=== PATIENT | female | born 1970 | race African-American/Black ===

== ENCOUNTER → 2017-01-22 | Outpatient (CLI) | payer BC ==
[~2017-01-22] MED LIST: ALPR0.5T PO; BIOT10004 PO; CLON0.1T PO; DILT240C59 PO; NEPVITT PO; OMEP20CA5 PO; [UNRECOGNIZED DRUG - CODE] IV; [UNRECOGNIZED DRUG - CODE] PO
[2017-01-22 17:22] LABS: Urine Bilirubin Negative (Negative); Urine Blood Negative /uL (Negative); Urine Color Yellow (Yellow); Urine Glucose Normal (Normal); Urine Ketone Negative (Negative); Urine Nitrite Negative (Negative); Urine RBC 5 /hpf (0 - 4); Urine Squamous Epithelial Cell FEW /hpf (<5); Urine Urobilinogen Normal (Negative); Urine pH 5.5 (5.0-8.0)
[2017-01-22 17:23] LABS: Albumin 3.5 g/dL (3.4-5.0); BUN/Creatinine Ratio 12.7; Bilirubin, Total 0.4 mg/dL (0.2-1.0); Calcium 9.1 mg/dL (8.5-10.1); Potassium 3.6 mmol/L (3.5-5.1); Total Protein 7.8 g/dL (6.4-8.2)
[2017-01-22 17:26] LABS: Basophils # (auto) 0.1 uL; Basophils % (auto) 0.9 % (0.0-2.0); DEFINITIVE VIEW TRANSMISSION; Eosinophils # (auto) 0.3 uL; Eosinophils % (auto) 4.3 % (0.0-7.0); Hematocrit 43.5 % (36.0-46.0); Hemoglobin 14.3 g/dL (12.2-16.2); Lymphocytes # (auto) 1.2 uL; Lymphocytes % (auto) 18.3 % (10.0-50.0); Mean Corpuscular Hemoglobin 25.6 pg (28.0-32.0); Mean Corpuscular Hgb Conc. 32.8 g/dL (32.0-36.0); Mean Corpuscular Volume 78.1 fL (80.0-100.0); Mean Platelet Volume 10.1 fL (7.4-10.4); Monocytes # (auto) 0.9 uL; Neutrophils % (auto) 62.5 % (37.0-80.0); Platelet Count (auto) 315 10^3/uL (140-450); Red Cell Distribution Width 14.8 % (11.6-16.0); SUSPECT VIEW TRANSMISSION; White Blood Cell 6.4 10^3/uL (4.4-10.8)
== END | disposition home or self-care (01) ==
LOC: LAB 16:48
PROVIDERS: ATTEND Internal Medicine
DX: N28.9 Disorder of kidney and ureter, unspecified (principal); D69.6 Thrombocytopenia, unspecified
CPT/HCPCS: 36415; 80053; 81001; 83615; 85025

== ENCOUNTER → 2017-03-06 | Outpatient (CLI) | payer BC ==
[2017-03-06 12:33] LABS: Basophils # (auto) 0 uL; Basophils % (auto) 0.5 % (0.0-2.0); DEFINITIVE VIEW TRANSMISSION; Eosinophils # (auto) 0.2 uL; Eosinophils % (auto) 4.7 % (0.0-7.0); Hematocrit 41.5 % (36.0-46.0); Hemoglobin 13.3 g/dL (12.2-16.2); Lymphocytes # (auto) 0.9 uL; Mean Corpuscular Hgb Conc. 32.1 g/dL (32.0-36.0); Mean Corpuscular Volume 74.9 fL (80.0-100.0); Mean Platelet Volume 9.6 fL (7.4-10.4); Monocytes # (auto) 0.8 uL; Monocytes % (auto) 14.8 % (0.0-12.0); Neutrophils # (auto) 3.3 uL; Platelet Count (auto) 326 10^3/uL (140-450); Red Cell Distribution Width 15.1 % (11.6-16.0); White Blood Cell 5.2 10^3/uL (4.4-10.8)
[2017-03-06 12:51] LABS: Cholesterol 162 mg/dL (< 200); HDL Cholesterol 28 mg/dL (40-59); LDL Cholesterol 113 mg/dL (< 100); Triglycerides 162 mg/dL (< 150)
== END | disposition home or self-care (01) ==
LOC: LAB 11:36
DX: E09.2 Drug or chemical induced diabetes mellitus with kidney complications (principal); D72.822 Plasmacytosis
CPT/HCPCS: 36415; 80061; 83036; 84443; 85025

== ENCOUNTER → 2017-04-02 | Outpatient (CLI) | payer BC ==
[2017-04-02 13:52] LABS: Basophils # (auto) 0 uL; Basophils % (auto) 0.2 % (0.0-2.0); DEFINITIVE VIEW TRANSMISSION; Eosinophils # (auto) 0.3 uL; Eosinophils % (auto) 5.6 % (0.0-7.0); Hematocrit 43.9 % (36.0-46.0); Hemoglobin 13.9 g/dL (12.2-16.2); Lymphocytes # (auto) 0.9 uL; Lymphocytes % (auto) 16.9 % (10.0-50.0); Mean Corpuscular Hemoglobin 23.5 pg (28.0-32.0); Mean Corpuscular Hgb Conc. 31.6 g/dL (32.0-36.0); Mean Corpuscular Volume 74.3 fL (80.0-100.0); Mean Platelet Volume 10.2 fL (7.4-10.4); Monocytes # (auto) 0.6 uL; Monocytes % (auto) 10.5 % (0.0-12.0); Neutrophils # (auto) 3.7 uL; Neutrophils % (auto) 66.8 % (37.0-80.0); Platelet Count (auto) 368 10^3/uL (140-450); Red Cell Distribution Width 16.1 % (11.6-16.0); SUSPECT VIEW TRANSMISSION; White Blood Cell 5.5 10^3/uL (4.4-10.8)
[2017-04-02 14:05] LABS: Albumin 3.5 g/dL (3.4-5.0); BUN/Creatinine Ratio 16.5; Bilirubin, Total 0.4 mg/dL (0.2-1.0); Calcium 8.8 mg/dL (8.5-10.1); Potassium 3.9 mmol/L (3.5-5.1); Total Protein 8.3 g/dL (6.4-8.2)
== END | disposition home or self-care (01) ==
LOC: LAB 12:22
PROVIDERS: ATTEND Internal Medicine
DX: D69.6 Thrombocytopenia, unspecified (principal); N28.9 Disorder of kidney and ureter, unspecified
CPT/HCPCS: 36415; 80053; 83615; 85025

== ENCOUNTER → 2017-07-01 | Outpatient (CLI) | payer BC ==
[~2017-07-01] MED LIST changes: -OMEP20CA5 PO; +OMEP20CA74 PO
[2017-07-01 12:45] LABS: CONDITION Y; DEFINITIVE SEE PRINTOUT; Hematocrit 46.2 % (36.0-46.0); Hemoglobin 14.9 g/dL (12.2-16.2); Mean Corpuscular Hemoglobin 24.2 pg (28.0-32.0); Mean Corpuscular Hgb Conc. 32.2 g/dL (32.0-36.0); Mean Corpuscular Volume 75.2 fL (80.0-100.0); Platelet Count (auto) 340 10^3/uL (140-450); Red Cell Distribution Width 18.7 % (11.6-16.0); White Blood Cell 3.6 10^3/uL (4.4-10.8)
[2017-07-01 13:05] LABS: Urine Bilirubin Negative (Negative); Urine Blood Negative /uL (Negative); Urine Color Yellow (Yellow); Urine Glucose Normal (Normal); Urine Ketone Negative (Negative); Urine Mucus FEW (None Seen); Urine Nitrite Negative (Negative); Urine RBC 1 /hpf (0 - 4); Urine Squamous Epithelial Cell FEW /hpf (<5); Urine Urobilinogen Normal (Negative); Urine pH 5.5 (5.0-8.0)
[2017-07-01 13:10] LABS: Metamyelocytes % 0; Myelocytes % 0; Promyelocytes % 0; Reactive Lymphocytes 0
[2017-07-01 13:13] LABS: Albumin 3.6 g/dL (3.4-5.0); BUN/Creatinine Ratio 10.5; Bilirubin, Total 0.5 mg/dL (0.2-1.0); Potassium 3.6 mmol/L (3.5-5.1); Total Protein 8.2 g/dL (6.4-8.2)
[2017-07-01 14:47] LABS: Platelet Estimate Adequate
[2017-07-01 14:48] LABS: Hypochromia Moderate; Microcytosis Moderate
== END | disposition home or self-care (01) ==
LOC: LAB 11:54
PROVIDERS: ATTEND Internal Medicine
DX: D69.6 Thrombocytopenia, unspecified (principal); N28.9 Disorder of kidney and ureter, unspecified
CPT/HCPCS: 36415; 80053; 81001; 83615; 85007; 85027

== ENCOUNTER 2017-07-16 23:19 | Inpatient (IN) | payer BC ==
[~2017-07-16] VITALS: Ht 175.3 cm; Wt 117.7 kg
[2017-07-16 23:44] LABS: Basophils # (auto) 0 uL; Basophils % (auto) 0.3 % (0.0-2.0); CONDITION Y; DEFINITIVE SEE PRINTOUT; Eosinophils # (auto) 0.1 uL; Hematocrit 44.1 % (36.0-46.0); Hemoglobin 14.3 g/dL (12.2-16.2); Lymphocytes # (auto) 1.2 uL; Lymphocytes % (auto) 15.7 % (10.0-50.0); Mean Corpuscular Hemoglobin 23.9 pg (28.0-32.0); Mean Corpuscular Hgb Conc. 32.4 g/dL (32.0-36.0); Mean Corpuscular Volume 73.7 fL (80.0-100.0); Monocytes # (auto) 0.9 uL; Monocytes % (auto) 12.6 % (0.0-12.0); Neutrophils # (auto) 5.2 uL; Neutrophils % (auto) 70.4 % (37.0-80.0); Platelet Count (auto) 240 10^3/uL (140-450); Red Cell Distribution Width 17.3 % (11.6-16.0); White Blood Cell 7.4 10^3/uL (4.4-10.8)
[2017-07-16] MEDS ORDERED: ONDANSETRON HCL 4 MG/2 ML VIAL IV ONE (23:45)
[2017-07-16] MEDS ORDERED: HYDROmorphone HCL 2 MG/ML VL IV ONE (23:45)
[2017-07-17 00:01] LABS: Albumin 3.5 g/dL (3.4-5.0); Amylase 24 U/L (25-115); Anion Gap 10 (5-15); BUN/Creatinine Ratio 16.2; Blood Urea Nitrogen 12 mg/dL (7-18); Calcium 8.6 mg/dL (8.5-10.1); Carbon Dioxide 24 mmol/L (21-32); Chloride 107 mmol/L (98-107); GFR African American 108 mL/min; GFR Non-African American 89 mL/min; Glucose 128 mg/dL (74-106); Magnesium 2.2 mg/dL (1.6-2.6); Potassium 3.1 mmol/L (3.5-5.1); Sodium 141 mmol/L (136-145)
[2017-07-17 00:30] LABS: INR 0.97 (0.9-1.15); Partial Thromboplastin Time 23.8 sec (22.64-33.71); Prothrombin Time 10.6 sec (9.37-12.3)
[2017-07-17 00:40] LABS: Alkaline Phosphatase 89 U/L (45-117); Aspartate Aminotransferase 16 U/L (15-37); Bilirubin, Total 0.4 mg/dL (0.2-1.0); Total Protein 7.5 g/dL (6.4-8.2)
[2017-07-17] MEDS ORDERED: HYDROmorphone HCL 2 MG/ML VL IV ONE ×2 (01:45→04:15)
[2017-07-17] MEDS ORDERED: SODIUM CHLORIDE 0.9% 1,000 ML IV SCH (05:41)
[2017-07-17] MEDS ORDERED: ALPRAZolam 0.5 MG TAB PO PRN (05:45)
[2017-07-17] MEDS ORDERED: cloNIDine HCL 0.1 MG TAB PO PRN (05:45)
[2017-07-17] MEDS ORDERED: ONDANSETRON HCL 4 MG/2 ML VIAL IV PRN (05:45)
[2017-07-17] MEDS ORDERED: SODIUM CHLORIDE 0.9% 1,000 ML IV ONE (05:45)
[2017-07-17] MEDS ORDERED: POTASSIUM CHL 10% (20 MEQ/15ML) ORAL SOLN PO ONE (05:45)
[2017-07-17 08:00] VITALS: BP 108/66
[2017-07-17] MEDS ORDERED: BIOTIN 1000 MCG PO SCH (10:00)
[2017-07-17] MEDS: DILTIAZEM HCL 180MG ER CAP PO SCH (10:00)
[2017-07-17] MEDS: BIOTIN 1000 MCG PO SCH (10:00)
[2017-07-17] MEDS ORDERED: PRE1T PO (12:21)
[2017-07-17] MEDS ORDERED: MULTTAB99 PO (12:21)
[2017-07-17] MEDS ORDERED: ASPI81TA27 PO (12:21)
[2017-07-17] MEDS ORDERED: DILT180C68 PO (12:21)
[2017-07-17] MEDS ORDERED: HYDR-2651 PO (12:21)
[2017-07-17] MEDS ORDERED: IOHEXOL 300 MG/ML 100ML BOTTLE IJ ONE (15:10)
[2017-07-17] MEDS: methylPREDNISolone SOD SUCC 40 MG/ML VL IV SCH ×2 (15:20→21:52)
[2017-07-17] MEDS: HYDROmorphone HCL 2 MG/ML VL IV PRN ×2 (15:24→22:10)
[2017-07-17 17:20] VITALS: BP 110/71
[2017-07-17 21:20] VITALS: BP 127/81
[2017-07-18 03:36] LABS: Urine Bilirubin Negative (Negative); Urine Blood TRACE /uL (Negative); Urine Color Yellow (Yellow); Urine Glucose Normal (Normal); Urine Ketone Negative (Negative); Urine Nitrite Negative (Negative); Urine RBC <1 /hpf (0 - 4); Urine Squamous Epithelial Cell FEW /hpf (<5); Urine Urobilinogen Normal (Negative); Urine pH 5.5 (5.0-8.0)
[2017-07-18 05:09] VITALS: BP 155/96
[2017-07-18] MEDS: methylPREDNISolone SOD SUCC 40 MG/ML VL IV SCH ×3 (05:31→22:13)
[2017-07-18] MEDS: HYDROmorphone HCL 2 MG/ML VL IV PRN ×4 (05:32→22:13)
[2017-07-18] MEDS ORDERED: HYDR25TA4 PO (06:10)
[2017-07-18] MEDS ORDERED: CLON0.1T PO (06:10)
[2017-07-18 06:18] LABS: Basophils # (auto) 0 uL; Basophils % (auto) 0.1 % (0.0-2.0); CONDITION Y; DEFINITIVE SEE PRINTOUT; Eosinophils # (auto) 0 uL; Hematocrit 44.1 % (36.0-46.0); Hemoglobin 14.1 g/dL (12.2-16.2); Lymphocytes # (auto) 0.6 uL; Lymphocytes % (auto) 11.7 % (10.0-50.0); Mean Corpuscular Volume 74.7 fL (80.0-100.0); Mean Platelet Volume 10.5 fL (7.4-10.4); Monocytes # (auto) 0.2 uL; Monocytes % (auto) 3.9 % (0.0-12.0); Neutrophils # (auto) 4.3 uL; Neutrophils % (auto) 84.3 % (37.0-80.0); Platelet Count (auto) 255 10^3/uL (140-450); Red Cell Distribution Width 17.7 % (11.6-16.0); SUSPECT SEE PRINTOUT; White Blood Cell 5.1 10^3/uL (4.4-10.8)
[2017-07-18 06:44] LABS: Albumin 3.3 g/dL (3.4-5.0); BUN/Creatinine Ratio 14.1; Bilirubin, Total 0.4 mg/dL (0.2-1.0); Potassium 4.2 mmol/L (3.5-5.1); Total Protein 7.7 g/dL (6.4-8.2)
[2017-07-18 07:24] LABS: Large Platelets FEW; Platelet Estimate Adequate
[2017-07-18 07:25] LABS: Hypochromia Slight
[2017-07-18 08:00] VITALS: BP 159/86
[2017-07-18] MEDS ORDERED: LORazepam 2MG/ML-1ML VIAL IV ONE (08:15)
[2017-07-18 09:00] VITALS: BP 159/86
[2017-07-18] MEDS: BIOTIN 1000 MCG PO SCH (10:00)
[2017-07-18] MEDS: DILTIAZEM HCL 180MG ER CAP PO SCH (11:13)
[2017-07-18] MEDS: PANTOPRAZOLE 40 MG TAB PO SCH (11:14)
[2017-07-18] MEDS ORDERED: cloNIDine HCL 0.1 MG TAB PO PRN (11:45)
[2017-07-18] MEDS ORDERED: HCTZ 25 MG TAB PO ONE (11:45)
[2017-07-18 12:00] VITALS: BP 157/78
[2017-07-18 16:43] VITALS: BP 139/66
[2017-07-18 22:00] VITALS: BP 136/72
[2017-07-19] MEDS: HYDROmorphone HCL 2 MG/ML VL IV PRN ×2 (04:52→13:34)
[2017-07-19 05:00] VITALS: BP 167/83
[2017-07-19 06:02] LABS: Basophils # (auto) 0 uL; CONDITION Y; DEFINITIVE SEE PRINTOUT; Eosinophils # (auto) 0 uL; Hematocrit 42.7 % (36.0-46.0); Hemoglobin 13.8 g/dL (12.2-16.2); Mean Corpuscular Hemoglobin 23.9 pg (28.0-32.0); Mean Corpuscular Hgb Conc. 32.2 g/dL (32.0-36.0); Mean Corpuscular Volume 74.2 fL (80.0-100.0); Mean Platelet Volume 10.2 fL (7.4-10.4); Monocytes # (auto) 0.6 uL; Monocytes % (auto) 8.6 % (0.0-12.0); Neutrophils # (auto) 5.2 uL; Neutrophils % (auto) 76.4 % (37.0-80.0); Platelet Count (auto) 256 10^3/uL (140-450); Red Cell Distribution Width 17.4 % (11.6-16.0); SUSPECT SEE PRINTOUT; White Blood Cell 6.8 10^3/uL (4.4-10.8)
[2017-07-19] MEDS: methylPREDNISolone SOD SUCC 40 MG/ML VL IV SCH ×3 (06:14→22:00)
[2017-07-19 06:15] LABS: BUN/Creatinine Ratio 14.8; Calcium 8.6 mg/dL (8.5-10.1); Potassium 3.9 mmol/L (3.5-5.1)
[2017-07-19] MEDS: DILTIAZEM HCL 180MG ER CAP PO SCH (07:25)
[2017-07-19 07:43] VITALS: BP 140/71
[2017-07-19] MEDS: BIOTIN 1000 MCG PO SCH (09:58)
[2017-07-19] MEDS: PANTOPRAZOLE 40 MG TAB PO SCH (09:58)
[2017-07-19] MEDS: HCTZ 25 MG TAB PO SCH (09:58)
[2017-07-19] MEDS ORDERED: ATROPINE SULF 0.5 MG/5ML SYR IV ONE (11:30)
[2017-07-19 12:00] VITALS: BP 178/96
[2017-07-19] MEDS: LORazepam 2MG/ML-1ML VIAL IV PRN ×2 (12:12→22:08)
[2017-07-19] MEDS ORDERED: amLODIPine BESYLATE 5 MG TAB PO ONE (15:45)
[2017-07-19 16:03] VITALS: BP 151/87
[2017-07-19 19:53] VITALS: BP 135/82
[2017-07-19 20:00] VITALS: BP 135/82
[2017-07-19] MEDS: HYDROcodone-ACET 5/325MG TAB PO PRN (22:08)
[2017-07-20 00:09] VITALS: BP 152/81
[2017-07-20 04:09] VITALS: BP 135/73
[2017-07-20] MEDS: methylPREDNISolone SOD SUCC 40 MG/ML VL IV SCH (06:00)
[2017-07-20 08:00] VITALS: BP 165/108
[2017-07-20] MEDS: BIOTIN 1000 MCG PO SCH (10:00)
[2017-07-20] MEDS ORDERED: amLODIPine BESYLATE 5 MG TAB PO SCH (10:00)
[2017-07-20] MEDS: HCTZ 25 MG TAB PO SCH (10:17)
[2017-07-20] MEDS: PANTOPRAZOLE 40 MG TAB PO SCH (10:18)
[2017-07-20] MEDS: HYDROcodone-ACET 5/325MG TAB PO PRN (11:05)
[2017-07-20 11:18] VITALS: BP 149/101
[2017-07-20 12:00] VITALS: BP 140/88
== END 2017-07-20 13:38 | disposition home or self-care (01) | DRG 841 ==
LOC: ER 23:19 → OVERFLOW 23:20 → WEST WING 07-17 08:41 → DOU IN ICU 07-19 12:30
PROVIDERS: ADMIT Family Medicine; ATTEND Family Medicine
DX: D47.Z2 Castleman disease (principal); I44.2 Atrioventricular block, complete; M35.00 Sjogren syndrome, unspecified; I10 Essential (primary) hypertension; K29.70 Gastritis, unspecified, without bleeding; N83.209 Unspecified ovarian cyst, unspecified side; R74.8 Abnormal levels of other serum enzymes; F41.9 Anxiety disorder, unspecified; R00.1 Bradycardia, unspecified; E66.9 Obesity, unspecified; Z80.8 Family history of malignant neoplasm of other organs or systems; Z82.49 Family history of ischemic heart disease and other diseases of the circulatory system; Z92.21 Personal history of antineoplastic chemotherapy; Z88.6 Allergy status to analgesic agent; Z88.0 Allergy status to penicillin; Z79.899 Other long term (current) drug therapy; Z98.51 Tubal ligation status; Z68.38 Body mass index [BMI] 38.0-38.9, adult
CPT/HCPCS: 36415; 71250; 71260; 74176; 74177; 76856; 78226; 80048; 80053; 81001; 82150; 82670; 83001; 83002; 83690; 83735; 84484; 84702; 85025; 85610; 85652; 85730; 86141; 86304; 87081; 93005; 96374; 96375; 96376; J0461; J2405

== ENCOUNTER → 2017-10-02 | Outpatient (CLI) | payer BC ==
[~2017-10-02] MED LIST changes: -ALPR0.5T PO; +ASPI81TA27 PO; +DILT180C68 PO; -DILT240C59 PO; +HYDR25TA4 PO; +MULTTAB99 PO; -NEPVITT PO; -OMEP20CA74 PO; +PRE1T PO; -[UNRECOGNIZED DRUG - CODE] IV
[2017-10-02 15:06] LABS: Basophils # (auto) 0 uL; Basophils % (auto) 0.6 % (0.0-2.0); Eosinophils # (auto) 0.2 uL; Nucleated Red Blood Cells % 0.1 %
[2017-10-02 15:09] LABS: Eosinophils % (auto) 2.6 % (0.0-7.0); Hematocrit 44.5 % (36.0-46.0); Hemoglobin 14.6 g/dL (12.2-16.2); Lymphocytes # (auto) 1.2 uL; Lymphocytes % (auto) 18.1 % (10.0-50.0); Mean Corpuscular Hemoglobin 24.3 pg (28.0-32.0); Mean Corpuscular Hgb Conc. 32.9 g/dL (32.0-36.0); Mean Corpuscular Volume 73.7 fL (80.0-100.0); Monocytes % (auto) 14.7 % (0.0-12.0); Neutrophils # (auto) 4.3 uL; Platelet Count (auto) 138 10^3/uL (140-450); Red Blood Cells 6.03 10^6/uL (4.0-5.20); Red Cell Distribution Width 17.4 % (11.8-14.3); White Blood Cell 6.6 10^3/uL (4.4-10.8)
[2017-10-02 16:11] LABS: Leuteinizing Hormone 12.1 IU/L; Protein, Urine 20.9 mg/dL (0.0-11.9)
[2017-10-02 16:12] LABS: Follicle Stimulating Hormone 4.8 IU/L (SEE BELOW)
== END | disposition home or self-care (01) ==
LOC: LAB 14:16
PROVIDERS: ATTEND Obstetrics & Gynecology
DX: N28.9 Disorder of kidney and ureter, unspecified (principal); E09.2 Drug or chemical induced diabetes mellitus with kidney complications; N95.1 Menopausal and female climacteric states; D69.6 Thrombocytopenia, unspecified
CPT/HCPCS: 36415; 82570; 82670; 83001; 83002; 83615; 84156; 84403; 84443; 85025

== ENCOUNTER 2017-12-06 15:51 | Inpatient (IN) | payer BC ==
[~2017-12-06] VITALS: Ht 175.3 cm; Wt 113.4 kg
[2017-12-06 16:24] LABS: Eosinophils # (auto) 0.3 uL; Hemoglobin 12.3 g/dL (12.2-16.2); Neutrophils # (auto) 6.8 uL; Nucleated Red Blood Cells % 0.1 %; White Blood Cell 9.7 10^3/uL (4.4-10.8)
[2017-12-06 16:26] LABS: Basophils # (auto) 0.1 uL; Basophils % (auto) 0.6 % (0.0-2.0); Eosinophils % (auto) 2.7 % (0.0-7.0); Hematocrit 38.4 % (36.0-46.0); Lymphocytes # (auto) 1.7 uL; Mean Corpuscular Hemoglobin 23.6 pg (28.0-32.0); Mean Corpuscular Volume 73.8 fL (80.0-100.0); Monocytes % (auto) 10.1 % (0.0-12.0); Neutrophils % (auto) 69.6 % (37.0-80.0); Platelet Count (auto) 199 10^3/uL (140-450); Red Cell Distribution Width 18.7 % (11.8-14.3)
[2017-12-06 16:36] LABS: Albumin 3.7 g/dL (3.4-5.0); Bilirubin, Total 0.5 mg/dL (0.2-1.0); Calcium 8.9 mg/dL (8.5-10.1); Potassium 3.7 mmol/L (3.5-5.1); Total Protein 8.3 g/dL (6.4-8.2)
[2017-12-06] MEDS ORDERED: DEXAMETHASONE SOD PHOS 4 MG/1ML SDV INJ IV ONE (16:45)
[2017-12-06] MEDS ORDERED: PROMETHAZINE HCL 25 MG/ML 1ML IV PRN (16:45)
[2017-12-06] MEDS ORDERED: MEPERIDINE HCL (50 MG/ML) 1 ML VIAL IV ONE (16:45)
[2017-12-06 16:53] LABS: Magnesium 2.3 mg/dL (1.6-2.6)
[2017-12-06 18:08] LABS: Beta HCG, Quantitative < 1 mlU/mL (1-3); Thyroid Stimulating Hormone 2.08 uIU/mL (0.358-3.74)
[2017-12-06] MEDS ORDERED: MEPERIDINE HCL (50 MG/ML) 1 ML VIAL IM ONE (19:00)
[2017-12-06 19:40] VITALS: BP 121/72
== END 2017-12-06 20:27 | disposition home or self-care (01) | DRG 841 ==
LOC: ER 16:08 → TELE 16:09
PROVIDERS: ADMIT Nurse Practitioner; ATTEND Nurse Practitioner
DX: D47.Z2 Castleman disease (principal); J98.11 Atelectasis; I10 Essential (primary) hypertension; K40.90 Unilateral inguinal hernia, without obstruction or gangrene, not specified as recurrent; K42.9 Umbilical hernia without obstruction or gangrene; Z82.49 Family history of ischemic heart disease and other diseases of the circulatory system
CPT/HCPCS: 36415; 71046; 74176; 80053; 83690; 83735; 84443; 84702; 85025; 96374; 96375; J1100

== ENCOUNTER → 2017-12-10 | Outpatient (CLI) | payer BC ==
[~2017-12-10] MED LIST changes: +AMLO10TA2 PO; +OMEP20CA74 PO; +PRE5T PO; +SPECTAB57 PO
[2017-12-10 17:15] LABS: Albumin 3.7 g/dL (3.4-5.0); BUN/Creatinine Ratio 15.6; Calcium 8.9 mg/dL (8.5-10.1); Potassium 3.6 mmol/L (3.5-5.1)
[2017-12-10 17:18] LABS: Bilirubin, Total 0.4 mg/dL (0.2-1.0); Eosinophils # (auto) 0.1 uL; Monocytes # (auto) 1.1 uL; Neutrophils # (auto) 14.1 uL; Red Cell Distribution Width 18.7 % (11.8-14.3); Total Protein 8.6 g/dL (6.4-8.2)
[2017-12-10 17:20] LABS: Basophils # (auto) 0 uL; Basophils % (auto) 0.3 % (0.0-2.0); Eosinophils % (auto) 0.6 % (0.0-7.0); Hematocrit 41.3 % (36.0-46.0); Hemoglobin 13.1 g/dL (12.2-16.2); Lymphocytes # (auto) 1.5 uL; Lymphocytes % (auto) 8.9 % (10.0-50.0); Mean Corpuscular Hemoglobin 23.5 pg (28.0-32.0); Mean Corpuscular Hgb Conc. 31.8 g/dL (32.0-36.0); Mean Corpuscular Volume 73.9 fL (80.0-100.0); Monocytes % (auto) 6.5 % (0.0-12.0); Neutrophils % (auto) 83.7 % (37.0-80.0); Nucleated Red Blood Cells % 0.2 %; Platelet Count (auto) 257 10^3/uL (140-450); Red Blood Cells 5.59 10^6/uL (4.0-5.20); White Blood Cell 16.8 10^3/uL (4.4-10.8)
== END | disposition home or self-care (01) ==
LOC: LAB 16:36
PROVIDERS: ATTEND Internal Medicine
DX: D72.822 Plasmacytosis (principal)
CPT/HCPCS: 36415; 80053; 85025

== ENCOUNTER 2018-01-20 09:13 | Inpatient (IN) | payer BC ==
[~2018-01-20] VITALS: Ht 175.3 cm; Wt 101.2 kg
[~2018-01-20 09:13] MED LIST changes: -AMLO10TA2 PO; -OMEP20CA74 PO; -PRE5T PO; -SPECTAB57 PO
[2018-01-20] MEDS ORDERED: SODIUM CHLORIDE 0.9% 1,000 ML IV SCH (11:00)
[2018-01-20] MEDS ORDERED: OSELTAMIVIR 75 MG CAP PO ONE (11:00)
[2018-01-20] MEDS ORDERED: methylPREDNISolone SOD SUCC 40 MG/ML VL IV ONE (11:00)
[2018-01-20] MEDS ORDERED: PANTOPRAZOLE 40 MG/10 ML VIAL IV ONE (11:00)
[2018-01-20] MEDS ORDERED: ACETAMINOPHEN 500 MG TAB PO PRN (11:00)
[2018-01-20] MEDS ORDERED: cefTRIAXone 1GM/10ml IVPUSH 10 ML IV ONE (11:00)
[2018-01-20] MEDS ORDERED: AZITHROMYCIN 500MG/ 250ML 250 ML IV ONE (11:00)
[2018-01-20] MEDS ORDERED: AMLO10TA2 PO (11:30)
[2018-01-20] MEDS ORDERED: OMEP20CA74 PO (11:30)
[2018-01-20] MEDS ORDERED: PRE5T PO (11:30)
[2018-01-20] MEDS ORDERED: SPECTAB57 PO (11:31)
[2018-01-20] MEDS: KETOROLAC TROMETH 30 MG/ML 1ML VIAL IV PRN ×2 (11:32→18:27)
[2018-01-20] MEDS: ONDANSETRON HCL 4 MG/2 ML VIAL IV PRN ×2 (11:34→18:27)
[2018-01-20 12:00] LABS: Basophils # (auto) 0.1 uL; Basophils % (auto) 0.5 % (0.0-2.0); Eosinophils # (auto) 0.1 uL; Eosinophils % (auto) 0.4 % (0.0-7.0); Hematocrit 37.9 % (36.0-46.0); Hemoglobin 11.9 g/dL (12.2-16.2); Lymphocytes # (auto) 1.4 uL; Lymphocytes % (auto) 8.9 % (10.0-50.0); Mean Corpuscular Hemoglobin 21.8 pg (28.0-32.0); Mean Corpuscular Hgb Conc. 31.4 g/dL (32.0-36.0); Mean Corpuscular Volume 69.6 fL (80.0-100.0); Monocytes # (auto) 1.6 uL; Monocytes % (auto) 10.1 % (0.0-12.0); Neutrophils # (auto) 12.9 uL; Neutrophils % (auto) 80.1 % (37.0-80.0); Nucleated Red Blood Cells % 0.1 %; Platelet Count (auto) 266 10^3/uL (140-450); Red Blood Cells 5.45 10^6/uL (4.0-5.20); Red Cell Distribution Width 18.4 % (11.8-14.3); White Blood Cell 16.1 10^3/uL (4.4-10.8)
[2018-01-20 12:14] LABS: INR 1.02 (0.9-1.15); Partial Thromboplastin Time 23.7 sec (22.64-33.71); Prothrombin Time 11.1 sec (9.37-12.3)
[2018-01-20 12:39] LABS: Albumin 2.4 g/dL (3.4-5.0); BUN/Creatinine Ratio 11.4; Bilirubin, Total 0.5 mg/dL (0.2-1.0); Calcium 8.3 mg/dL (8.5-10.1); Potassium 3.2 mmol/L (3.5-5.1); Total Protein 7.6 g/dL (6.4-8.2)
[2018-01-20 13:00] VITALS: BP 105/58
[2018-01-20 16:30] VITALS: BP 101/56
[2018-01-20] MEDS ORDERED: POTASSIUM CHL 20 Meq TABLET PO ONE (16:30)
[2018-01-20] MEDS: OSELTAMIVIR 75 MG CAP PO SCH (21:25)
[2018-01-20 21:48] VITALS: BP 118/80
[2018-01-20 23:11] LABS: Urine Amorphous Crystal FEW /hpf (None Seen); Urine Bacteria FEW /hpf (None Seen); Urine Blood Negative /uL (Negative); Urine Hyaline Cast MOD /lpf (0 - 2); Urine Mucus FEW (None Seen); Urine Specific Gravity 1.021 (1.001-1.035); Urine WBC 1 /hpf (0 - 5)
[2018-01-21] VITALS (7 sets, daily range): BP systolic 112–122; BP diastolic 68–81
[2018-01-21] MEDS: KETOROLAC TROMETH 30 MG/ML 1ML VIAL IV PRN ×3 (01:31→17:23)
[2018-01-21] MEDS: predniSONE 5 MG TAB PO SCH (10:00)
[2018-01-21] MEDS ORDERED: methylPREDNISolone SOD SUCC 40 MG/ML VL IV ONE (10:00)
[2018-01-21] MEDS ORDERED: PANTOPRAZOLE 40 MG TAB PO SCH (10:00)
[2018-01-21] MEDS ORDERED: PANTOPRAZOLE 40 MG/10 ML VIAL IV SCH (10:00)
[2018-01-21] MEDS: OSELTAMIVIR 75 MG CAP PO SCH ×2 (10:00→20:59)
[2018-01-21] MEDS: cefTRIAXone 1GM/10ml IVPUSH 10 ML IV SCH (10:03)
[2018-01-21] MEDS: AZITHROMYCIN 500MG/ 250ML 250 ML IV SCH (10:05)
[2018-01-21] MEDS: ONDANSETRON HCL 4 MG/2 ML VIAL IV PRN (10:25)
[2018-01-21] MEDS ORDERED: PANTOPRAZOLE 40 MG TAB PO ONE (10:30)
[2018-01-22 04:33] VITALS: BP 130/88
[2018-01-22 07:05] LABS: Basophils # (auto) 0 uL; Basophils % (auto) 0.2 % (0.0-2.0); Eosinophils # (auto) 0 uL; Hemoglobin 11.2 g/dL (12.2-16.2); Red Blood Cells 5.09 10^6/uL (4.0-5.20)
[2018-01-22 07:10] LABS: Eosinophils % (auto) 0.1 % (0.0-7.0); Hematocrit 35.6 % (36.0-46.0); Lymphocytes # (auto) 1.4 uL; Lymphocytes % (auto) 5.9 % (10.0-50.0); Mean Corpuscular Hemoglobin 22.1 pg (28.0-32.0); Mean Corpuscular Hgb Conc. 31.5 g/dL (32.0-36.0); Mean Corpuscular Volume 70.1 fL (80.0-100.0); Monocytes # (auto) 1.6 uL; Monocytes % (auto) 6.6 % (0.0-12.0); Neutrophils # (auto) 21.3 uL; Neutrophils % (auto) 87.2 % (37.0-80.0); Nucleated Red Blood Cells % 0.1 %; Platelet Count (auto) 205 10^3/uL (140-450); Red Cell Distribution Width 18.6 % (11.8-14.3); White Blood Cell 24.4 10^3/uL (4.4-10.8)
[2018-01-22 07:11] LABS: BUN/Creatinine Ratio 13.8; Calcium 8.3 mg/dL (8.5-10.1); Magnesium 2.8 mg/dL (1.6-2.6); Potassium 4.1 mmol/L (3.5-5.1)
[2018-01-22 08:00] VITALS: BP 125/71
[2018-01-22] MEDS: ONDANSETRON HCL 4 MG/2 ML VIAL IV PRN (09:12)
[2018-01-22] MEDS: cefTRIAXone 1GM/10ml IVPUSH 10 ML IV SCH (09:42)
[2018-01-22] MEDS: PANTOPRAZOLE 40 MG TAB PO SCH (10:01)
[2018-01-22] MEDS: AZITHROMYCIN 500MG/ 250ML 250 ML IV SCH (10:01)
[2018-01-22] MEDS: predniSONE 5 MG TAB PO SCH (10:01)
[2018-01-22] MEDS: SODIUM CHLORIDE 0.9% 1,000 ML IV SCH ×2 (10:02→23:05)
[2018-01-22 12:08] VITALS: BP 104/64
[2018-01-22] MEDS: HYDROcodone-ACET 5/325MG TAB PO PRN (12:47)
[2018-01-22 18:00] VITALS: BP 121/78
[2018-01-22 21:30] VITALS: BP 126/77
[2018-01-23 05:00] VITALS: BP 120/76
[2018-01-23 07:26] LABS: Hematocrit 34.9 % (36.0-46.0); Hemoglobin 10.9 g/dL (12.2-16.2); Mean Corpuscular Hgb Conc. 31.3 g/dL (32.0-36.0); Mean Corpuscular Volume 70.1 fL (80.0-100.0); Platelet Count (auto) 222 10^3/uL (140-450); Red Blood Cells 4.98 10^6/uL (4.0-5.20); Red Cell Distribution Width 18.9 % (11.8-14.3); White Blood Cell 20.9 10^3/uL (4.4-10.8)
[2018-01-23 07:39] LABS: BUN/Creatinine Ratio 17.6; Potassium 3.7 mmol/L (3.5-5.1)
[2018-01-23 07:44] LABS: Basophils % (manual) 0 (0.0-2.0); Blast Cells 0; Eosinophils % (manual) 0 (0-7); Metamyelocytes % 0; Myelocytes % 0; Promyelocytes % 0; Reactive Lymphocytes 0
[2018-01-23 08:00] VITALS: BP 98/57
[2018-01-23 08:12] LABS: Band Neutrophils % (manual) 2; Lymphocytes % (manual) 2 (10.0-50.0); Monocytes % (manual) 12 (0-12)
[2018-01-23 09:00] VITALS: BP 98/57
[2018-01-23] MEDS: cefTRIAXone 1GM/10ml IVPUSH 10 ML IV SCH (09:00)
[2018-01-23] MEDS: AZITHROMYCIN 500MG/ 250ML 250 ML IV SCH (10:00)
[2018-01-23] MEDS: HYDROcodone-ACET 5/325MG TAB PO PRN (10:35)
[2018-01-23] MEDS: predniSONE 5 MG TAB PO SCH (10:36)
[2018-01-23] MEDS: PANTOPRAZOLE 40 MG TAB PO SCH (10:36)
[2018-01-23] MEDS ORDERED: DOXYCYCLINE 100 MG TAB/CAP PO ONE (10:45)
[2018-01-23] MEDS: SODIUM CHLORIDE 0.9% 1,000 ML IV SCH (12:25)
[2018-01-23 13:00] VITALS: BP 103/62
[2018-01-23 13:40] VITALS: BP 98/57
== END 2018-01-23 14:34 | disposition home or self-care (01) | DRG 871 ==
LOC: TELE-CENTR 09:13 → CENTRAL 01-23
PROVIDERS: ADMIT Internal Medicine; ATTEND Internal Medicine
DX: A41.2 Sepsis due to unspecified staphylococcus (principal); J15.211 Pneumonia due to Methicillin susceptible Staphylococcus aureus; N17.0 Acute kidney failure with tubular necrosis; D47.Z2 Castleman disease; E86.0 Dehydration; E66.9 Obesity, unspecified; I10 Essential (primary) hypertension; Z88.0 Allergy status to penicillin; Z88.5 Allergy status to narcotic agent
CPT/HCPCS: 36415; 71046; 80048; 80053; 81001; 83735; 85007; 85025; 85027; 85610; 85730; 87040; 87070; 87077; 87186; 87205; 87804; C9113; J1885; J2405

== ENCOUNTER 2018-01-25 06:09 | Inpatient (IN) | payer BC ==
[~2018-01-25] VITALS: Ht 175.3 cm; Wt 114.7 kg
[~2018-01-25 06:09] MED LIST changes: +AMLO10TA2 PO; -ASPI81TA27 PO; -BIOT10004 PO; -CLON0.1T PO; -DILT180C68 PO; -MULTTAB99 PO; +OMEP20CA74 PO; -PRE1T PO; +PRE5T PO; +SPECTAB57 PO
[2018-01-25 07:04] LABS: Hemoglobin 12.1 g/dL (12.2-16.2); Mean Corpuscular Hemoglobin 21.9 pg (28.0-32.0); Mean Corpuscular Volume 70.4 fL (80.0-100.0); Platelet Count (auto) 260 10^3/uL (140-450); Red Blood Cells 5.53 10^6/uL (4.0-5.20); Red Cell Distribution Width 18.9 % (11.8-14.3)
[2018-01-25 07:08] LABS: Basophils % (manual) 0 (0.0-2.0); Blast Cells 0; Eosinophils % (manual) 0 (0-7); Metamyelocytes % 0; Myelocytes % 0; Promyelocytes % 0; Reactive Lymphocytes 0
[2018-01-25] MEDS ORDERED: SODIUM CHLORIDE 0.9% 1,000 ML IVB ONE (07:32)
[2018-01-25 07:37] LABS: Albumin 2.2 g/dL (3.4-5.0); Anion Gap 8 (5-15); Blood Urea Nitrogen 13 mg/dL (7-18); Calcium 8.2 mg/dL (8.5-10.1); Carbon Dioxide 26 mmol/L (21-32); Chloride 106 mmol/L (98-107); Glucose 84 mg/dL (74-106); Lipase 82 U/L (73-393); Magnesium 1.7 mg/dL (1.6-2.6); Potassium 3.9 mmol/L (3.5-5.1); Sodium 140 mmol/L (136-145)
[2018-01-25 07:39] LABS: Alanine Aminotransferase 13 U/L (13-56); Amylase 31 U/L (25-115); Aspartate Aminotransferase 22 U/L (15-37); GFR African American 70 mL/min; GFR Non-African American 58 mL/min
[2018-01-25 07:45] LABS: Alkaline Phosphatase 206 U/L (45-117); Bilirubin, Total 0.4 mg/dL (0.2-1.0)
[2018-01-25] MEDS ORDERED: MEPERIDINE HCL (50 MG/ML) 1 ML VIAL IV ONE (07:45)
[2018-01-25 07:54] LABS: Band Neutrophils % (manual) 3; Lymphocytes % (manual) 12 (10.0-50.0); Monocytes % (manual) 8 (0-12)
[2018-01-25] MEDS: PROMETHAZINE HCL 25 MG/ML 1ML IV PRN ×4 (08:10→21:47)
[2018-01-25] MEDS ORDERED: ceFAZolin 1GM 2 GM in D5W 5% 100 ML IV ONE (09:15)
[2018-01-25] MEDS ORDERED: methylPREDNISolone SOD SUCC 40 MG/ML VL IV SCH (10:00)
[2018-01-25] MEDS ORDERED: metroNIDAZOLE 500 MG TAB PO ONE (10:00)
[2018-01-25] MEDS ORDERED: MORPHINE SULFATE 4 MG/ML SYR/VIAL IV PRN (11:00)
[2018-01-25] MEDS ORDERED: ALBUTEROL SULF 2.5 MG/0.5ML(0.5%) NEB SOLN NEB PRN (11:00)
[2018-01-25] MEDS ORDERED: LEVOFLOXACIN 500MG 100 ML IV ONE (11:00)
[2018-01-25] MEDS ORDERED: TEMAZEPAM 15 MG CAP PO PRN (11:00)
[2018-01-25] MEDS ORDERED: LORazepam 0.5 MG TAB PO PRN (11:00)
[2018-01-25] MEDS ORDERED: LACTULOSE 20Gm/30ML SOLN PO PRN (11:00)
[2018-01-25] MEDS ORDERED: NITROGLYCERIN 0.4 MG SL TAB SL PRN (11:00)
[2018-01-25] MEDS: SODIUM CHLORIDE 0.9% 1,000 ML IV SCH ×2 (11:06→16:00)
[2018-01-25] MEDS ORDERED: PANTOPRAZOLE 40 MG TAB PO ONE (11:15)
[2018-01-25] MEDS: ALBUTEROL SULF 2.5 MG/0.5ML(0.5%) NEB SOLN NEB SCH ×2 (11:15→18:55)
[2018-01-25] MEDS ORDERED: ENOXAPARIN SOD 40 MG/0.4 ML SYRINGE SC ONE (11:15)
[2018-01-25] MEDS: ceFAZolin 1GM/50ML 50 ML IV SCH ×2 (13:19→21:19)
[2018-01-25] MEDS: HYDROcodone-ACET 5/325MG TAB PO PRN (13:39)
[2018-01-25 13:57] VITALS: BP 142/92
[2018-01-25 16:00] VITALS: BP 153/90
[2018-01-25] MEDS: MORPHINE SULFATE 4 MG/ML SYR/VIAL IV PRN (17:48)
[2018-01-25] MEDS: ACETAMINOPHEN 500 MG TAB PO PRN (21:18)
[2018-01-25] MEDS: metroNIDAZOLE 500 MG TAB PO SCH (21:45)
[2018-01-25 22:02] VITALS: BP 148/86
[2018-01-26] VITALS (7 sets, daily range): BP systolic 137–147; BP diastolic 81–89
[2018-01-26] MEDS: MORPHINE SULFATE 4 MG/ML SYR/VIAL IV PRN ×4 (02:04→23:26)
[2018-01-26] MEDS: PROMETHAZINE HCL 25 MG/ML 1ML IV PRN ×4 (02:04→23:27)
[2018-01-26] MEDS: metroNIDAZOLE 500 MG TAB PO SCH (05:24)
[2018-01-26] MEDS: ceFAZolin 1GM/50ML 50 ML IV SCH ×3 (05:25→21:38)
[2018-01-26] MEDS: SODIUM CHLORIDE 0.9% 1,000 ML IV SCH (05:31)
[2018-01-26 07:06] LABS: Basophils # (auto) 0.1 uL; Basophils % (auto) 0.3 % (0.0-2.0); Eosinophils # (auto) 0 uL
[2018-01-26 07:09] LABS: Hematocrit 32.3 % (36.0-46.0); Hemoglobin 10.1 g/dL (12.2-16.2); Lymphocytes # (auto) 1.5 uL; Mean Corpuscular Hemoglobin 21.6 pg (28.0-32.0); Mean Corpuscular Hgb Conc. 31.4 g/dL (32.0-36.0); Mean Corpuscular Volume 68.8 fL (80.0-100.0); Monocytes # (auto) 1.6 uL; Monocytes % (auto) 6.3 % (0.0-12.0); Neutrophils # (auto) 22.6 uL; Neutrophils % (auto) 87.4 % (37.0-80.0); Nucleated Red Blood Cells % 0.1 %; Platelet Count (auto) 218 10^3/uL (140-450); Red Blood Cells 4.69 10^6/uL (4.0-5.20); Red Cell Distribution Width 18.9 % (11.8-14.3); White Blood Cell 25.9 10^3/uL (4.4-10.8)
[2018-01-26 07:28] LABS: Calcium 7.9 mg/dL (8.5-10.1); Potassium 4.1 mmol/L (3.5-5.1)
[2018-01-26 07:31] LABS: Albumin 1.9 g/dL (3.4-5.0); BUN/Creatinine Ratio 14.1
[2018-01-26 07:34] LABS: Bilirubin, Total 0.3 mg/dL (0.2-1.0); Total Protein 6.4 g/dL (6.4-8.2)
[2018-01-26] MEDS ORDERED: FUROSEMIDE 20 MG/2 ML VIAL IV ONE (10:00)
[2018-01-26] MEDS ORDERED: ENOXAPARIN SOD 40 MG/0.4 ML SYRINGE SC SCH (10:00)
[2018-01-26] MEDS ORDERED: methylPREDNISolone SOD SUCC 40 MG/ML VL IV ONE (11:00)
[2018-01-26] MEDS: LEVOFLOXACIN 500MG 100 ML IV SCH (11:26)
[2018-01-26] MEDS: PANTOPRAZOLE 40 MG TAB PO SCH (11:26)
[2018-01-26 11:32] LABS: Urine Bacteria NONE SEEN /hpf (None Seen); Urine Blood Negative /uL (Negative); Urine Mucus FEW (None Seen); Urine Specific Gravity 1.016 (1.001-1.035); Urine WBC 2 /hpf (0 - 5)
[2018-01-26] MEDS ORDERED: BUMETANIDE (0.25MG/ML) 4 ML VIAL IV ONE (12:00)
[2018-01-26] MEDS ORDERED: BUMETANIDE (0.25 MG/ML) INJ 10ML IV ONE (13:00)
[2018-01-26] MEDS: methylPREDNISolone SOD SUCC 40 MG/ML VL IV SCH (21:39)
[2018-01-27] VITALS (8 sets, daily range): BP systolic 138–156; BP diastolic 83–93
[2018-01-27] MEDS: ceFAZolin 1GM/50ML 50 ML IV SCH ×3 (05:43→21:50)
[2018-01-27 05:57] LABS: Hematocrit 35.1 % (36.0-46.0); Hemoglobin 11.1 g/dL (12.2-16.2); Mean Corpuscular Hemoglobin 21.9 pg (28.0-32.0); Mean Corpuscular Hgb Conc. 31.6 g/dL (32.0-36.0); Mean Corpuscular Volume 69.3 fL (80.0-100.0); Platelet Count (auto) 183 10^3/uL (140-450); Red Blood Cells 5.07 10^6/uL (4.0-5.20); Red Cell Distribution Width 18.9 % (11.8-14.3)
[2018-01-27 06:07] LABS: BUN/Creatinine Ratio 14.4; Potassium 4.4 mmol/L (3.5-5.1)
[2018-01-27 06:10] LABS: White Blood Cell 31.4 10^3/uL (4.4-10.8)
[2018-01-27 06:12] LABS: Basophils % (manual) 0 (0.0-2.0); Blast Cells 0; Eosinophils % (manual) 0 (0-7); Metamyelocytes % 0; Myelocytes % 0; Promyelocytes % 0
[2018-01-27 06:34] LABS: Band Neutrophils % (manual) 4; Lymphocytes % (manual) 7 (10.0-50.0); Monocytes % (manual) 7 (0-12); Reactive Lymphocytes 1
[2018-01-27] MEDS ORDERED: POTASSIUM CHL 20 Meq TABLET PO ONE (09:45)
[2018-01-27] MEDS ORDERED: BUMETANIDE (0.25 MG/ML) INJ 10ML IV ONE (10:15)
[2018-01-27] MEDS: PANTOPRAZOLE 40 MG TAB PO SCH (11:46)
[2018-01-27] MEDS: methylPREDNISolone SOD SUCC 40 MG/ML VL IV SCH ×2 (11:46→21:50)
[2018-01-27] MEDS: LEVOFLOXACIN 500MG 100 ML IV SCH (11:46)
[2018-01-27] MEDS: PROMETHAZINE HCL 25 MG/ML 1ML IV PRN (12:15)
[2018-01-27] MEDS: HYDROcodone-ACET 5/325MG TAB PO PRN (13:46)
[2018-01-28] VITALS (7 sets, daily range): BP systolic 127–147; BP diastolic 76–91
[2018-01-28] MEDS: MORPHINE SULFATE 4 MG/ML SYR/VIAL IV PRN ×2 (00:26→22:01)
[2018-01-28] MEDS: ceFAZolin 1GM/50ML 50 ML IV SCH ×3 (05:51→22:01)
[2018-01-28 05:58] LABS: Eosinophils # (auto) 0 uL; Hemoglobin 10.9 g/dL (12.2-16.2); Lymphocytes # (auto) 1.5 uL; Lymphocytes % (auto) 5.2 % (10.0-50.0); Nucleated Red Blood Cells % 0.1 %
[2018-01-28 06:00] LABS: Basophils # (auto) 0.2 uL; Basophils % (auto) 0.5 % (0.0-2.0); Hematocrit 34.8 % (36.0-46.0); Mean Corpuscular Hemoglobin 21.7 pg (28.0-32.0); Mean Corpuscular Hgb Conc. 31.4 g/dL (32.0-36.0); Mean Corpuscular Volume 68.9 fL (80.0-100.0); Monocytes # (auto) 1.2 uL; Neutrophils # (auto) 26.5 uL; Neutrophils % (auto) 90.3 % (37.0-80.0); Platelet Count (auto) 209 10^3/uL (140-450); Red Blood Cells 5.05 10^6/uL (4.0-5.20); White Blood Cell 29.4 10^3/uL (4.4-10.8)
[2018-01-28 06:08] LABS: BUN/Creatinine Ratio 17.2; Calcium 8.4 mg/dL (8.5-10.1); Potassium 4.2 mmol/L (3.5-5.1)
[2018-01-28] MEDS ORDERED: POTASSIUM CHL 20 Meq TABLET PO ONE (10:15)
[2018-01-28] MEDS ORDERED: FLUCONAZOLE 100 MG TAB PO ONE (10:15)
[2018-01-28] MEDS ORDERED: BUMETANIDE (0.25MG/ML) 4 ML VIAL IV ONE (10:15)
[2018-01-28] MEDS: LEVOFLOXACIN 500MG 100 ML IV SCH (10:17)
[2018-01-28] MEDS: PANTOPRAZOLE 40 MG TAB PO SCH (10:18)
[2018-01-28] MEDS ORDERED: BUMETANIDE INJECTION 10 ML ONE (12:33)
[2018-01-29 05:00] VITALS: BP 124/86
[2018-01-29 05:38] LABS: Hemoglobin 10.7 g/dL (12.2-16.2)
[2018-01-29 05:40] LABS: Hematocrit 34.7 % (36.0-46.0); Mean Corpuscular Hemoglobin 21.6 pg (28.0-32.0); Mean Corpuscular Hgb Conc. 30.9 g/dL (32.0-36.0); Mean Corpuscular Volume 69.9 fL (80.0-100.0); Platelet Count (auto) 191 10^3/uL (140-450); Red Blood Cells 4.96 10^6/uL (4.0-5.20); Red Cell Distribution Width 19.5 % (11.8-14.3); White Blood Cell 21.5 10^3/uL (4.4-10.8)
[2018-01-29 05:59] LABS: Basophils % (manual) 0 (0.0-2.0); Eosinophils % (manual) 0 (0-7)
[2018-01-29] MEDS: ceFAZolin 1GM/50ML 50 ML IV SCH ×3 (05:59→21:37)
[2018-01-29 06:00] LABS: Blast Cells 0; Metamyelocytes % 0; Myelocytes % 0; Promyelocytes % 0; Reactive Lymphocytes 0
[2018-01-29 06:05] LABS: Calcium 8.1 mg/dL (8.5-10.1); Potassium 3.8 mmol/L (3.5-5.1)
[2018-01-29 06:44] LABS: Band Neutrophils % (manual) 4; Lymphocytes % (manual) 15 (10.0-50.0); Monocytes % (manual) 5 (0-12)
[2018-01-29 09:00] VITALS: BP_SYST 102; BP_SYST 125; BP_DIAS 77; BP_DIAS 94
[2018-01-29] MEDS: LEVOFLOXACIN 500MG 100 ML IV SCH (09:33)
[2018-01-29] MEDS: PANTOPRAZOLE 40 MG TAB PO SCH (09:33)
[2018-01-29] MEDS: FLUCONAZOLE 100 MG TAB PO SCH (09:34)
[2018-01-29] MEDS: predniSONE 20 MG TAB PO SCH (09:34)
[2018-01-29] MEDS ORDERED: BUMETANIDE (0.25MG/ML) 4 ML VIAL IV ONE (10:00)
[2018-01-29] MEDS ORDERED: POTASSIUM CHL 20 Meq TABLET PO ONE (10:00)
[2018-01-29] MEDS: MORPHINE SULFATE 4 MG/ML SYR/VIAL IV PRN ×2 (11:38→17:46)
[2018-01-29 12:07] VITALS: BP 129/74
[2018-01-29 17:00] VITALS: BP 129/88
[2018-01-29] MEDS: PROMETHAZINE HCL 25 MG/ML 1ML IV PRN (17:46)
[2018-01-29] MEDS: ACETAMINOPHEN 500 MG TAB PO PRN (21:24)
[2018-01-29 22:00] VITALS: BP 142/87
[2018-01-30 05:00] VITALS: BP 136/87
[2018-01-30] MEDS: ceFAZolin 1GM/50ML 50 ML IV SCH ×3 (05:50→22:30)
[2018-01-30 08:00] LABS: Hematocrit 33.6 % (36.0-46.0); Hemoglobin 10.4 g/dL (12.2-16.2); Mean Corpuscular Hemoglobin 21.2 pg (28.0-32.0); Mean Corpuscular Volume 68.5 fL (80.0-100.0); Platelet Count (auto) 218 10^3/uL (140-450); Red Blood Cells 4.91 10^6/uL (4.0-5.20); Red Cell Distribution Width 19.4 % (11.8-14.3); White Blood Cell 20.2 10^3/uL (4.4-10.8)
[2018-01-30] MEDS: PRO-STAT 64 30ML PO SCH ×3 (08:00→18:00)
[2018-01-30 08:05] LABS: Basophils % (manual) 0 (0.0-2.0); Blast Cells 0; Metamyelocytes % 0; Myelocytes % 0; Promyelocytes % 0; Reactive Lymphocytes 0
[2018-01-30 08:11] LABS: BUN/Creatinine Ratio 18.4; Bilirubin, Total 0.3 mg/dL (0.2-1.0); Calcium 8.4 mg/dL (8.5-10.1); Potassium 3.8 mmol/L (3.5-5.1); Total Protein 6.4 g/dL (6.4-8.2)
[2018-01-30 09:00] VITALS: BP 133/90
[2018-01-30 09:09] LABS: Band Neutrophils % (manual) 6; Eosinophils % (manual) 1 (0-7); Lymphocytes % (manual) 8 (10.0-50.0); Monocytes % (manual) 3 (0-12)
[2018-01-30] MEDS: predniSONE 20 MG TAB PO SCH (09:48)
[2018-01-30] MEDS: FLUCONAZOLE 100 MG TAB PO SCH (09:48)
[2018-01-30] MEDS: PANTOPRAZOLE 40 MG TAB PO SCH (09:48)
[2018-01-30 12:27] VITALS: BP 129/74
[2018-01-30 13:00] VITALS: BP 130/77
[2018-01-30] MEDS: PROMETHAZINE HCL 25 MG/ML 1ML IV PRN (15:37)
[2018-01-30] MEDS: MORPHINE SULFATE 4 MG/ML SYR/VIAL IV PRN (15:37)
[2018-01-30 17:00] VITALS: BP 151/85
[2018-01-30 21:43] VITALS: BP 142/88
[2018-01-31] MEDS: ACETAMINOPHEN 500 MG TAB PO PRN (00:43)
[2018-01-31 04:36] VITALS: BP 120/74
[2018-01-31 05:46] LABS: Red Cell Distribution Width 19.4 % (11.8-14.3)
[2018-01-31 05:48] LABS: Hematocrit 32.7 % (36.0-46.0); Hemoglobin 10.4 g/dL (12.2-16.2); Mean Corpuscular Hemoglobin 21.7 pg (28.0-32.0); Mean Corpuscular Hgb Conc. 31.7 g/dL (32.0-36.0); Mean Corpuscular Volume 68.6 fL (80.0-100.0); Platelet Count (auto) 221 10^3/uL (140-450); Red Blood Cells 4.77 10^6/uL (4.0-5.20); White Blood Cell 20.8 10^3/uL (4.4-10.8)
[2018-01-31] MEDS: ceFAZolin 1GM/50ML 50 ML IV SCH (05:55)
[2018-01-31 05:56] LABS: Basophils % (manual) 0 (0.0-2.0); Blast Cells 0; Eosinophils % (manual) 0 (0-7); Metamyelocytes % 0; Myelocytes % 0; Promyelocytes % 0; Reactive Lymphocytes 0
[2018-01-31 06:09] LABS: Albumin 1.9 g/dL (3.4-5.0); BUN/Creatinine Ratio 18.8; Bilirubin, Total 0.5 mg/dL (0.2-1.0); Calcium 8.3 mg/dL (8.5-10.1); Potassium 3.7 mmol/L (3.5-5.1); Total Protein 6.1 g/dL (6.4-8.2)
[2018-01-31 06:48] LABS: Band Neutrophils % (manual) 2; Lymphocytes % (manual) 10 (10.0-50.0); Monocytes % (manual) 6 (0-12)
[2018-01-31] MEDS: PANTOPRAZOLE 40 MG TAB PO SCH (09:08)
[2018-01-31] MEDS: PRO-STAT 64 30ML PO SCH (09:09)
[2018-01-31] MEDS: predniSONE 20 MG TAB PO SCH (09:09)
[2018-01-31] MEDS: FLUCONAZOLE 100 MG TAB PO SCH (09:09)
== END 2018-01-31 09:30 | disposition home or self-care (01) | DRG 871 ==
LOC: ER 06:12 → TELE 06:13 → TELE-CENTR 15:19 → CENTRAL 01-28 11:56
PROVIDERS: ADMIT Internal Medicine; ATTEND Internal Medicine
DX: A41.9 Sepsis, unspecified organism (principal); E43 Unspecified severe protein-calorie malnutrition; J15.212 Pneumonia due to Methicillin resistant Staphylococcus aureus; J90 Pleural effusion, not elsewhere classified; I31.3 Pericardial effusion (noninflammatory); D47.Z2 Castleman disease; R18.8 Other ascites; E87.70 Fluid overload, unspecified; Z68.37 Body mass index [BMI] 37.0-37.9, adult; E66.9 Obesity, unspecified; I08.0 Rheumatic disorders of both mitral and aortic valves; I10 Essential (primary) hypertension; K21.9 Gastro-esophageal reflux disease without esophagitis; Z80.8 Family history of malignant neoplasm of other organs or systems; Z82.49 Family history of ischemic heart disease and other diseases of the circulatory system; Z87.01 Personal history of pneumonia (recurrent); Z98.51 Tubal ligation status
CPT/HCPCS: 36415; 71046; 74176; 80048; 80053; 81001; 81025; 82150; 82962; 83615; 83690; 83735; 83880; 84484; 85007; 85025; 85027; 85048; 85652; 87040; 87045; 87070; 87081; 87177; 87205; 87493; 87804; 87899; 93005; 93306; 94761; 96361; 96365; 96375; J0690; J1956; J7060

== ENCOUNTER → 2018-02-05 | Outpatient (CLI) | payer BC ==
[2018-02-05 09:59] LABS: Red Cell Distribution Width 19.9 % (11.8-14.3)
[2018-02-05 10:02] LABS: Hematocrit 35.4 % (36.0-46.0); Hemoglobin 10.9 g/dL (12.2-16.2); Mean Corpuscular Hemoglobin 21.2 pg (28.0-32.0); Mean Corpuscular Hgb Conc. 30.9 g/dL (32.0-36.0); Mean Corpuscular Volume 68.4 fL (80.0-100.0); Platelet Count (auto) 231 10^3/uL (140-450); Red Blood Cells 5.17 10^6/uL (4.0-5.20); White Blood Cell 11.4 10^3/uL (4.4-10.8)
[2018-02-05 10:15] LABS: Basophils % (manual) 0 (0.0-2.0); Blast Cells 0; Eosinophils % (manual) 0 (0-7); Metamyelocytes % 0; Myelocytes % 0; Promyelocytes % 0; Reactive Lymphocytes 0
[2018-02-05 10:44] LABS: Albumin 2.4 g/dL (3.4-5.0); BUN/Creatinine Ratio 10.2; Bilirubin, Total 0.5 mg/dL (0.2-1.0); Calcium 8.5 mg/dL (8.5-10.1); Potassium 3.2 mmol/L (3.5-5.1)
[2018-02-05 15:02] LABS: Band Neutrophils % (manual) 4; Lymphocytes % (manual) 24 (10.0-50.0); Monocytes % (manual) 9 (0-12)
== END | disposition home or self-care (01) ==
LOC: LAB 09:21
PROVIDERS: ATTEND Internal Medicine
DX: I10 Essential (primary) hypertension (principal)
CPT/HCPCS: 36415; 80053; 83615; 85007; 85027

== ENCOUNTER → 2018-07-24 | Outpatient (CLI) | payer BC ==
[2018-07-24 16:05] LABS: Eosinophils # (auto) 0.1 uL; Monocytes # (auto) 0.7 uL
[2018-07-24 16:07] LABS: Basophils # (auto) 0.1 uL; Basophils % (auto) 1.2 % (0.0-2.0); Eosinophils % (auto) 1.8 % (0.0-7.0); Hematocrit 37.8 % (36.0-46.0); Hemoglobin 12.4 g/dL (12.2-16.2); Lymphocytes # (auto) 1.3 uL; Lymphocytes % (auto) 19.2 % (10.0-50.0); Mean Corpuscular Hemoglobin 24.3 pg (28.0-32.0); Mean Corpuscular Hgb Conc. 32.8 g/dL (32.0-36.0); Monocytes % (auto) 10.2 % (0.0-12.0); Neutrophils # (auto) 4.7 uL; Neutrophils % (auto) 67.6 % (37.0-80.0); Nucleated Red Blood Cells % 0.1 %; Platelet Count (auto) 170 10^3/uL (140-450); Red Cell Distribution Width 18.6 % (11.8-14.3)
[2018-07-24 16:25] LABS: Albumin 3.5 g/dL (3.4-5.0); BUN/Creatinine Ratio 15.6; Bilirubin, Total 0.4 mg/dL (0.2-1.0); Calcium 8.4 mg/dL (8.5-10.1); Potassium 3.5 mmol/L (3.5-5.1); Protein, Urine 30.1 mg/dL (0.0-11.9); Total Protein 8.8 g/dL (6.4-8.2)
== END | disposition home or self-care (01) ==
LOC: LAB 15:24
PROVIDERS: ATTEND Internal Medicine
DX: D47.Z2 Castleman disease (principal); I10 Essential (primary) hypertension; N17.8 Other acute kidney failure; Z87.891 Personal history of nicotine dependence; Z79.899 Other long term (current) drug therapy
CPT/HCPCS: 36415; 80053; 82306; 82570; 83615; 84156; 85025

== ENCOUNTER 2018-09-06 00:48 | Emergency (ER) | payer BC ==
[~2018-09-06] VITALS: Ht 175.3 cm; Wt 105.2 kg
[~2018-09-06 00:48] MED LIST changes: +AMLO10TA12 PO; -AMLO10TA2 PO
[2018-09-06 01:11] VITALS: BP 107/66
[2018-09-06 01:30] LABS: Hematocrit 34.1 % (36.0-46.0); Hemoglobin 10.8 g/dL (12.2-16.2); Mean Corpuscular Hemoglobin 21.6 pg (28.0-32.0); Mean Corpuscular Hgb Conc. 31.6 g/dL (32.0-36.0); Mean Corpuscular Volume 68.4 fL (80.0-100.0); Platelet Count (auto) 81 10^3/uL (140-450); Red Blood Cells 4.98 10^6/uL (4.0-5.20); Red Cell Distribution Width 19.5 % (11.8-14.3); White Blood Cell 8.5 10^3/uL (4.4-10.8)
[2018-09-06] MEDS ORDERED: SODIUM CHLORIDE 0.9% 1,000 ML IV ONE (01:30)
[2018-09-06 01:32] LABS: Basophils % (manual) 0 (0.0-2.0); Blast Cells 0; Metamyelocytes % 0; Myelocytes % 0; Promyelocytes % 0; Reactive Lymphocytes 0
[2018-09-06 01:43] LABS: Urine Bacteria MANY /hpf (None Seen); Urine Blood Negative /uL (Negative); Urine Hyaline Cast FEW /lpf (0 - 2); Urine Mucus FEW (None Seen); Urine Specific Gravity 1.007 (1.001-1.035); Urine WBC 7 /hpf (0 - 5)
[2018-09-06 01:47] LABS: Albumin 2.8 g/dL (3.4-5.0); BUN/Creatinine Ratio 9.1; Calcium 7.9 mg/dL (8.5-10.1); Potassium 4.3 mmol/L (3.5-5.1)
[2018-09-06 01:50] LABS: Bilirubin, Total 0.5 mg/dL (0.2-1.0); Total Protein 8.3 g/dL (6.4-8.2)
[2018-09-06] MEDS ORDERED: CIPROFLOXACIN 400MG/200ML 200 ML IV ONE (02:45)
[2018-09-06] MEDS ORDERED: KETOROLAC TROMETH 30 MG/ML 1ML VIAL IV ONE (02:45)
[2018-09-06] MEDS ORDERED: metroNIDAZOLE 500MG/100ML 100 ML IV ONE (02:45)
[2018-09-06 03:47] LABS: Band Neutrophils % (manual) 6; Eosinophils % (manual) 1 (0-7); Lymphocytes % (manual) 11 (10.0-50.0); Monocytes % (manual) 3 (0-12)
[2018-09-06] MEDS ORDERED: ONDANSETRON HCL 4 MG/2 ML VIAL ONE (04:27)
[2018-09-06] MEDS ORDERED: ONDANSETRON HCL 4 MG/2 ML VIAL IV ONE (04:30)
== END 2018-09-06 04:38 | disposition home or self-care (01) ==
LOC: ER 00:50
DX: N39.0 Urinary tract infection, site not specified (principal); R19.7 Diarrhea, unspecified; I10 Essential (primary) hypertension; Z98.51 Tubal ligation status; Z79.899 Other long term (current) drug therapy; Z88.0 Allergy status to penicillin; Z88.6 Allergy status to analgesic agent
CPT/HCPCS: 36415; 80053; 81001; 85007; 85027; 96361; 96365; 96368; 96375; 99284; J0744; J1885; J2405; J3490

== ENCOUNTER 2018-09-10 14:45 | Inpatient (IN) | payer BC ==
[~2018-09-10] VITALS: Ht 175.3 cm; Wt 109.2 kg
[2018-09-10] MEDS ORDERED: PROMETHAZINE HCL 25 MG/ML 1ML IV PRN (15:15)
[2018-09-10] MEDS ORDERED: MORPHINE SULFATE 4 MG/ML SYR/VIAL IV PRN (15:15)
[2018-09-10] MEDS ORDERED: traMADol HCL 50 MG TAB PO PRN (15:15)
[2018-09-10] MEDS ORDERED: cefTRIAXone 1GM/10ml IVPUSH 10 ML IV ONE (15:15)
[2018-09-10] MEDS ORDERED: PANTOPRAZOLE 40 MG/10 ML VIAL IV ONE (15:15)
[2018-09-10] MEDS ORDERED: methylPREDNISolone SOD SUCC 40 MG/ML VL IV ONE (15:15)
[2018-09-10] MEDS ORDERED: ACETAMINOPHEN 500 MG TAB PO PRN (15:30)
[2018-09-10 15:47] VITALS: BP 114/69
[2018-09-10 17:00] VITALS: BP 114/69
[2018-09-10 17:40] LABS: Albumin 2.3 g/dL (3.4-5.0); BUN/Creatinine Ratio 14.1; Calcium 7.3 mg/dL (8.5-10.1); Potassium 4.3 mmol/L (3.5-5.1)
[2018-09-10 17:43] LABS: Bilirubin, Total 0.3 mg/dL (0.2-1.0); Hemoglobin 9.5 g/dL (12.2-16.2); Total Protein 7.1 g/dL (6.4-8.2)
[2018-09-10 17:45] LABS: Hematocrit 29.9 % (36.0-46.0); Mean Corpuscular Hemoglobin 21.6 pg (28.0-32.0); Mean Corpuscular Hgb Conc. 31.7 g/dL (32.0-36.0); Platelet Count (auto) 81 10^3/uL (140-450); Red Cell Distribution Width 19.1 % (11.8-14.3); White Blood Cell 7.3 10^3/uL (4.4-10.8)
[2018-09-10 17:48] LABS: INR 1.05 (0.9-1.15); Prothrombin Time 11.2 sec (9.27-12.13)
[2018-09-10 17:52] LABS: Basophils % (manual) 0 (0.0-2.0); Blast Cells 0; Metamyelocytes % 0; Myelocytes % 0; Promyelocytes % 0; Reactive Lymphocytes 0
[2018-09-10 18:49] LABS: Band Neutrophils % (manual) 2; Eosinophils % (manual) 1 (0-7); Lymphocytes % (manual) 23 (10.0-50.0); Monocytes % (manual) 11 (0-12)
[2018-09-10] MEDS: ONDANSETRON HCL 4 MG/2 ML VIAL IV PRN (18:57)
[2018-09-10] MEDS: HYDROmorphone HCL 2 MG/ML VL IV PRN (18:57)
[2018-09-10] MEDS: SODIUM CHLORIDE 0.9% 1,000 ML IV SCH (21:30)
[2018-09-10] MEDS: methylPREDNISolone SOD SUCC 40 MG/ML VL IV SCH (21:30)
[2018-09-10] MEDS: cefTRIAXone 1GM/10ml IVPUSH 10 ML IV SCH (21:31)
[2018-09-10] MEDS: metroNIDAZOLE 500MG/100ML 100 ML IV SCH (21:31)
[2018-09-10 22:00] VITALS: BP 118/41
[2018-09-11] MEDS: SODIUM CHLORIDE 0.9% 1,000 ML IV SCH ×2 (00:11→15:36)
[2018-09-11] MEDS: HYDROmorphone HCL 2 MG/ML VL IV PRN ×5 (00:12→20:06)
[2018-09-11] MEDS: ONDANSETRON HCL 4 MG/2 ML VIAL IV PRN ×5 (00:12→20:06)
[2018-09-11 00:42] LABS: Urine Bacteria FEW /hpf (None Seen); Urine Blood Negative /uL (Negative); Urine Hyaline Cast FEW /lpf (0 - 2); Urine Specific Gravity 1.011 (1.001-1.035); Urine WBC 1 /hpf (0 - 5)
[2018-09-11 04:55] VITALS: BP 138/70
[2018-09-11] MEDS: metroNIDAZOLE 500MG/100ML 100 ML IV SCH ×3 (05:27→21:30)
[2018-09-11 08:00] VITALS: BP 120/61
[2018-09-11 09:04] VITALS: BP 120/61
[2018-09-11] MEDS ORDERED: PANTOPRAZOLE 40 MG/10 ML VIAL IV SCH (10:00)
[2018-09-11] MEDS ORDERED: ACETAMINOPHEN 500 MG TAB PO PRN (11:00)
[2018-09-11 13:13] VITALS: BP 104/65
[2018-09-11] MEDS: methylPREDNISolone SOD SUCC 40 MG/ML VL IV SCH ×2 (15:35→21:30)
[2018-09-11 17:12] VITALS: BP 106/68
[2018-09-11 20:28] LABS: % Iron Saturation 10.2 % (15-50)
[2018-09-11 22:00] VITALS: BP 124/72
[2018-09-12] MEDS: HYDROmorphone HCL 2 MG/ML VL IV PRN ×3 (01:30→18:41)
[2018-09-12] MEDS: ONDANSETRON HCL 4 MG/2 ML VIAL IV PRN (01:30)
[2018-09-12 05:00] VITALS: BP 95/53
[2018-09-12] MEDS: SODIUM CHLORIDE 0.9% 1,000 ML IV SCH ×2 (05:09→23:30)
[2018-09-12] MEDS: metroNIDAZOLE 500MG/100ML 100 ML IV SCH ×3 (05:36→21:44)
[2018-09-12 05:52] LABS: Hematocrit 30.5 % (36.0-46.0); Hemoglobin 9.6 g/dL (12.2-16.2); Mean Corpuscular Hemoglobin 21.4 pg (28.0-32.0); Mean Corpuscular Hgb Conc. 31.4 g/dL (32.0-36.0); Mean Corpuscular Volume 68.2 fL (80.0-100.0); Platelet Count (auto) 85 10^3/uL (140-450); Red Blood Cells 4.47 10^6/uL (4.0-5.20); White Blood Cell 10.7 10^3/uL (4.4-10.8)
[2018-09-12 06:00] LABS: BUN/Creatinine Ratio 17.3; Calcium 7.7 mg/dL (8.5-10.1); Potassium 4.9 mmol/L (3.5-5.1)
[2018-09-12 06:03] LABS: Basophils % (manual) 0 (0.0-2.0); Blast Cells 0; Eosinophils % (manual) 0 (0-7); Metamyelocytes % 0; Myelocytes % 0; Promyelocytes % 0; Reactive Lymphocytes 0
[2018-09-12 08:11] VITALS: BP 131/78
[2018-09-12 08:13] LABS: Band Neutrophils % (manual) 3; Lymphocytes % (manual) 19 (10.0-50.0); Monocytes % (manual) 6 (0-12)
[2018-09-12] MEDS: PANTOPRAZOLE 40 MG TAB PO SCH (09:32)
[2018-09-12] MEDS: methylPREDNISolone SOD SUCC 40 MG/ML VL IV SCH (09:32)
[2018-09-12] MEDS ORDERED: predniSONE 20 MG TAB PO SCH (10:00)
[2018-09-12] MEDS: cefTRIAXone 1GM/10ml IVPUSH 10 ML IV SCH (11:00)
[2018-09-12] MEDS ORDERED: SODIUM FERR GLUC 62.5MG/5ML 125 MG in SODIUM CHL 0.9% 100 ML IV SCH (12:00)
[2018-09-12 12:04] VITALS: BP 102/52
[2018-09-12 16:36] VITALS: BP 124/76
[2018-09-12] MEDS: predniSONE 20 MG TAB PO SCH (18:41)
[2018-09-12 21:41] VITALS: BP 122/71
[2018-09-13] MEDS: ONDANSETRON HCL 4 MG/2 ML VIAL IV PRN ×3 (00:32→16:03)
[2018-09-13] MEDS: HYDROmorphone HCL 2 MG/ML VL IV PRN ×4 (00:32→22:32)
[2018-09-13 04:32] VITALS: BP 115/64
[2018-09-13 05:11] LABS: Hematocrit 30.5 % (36.0-46.0); Mean Corpuscular Hemoglobin 21.6 pg (28.0-32.0); Red Blood Cells 4.41 10^6/uL (4.0-5.20); White Blood Cell 15.3 10^3/uL (4.4-10.8)
[2018-09-13 05:18] LABS: Hemoglobin 9.5 g/dL (12.2-16.2); Mean Corpuscular Hgb Conc. 31.2 g/dL (32.0-36.0); Mean Corpuscular Volume 69.1 fL (80.0-100.0); Platelet Count (auto) 94 10^3/uL (140-450); Red Cell Distribution Width 19.1 % (11.8-14.3)
[2018-09-13 05:23] LABS: Basophils % (manual) 0 (0.0-2.0); Blast Cells 0; Eosinophils % (manual) 0 (0-7); Myelocytes % 0; Promyelocytes % 0; Reactive Lymphocytes 0
[2018-09-13] MEDS: metroNIDAZOLE 500MG/100ML 100 ML IV SCH ×3 (05:25→22:31)
[2018-09-13 05:32] LABS: Calcium 7.6 mg/dL (8.5-10.1)
[2018-09-13 05:34] LABS: BUN/Creatinine Ratio 24.3
[2018-09-13 06:28] LABS: Band Neutrophils % (manual) 8; Lymphocytes % (manual) 7 (10.0-50.0); Metamyelocytes % 2; Monocytes % (manual) 6 (0-12)
[2018-09-13 08:50] VITALS: BP 125/72
[2018-09-13] MEDS: cefTRIAXone 1GM/10ml IVPUSH 10 ML IV SCH (09:34)
[2018-09-13] MEDS: predniSONE 20 MG TAB PO SCH (09:34)
[2018-09-13] MEDS: PANTOPRAZOLE 40 MG TAB PO SCH (09:34)
[2018-09-13] MEDS: SODIUM FERR GLUC 62.5MG/5ML 125 MG in SODIUM CHL 0.9% 100 ML IV SCH (09:34)
[2018-09-13 13:00] VITALS: BP 107/66
[2018-09-13 17:00] VITALS: BP 118/83
[2018-09-13] MEDS: SODIUM CHLORIDE 0.9% 1,000 ML IV SCH (17:15)
[2018-09-13 21:40] VITALS: BP 107/56
[2018-09-14 05:00] VITALS: BP 102/51
[2018-09-14 05:14] LABS: Hematocrit 32.3 % (36.0-46.0); Hemoglobin 10.3 g/dL (12.2-16.2); Mean Corpuscular Hemoglobin 21.7 pg (28.0-32.0); Mean Corpuscular Hgb Conc. 31.9 g/dL (32.0-36.0); Mean Corpuscular Volume 67.9 fL (80.0-100.0); Platelet Count (auto) 121 10^3/uL (140-450); Red Blood Cells 4.76 10^6/uL (4.0-5.20); Red Cell Distribution Width 19.5 % (11.8-14.3); White Blood Cell 14.1 10^3/uL (4.4-10.8)
[2018-09-14 05:16] LABS: Basophils % (manual) 0 (0.0-2.0); Blast Cells 0; Myelocytes % 0; Promyelocytes % 0; Reactive Lymphocytes 0
[2018-09-14 05:52] LABS: BUN/Creatinine Ratio 27.2; Calcium 7.6 mg/dL (8.5-10.1); Potassium 4.6 mmol/L (3.5-5.1)
[2018-09-14] MEDS: metroNIDAZOLE 500MG/100ML 100 ML IV SCH (06:19)
[2018-09-14] MEDS: HYDROmorphone HCL 2 MG/ML VL IV PRN ×4 (06:19→23:56)
[2018-09-14] MEDS: ONDANSETRON HCL 4 MG/2 ML VIAL IV PRN ×2 (06:20→12:58)
[2018-09-14 06:31] LABS: Band Neutrophils % (manual) 4; Eosinophils % (manual) 1 (0-7); Lymphocytes % (manual) 15 (10.0-50.0); Metamyelocytes % 2; Monocytes % (manual) 7 (0-12)
[2018-09-14 08:35] VITALS: BP 104/43
[2018-09-14] MEDS: SODIUM CHLORIDE 0.9% 1,000 ML IV SCH (09:42)
[2018-09-14] MEDS: predniSONE 20 MG TAB PO SCH (09:42)
[2018-09-14] MEDS: PANTOPRAZOLE 40 MG TAB PO SCH (09:42)
[2018-09-14] MEDS: cefTRIAXone 1GM/10ml IVPUSH 10 ML IV SCH (09:42)
[2018-09-14] MEDS ORDERED: traMADol HCL 50 MG TAB PO PRN (10:30)
[2018-09-14 11:29] VITALS: BP 100/61
[2018-09-14] MEDS: SODIUM FERR GLUC 62.5MG/5ML 125 MG in SODIUM CHL 0.9% 100 ML IV SCH (12:00)
[2018-09-14] MEDS: metroNIDAZOLE 500 MG TAB PO SCH ×2 (14:15→22:11)
[2018-09-14 15:52] LABS: Folate (Folic Acid) 18.21 ng/mL (5.38-24)
[2018-09-14 16:27] VITALS: BP 106/66
[2018-09-14 22:00] VITALS: BP 119/72
[2018-09-15 05:31] VITALS: BP 134/88
[2018-09-15 05:38] LABS: Hematocrit 33.7 % (36.0-46.0); Hemoglobin 10.5 g/dL (12.2-16.2); Mean Corpuscular Hemoglobin 21.4 pg (28.0-32.0); Mean Corpuscular Hgb Conc. 31.2 g/dL (32.0-36.0); Mean Corpuscular Volume 68.6 fL (80.0-100.0); Platelet Count (auto) 115 10^3/uL (140-450); Red Blood Cells 4.91 10^6/uL (4.0-5.20); Red Cell Distribution Width 19.8 % (11.8-14.3); White Blood Cell 17.8 10^3/uL (4.4-10.8)
[2018-09-15 05:47] LABS: BUN/Creatinine Ratio 24.2; Basophils % (manual) 0 (0.0-2.0); Blast Cells 0; Calcium 7.7 mg/dL (8.5-10.1); Eosinophils % (manual) 0 (0-7); Potassium 4.8 mmol/L (3.5-5.1); Promyelocytes % 0
[2018-09-15] MEDS: metroNIDAZOLE 500 MG TAB PO SCH (06:00)
[2018-09-15 06:07] LABS: Band Neutrophils % (manual) 5; Lymphocytes % (manual) 21 (10.0-50.0); Metamyelocytes % 4; Monocytes % (manual) 8 (0-12); Myelocytes % 2; Reactive Lymphocytes 4
[2018-09-15 08:27] VITALS: BP 120/60
[2018-09-15] MEDS: predniSONE 20 MG TAB PO SCH (10:03)
[2018-09-15] MEDS: PANTOPRAZOLE 40 MG TAB PO SCH (10:03)
[2018-09-15 10:55] LABS: Immunoglobulin G, Serum 1825 mg/dL (700-1600)
[2018-09-15 11:17] VITALS: BP 120/60
[2018-09-15 12:47] VITALS: BP 119/69
== END 2018-09-15 13:26 | disposition home or self-care (01) | DRG 840 ==
LOC: CENTRAL 14:45
PROVIDERS: ADMIT Internal Medicine; ATTEND Internal Medicine
PROC: 0W9G3ZZ Drainage of Peritoneal Cavity, Percutaneous Approach (ICD-10-PCS; principal; 2018-09-14)
DX: D47.Z2 Castleman disease (principal); N17.0 Acute kidney failure with tubular necrosis; R18.8 Other ascites; E87.1 Hypo-osmolality and hyponatremia; I10 Essential (primary) hypertension; E66.9 Obesity, unspecified; Z68.35 Body mass index [BMI] 35.0-35.9, adult; D50.9 Iron deficiency anemia, unspecified; D69.6 Thrombocytopenia, unspecified; R16.1 Splenomegaly, not elsewhere classified; Z88.6 Allergy status to analgesic agent; Z88.0 Allergy status to penicillin
CPT/HCPCS: 10022; 36415; 71045; 74176; 76700; 76942; 80048; 80053; 81001; 82607; 82746; 82784; 83540; 83550; 83605; 85007; 85027; 85610; 85652; 85730; 86141; 87040; 87045; 87899; C9113; J0696; J2405; J3490

== ENCOUNTER → 2018-09-30 | Outpatient (CLI) | payer BC ==
[2018-10-01 09:43] LABS: Basophils # (auto) 0.1 uL; Mean Corpuscular Hemoglobin 22.9 pg (28.0-32.0)
[2018-10-01 09:45] LABS: Basophils % (auto) 1.4 % (0.0-2.0); Eosinophils # (auto) 0.1 uL; Eosinophils % (auto) 0.6 % (0.0-7.0); Hematocrit 36.7 % (36.0-46.0); Hemoglobin 11.6 g/dL (12.2-16.2); Lymphocytes # (auto) 2.7 uL; Mean Corpuscular Hgb Conc. 31.6 g/dL (32.0-36.0); Mean Corpuscular Volume 72.6 fL (80.0-100.0); Monocytes % (auto) 11.7 % (0.0-12.0); Neutrophils # (auto) 4.7 uL; Neutrophils % (auto) 54.3 % (37.0-80.0); Nucleated Red Blood Cells % 1.5 %; Platelet Count (auto) 79 10^3/uL (140-450); Red Blood Cells 5.05 10^6/uL (4.0-5.20); White Blood Cell 8.6 10^3/uL (4.4-10.8)
[2018-10-01 10:16] LABS: Red Cell Distribution Width 25.3 % (11.8-14.3)
[2018-10-01 10:34] LABS: Potassium 3.6 mmol/L (3.5-5.1)
[2018-10-01 10:41] LABS: BUN/Creatinine Ratio 15.4; Bilirubin, Total 0.8 mg/dL (0.2-1.0); Calcium 9.1 mg/dL (8.5-10.1); Total Protein 9.7 g/dL (6.4-8.2)
== END | disposition home or self-care (01) ==
LOC: LAB 16:08
PROVIDERS: ATTEND Internal Medicine
DX: D47.Z9 Other specified neoplasms of uncertain behavior of lymphoid, hematopoietic and related tissue (principal); I10 Essential (primary) hypertension; J18.0 Bronchopneumonia, unspecified organism; R59.1 Generalized enlarged lymph nodes; Z68.31 Body mass index [BMI] 31.0-31.9, adult
CPT/HCPCS: 36415; 80053; 80061; 83615; 85025

== ENCOUNTER → 2018-10-20 | Outpatient (CLI) | payer BC ==
[2018-10-20 16:35] LABS: Eosinophils # (auto) 0.1 uL; Hematocrit 38.7 % (36.0-46.0); Hemoglobin 12.4 g/dL (12.2-16.2); Monocytes # (auto) 0.8 uL
[2018-10-20 16:37] LABS: Basophils # (auto) 0.2 uL; Basophils % (auto) 1.8 % (0.0-2.0); Eosinophils % (auto) 0.9 % (0.0-7.0); Lymphocytes # (auto) 2.1 uL; Lymphocytes % (auto) 22.5 % (10.0-50.0); Mean Corpuscular Hemoglobin 23.8 pg (28.0-32.0); Mean Corpuscular Volume 74.6 fL (80.0-100.0); Monocytes % (auto) 8.7 % (0.0-12.0); Neutrophils % (auto) 66.1 % (37.0-80.0); Nucleated Red Blood Cells % 0.2 %; Platelet Count (auto) 237 10^3/uL (140-450); Red Blood Cells 5.19 10^6/uL (4.0-5.20); White Blood Cell 9.1 10^3/uL (4.4-10.8)
[2018-10-20 16:38] LABS: Red Cell Distribution Width 26.2 % (11.8-14.3)
[2018-10-20 17:13] LABS: Potassium 3.5 mmol/L (3.5-5.1)
[2018-10-20 17:16] LABS: Bilirubin, Total 0.5 mg/dL (0.2-1.0); Total Protein 8.5 g/dL (6.4-8.2)
== END | disposition home or self-care (01) ==
LOC: LAB 16:08
PROVIDERS: ATTEND Internal Medicine
DX: D47.2 Monoclonal gammopathy (principal)
CPT/HCPCS: 36415; 80053; 83615; 85025

== ENCOUNTER 2018-12-19 09:31 | Inpatient (IN) | payer BC ==
[~2018-12-19] VITALS: Ht 175.3 cm; Wt 115.0 kg
[2018-12-19 10:43] LABS: Basophils # (auto) 0.1 uL; Eosinophils # (auto) 0.1 uL; Monocytes # (auto) 1.3 uL; Nucleated Red Blood Cells % 0.3 %
[2018-12-19 10:45] LABS: Basophils % (auto) 0.5 % (0.0-2.0); Eosinophils % (auto) 0.8 % (0.0-7.0); Hematocrit 35.4 % (36.0-46.0); Hemoglobin 11.5 g/dL (12.2-16.2); Lymphocytes # (auto) 1.6 uL; Mean Corpuscular Hemoglobin 24.1 pg (28.0-32.0); Mean Corpuscular Hgb Conc. 32.4 g/dL (32.0-36.0); Mean Corpuscular Volume 74.4 fL (80.0-100.0); Monocytes % (auto) 11.3 % (0.0-12.0); Neutrophils # (auto) 8.2 uL; Neutrophils % (auto) 73.4 % (37.0-80.0); Platelet Count (auto) 161 10^3/uL (140-450); Red Blood Cells 4.76 10^6/uL (4.0-5.20); Red Cell Distribution Width 17.8 % (11.8-14.3); White Blood Cell 11.1 10^3/uL (4.4-10.8)
[2018-12-19 10:49] LABS: Albumin 2.5 g/dL (3.4-5.0); Anion Gap 6 (5-15); Blood Urea Nitrogen 16 mg/dL (7-18); Calcium 8.2 mg/dL (8.5-10.1); Carbon Dioxide 27 mmol/L (21-32); Chloride 104 mmol/L (98-107); Glucose 92 mg/dL (74-106); Magnesium 2.3 mg/dL (1.6-2.6); Potassium 4.1 mmol/L (3.5-5.1); Sodium 137 mmol/L (136-145)
[2018-12-19 10:55] LABS: Alanine Aminotransferase 17 U/L (13-56); Alkaline Phosphatase 215 U/L (45-117); Aspartate Aminotransferase 18 U/L (15-37); BUN/Creatinine Ratio 13.7; Bilirubin, Total 0.9 mg/dL (0.2-1.0); GFR Non-African American 52 mL/min; Total Protein 7.9 g/dL (6.4-8.2)
[2018-12-19 10:57] LABS: GFR African American > 60 mL/min
[2018-12-19] MEDS ORDERED: MORPHINE SULFATE 10 MG/ML INJ 1ML SDV IV ONE (11:15)
[2018-12-19] MEDS ORDERED: FUROSEMIDE 40 MG/4 ML VIAL IV ONE (11:15)
[2018-12-19] MEDS ORDERED: ONDANSETRON HCL 4 MG/2 ML VIAL IV ONE (11:15)
[2018-12-19] MEDS ORDERED: NITROGLYCERIN 0.4 MG SL TAB SL PRN (11:45)
[2018-12-19] MEDS ORDERED: methylPREDNISolone SOD SUCC 125 MG/2 ML VL IV ONE (11:45)
[2018-12-19] MEDS ORDERED: MORPHINE SULFATE 10 MG/ML INJ 1ML SDV IV PRN (11:45)
[2018-12-19] MEDS ORDERED: ACETAMINOPHEN 500 MG TAB PO PRN (11:45)
[2018-12-19] MEDS: LEVOFLOXACIN 750MG 150 ML IV SCH (12:32)
[2018-12-19] MEDS: SODIUM CHLORIDE 0.9% 1,000 ML IV SCH ×2 (12:41→21:45)
--- NOTE | 2018-12-19 13:20 | NUR ---
Med Surg admit from [facility] admitted to Med Surg unit after SBAR received. Patient oriented to SALVADOR DOLAN, primary RN, unit, room, bed, and unit policies regarding patient care and visiting hours. Patient placed on bedside oxygen, weighed by bedscale and encouraged to call if they need something. All questions and concerns addressed, patient verbalized understanding. Note: []
[2018-12-19 14:07] VITALS: BP 94/60
[2018-12-19] MEDS: HYDROcodone-ACET 5/325MG TAB PO PRN (16:30)
[2018-12-19 17:00] VITALS: BP 102/65
[2018-12-19 20:00] VITALS: BP 109/63
[2018-12-19] MEDS: methylPREDNISolone SOD SUCC 125 MG/2 ML VL IV SCH (21:23)
[2018-12-19 21:44] VITALS: BP 112/78
[2018-12-20] VITALS (7 sets, daily range): BP systolic 109–122; BP diastolic 70–82
[2018-12-20] MEDS: methylPREDNISolone SOD SUCC 125 MG/2 ML VL IV SCH ×3 (06:24→22:11)
--- NOTE | 2018-12-20 07:20 | NUR ---
Opening Shift Note Assumed care of patient, awake and alert. No S/S of distress/SOB or pain. Insructed on POC and to callfor assist PRN, will continue to monitor for changes Q1hr and PRN.
[2018-12-20] MEDS: SODIUM CHLORIDE 0.9% 1,000 ML IV SCH ×2 (07:45→17:00)
[2018-12-20 09:13] LABS: Eosinophils # (auto) 0 uL; Monocytes # (auto) 0.5 uL; Nucleated Red Blood Cells % 0.1 %; Red Cell Distribution Width 17.8 % (11.8-14.3)
[2018-12-20 09:15] LABS: Basophils # (auto) 0.1 uL; Basophils % (auto) 0.5 % (0.0-2.0); Hematocrit 36.7 % (36.0-46.0); Hemoglobin 11.9 g/dL (12.2-16.2); Lymphocytes # (auto) 1.2 uL; Lymphocytes % (auto) 8.8 % (10.0-50.0); Mean Corpuscular Hemoglobin 24.4 pg (28.0-32.0); Mean Corpuscular Hgb Conc. 32.4 g/dL (32.0-36.0); Mean Corpuscular Volume 75.1 fL (80.0-100.0); Monocytes % (auto) 3.4 % (0.0-12.0); Neutrophils # (auto) 11.8 uL; Neutrophils % (auto) 87.3 % (37.0-80.0); Platelet Count (auto) 150 10^3/uL (140-450); Red Blood Cells 4.89 10^6/uL (4.0-5.20); White Blood Cell 13.5 10^3/uL (4.4-10.8)
[2018-12-20 09:33] LABS: Anion Gap 7 (5-15); BUN/Creatinine Ratio 20.9; Blood Urea Nitrogen 24 mg/dL (7-18); Calcium 8.4 mg/dL (8.5-10.1); Carbon Dioxide 23 mmol/L (21-32); Chloride 103 mmol/L (98-107); GFR African American > 60 mL/min; GFR Non-African American 54 mL/min; Glucose 209 mg/dL (74-106); Potassium 4.2 mmol/L (3.5-5.1); Sodium 133 mmol/L (136-145)
[2018-12-20] MEDS: LEVOFLOXACIN 750MG 150 ML IV SCH (12:52)
[2018-12-20] MEDS: ONDANSETRON HCL 4 MG/2 ML VIAL IV PRN ×2 (12:52→22:14)
[2018-12-20] MEDS: HYDROcodone-ACET 5/325MG TAB PO PRN (13:13)
[2018-12-20 14:01] LABS: Urine Bacteria FEW /hpf (None Seen); Urine Blood Negative /uL (Negative); Urine Hyaline Cast FEW /lpf (0 - 2); Urine Specific Gravity 1.014 (1.001-1.035); Urine WBC 1 /hpf (0 - 5)
--- NOTE | 2018-12-20 19:20 | NUR ---
Opening Shift Note Received report from liset Mcallister RN. Assumed care of patient, awake and alert. No S/S of distress/SOB or pain. Instructed on POC and to call for assist PRN, will continue to monitor for changes Q1hr and PRN.
[2018-12-20] MEDS: MORPHINE SULFATE 10 MG/ML INJ 1ML SDV IV PRN (22:15)
[2018-12-21] VITALS (7 sets, daily range): BP systolic 115–126; BP diastolic 63–79
[2018-12-21] MEDS: SODIUM CHLORIDE 0.9% 1,000 ML IV SCH (03:45)
[2018-12-21] MEDS: methylPREDNISolone SOD SUCC 125 MG/2 ML VL IV SCH (06:20)
--- NOTE | 2018-12-21 07:12 | NUR ---
PATIENT IS ALERT AND AWAKE, NO DISTRESS NOTED AND PATIENT DENIES PAIN.
[2018-12-21] MEDS: HYDROcodone-ACET 5/325MG TAB PO PRN (11:38)
[2018-12-21] MEDS: ONDANSETRON HCL 4 MG/2 ML VIAL IV PRN (11:38)
[2018-12-21] MEDS: LEVOFLOXACIN 750MG 150 ML IV SCH (11:39)
[2018-12-21] MEDS ORDERED: POTASSIUM CHL 20 Meq TABLET PO ONE (12:15)
[2018-12-21] MEDS ORDERED: FUROSEMIDE 20 MG/2 ML VIAL IV ONE (12:15)
[2018-12-21] MEDS ORDERED: cefTRIAXone 1GM/50ML D5W 50 ML IV ONE (12:30)
[2018-12-22] MEDS: MORPHINE SULFATE 10 MG/ML INJ 1ML SDV IV PRN ×2 (00:01→17:14)
[2018-12-22 05:45] VITALS: BP 133/73
[2018-12-22 06:41] LABS: Anion Gap 6 (5-15); BUN/Creatinine Ratio 26.7; Blood Urea Nitrogen 24 mg/dL (7-18); Calcium 8.3 mg/dL (8.5-10.1); Carbon Dioxide 26 mmol/L (21-32); Chloride 105 mmol/L (98-107); GFR African American > 60 mL/min; GFR Non-African American > 60 mL/min; Glucose 109 mg/dL (74-106); Potassium 4.6 mmol/L (3.5-5.1); Sodium 137 mmol/L (136-145)
--- NOTE | 2018-12-22 07:18 | NUR ---
Opening Shift Note Assumed care of patient, awake and alert. No S/S of distress/SOB or pain. Instructed on POC and to call for assist PRN, will continue to monitor for changes Q1hr and PRN.
[2018-12-22 08:00] VITALS: BP 96/57
[2018-12-22] MEDS: cefTRIAXone 1GM/50ML D5W 50 ML IV SCH (09:42)
[2018-12-22] MEDS ORDERED: predniSONE 20 MG TAB PO SCH (10:00)
[2018-12-22] MEDS ORDERED: POTASSIUM CHL 20 Meq TABLET PO ONE (11:45)
[2018-12-22] MEDS ORDERED: FUROSEMIDE 20 MG/2 ML VIAL IV ONE (11:45)
--- NOTE | 2018-12-22 11:46 | NUR ---
Nutrition Assessment Notes please see attached link for complete assessment Est. Needs ABW [id number] kcal (20-23 kcal/kgBW), 90-99 gms pro (1.0-1.1 gms/kgBW). Will continue to monitor pertinent labs and reassess nutrient need prn Addendum: 12/22/18 at [address] Amended: Links added.
[2018-12-22 12:15] VITALS: BP 126/81
[2018-12-22 16:09] VITALS: BP 107/62
[2018-12-22] MEDS: ONDANSETRON HCL 4 MG/2 ML VIAL IV PRN ×2 (17:14)
--- NOTE | 2018-12-22 17:15 | NUR ---
PAIN PATIENT COMPLAINED OF PAIN 06/09 TO HIPS,LOWER BACK,KNEES AND SHINS STATES THIS PAIN SHE HAS HAD IN THE PAST WHILE TAKING PREDNISONE; PAIN MEDICATION GIVEN ORDERED. PATIENT STATED " I DONT THINK I WILL BE READY TO GO HOME TOMORROW MAYBE ONE MORE DAY OF ANTIBIOTICS". WILL CONTINUE TO MONITOR.
--- NOTE | 2018-12-22 19:20 | NUR ---
ENDORSED CARE TO NIGHT NICK BLAIR.
--- NOTE | 2018-12-22 19:40 | NUR ---
Opening Shift Note Assumed care of patient, awake and alert, oriented x 4. On room air with even and unlabored respirations. No S/S of distress/SOB or pain. Patient ambulating independently with steady gait. Instructed on POC and to call for assist PRN, will continue to monitor for changes Q1hr and PRN.
[2018-12-22 20:00] VITALS: BP 97/64
[2018-12-22 22:39] VITALS: BP 97/64
[2018-12-23 05:56] VITALS: BP 95/62
--- NOTE | 2018-12-23 07:10 | NUR ---
Closing Note patient sleeping in bed with even and unlabored respirations, noted chest rise and fall with oxygen on at 2L via NC. No s/s of distress. Endorsed care to day shift RN Forrest.
[2018-12-23 08:33] VITALS: BP 109/57
[2018-12-23] MEDS: predniSONE 20 MG TAB PO SCH (09:32)
[2018-12-23] MEDS: cefTRIAXone 1GM/50ML D5W 50 ML IV SCH (09:40)
[2018-12-23] MEDS ORDERED: MORPHINE SULFATE 10 MG/ML INJ 1ML SDV IV PRN ×2 (11:00)
[2018-12-23] MEDS ORDERED: FUROSEMIDE 40 MG TAB PO ONE (11:00)
[2018-12-23] MEDS ORDERED: POTASSIUM CHL 20 Meq TABLET PO ONE (11:00)
[2018-12-23] MEDS ORDERED: HYDROcodone-ACET 5/325MG TAB PO PRN (11:00)
[2018-12-23 12:10] VITALS: BP 102/60
[2018-12-23 17:09] VITALS: BP 107/61
--- NOTE | 2018-12-23 19:05 | NUR ---
ASSUMED PATIENT CARE- NOC SHIFT PATIENT IS ALERT AND ORIENTED X4, ANSWERS IN COMPLETE SENTENCES AND MAKES APPROPRIATE EYE CONTACT. PATIENT DENIES PAIN AT THIS TIME. PATIENT IS IN BED, BED IS LOCKED IN LOWEST POSITION. BED RAILS UP X2 AND HEAD OF BED IS UP <30 DEGREES FOR SAFETY PRECAUTIONS. BEDSIDE TABLE WITHIN REACH, CALL LIGHT WITHIN REACH. INSTRUCTED PATIENT TO CALL PRN. WILL CONTINUE TO MONITOR Q1H AND PRN. LUNG SOUNDS ARE CLEAR AT THIS TIME.
[2018-12-23 20:05] VITALS: BP 132/92
[2018-12-23 21:30] VITALS: BP 132/92
[2018-12-24 05:00] VITALS: BP 105/66
[2018-12-24 05:51] LABS: Anion Gap 4 (5-15); BUN/Creatinine Ratio 20.7; Blood Urea Nitrogen 17 mg/dL (7-18); Calcium 8.4 mg/dL (8.5-10.1); Carbon Dioxide 29 mmol/L (21-32); Chloride 105 mmol/L (98-107); GFR African American > 60 mL/min; GFR Non-African American > 60 mL/min; Glucose 88 mg/dL (74-106); Potassium 4.3 mmol/L (3.5-5.1); Sodium 138 mmol/L (136-145)
--- NOTE | 2018-12-24 08:00 | NUR ---
Opening Shift Note Assumed care of patient, awake, alert and oriented X4. No S/S of distress/SOB or pain. IV to right forearm, 22 gauge, patent and saline locked. Instructed on POC and to call for assist PRN, verbalized understanding. Bed locked, in lowest position, call light within reach, will continue to monitor for changes Q1hr and PRN.
[2018-12-24] MEDS: ONDANSETRON HCL 4 MG/2 ML VIAL IV PRN (08:33)
[2018-12-24 08:38] VITALS: BP 103/62
[2018-12-24] MEDS ORDERED: FUROSEMIDE 40 MG TAB PO SCH (10:00)
[2018-12-24] MEDS ORDERED: POTASSIUM CHL 20 Meq TABLET PO SCH (10:00)
[2018-12-24] MEDS: predniSONE 20 MG TAB PO SCH (10:14)
--- NOTE | 2018-12-24 11:45 | NUR ---
ROUNDS Dr Sharma at bedside for rounds, new orders received and followed through. Patient updated on plan of care, verbalized understanding.
[2018-12-24 12:05] VITALS: BP 110/66
[2018-12-24 13:29] VITALS: BP 110/66
--- NOTE | 2018-12-24 14:29 | NUR ---
Discharge instructions given as ordered. Encourage to follow up with PMD as instructed. All questions and concerns addressed. Patient verbalized understanding. Medication reconciliation form completed and copy given to patient. Home medications held in Pharmacy returned to patient, and needed vaccines given. IV removed with catheter intact, pressure dressing applied. Patient ambulated to vehicle with all personal belongings, accompanied by family member. No distress noted at time of departure.
== END 2018-12-24 14:45 | disposition home or self-care (01) | DRG 291 ==
LOC: ER 09:31 → EDUNIT# 11:53 → OVERFLOW 11:53 → EEVIPCON 11:53 → EAST 13:08
PROVIDERS: ADMIT Nurse Practitioner Acute Care; ATTEND Internal Medicine
DX: I13.0 Hypertensive heart and chronic kidney disease with heart failure and stage 1 through stage 4 chronic kidney disease, or unspecified chronic kidney disease (principal); E43 Unspecified severe protein-calorie malnutrition; I50.31 Acute diastolic (congestive) heart failure; D47.Z2 Castleman disease; J98.11 Atelectasis; N39.0 Urinary tract infection, site not specified; R18.8 Other ascites; R16.2 Hepatomegaly with splenomegaly, not elsewhere classified; D63.8 Anemia in other chronic diseases classified elsewhere; E66.9 Obesity, unspecified; N18.3 Chronic kidney disease, stage 3 (moderate); Z82.49 Family history of ischemic heart disease and other diseases of the circulatory system; Z68.37 Body mass index [BMI] 37.0-37.9, adult; Z88.5 Allergy status to narcotic agent; Z88.0 Allergy status to penicillin; Z98.51 Tubal ligation status
CPT/HCPCS: 36415; 71045; 71046; 74176; 80048; 80053; 81001; 83735; 84484; 85025; 85379; 85652; 87086; 87804; 93005; 93306; 96374; 96375; G0378; J0696; J1956; J2405

== ENCOUNTER 2018-12-24 22:35 | Inpatient (IN) | payer BC ==
[~2018-12-24] VITALS: Ht 175.3 cm; Wt 123.3 kg
[2018-12-24] MEDS ORDERED: MORPHINE SULFATE 4 MG/ML SYR/VIAL IV ONE (23:45)
[2018-12-24] MEDS ORDERED: SODIUM CHLORIDE 0.9% 250 ML IV ONE (23:45)
[2018-12-24] MEDS ORDERED: ONDANSETRON HCL 4 MG/2 ML VIAL IV ONE (23:45)
[2018-12-24 23:48] LABS: Hematocrit 36.9 % (36.0-46.0); Mean Corpuscular Hemoglobin 23.6 pg (28.0-32.0); Mean Corpuscular Hgb Conc. 32.4 g/dL (32.0-36.0); Mean Corpuscular Volume 72.9 fL (80.0-100.0); Platelet Count (auto) 218 10^3/uL (140-450); Red Blood Cells 5.07 10^6/uL (4.0-5.20); Red Cell Distribution Width 18.3 % (11.8-14.3); White Blood Cell 23.7 10^3/uL (4.4-10.8)
[2018-12-24 23:53] LABS: Basophils % (manual) 0 (0.0-2.0); Blast Cells 0; Eosinophils % (manual) 0 (0-7); Metamyelocytes % 0; Myelocytes % 0; Promyelocytes % 0; Reactive Lymphocytes 0
[2018-12-24 23:57] LABS: Alanine Aminotransferase 29 U/L (13-56); Amylase 22 U/L (25-115); Anion Gap 9 (5-15); Aspartate Aminotransferase 23 U/L (15-37); BUN/Creatinine Ratio 18.3; Blood Urea Nitrogen 19 mg/dL (7-18); Calcium 8.5 mg/dL (8.5-10.1); Carbon Dioxide 26 mmol/L (21-32); Chloride 101 mmol/L (98-107); GFR Non-African American 60 mL/min; Glucose 100 mg/dL (74-106); Lipase 60 U/L (73-393); Potassium 4.3 mmol/L (3.5-5.1); Sodium 136 mmol/L (136-145)
[2018-12-24 23:59] LABS: Alkaline Phosphatase 349 U/L (45-117); Bilirubin, Total 0.5 mg/dL (0.2-1.0); Total Protein 7.9 g/dL (6.4-8.2)
[2018-12-25 00:01] LABS: GFR African American > 60 mL/min
[2018-12-25] MEDS ORDERED: SODIUM CHLORIDE 0.9% 1,000 ML IV ONE (00:45)
[2018-12-25 01:15] LABS: Band Neutrophils % (manual) 2; Lymphocytes % (manual) 16 (10.0-50.0); Monocytes % (manual) 9 (0-12)
[2018-12-25] MEDS ORDERED: MORPHINE SULFATE 10 MG/ML INJ 1ML SDV IM ONE (02:15)
[2018-12-25] MEDS ORDERED: metroNIDAZOLE 500MG/100ML 100 ML IV ONE (03:00)
[2018-12-25] MEDS ORDERED: ONDANSETRON ODT 4 MG TAB PO ONE (04:45)
[2018-12-25] MEDS ORDERED: metroNIDAZOLE 500 MG TAB PO ONE (04:45)
[2018-12-25] MEDS ORDERED: HYDROmorphone HCL 2 MG/ML VL IM ONE (05:00)
[2018-12-25] MEDS ORDERED: TEMAZEPAM 15 MG CAP PO PRN (06:00)
[2018-12-25] MEDS ORDERED: ACETAMINOPHEN 325 MG TAB PO PRN (06:00)
[2018-12-25] MEDS ORDERED: MORPHINE SULFATE 4 MG/ML SYR/VIAL IV PRN (06:00)
[2018-12-25] MEDS: metroNIDAZOLE 500MG/100ML 100 ML IV SCH ×2 (08:13→14:12)
[2018-12-25] MEDS: SODIUM CHLORIDE 0.9% 1,000 ML IV SCH ×2 (08:14→15:42)
--- NOTE | 2018-12-25 08:25 | NUR ---
PICC Line Consult for bar. Pt has a 22g IV to the left upper arm. Per primary RN, no need for further access at this time.
[2018-12-25] MEDS ORDERED: HYDROmorphone HCL 2 MG/ML VL IV ONE (09:00)
[2018-12-25] MEDS ORDERED: HCTZ 25 MG TAB PO SCH (10:00)
[2018-12-25] MEDS ORDERED: amLODIPine BESYLATE 5 MG TAB PO SCH (10:00)
[2018-12-25] MEDS: PANTOPRAZOLE 40 MG/10 ML VIAL IV SCH (10:12)
[2018-12-25] MEDS ORDERED: methylPREDNISolone SOD SUCC 125 MG/2 ML VL IV ONE (14:15)
[2018-12-25] MEDS ORDERED: LEVOFLOXACIN 500MG 100 ML IV ONE (14:15)
[2018-12-25] MEDS: HYDROmorphone HCL 2 MG/ML VL IV PRN ×3 (14:33→22:32)
--- NOTE | 2018-12-25 15:05 | NUR ---
Received report from REAL ESTATE MANAGER Kalpesh that Levaquin IV not administered yet. Waiting for patient to be transferred from ER to Room 234.
--- NOTE | 2018-12-25 15:20 | NUR ---
Med Surg admit from [facility] admitted to Med Surg unit after SBAR received. Patient oriented to Candie Daniel RN, unit, room, bed, and unit policies regarding patient care and visiting hours. Patient placed on bedside oxygen at 2 LPM, weighed by bed scale and encouraged to call if she needs something. All questions and concerns addressed, patient verbalized understanding. Note: Patient is awake, oriented x4 but has generalized weakness noted. Patient stated she had bowel movement yesterday.
--- NOTE | 2018-12-25 15:40 | NUR ---
MRSA Swab (both nares) done. Specimen sent to the Laboratory.
[2018-12-25 16:00] VITALS: BP 96/59
--- NOTE | 2018-12-25 17:30 | NUR ---
Patient stated she has abdominal pain. Dilaudid IVP not due at this time. Patient refused Ultram PO. Patient to wait for Dilaudid IVP as ordered for pain.
--- NOTE | 2018-12-25 18:22 | NUR ---
Patient stated she's in severe abdominal pain, facial grimacing noted. Dilaudid IVP given as ordered. Family member at bedside.
--- NOTE | 2018-12-25 19:35 | NUR ---
Opening Shift Note Assumed care of patient, awake and alert. No S/S of distress/SOB. Patient reporting 10/10 abdominal pain at this time, refusing pain medication as she just received Dilaudid as ordered and hot packs had been provided from dayshift RN. Patient informed of other pain medications if pain persisted, patient verbalized understanding. Bed in lowest locked position, side rails up x2, call light within reach. Instructed on POC and to call for assist PRN, will continue to monitor for changes Q1hr and PRN.
[2018-12-25] MEDS: traMADol HCL 50 MG TAB PO PRN (21:42)
[2018-12-25] MEDS: methylPREDNISolone SOD SUCC 125 MG/2 ML VL IV SCH (21:42)
[2018-12-25 22:00] VITALS: BP 136/79
[2018-12-25] MEDS: ONDANSETRON HCL 4 MG/2 ML VIAL IV PRN (22:32)
[2018-12-26] MEDS: HYDROmorphone HCL 2 MG/ML VL IV PRN ×4 (03:51→21:46)
[2018-12-26 05:00] VITALS: BP 105/57
[2018-12-26 05:14] LABS: Hemoglobin 10.8 g/dL (12.2-16.2)
[2018-12-26 05:16] LABS: Mean Corpuscular Hemoglobin 23.4 pg (28.0-32.0); Mean Corpuscular Hgb Conc. 31.6 g/dL (32.0-36.0); Mean Corpuscular Volume 74.1 fL (80.0-100.0); Platelet Count (auto) 201 10^3/uL (140-450); Red Cell Distribution Width 18.1 % (11.8-14.3); White Blood Cell 26.3 10^3/uL (4.4-10.8)
[2018-12-26 05:25] LABS: Basophils % (manual) 0 (0.0-2.0); Blast Cells 0; Eosinophils % (manual) 0 (0-7); Promyelocytes % 0; Reactive Lymphocytes 0
[2018-12-26 05:29] LABS: Albumin 1.9 g/dL (3.4-5.0); Potassium 4.7 mmol/L (3.5-5.1)
[2018-12-26] MEDS: SODIUM CHLORIDE 0.9% 1,000 ML IV SCH ×2 (05:30→17:43)
[2018-12-26 05:32] LABS: BUN/Creatinine Ratio 24.5
[2018-12-26 05:34] LABS: Bilirubin, Total 0.4 mg/dL (0.2-1.0); Total Protein 7.1 g/dL (6.4-8.2)
[2018-12-26 07:16] LABS: Band Neutrophils % (manual) 9; Lymphocytes % (manual) 2 (10.0-50.0); Metamyelocytes % 1; Monocytes % (manual) 1 (0-12); Myelocytes % 1
--- NOTE | 2018-12-26 07:20 | NUR ---
Closing Note Patient lying in bed, awake and alert. No s/s of distress. Bed in lowest locked position, side rails up x2, call light within reach. Care endorsed to dayshift RN.
--- NOTE | 2018-12-26 08:00 | NUR ---
RECEIVED PT RESTING IN BED, CALL LIGHT WITHIN REACH, PT DENIES ANY PAIN AT THIS TIME, WILL CONTINUE TO MONITOR PT.
[2018-12-26 09:26] VITALS: BP 110/68
[2018-12-26 09:26] LABS: Urine Amorphous Crystal FEW /hpf (None Seen); Urine Bacteria FEW /hpf (None Seen); Urine Blood Negative /uL (Negative); Urine Hyaline Cast FEW /lpf (0 - 2); Urine WBC 5 /hpf (0 - 5)
[2018-12-26] MEDS: PANTOPRAZOLE 40 MG/10 ML VIAL IV SCH (09:58)
[2018-12-26] MEDS: LEVOFLOXACIN 500MG 100 ML IV SCH (09:58)
[2018-12-26] MEDS: methylPREDNISolone SOD SUCC 125 MG/2 ML VL IV SCH ×2 (09:59→21:40)
[2018-12-26 12:54] VITALS: BP_SYST 104
[2018-12-26 16:41] VITALS: BP 122/78
--- NOTE | 2018-12-26 19:30 | NUR ---
Opening shift note Patient in bed alert and oriented x 4, verbally coherent, able to make needs known. Patient's respiration even and unlabored, denies pain and discomfort at this time. Patient's fluid order NS 0.9% at 85cc/hr, however, patient requested to have it at 50cc/hr instead. Plan of care discussed, patient verbalized understanding. All needs attended, will continue to monitor.
[2018-12-26] MEDS: ONDANSETRON HCL 4 MG/2 ML VIAL IV PRN (21:45)
[2018-12-26 22:00] VITALS: BP 122/75
[2018-12-27] MEDS: HYDROmorphone HCL 2 MG/ML VL IV PRN ×5 (01:23→23:52)
[2018-12-27 05:00] VITALS: BP 127/81
[2018-12-27] MEDS: SODIUM CHLORIDE 0.9% 1,000 ML IV SCH (05:22)
[2018-12-27 06:08] LABS: Hematocrit 33.9 % (36.0-46.0); Hemoglobin 10.6 g/dL (12.2-16.2); Mean Corpuscular Hemoglobin 23.7 pg (28.0-32.0); Mean Corpuscular Hgb Conc. 31.4 g/dL (32.0-36.0); Mean Corpuscular Volume 75.6 fL (80.0-100.0); Platelet Count (auto) 165 10^3/uL (140-450); Red Blood Cells 4.48 10^6/uL (4.0-5.20); Red Cell Distribution Width 18.1 % (11.8-14.3); White Blood Cell 26.9 10^3/uL (4.4-10.8)
[2018-12-27 06:11] LABS: Basophils % (manual) 0 (0.0-2.0); Blast Cells 0; Eosinophils % (manual) 0 (0-7); Metamyelocytes % 0; Promyelocytes % 0; Reactive Lymphocytes 0
[2018-12-27 06:25] LABS: BUN/Creatinine Ratio 24.5; Potassium 4.7 mmol/L (3.5-5.1)
[2018-12-27 06:39] LABS: Calcium 8.3 mg/dL (8.5-10.1)
[2018-12-27] MEDS: traMADol HCL 50 MG TAB PO PRN ×2 (06:48→13:57)
[2018-12-27 06:56] LABS: Band Neutrophils % (manual) 3; Lymphocytes % (manual) 5 (10.0-50.0); Monocytes % (manual) 1 (0-12); Myelocytes % 1
[2018-12-27 07:29] VITALS: BP 81/48
[2018-12-27 08:00] VITALS: BP 81/48
[2018-12-27] MEDS: LEVOFLOXACIN 500MG 100 ML IV SCH (10:35)
[2018-12-27] MEDS: methylPREDNISolone SOD SUCC 125 MG/2 ML VL IV SCH (10:35)
[2018-12-27] MEDS: PANTOPRAZOLE 40 MG/10 ML VIAL IV SCH (10:36)
[2018-12-27] MEDS ORDERED: FUROSEMIDE 20 MG/2 ML VIAL IV ONE (11:45)
[2018-12-27] MEDS ORDERED: POTASSIUM CHL 20 Meq TABLET PO ONE (11:45)
--- NOTE | 2018-12-27 12:08 | NUR ---
Nutrition Follow-up Notes Wt.: 114.3 kg Pt was awake but with MD at bedside when rounded this am. 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 pt with no distress noted per nursing. pt is currently on regular diet with adequate PO of 75% x 6 per RN doc Est. Needs ABW [id number] kcal (20-23 kcal/kgBW), 90-99 gms pro (1.0-1.1 gms/kgBW). Will continue to monitor pertinent labs and reassess nutrient need prn Labs: BUN 23 H, ALB 1.9 L, GLU 155 H, CA 8.3 L. Skin: Tima scale 23, low risk, skin intact per program management intern. GI: Pt has no BM reported per program management intern. PES: Decreased nutrient needs r/t adiposity aeb pt`s high BMI of 37.6 kgm2 Altered nutrition related lab values r/t current/chronic medical condition aeb hyperglycemia, mod hypoalb, elev BUN hypocalcemia Will continue to monitor PO intake, skin status, pertinent labs and weight trend. F/u in 3-5 days. Rec.: 1.) Consider prostat 1 packet bid. 2) refer to OPD dietitian on DC. 3) continue current plan of care
--- NOTE | 2018-12-27 19:30 | NUR ---
Opening Shift Note Assumed care of patient, awake and alert. No S/S of distress/SOB or pain. Instructed on POC and to call for assist PRN, will continue to monitor for significant change in condition.
[2018-12-27 22:00] VITALS: BP 124/68
[2018-12-27] MEDS: methylPREDNISolone SOD SUCC 40 MG/ML VL IV SCH (22:06)
[2018-12-28] MEDS: HYDROmorphone HCL 2 MG/ML VL IV PRN (03:57)
[2018-12-28] MEDS: traMADol HCL 50 MG TAB PO PRN (04:50)
[2018-12-28 05:00] VITALS: BP 125/70
[2018-12-28 06:50] LABS: Basophils # (auto) 0 uL; Basophils % (auto) 0.1 % (0.0-2.0); Eosinophils # (auto) 0 uL; Lymphocytes # (auto) 1.6 uL
[2018-12-28 06:54] LABS: Hematocrit 33.5 % (36.0-46.0); Hemoglobin 10.6 g/dL (12.2-16.2); Mean Corpuscular Hemoglobin 23.7 pg (28.0-32.0); Mean Corpuscular Hgb Conc. 31.6 g/dL (32.0-36.0); Mean Corpuscular Volume 75.1 fL (80.0-100.0); Monocytes # (auto) 1.1 uL; Monocytes % (auto) 4.2 % (0.0-12.0); Neutrophils # (auto) 23.7 uL; Neutrophils % (auto) 89.7 % (37.0-80.0); Platelet Count (auto) 145 10^3/uL (140-450); Red Blood Cells 4.45 10^6/uL (4.0-5.20); Red Cell Distribution Width 18.1 % (11.8-14.3); White Blood Cell 26.5 10^3/uL (4.4-10.8)
[2018-12-28 07:11] LABS: Albumin 1.7 g/dL (3.4-5.0); BUN/Creatinine Ratio 24.8; Calcium 8.5 mg/dL (8.5-10.1); Potassium 4.9 mmol/L (3.5-5.1)
[2018-12-28 07:14] LABS: Bilirubin, Total 0.2 mg/dL (0.2-1.0); Total Protein 6.8 g/dL (6.4-8.2)
[2018-12-28 09:00] VITALS: BP 125/77
[2018-12-28] MEDS: PANTOPRAZOLE 40 MG/10 ML VIAL IV SCH (09:17)
[2018-12-28] MEDS: methylPREDNISolone SOD SUCC 40 MG/ML VL IV SCH ×2 (09:18→21:30)
[2018-12-28] MEDS: LEVOFLOXACIN 500MG 100 ML IV SCH (09:18)
[2018-12-28] MEDS ORDERED: cefTRIAXone 1GM/50ML D5W 50 ML IV ONE (11:00)
[2018-12-28] MEDS: SODIUM CHLORIDE 0.9% 1,000 ML IV SCH (11:39)
[2018-12-28] MEDS: KETOROLAC TROMETH 30 MG/ML 1ML VIAL IV PRN (11:43)
[2018-12-28] MEDS ORDERED: NYSTATIN (MOUTH-THROAT) 500,000 UNITS/5 ML SUSP MT ONE (12:15)
[2018-12-28 12:30] VITALS: BP 111/76
[2018-12-28] MEDS: metroNIDAZOLE 500MG/100ML 100 ML IV SCH ×2 (14:26→21:31)
[2018-12-28 17:00] VITALS: BP 128/75
[2018-12-28] MEDS: NYSTATIN (MOUTH-THROAT) 500,000 UNITS/5 ML SUSP MT SCH ×2 (18:00→21:30)
--- NOTE | 2018-12-28 19:30 | NUR ---
Opening shift note Patient in bed alert and oriented x 4, verbally coherent, able to make needs known. Patient's respiration even and unlabored, denies pain and discomfort at this time. Plan of care discussed, patient verbalized understanding. All needs attended, will continue to monitor.
[2018-12-28 22:00] VITALS: BP 115/73
[2018-12-29] MEDS: SODIUM CHLORIDE 0.9% 1,000 ML IV SCH ×2 (03:45→20:20)
[2018-12-29 05:55] VITALS: BP 142/72
[2018-12-29] MEDS: KETOROLAC TROMETH 30 MG/ML 1ML VIAL IV PRN (05:55)
[2018-12-29] MEDS: metroNIDAZOLE 500MG/100ML 100 ML IV SCH ×3 (05:59→21:57)
[2018-12-29] MEDS: NYSTATIN (MOUTH-THROAT) 500,000 UNITS/5 ML SUSP MT SCH ×4 (05:59→21:58)
--- NOTE | 2018-12-29 07:05 | NUR ---
Opening Shift Note Assumed care of patient, awake and alert. No S/S of distress/SOB or pain. Instructed on POC and to call for assist PRN, will continue to monitor for changes Q1hr and PRN.
[2018-12-29] MEDS: methylPREDNISolone SOD SUCC 40 MG/ML VL IV SCH (08:57)
[2018-12-29] MEDS: cefTRIAXone 1GM/50ML D5W 50 ML IV SCH (08:57)
[2018-12-29] MEDS: PANTOPRAZOLE 40 MG/10 ML VIAL IV SCH (08:58)
[2018-12-29 09:00] VITALS: BP 124/61
[2018-12-29 11:05] LABS: BUN/Creatinine Ratio 30.9; Calcium 8.6 mg/dL (8.5-10.1); Potassium 5.5 mmol/L (3.5-5.1)
[2018-12-29 12:08] LABS: Red Blood Cells 5.81 10^6/uL (4.0-5.20)
[2018-12-29 12:11] LABS: Hemoglobin 13.8 g/dL (12.2-16.2); Mean Corpuscular Hemoglobin 23.8 pg (28.0-32.0); Mean Corpuscular Hgb Conc. 31.4 g/dL (32.0-36.0); Mean Corpuscular Volume 75.8 fL (80.0-100.0); Platelet Count (auto) 186 10^3/uL (140-450); Red Cell Distribution Width 18.5 % (11.8-14.3)
[2018-12-29 12:19] LABS: White Blood Cell 30.9 10^3/uL (4.4-10.8)
[2018-12-29 12:20] LABS: Basophils % (manual) 0 (0.0-2.0); Blast Cells 0; Eosinophils % (manual) 0 (0-7); Promyelocytes % 0; Reactive Lymphocytes 0
[2018-12-29 13:00] VITALS: BP 115/69
[2018-12-29 13:08] LABS: Band Neutrophils % (manual) 7; Lymphocytes % (manual) 7 (10.0-50.0); Metamyelocytes % 1; Monocytes % (manual) 4 (0-12); Myelocytes % 1
--- NOTE | 2018-12-29 13:21 | NUR ---
PAGED DR. ACEVEDO REGARDING CRITICAL WBC OF 30.9, K OF 5.5, AND NA OF 136. PATIENT IS ASYMPTOMATIC, VITALS STABLE. WAITING FOR A CALL BACK
--- NOTE | 2018-12-29 14:20 | NUR ---
MIDLINE PLACEMENT TO LEFT BRACHIAL. 18G/10CM, LOT#[id number]. BLOOD RETURN OBTAINED FROM SINGLE PORT, FLUSHES EASILY. TOLERATED WELL. PRIMARY RN NOTIFIED.
--- NOTE | 2018-12-29 14:46 | NUR ---
NOTIFIED DR. ACEVEDO REGARDING THE WBC OF 30.9, NA OF 132 AND K-LEVEL OF 5.5. PT IS AFEBRILE, CHANGED SOLO-MEDROL TO PREDNISONE. WILL CONTINUE TO MONITOR THE PATIENT.
[2018-12-29 16:44] VITALS: BP 127/77
[2018-12-29 20:00] VITALS: BP 127/77
--- NOTE | 2018-12-29 20:00 | NUR ---
Opening Shift Note Assumed care of patient, awake and alert x4. No S/S of distress/SOB or pain. Instructed on POC and to call for assistance PRN, will continue to monitor for changes Q1hr and PRN.
[2018-12-29 22:00] VITALS: BP 126/65
[2018-12-30] VITALS (7 sets, daily range): BP systolic 99–131; BP diastolic 63–83
[2018-12-30] MEDS: metroNIDAZOLE 500MG/100ML 100 ML IV SCH ×3 (06:09→22:30)
[2018-12-30] MEDS: NYSTATIN (MOUTH-THROAT) 500,000 UNITS/5 ML SUSP MT SCH ×4 (06:09→22:30)
[2018-12-30 06:58] LABS: Hematocrit 34.3 % (36.0-46.0); Mean Corpuscular Hemoglobin 23.8 pg (28.0-32.0); Mean Corpuscular Hgb Conc. 31.9 g/dL (32.0-36.0); Mean Corpuscular Volume 74.5 fL (80.0-100.0); Platelet Count (auto) 280 10^3/uL (140-450); Red Cell Distribution Width 18.5 % (11.8-14.3); White Blood Cell 26.6 10^3/uL (4.4-10.8)
[2018-12-30 07:09] LABS: Basophils % (manual) 0 (0.0-2.0); Blast Cells 0; Eosinophils % (manual) 0 (0-7); Myelocytes % 0; Promyelocytes % 0; Reactive Lymphocytes 0
--- NOTE | 2018-12-30 08:00 | NUR ---
ASSESSMENT NOTE PT IS ALERT ORIENTED X4, RESTING IN BED COMFORTABLY, NO DISTRESS NOTED, ABLE TO VERBALIS HER NEEDS, SELF REPOSITION, PT ABDOMEN, SOFT, LARGE AND DISTENDED, NO EDEMA NOTED ON BOTH LOWER EXTREMITIES, LUNGS ARE CLEAR, DENIES PAIN AT THIS TIME 010, CALL LIGHT WITHIN REACH.
[2018-12-30 08:25] LABS: Band Neutrophils % (manual) 3; Lymphocytes % (manual) 14 (10.0-50.0); Metamyelocytes % 2; Monocytes % (manual) 5 (0-12)
[2018-12-30] MEDS: cefTRIAXone 1GM/50ML D5W 50 ML IV SCH (09:38)
[2018-12-30] MEDS: PANTOPRAZOLE 40 MG TAB PO SCH (09:39)
[2018-12-30] MEDS: ONDANSETRON HCL 4 MG/2 ML VIAL IV PRN ×3 (09:52→14:11)
[2018-12-30] MEDS: HYDROmorphone HCL 2 MG/ML VL IV PRN ×3 (09:53→20:34)
[2018-12-30] MEDS ORDERED: predniSONE 20 MG TAB PO SCH (10:00)
--- NOTE | 2018-12-30 11:20 | NUR ---
DR GUILLERMO AT BED SIDE FOLLOWING UP ON PT WITH A LONG VISIT, REVIEWING LAB WITH PT, WITH NEW ORDERS.
[2018-12-30 11:34] LABS: Anion Gap 8 (5-15); BUN/Creatinine Ratio 25.8; Blood Urea Nitrogen 24 mg/dL (7-18); Calcium 8.4 mg/dL (8.5-10.1); Carbon Dioxide 25 mmol/L (21-32); Chloride 105 mmol/L (98-107); GFR African American 83 mL/min; GFR Non-African American 68 mL/min; Glucose 278 mg/dL (74-106); Sodium 138 mmol/L (136-145)
[2018-12-30 11:35] LABS: Potassium 4.7 mmol/L (3.5-5.1)
--- NOTE | 2018-12-30 11:35 | NUR ---
OUT TO RADIOLOGY BY WHEELCHAIR, NO DISTRESS NOTED.
[2018-12-30] MEDS ORDERED: IOHEXOL 300 MG/ML 100ML BOTTLE IJ ONE (11:43)
--- NOTE | 2018-12-30 12:00 | NUR ---
PT IS BACK TO HER ROOM, NO DISTRESS NOTED, CONTINUE MONITORING.
--- NOTE | 2018-12-30 13:45 | NUR ---
RATTLING MACHINE TENDER AT BED SIDE, PT IS HAVING SOME ACHING PAIN.
[2018-12-30] MEDS: SODIUM CHLORIDE 0.9% 1,000 ML IV SCH (14:10)
--- NOTE | 2018-12-30 14:53 | NUR ---
Nutrition Follow-up Notes Wt.: 120.0 kg as of yesterday. Noted 5.7 kg weight gain in last 3 days likely d/t ? fluid retention aeb positive I & Os for past few days. Pt's off the floor for a procedure during rounds this morning. Pt's no signs of distress noted by RN earlier, currently on Regular diet with adequate PO intake aeb 90% ave. consumed meals (x7) in last 2.5 days. Noted pt's for active Christopher/Oncology consult. Est. Needs ABW [id number] kcal (20-23 kcal/kgBW), 90-99 gms pro (1.0-1.1 gms/kgBW). Will continue to monitor pertinent labs and reassess nutrient need prn Labs: Gluc 278 H, BUN 24 H, Ca 8.4 L, Alb 1.7 L. Skin : Tima score 23, low risk, skin intact per electron gun inspector. GI: Pt had 3x BM yesterday per electron gun inspector. PES: Decreased nutrient needs r/t adiposity aeb pt`s high BMI of 37.6 kgm2 Altered nutrition related lab values r/t current/chronic medical condition aeb hyperglycemia, mod hypoalb, elev BUN hypocalcemia Will continue to monitor PO intake, skin status, pertinent labs and weight trend. F/u in 3 to 5 days. Rec.: 1.) If Albumin level continues trending down, consider Prostat 1 pkt BID. 2.) Continue close supervision with meals. 3.) If f gluc levele remains consistently elev.. consider Consistent Std. Carb: 60 gms/meal diet 4.) Refer to RD for further nutrition educ. and weight monitoring upon discharge. 5.) Continue current plan of care.
--- NOTE | 2018-12-30 18:00 | NUR ---
PT AMBULATING IN THE HALLWAYS, NO DISTRESS NOTED, CONTINUE MONITORING.
--- NOTE | 2018-12-30 20:25 | NUR ---
Opening Shift Note Assumed care of patient, awake and alert. No S/S of distress/SOB, c/o abdominal pain will medicate as ordered. Instructed on POC and to call for assistance PRN, will continue to monitor for changes Q1hr and PRN.
[2018-12-31] MEDS: HYDROmorphone HCL 2 MG/ML VL IV PRN ×3 (03:49→20:41)
--- NOTE | 2018-12-31 03:49 | NUR ---
Pain Management Pt c/o of severe abdominal mercedes, medicated as ordered. Pt states she wants to alternate between Dilaudid and tramadol to keep pain manageable.
[2018-12-31] MEDS: SODIUM CHLORIDE 0.9% 1,000 ML IV SCH ×2 (04:45→20:42)
[2018-12-31 05:00] VITALS: BP 105/57
[2018-12-31] MEDS: metroNIDAZOLE 500MG/100ML 100 ML IV SCH ×3 (06:13→20:42)
[2018-12-31] MEDS: NYSTATIN (MOUTH-THROAT) 500,000 UNITS/5 ML SUSP MT SCH ×4 (06:13→20:42)
[2018-12-31] MEDS: traMADol HCL 50 MG TAB PO PRN (06:20)
--- NOTE | 2018-12-31 06:20 | NUR ---
Pain Management Pt c/o of abdominal pain 02/07, requests tramadol for breakthrough pain, medicated as ordered.
[2018-12-31 06:47] LABS: Hemoglobin 10.4 g/dL (12.2-16.2)
[2018-12-31 06:50] LABS: Hematocrit 31.7 % (36.0-46.0); Mean Corpuscular Hgb Conc. 32.7 g/dL (32.0-36.0); Mean Corpuscular Volume 73.2 fL (80.0-100.0); Platelet Count (auto) 224 10^3/uL (140-450); Red Blood Cells 4.33 10^6/uL (4.0-5.20); Red Cell Distribution Width 18.5 % (11.8-14.3); White Blood Cell 23.1 10^3/uL (4.4-10.8)
[2018-12-31 07:06] LABS: Basophils % (manual) 0 (0.0-2.0); Blast Cells 0; Myelocytes % 0; Promyelocytes % 0; Reactive Lymphocytes 0
--- NOTE | 2018-12-31 07:15 | NUR ---
Report received. Patient lying in bed. Patient is alert and oriented. States some pain to LLQ. Call light in reach. Will continue to monitor.
[2018-12-31 07:22] LABS: Calcium 8.2 mg/dL (8.5-10.1); Potassium 5.5 mmol/L (3.5-5.1)
[2018-12-31 07:24] LABS: BUN/Creatinine Ratio 30.8
[2018-12-31 07:46] LABS: Band Neutrophils % (manual) 8; Eosinophils % (manual) 2 (0-7); Lymphocytes % (manual) 11 (10.0-50.0); Metamyelocytes % 1; Monocytes % (manual) 9 (0-12)
[2018-12-31] MEDS: Pro-Stat SF 30ml Vanilla PO SCH ×2 (08:00→18:00)
[2018-12-31 09:00] VITALS: BP 103/61
[2018-12-31] MEDS: PANTOPRAZOLE 40 MG TAB PO SCH (09:46)
[2018-12-31] MEDS: cefTRIAXone 1GM/50ML D5W 50 ML IV SCH (09:47)
[2018-12-31] MEDS ORDERED: predniSONE 20 MG TAB PO ONE (11:00)
[2018-12-31 17:00] VITALS: BP 110/61
--- NOTE | 2018-12-31 19:30 | NUR ---
RECEIVED PT FROM DAY RN POC REVIEWED
[2018-12-31] MEDS: ONDANSETRON HCL 4 MG/2 ML VIAL IV PRN (20:41)
[2018-12-31 21:00] VITALS: BP 124/76
--- NOTE | 2019-01-01 04:20 | NUR ---
resting comfortable with eyes closed call light within reach
[2019-01-01 04:53] VITALS: BP 103/62
[2019-01-01] MEDS: metroNIDAZOLE 500MG/100ML 100 ML IV SCH ×3 (05:25→21:30)
[2019-01-01] MEDS: HYDROmorphone HCL 2 MG/ML VL IV PRN ×3 (05:25→20:36)
[2019-01-01] MEDS: NYSTATIN (MOUTH-THROAT) 500,000 UNITS/5 ML SUSP MT SCH ×4 (05:25→21:31)
--- NOTE | 2019-01-01 07:05 | NUR ---
report given to am nurse poc reviewed
[2019-01-01 08:20] LABS: Red Cell Distribution Width 18.5 % (11.8-14.3)
[2019-01-01 08:21] LABS: Hematocrit 32.7 % (36.0-46.0); Hemoglobin 10.6 g/dL (12.2-16.2); Mean Corpuscular Hemoglobin 23.6 pg (28.0-32.0); Mean Corpuscular Hgb Conc. 32.3 g/dL (32.0-36.0); Mean Corpuscular Volume 73.3 fL (80.0-100.0); Platelet Count (auto) 206 10^3/uL (140-450); Red Blood Cells 4.47 10^6/uL (4.0-5.20); White Blood Cell 20.3 10^3/uL (4.4-10.8)
[2019-01-01 08:35] LABS: BUN/Creatinine Ratio 30.1; Calcium 8.2 mg/dL (8.5-10.1); Potassium 4.8 mmol/L (3.5-5.1)
[2019-01-01 08:42] LABS: Band Neutrophils % (manual) 0; Basophils % (manual) 0 (0.0-2.0); Blast Cells 0; Promyelocytes % 0; Reactive Lymphocytes 0
[2019-01-01 09:00] VITALS: BP 107/57
[2019-01-01 09:23] LABS: Eosinophils % (manual) 1 (0-7); Lymphocytes % (manual) 12 (10.0-50.0); Metamyelocytes % 2; Monocytes % (manual) 3 (0-12); Myelocytes % 2
[2019-01-01] MEDS: cefTRIAXone 1GM/50ML D5W 50 ML IV SCH (10:26)
[2019-01-01] MEDS: PANTOPRAZOLE 40 MG TAB PO SCH (10:26)
[2019-01-01] MEDS: predniSONE 20 MG TAB PO SCH (10:26)
[2019-01-01] MEDS: Pro-Stat SF 30ml Vanilla PO SCH ×2 (10:27→17:42)
[2019-01-01] MEDS: traMADol HCL 50 MG TAB PO PRN ×2 (12:18→17:42)
[2019-01-01 13:00] VITALS: BP 98/55
[2019-01-01] MEDS: SODIUM CHLORIDE 0.9% 1,000 ML IV SCH (14:27)
[2019-01-01] MEDS: ONDANSETRON HCL 4 MG/2 ML VIAL IV PRN (14:31)
[2019-01-01 17:00] VITALS: BP 99/56
--- NOTE | 2019-01-01 19:30 | NUR ---
Opening Shift Note Assumed care of patient, awake and alert. No S/S of distress/SOB but c/o LUQ pain. Bed locked in lowest position, side rails upx2, call light within reach. Instructed on POC and to call for assist PRN, will continue to monitor for changes Q1hr and PRN.
[2019-01-01 22:00] VITALS: BP 109/52
[2019-01-02] MEDS: HYDROmorphone HCL 2 MG/ML VL IV PRN ×4 (04:25→23:53)
[2019-01-02 05:34] VITALS: BP 125/57
[2019-01-02 05:47] LABS: Basophils # (auto) 0.1 uL; Basophils % (auto) 0.7 % (0.0-2.0); Eosinophils % (auto) 0.3 % (0.0-7.0); Lymphocytes # (auto) 1.6 uL
[2019-01-02 05:50] LABS: Eosinophils # (auto) 0.1 uL; Hematocrit 30.5 % (36.0-46.0); Hemoglobin 9.7 g/dL (12.2-16.2); Lymphocytes % (auto) 10.8 % (10.0-50.0); Mean Corpuscular Hemoglobin 23.2 pg (28.0-32.0); Mean Corpuscular Hgb Conc. 31.9 g/dL (32.0-36.0); Mean Corpuscular Volume 72.7 fL (80.0-100.0); Monocytes # (auto) 0.9 uL; Neutrophils # (auto) 12.3 uL; Neutrophils % (auto) 82.2 % (37.0-80.0); Platelet Count (auto) 195 10^3/uL (140-450); Red Cell Distribution Width 18.4 % (11.8-14.3)
[2019-01-02] MEDS: metroNIDAZOLE 500MG/100ML 100 ML IV SCH ×3 (06:08→21:21)
[2019-01-02] MEDS: NYSTATIN (MOUTH-THROAT) 500,000 UNITS/5 ML SUSP MT SCH ×4 (06:09→21:21)
[2019-01-02] MEDS: SODIUM CHLORIDE 0.9% 1,000 ML IV SCH (07:40)
[2019-01-02 08:00] VITALS: BP 104/66
[2019-01-02] MEDS: predniSONE 20 MG TAB PO SCH (09:49)
[2019-01-02] MEDS: PANTOPRAZOLE 40 MG TAB PO SCH (09:49)
[2019-01-02] MEDS: cefTRIAXone 1GM/50ML D5W 50 ML IV SCH (09:50)
--- NOTE | 2019-01-02 09:58 | NUR ---
patient declines iv fluids. oral intake is very good
[2019-01-02] MEDS: Pro-Stat SF 30ml Vanilla PO SCH ×2 (09:59→18:05)
[2019-01-02] MEDS: ONDANSETRON HCL 4 MG/2 ML VIAL IV PRN ×2 (12:16→18:05)
[2019-01-02 12:30] VITALS: BP 110/64
[2019-01-02 17:00] VITALS: BP 112/59
[2019-01-02] MEDS: ACCU-CHEK COMFORT CURVE STRIP VI SCH ×2 (18:06→23:53)
--- NOTE | 2019-01-02 19:30 | NUR ---
Opening Shift Note Assumed care of patient, awake and alert. No S/S of distress/SOB or pain. Bed locked in lowest position, side rails upx2, call light within reach. Instructed on POC and to call for assist PRN, will continue to monitor for changes Q1hr and PRN.
[2019-01-02 22:00] VITALS: BP 125/81
[2019-01-03 04:50] VITALS: BP 116/71
[2019-01-03] MEDS: HYDROmorphone HCL 2 MG/ML VL IV PRN ×4 (05:06→20:51)
--- NOTE | 2019-01-03 05:07 | NUR ---
Patient c/o of sharp LUQ pain 10/10 after standing up from bowel movement. Given dilaudid 1mg PRN per md order. Will continue to monitor.
[2019-01-03] MEDS: NYSTATIN (MOUTH-THROAT) 500,000 UNITS/5 ML SUSP MT SCH ×4 (05:31→22:00)
[2019-01-03] MEDS: metroNIDAZOLE 500MG/100ML 100 ML IV SCH ×3 (05:31→22:12)
[2019-01-03] MEDS: ACCU-CHEK COMFORT CURVE STRIP VI SCH ×3 (05:31→18:07)
[2019-01-03] MEDS ORDERED: HYDROmorphone HCL 2 MG/ML VL IV ONE (06:15)
--- NOTE | 2019-01-03 06:30 | NUR ---
Spoke to Dr. Lopes regarding patient's pain. Given order for Dilaudid 1mg ONCE. Will carry out order.
[2019-01-03 08:04] LABS: Hemoglobin 9.4 g/dL (12.2-16.2); White Blood Cell 11.2 10^3/uL (4.4-10.8)
[2019-01-03 08:06] LABS: Hematocrit 29.4 % (36.0-46.0); Mean Corpuscular Hemoglobin 23.1 pg (28.0-32.0); Mean Corpuscular Volume 72.3 fL (80.0-100.0); Platelet Count (auto) 191 10^3/uL (140-450); Red Blood Cells 4.06 10^6/uL (4.0-5.20); Red Cell Distribution Width 18.6 % (11.8-14.3)
[2019-01-03 08:08] LABS: Band Neutrophils % (manual) 0; Basophils % (manual) 0 (0.0-2.0); Blast Cells 0; Eosinophils % (manual) 0 (0-7); Promyelocytes % 0; Reactive Lymphocytes 0
[2019-01-03 08:22] LABS: Albumin 1.7 g/dL (3.4-5.0); BUN/Creatinine Ratio 24.7; Calcium 7.8 mg/dL (8.5-10.1); Potassium 4.5 mmol/L (3.5-5.1)
[2019-01-03 08:24] LABS: Bilirubin, Total 0.4 mg/dL (0.2-1.0); Total Protein 5.7 g/dL (6.4-8.2)
[2019-01-03 09:04] VITALS: BP 101/61
[2019-01-03] MEDS: predniSONE 20 MG TAB PO SCH (09:33)
[2019-01-03] MEDS: PANTOPRAZOLE 40 MG TAB PO SCH (09:34)
[2019-01-03] MEDS: cefTRIAXone 1GM/50ML D5W 50 ML IV SCH (09:34)
[2019-01-03] MEDS: traMADol HCL 50 MG TAB PO PRN ×2 (09:35→18:06)
[2019-01-03] MEDS: Pro-Stat SF 30ml Vanilla PO SCH ×2 (09:41→18:07)
[2019-01-03 10:42] LABS: Lymphocytes % (manual) 18 (10.0-50.0)
[2019-01-03 10:43] LABS: Metamyelocytes % 2; Monocytes % (manual) 9 (0-12); Myelocytes % 2
[2019-01-03] MEDS: ONDANSETRON HCL 4 MG/2 ML VIAL IV PRN ×2 (12:08→16:38)
[2019-01-03 12:55] VITALS: BP 104/66
--- NOTE | 2019-01-03 15:33 | NUR ---
Nutrition Follow-up Notes Wt.: 121.3 kg as of yesterday. Pt's asleep, no immediate family member at bedside during rounds this morning. Noted pt c/o pain earlier, per nursing notes, currently on Regular diet with Prostat 1 pkt BID, has adequate PO intake aeb 85% ave. consumed meals (x7) in last 2.5 days. Est. Needs ABW [id number] kcal (20-23 kcal/kgBW), 90-99 gms pro (1.0-1.1 gms/kgBW). Will continue to monitor pertinent labs and reassess nutrient need prn Labs: BUN 21 H, Ca 7.8 L, AST 8 L, ALT 6 L, ALP 129 L, Tpro 5.7 L, Alb 1.7 L. Skin : Tima score 21, low risk, skin intact per paper reclaiming machine operator. GI: Pt had 1x BM this morning per paper reclaiming machine operator. PES: Decreased nutrient needs r/t adiposity aeb pt`s high BMI of 37.6 kgm2 and increased body adiposity. Altered nutrition related lab values r/t current/chronic medical condition aeb hyperglycemia, mod hypoalb, elev BUN hypocalcemia Will continue to monitor PO intake, skin status, pertinent labs and weight trend. F/u in 3 to 5 days. Rec.: 1.) Continue close supervision with meals. 2.) Refer to RD for further nutrition educ. and weight monitoring upon discharge. 3.) Continue current plan of care.
[2019-01-03 17:24] VITALS: BP 126/80
[2019-01-03 22:00] VITALS: BP 112/59
[2019-01-04] MEDS: traMADol HCL 50 MG TAB PO PRN ×2 (00:14→12:22)
[2019-01-04] MEDS: ACCU-CHEK COMFORT CURVE STRIP VI SCH ×4 (00:15→18:28)
[2019-01-04] MEDS: HYDROmorphone HCL 2 MG/ML VL IV PRN ×5 (01:28→22:31)
[2019-01-04 04:18] VITALS: BP 135/77
[2019-01-04] MEDS: NYSTATIN (MOUTH-THROAT) 500,000 UNITS/5 ML SUSP MT SCH ×4 (05:25→22:15)
[2019-01-04] MEDS: metroNIDAZOLE 500MG/100ML 100 ML IV SCH (05:26)
--- NOTE | 2019-01-04 07:00 | NUR ---
Received pain meds q 4 hours upon request. Blood sugar 78 this am but ate 2 cups of jello. Bilateral lower extremity edema noted. Afebrile. Report given to NICK Luu
--- NOTE | 2019-01-04 08:00 | NUR ---
Opening Shift Note Assumed care of patient, awake and alert. No S/S of distress/SOB or pain. Patient verbalized feeling much better and wanting to be discharged today. Instructed on POC and to call for assist PRN, will continue to monitor for changes Q1hr and PRN.
[2019-01-04 08:35] VITALS: BP 115/69
[2019-01-04] MEDS: cefTRIAXone 1GM/50ML D5W 50 ML IV SCH (09:02)
[2019-01-04] MEDS: Pro-Stat SF 30ml Vanilla PO SCH ×2 (09:03→18:28)
[2019-01-04] MEDS: predniSONE 20 MG TAB PO SCH (09:51)
[2019-01-04] MEDS: PANTOPRAZOLE 40 MG TAB PO SCH (09:51)
[2019-01-04 11:28] LABS: Red Blood Cells 4.23 10^6/uL (4.0-5.20)
[2019-01-04 11:29] LABS: Hematocrit 30.7 % (36.0-46.0); Hemoglobin 9.7 g/dL (12.2-16.2); Mean Corpuscular Hgb Conc. 31.7 g/dL (32.0-36.0); Mean Corpuscular Volume 72.7 fL (80.0-100.0); Platelet Count (auto) 195 10^3/uL (140-450); Red Cell Distribution Width 18.5 % (11.8-14.3); White Blood Cell 10.5 10^3/uL (4.4-10.8)
--- NOTE | 2019-01-04 11:30 | NUR ---
Waiting for lab results.
[2019-01-04 11:36] LABS: Basophils % (manual) 0 (0.0-2.0); Blast Cells 0; Eosinophils % (manual) 0 (0-7); Myelocytes % 0; Promyelocytes % 0; Reactive Lymphocytes 0
[2019-01-04 11:46] LABS: Albumin 1.9 g/dL (3.4-5.0); Potassium 4.2 mmol/L (3.5-5.1)
[2019-01-04 11:50] LABS: BUN/Creatinine Ratio 18.9; Bilirubin, Total 0.3 mg/dL (0.2-1.0); Total Protein 6.1 g/dL (6.4-8.2)
[2019-01-04] MEDS ORDERED: TEMAZEPAM 15 MG CAP PO PRN (12:15)
[2019-01-04 12:48] VITALS: BP 111/65
[2019-01-04 12:51] LABS: Band Neutrophils % (manual) 3; Lymphocytes % (manual) 14 (10.0-50.0); Metamyelocytes % 1; Monocytes % (manual) 11 (0-12)
[2019-01-04 17:47] VITALS: BP 132/71
[2019-01-04] MEDS: ONDANSETRON HCL 4 MG/2 ML VIAL IV PRN (18:21)
[2019-01-04 21:47] VITALS: BP 128/65
[2019-01-05] MEDS: ACCU-CHEK COMFORT CURVE STRIP VI SCH ×5 (01:01→23:43)
[2019-01-05] MEDS ORDERED: HYDROmorphone HCL 2 MG/ML VL IV SCH (01:30)
[2019-01-05] MEDS: HYDROmorphone HCL 2 MG/ML VL IV PRN ×7 (03:40→23:13)
--- NOTE | 2019-01-05 04:33 | NUR ---
Spoke with PAT Cárdenas 2 X tonight per pt request. Pt states her chest/abdominal pain is atypical, shooting-type across her lower chest and abdomen. Pt received a breakthrough dose of Dilaudid 1 mg. at 0130 per Ary Urena and a chest x-ray is ordered this am. Alert and oriented, oxygen saturation is 95%, on 2 liters of oxygen nasal cannula. Pt states she sometimes feels short of breath and that it hurts to take a deep breath.
--- NOTE | 2019-01-05 04:50 | NUR ---
Recheck of pt's blood pressure is 91/54 , pulse is 90 and temperature is 99.3. Fluids encouraged and pt is drinking juice and H20 Addendum: 01/05/19 at 0508 by ALICE COWAN RN Above not is not for valentine Cruz pt.
[2019-01-05 05:00] VITALS: BP 111/47
[2019-01-05 05:47] LABS: Hematocrit 30.8 % (36.0-46.0); Hemoglobin 9.7 g/dL (12.2-16.2)
[2019-01-05 05:51] LABS: Mean Corpuscular Hemoglobin 23.1 pg (28.0-32.0); Mean Corpuscular Hgb Conc. 31.5 g/dL (32.0-36.0); Mean Corpuscular Volume 73.3 fL (80.0-100.0); Platelet Count (auto) 194 10^3/uL (140-450); Red Cell Distribution Width 18.6 % (11.8-14.3); White Blood Cell 8.8 10^3/uL (4.4-10.8)
[2019-01-05 05:54] LABS: Basophils % (manual) 0 (0.0-2.0); Blast Cells 0; Eosinophils % (manual) 0 (0-7); Myelocytes % 0; Promyelocytes % 0; Reactive Lymphocytes 0
[2019-01-05 06:08] LABS: BUN/Creatinine Ratio 16.9; Calcium 7.9 mg/dL (8.5-10.1); Potassium 4.1 mmol/L (3.5-5.1)
[2019-01-05 06:10] LABS: Bilirubin, Total 0.4 mg/dL (0.2-1.0)
[2019-01-05] MEDS: NYSTATIN (MOUTH-THROAT) 500,000 UNITS/5 ML SUSP MT SCH ×4 (06:21→22:25)
[2019-01-05 06:30] LABS: Band Neutrophils % (manual) 6; Lymphocytes % (manual) 18 (10.0-50.0); Metamyelocytes % 1; Monocytes % (manual) 11 (0-12)
[2019-01-05] MEDS: Pro-Stat SF 30ml Vanilla PO SCH ×2 (08:00→18:48)
--- NOTE | 2019-01-05 08:00 | NUR ---
Opening Shift Note Assumed care of patient, asleep at this time. No S/S of distress/SOB. Per report from table games shift manager RN, patient is in severe abdominal pain all night and was medicated with Dilaudid IV as ordered at 0718 today. Will continue to monitor for changes Q1hr and PRN.
[2019-01-05 08:30] VITALS: BP 120/68
[2019-01-05] MEDS: traMADol HCL 50 MG TAB PO PRN ×3 (10:16→22:25)
[2019-01-05] MEDS: PANTOPRAZOLE 40 MG TAB PO SCH (10:23)
[2019-01-05] MEDS: cefTRIAXone 1GM/50ML D5W 50 ML IV SCH (10:23)
[2019-01-05] MEDS: predniSONE 20 MG TAB PO SCH (10:23)
--- NOTE | 2019-01-05 11:30 | NUR ---
Patient requested Accucheck monitoring to be held. Will continue care.
[2019-01-05] MEDS ORDERED: methylPREDNISolone SOD SUCC 125 MG/2 ML VL IV ONE (11:45)
[2019-01-05 12:30] VITALS: BP 119/77
[2019-01-05 16:49] VITALS: BP 168/102
[2019-01-05 22:00] VITALS: BP 168/93
--- NOTE | 2019-01-05 23:11 | NUR ---
Paged Hospitalist to notify patient requesting solumedrol and having a lot of abdomen pain. awaiting call back.
[2019-01-05] MEDS: ONDANSETRON HCL 4 MG/2 ML VIAL IV PRN (23:20)
--- NOTE | 2019-01-05 23:29 | NUR ---
spoke to marito Salas and notified her of patient requesting 1x dose of Solumedrol IV for pain in the stomach and thinks the pain is caused by inflammation of the spleen. Marito Salas provided 1x dose of Solumedrol IV and she will put the order in. read back and confirmed order with marito Salas.
[2019-01-05] MEDS ORDERED: methylPREDNISolone SOD SUCC 40 MG/ML VL IV ONE (23:30)
[2019-01-06] MEDS: HYDROmorphone HCL 2 MG/ML VL IV PRN ×4 (03:55→18:28)
[2019-01-06 05:00] VITALS: BP 144/75
[2019-01-06] MEDS: NYSTATIN (MOUTH-THROAT) 500,000 UNITS/5 ML SUSP MT SCH ×3 (05:19→17:16)
[2019-01-06] MEDS: ACCU-CHEK COMFORT CURVE STRIP VI SCH ×3 (05:20→17:16)
--- NOTE | 2019-01-06 07:17 | NUR ---
Open Shift Note Received report on patient , awake and sitting up in bed. Patient states pain 8/10. Discussed POC with patient. Bed in lowest locked position, side rails x2 and call light within reach. Will continue to monitor.
[2019-01-06] MEDS: Pro-Stat SF 30ml Vanilla PO SCH ×2 (08:16→17:16)
[2019-01-06 09:00] VITALS: BP 153/92
[2019-01-06] MEDS: PANTOPRAZOLE 40 MG TAB PO SCH (09:20)
[2019-01-06] MEDS: predniSONE 20 MG TAB PO SCH (09:20)
[2019-01-06] MEDS: cefTRIAXone 1GM/50ML D5W 50 ML IV SCH (09:21)
--- NOTE | 2019-01-06 11:15 | NUR ---
Dr Sharma at Bedside Dr Sharma at patient bedside.
[2019-01-06] MEDS ORDERED: methylPREDNISolone SOD SUCC 125 MG/2 ML VL IV ONE (11:30)
[2019-01-06 13:00] VITALS: BP 142/82
[2019-01-06] MEDS ORDERED: methylPREDNISolone SOD SUCC 40 MG/ML VL IV SCH (14:00)
[2019-01-06 17:00] VITALS: BP 137/79
[2019-01-06 17:05] VITALS: BP 150/92
[2019-01-06] MEDS: traMADol HCL 50 MG TAB PO PRN (17:16)
--- NOTE | 2019-01-06 19:08 | NUR ---
Discharged Discharge instructions given as ordered. Encourage to follow up with PMD as instructed. All questions and concerns addressed. Patient verbalized understanding. Med Rec signed, patient given medications from [facility]. Mid line remained in place per Dr's orders. Patient taken to vehicle via wheelchair with all personal belongings, accompanied by staff and family member. No distress noted at time of departure.
== END 2019-01-06 19:05 | disposition home or self-care (01) | DRG 841 ==
LOC: ER 22:40 → EEVIPCON 12-25 05:58 → OVERFLOW 12-25 05:58 → EAST 12-25 15:27
PROVIDERS: ADMIT Nurse Practitioner; ATTEND Internal Medicine
DX: D47.Z2 Castleman disease (principal); E44.0 Moderate protein-calorie malnutrition; E87.1 Hypo-osmolality and hyponatremia; J90 Pleural effusion, not elsewhere classified; R65.10 Systemic inflammatory response syndrome (SIRS) of non-infectious origin without acute organ dysfunction; R18.8 Other ascites; Z68.41 Body mass index [BMI] 40.0-44.9, adult; R16.1 Splenomegaly, not elsewhere classified; R59.9 Enlarged lymph nodes, unspecified; E66.9 Obesity, unspecified; I10 Essential (primary) hypertension; K40.90 Unilateral inguinal hernia, without obstruction or gangrene, not specified as recurrent; K42.9 Umbilical hernia without obstruction or gangrene; Z80.8 Family history of malignant neoplasm of other organs or systems; Z82.49 Family history of ischemic heart disease and other diseases of the circulatory system; Z88.8 Allergy status to other drugs, medicaments and biological substances; Z88.0 Allergy status to penicillin; Z98.51 Tubal ligation status
CPT/HCPCS: 36415; 71045; 71260; 74176; 74177; 76705; 80048; 80053; 81001; 82150; 82962; 83690; 84484; 85007; 85025; 85027; 87040; 87081; 87086; 93005; 96372; 96374; 96375; 96376; C9113; G0378; J0696; J1885; J1956; J2405; J3490; Q0162

== ENCOUNTER → 2019-01-18 | Outpatient (CLI) | payer BC ==
[2019-01-18 14:24] LABS: Basophils # (auto) 0.1 uL; Eosinophils # (auto) 0.1 uL; White Blood Cell 6.6 10^3/uL (4.4-10.8)
[2019-01-18 14:26] LABS: Basophils % (auto) 2.1 % (0.0-2.0); Eosinophils % (auto) 0.9 % (0.0-7.0); Hematocrit 37.9 % (36.0-46.0); Hemoglobin 12.1 g/dL (12.2-16.2); Lymphocytes # (auto) 2.2 uL; Lymphocytes % (auto) 34.3 % (10.0-50.0); Mean Corpuscular Hemoglobin 23.6 pg (28.0-32.0); Mean Corpuscular Hgb Conc. 31.9 g/dL (32.0-36.0); Mean Corpuscular Volume 74.1 fL (80.0-100.0); Monocytes # (auto) 0.8 uL; Monocytes % (auto) 11.6 % (0.0-12.0); Neutrophils # (auto) 3.4 uL; Neutrophils % (auto) 51.1 % (37.0-80.0); Nucleated Red Blood Cells % 0.1 %; Platelet Count (auto) 244 10^3/uL (140-450); Red Blood Cells 5.11 10^6/uL (4.0-5.20)
[2019-01-18 15:03] LABS: Albumin 3.5 g/dL (3.4-5.0); Calcium 8.5 mg/dL (8.5-10.1); Potassium 3.8 mmol/L (3.5-5.1)
[2019-01-18 15:06] LABS: BUN/Creatinine Ratio 20.4; Bilirubin, Total 0.5 mg/dL (0.2-1.0); Total Protein 7.8 g/dL (6.4-8.2)
== END | disposition home or self-care (01) ==
LOC: LAB 13:59
PROVIDERS: ATTEND Internal Medicine
DX: D47.Z2 Castleman disease (principal)
CPT/HCPCS: 36415; 80053; 83615; 85025

== ENCOUNTER → 2019-01-22 | Outpatient (CLI) | payer BC | END | disposition home or self-care (01) | LOC: LAB 16:01 | PROVIDERS: ATTEND Internal Medicine | DX: D47.Z2 Castleman disease (principal) | CPT/HCPCS: 36415; 82565; 84520 ==

== ENCOUNTER 2019-03-04 15:34 | Inpatient (IN) | payer BC, MEDICAID ==
[~2019-03-04] VITALS: Ht 175.3 cm; Wt 117.9 kg
[2019-03-04] MEDS ORDERED: SODIUM CHLORIDE 0.9% 500 ML IVB ONE (15:42)
[2019-03-04] MEDS ORDERED: HYDROmorphone HCL 2 MG/ML VL IV ONE (15:45)
[2019-03-04] MEDS ORDERED: ONDANSETRON HCL 4 MG/2 ML VIAL IV ONE (15:45)
[2019-03-04 16:39] LABS: Albumin 2.7 g/dL (3.4-5.0); Calcium 8.5 mg/dL (8.5-10.1)
[2019-03-04 16:43] LABS: BUN/Creatinine Ratio 15.4; Basophils # (auto) 0.1 uL; Bilirubin, Total 0.4 mg/dL (0.2-1.0); Eosinophils # (auto) 0.1 uL; Hemoglobin 11.7 g/dL (12.2-16.2); Lymphocytes # (auto) 1.5 uL; Mean Corpuscular Hgb Conc. 31.6 g/dL (32.0-36.0); Mean Corpuscular Volume 71.7 fL (80.0-100.0); Total Protein 7.9 g/dL (6.4-8.2)
[2019-03-04 16:45] LABS: Basophils % (auto) 0.6 % (0.0-2.0); Eosinophils % (auto) 0.9 % (0.0-7.0); Hematocrit 37.1 % (36.0-46.0); Lymphocytes % (auto) 16.2 % (10.0-50.0); Mean Corpuscular Hemoglobin 22.7 pg (28.0-32.0); Monocytes % (auto) 10.7 % (0.0-12.0); Neutrophils # (auto) 6.5 uL; Neutrophils % (auto) 71.6 % (37.0-80.0); Platelet Count (auto) 199 10^3/uL (140-450); Red Blood Cells 5.17 10^6/uL (4.0-5.20); Red Cell Distribution Width 19.1 % (11.8-14.3); White Blood Cell 9.1 10^3/uL (4.4-10.8)
[2019-03-04] MEDS ORDERED: IOHEXOL 300 MG/ML 100ML BOTTLE IJ ONE (17:08)
[2019-03-04] MEDS ORDERED: SODIUM CHLORIDE 0.9% 1,000 ML IV SCH (17:59)
[2019-03-04] MEDS ORDERED: TEMAZEPAM 15 MG CAP PO PRN (18:00)
[2019-03-04] MEDS ORDERED: LORazepam 0.5 MG TAB PO PRN (18:00)
[2019-03-04] MEDS ORDERED: MORPHINE SULF INJ 2 MG/ML SYRINGE 1ML IV PRN ×2 (18:00)
[2019-03-04] MEDS ORDERED: NITROGLYCERIN 0.4 MG SL TAB SL PRN (18:00)
[2019-03-04] MEDS ORDERED: traMADol HCL 50 MG TAB PO PRN (18:00)
[2019-03-04 18:48] LABS: CRP High Sensitivity 15.2 mg/dL (< 0.3)
--- NOTE | 2019-03-04 19:55 | NUR ---
Telemetry admit from [facility] admitted to Telemetry unit after hand off tool received. Patient oriented to primary RN, unit, room, bed, and unit policies regarding patient care and visiting hours. Patient now on continuous telemetry monitoring, tele box #12 and telemetry reading on arrival to unit is Normal Sinus Rhythm at 77. Patient placed on bedside oxygen, weighed by bedscale and encouraged to call if they need something. All questions and concerns addressed, patient verbalized understanding.
[2019-03-04] MEDS: PROMETHAZINE HCL 25 MG/ML 1ML IV PRN (20:57)
--- NOTE | 2019-03-04 21:00 | NUR ---
Dr. Blanchard at bedside. Discussed plan of care with patient. Patient verbalized understanding.
[2019-03-04] MEDS: HYDROmorphone HCL 2 MG/ML VL IV PRN (21:03)
[2019-03-04 21:57] VITALS: BP 117/70
--- NOTE | 2019-03-04 22:01 | NUR ---
UA Pt provided with specimen cup. Instruction given to call nurse when sample available. Patient verbalized understanding.
[2019-03-05] MEDS: HYDROmorphone HCL 2 MG/ML VL IV PRN ×7 (02:02→23:41)
[2019-03-05] MEDS: PROMETHAZINE HCL 25 MG/ML 1ML IV PRN ×5 (02:02→23:43)
[2019-03-05 05:00] VITALS: BP 108/64
[2019-03-05] MEDS: LEVOFLOXACIN 500MG 100 ML IV SCH (08:44)
[2019-03-05] MEDS: ACETAMINOPHEN 500 MG TAB PO PRN ×2 (08:45→17:12)
[2019-03-05] MEDS: PANTOPRAZOLE 40 MG TAB PO SCH (08:46)
[2019-03-05 09:00] VITALS: BP 116/75
[2019-03-05] MEDS ORDERED: ENOXAPARIN SOD 40 MG/0.4 ML SYRINGE SC SCH (10:00)
[2019-03-05 10:18] LABS: INR 0.97 (0.9-1.15); Partial Thromboplastin Time 33.8 sec (23.78-33.04); Prothrombin Time 10.4 sec (9.27-12.13)
[2019-03-05 10:33] LABS: Albumin 2.2 g/dL (3.4-5.0); BUN/Creatinine Ratio 12.5; Calcium 7.7 mg/dL (8.5-10.1); Potassium 4.1 mmol/L (3.5-5.1)
[2019-03-05 10:36] LABS: Bilirubin, Total 0.3 mg/dL (0.2-1.0); Total Protein 6.9 g/dL (6.4-8.2)
[2019-03-05] MEDS ORDERED: LIDOCAINE 2%HCL (LOCAL ANESTH.) INJ 20ML MDV ONE (11:15)
--- NOTE | 2019-03-05 11:30 | NUR ---
PT IN ULTRASOUND FOR AN AXILLARY LYMPH NODE BIOPSY. DR RODRÍGUEZ HERE TO TALK TO PATIENT. PT VSS. 106/64-88-18-92% ON 4L/NC. SPECIMEN COLLECTED BY DR GUIDRY AND THEN GIVEN TO SAUL THE PATHOLOGY ASST. MINIMAL BLEEDING. BANDAID PLACED OVER SITE. PT TOLERATED PROCEDURE WELL.
--- NOTE | 2019-03-05 13:09 | NUR ---
Admitting admitting at bedside to change name band, per admitting, new medical record number. Name, confirmed and placed new arm band on patient. Will cont care
[2019-03-05] MEDS: KETOROLAC TROMETH 30 MG/ML 1ML VIAL IV PRN (16:58)
[2019-03-05 21:30] VITALS: BP 94/51
[2019-03-06 00:38] LABS: Urine Bacteria FEW /hpf (None Seen); Urine Blood Negative /uL (Negative); Urine Hyaline Cast MOD /lpf (0 - 2); Urine Mucus FEW (None Seen); Urine Specific Gravity 1.032 (1.001-1.035); Urine WBC 15 /hpf (0 - 5)
[2019-03-06] MEDS: KETOROLAC TROMETH 30 MG/ML 1ML VIAL IV PRN (02:08)
[2019-03-06] MEDS: HYDROmorphone HCL 2 MG/ML VL IV PRN ×6 (02:40→21:59)
--- NOTE | 2019-03-06 02:49 | NUR ---
Blanche Cheema for additional pain medication, patient in severe pain Dilaudid did not take pain away. Requesting additional dose.
--- NOTE | 2019-03-06 03:12 | NUR ---
Re-paged Deni awaiting call back
[2019-03-06] MEDS ORDERED: HYDROmorphone HCL 2 MG/ML VL IV ONE (04:00)
[2019-03-06] MEDS: PROMETHAZINE HCL 25 MG/ML 1ML IV PRN ×4 (04:13→18:44)
[2019-03-06 04:30] VITALS: BP 124/61
[2019-03-06 05:55] LABS: Basophils # (auto) 0 uL; Eosinophils # (auto) 0 uL; Lymphocytes # (auto) 1.2 uL; White Blood Cell 7.1 10^3/uL (4.4-10.8)
[2019-03-06 05:58] LABS: Basophils % (auto) 0.4 % (0.0-2.0); Eosinophils % (auto) 0.4 % (0.0-7.0); Hematocrit 31.9 % (36.0-46.0); Hemoglobin 10.1 g/dL (12.2-16.2); Lymphocytes % (auto) 16.3 % (10.0-50.0); Mean Corpuscular Hemoglobin 22.7 pg (28.0-32.0); Mean Corpuscular Hgb Conc. 31.6 g/dL (32.0-36.0); Mean Corpuscular Volume 71.8 fL (80.0-100.0); Monocytes # (auto) 0.8 uL; Monocytes % (auto) 11.2 % (0.0-12.0); Neutrophils # (auto) 5.1 uL; Neutrophils % (auto) 71.7 % (37.0-80.0); Nucleated Red Blood Cells % 0.1 %; Platelet Count (auto) 146 10^3/uL (140-450); Red Blood Cells 4.44 10^6/uL (4.0-5.20); Red Cell Distribution Width 19.2 % (11.8-14.3)
[2019-03-06 06:20] LABS: Calcium 7.9 mg/dL (8.5-10.1)
[2019-03-06 09:00] VITALS: BP 140/77
--- NOTE | 2019-03-06 09:17 | NUR ---
Spoke to Oncologist New orders received from Dr Blanchard. Will carry out and cont care
[2019-03-06] MEDS: LEVOFLOXACIN 500MG 100 ML IV SCH (10:53)
[2019-03-06] MEDS: PANTOPRAZOLE 40 MG TAB PO SCH (10:54)
--- NOTE | 2019-03-06 11:05 | NUR ---
Hospitalist at bedside MD Tabares at bedside, aware of patient's status including abnormal labs, VS, pt c/o pain. No new orders received at this time. Will cont care
[2019-03-06] MEDS: ACETAMINOPHEN 500 MG TAB PO PRN ×2 (11:58→20:39)
[2019-03-06 13:00] VITALS: BP 108/60
[2019-03-06] MEDS ORDERED: SODIUM CHLORIDE 0.9% 1,000 ML IV SCH (13:15)
[2019-03-06] MEDS: HEPARIN SODIUM (PORCINE) 5000 UNITS/ML 1ML VIAL SC SCH ×2 (14:00→21:49)
--- NOTE | 2019-03-06 14:30 | NUR ---
Paged MD MD Tabares paged for midline order. Unable to obtain peripheral IV access at this time, supervisor in charge aware, house sup aware.
--- NOTE | 2019-03-06 15:23 | NUR ---
MIDLINE placement: Patient/Patient significant other educated on need for MIDLINE placement. All risks and benefits explained and all questions and concerns addressed prior to procedure. Noted past medical history and allergies with no contraindications. INR and Plt counts within acceptable range. 4 fr MIDLINE inserted via right basilic vein using [employer] US and Tip Location System. Sterile technique with maximum barrier precautions utilized. Blood return obtained from the single lumen and it flushed easily with NS using proper technique. MIDLINE secured with Stat-lock; biodisc and occlusive dressing applied. Less than 5ml EBL noted during procedure. MIDLINE 20cm internally w/ 0cm externally. *Baseline Arm Circumference 36cm at 1cm above insertion site. MIDLINE lot # [id number]. Note:
--- NOTE | 2019-03-06 15:24 | NUR ---
OK to use MIDLINE Keagan Hollins notified now OK to use MIDLINE.
[2019-03-06 17:00] VITALS: BP 95/52
--- NOTE | 2019-03-06 19:05 | NUR ---
Patient care endorsed endorsed care to Deidra stein, pt laying comfortably in bed in no acute distress or sob. Call light within reach.
--- NOTE | 2019-03-06 20:00 | NUR ---
Opening Shift Note Assumed care of patient, patient sleeping, respirations even and unlabored. No S/S of distress/SOB or pain. Will continue to monitor for changes Q1hr and PRN.
--- NOTE | 2019-03-06 20:39 | NUR ---
Rounds Patient awake and alert x4. No S/S of distress/SOB on 2L NC, c/o abdominal pain 5/10, heat packs given and medicated for pain. Will continue to monitor changes q1hr and PRN. Call light within reach
[2019-03-06 21:55] VITALS: BP 110/51
[2019-03-07] VITALS (7 sets, daily range): BP systolic 88–102; BP diastolic 47–81
[2019-03-07] MEDS: HYDROmorphone HCL 2 MG/ML VL IV PRN ×6 (01:42→21:41)
[2019-03-07] MEDS: PROMETHAZINE HCL 25 MG/ML 1ML IV PRN ×4 (01:42→21:41)
--- NOTE | 2019-03-07 04:44 | NUR ---
Pain Management Pt medicated for 06/09 abdominal pain, will continue to monitor
[2019-03-07 06:00] LABS: Basophils # (auto) 0.1 uL; Eosinophils % (auto) 0.7 % (0.0-7.0); Red Cell Distribution Width 19.3 % (11.8-14.3); White Blood Cell 7.1 10^3/uL (4.4-10.8)
[2019-03-07] MEDS: HEPARIN SODIUM (PORCINE) 5000 UNITS/ML 1ML VIAL SC SCH ×3 (06:00→21:26)
--- NOTE | 2019-03-07 06:00 | NUR ---
Heparin Pt refused heparin at this time, would like to ask MD due to hx thrombocytopenia.
[2019-03-07 06:05] LABS: Basophils % (auto) 1.6 % (0.0-2.0); Eosinophils # (auto) 0.1 uL; Hematocrit 32.7 % (36.0-46.0); Hemoglobin 10.3 g/dL (12.2-16.2); Lymphocytes # (auto) 0.8 uL; Lymphocytes % (auto) 11.8 % (10.0-50.0); Mean Corpuscular Hemoglobin 22.6 pg (28.0-32.0); Mean Corpuscular Hgb Conc. 31.4 g/dL (32.0-36.0); Mean Corpuscular Volume 71.8 fL (80.0-100.0); Monocytes # (auto) 0.7 uL; Monocytes % (auto) 9.8 % (0.0-12.0); Neutrophils # (auto) 5.4 uL; Neutrophils % (auto) 76.1 % (37.0-80.0); Nucleated Red Blood Cells % 0.2 %; Platelet Count (auto) 140 10^3/uL (140-450); Red Blood Cells 4.55 10^6/uL (4.0-5.20)
[2019-03-07 06:35] LABS: Albumin 2.1 g/dL (3.4-5.0); BUN/Creatinine Ratio 17.3; Bilirubin, Total 0.2 mg/dL (0.2-1.0); CRP High Sensitivity 11.7 mg/dL (< 0.3); Total Protein 6.7 g/dL (6.4-8.2)
--- NOTE | 2019-03-07 09:50 | NUR ---
Hospitalist at bedside MD Tabares at bedside. No new orders received. Will cont care
[2019-03-07] MEDS: PANTOPRAZOLE 40 MG TAB PO SCH (10:09)
[2019-03-07] MEDS: LEVOFLOXACIN 500MG 100 ML IV SCH (10:09)
[2019-03-07] MEDS: KETOROLAC TROMETH 30 MG/ML 1ML VIAL IV PRN (16:21)
--- NOTE | 2019-03-07 19:00 | NUR ---
Patient care endorsed endorsed care to Deidra stein. Patient laying in bed in no acute distress or sob. Reports tolerable pain at this time. Call light within reach.
--- NOTE | 2019-03-07 19:43 | NUR ---
Opening Shift Note Assumed care of patient, awake and alert x4. No S/S of distress/SOB on 2L NC, c/o tolerable abdominal pain. Instructed on POC and to call for assistance PRN, will continue to monitor for changes Q1hr and PRN.
[2019-03-08] MEDS: HYDROmorphone HCL 2 MG/ML VL IV PRN ×6 (03:35→23:43)
[2019-03-08] MEDS: PROMETHAZINE HCL 25 MG/ML 1ML IV PRN ×5 (03:35→23:43)
[2019-03-08 03:44] VITALS: BP 116/70
[2019-03-08] MEDS: HEPARIN SODIUM (PORCINE) 5000 UNITS/ML 1ML VIAL SC SCH (03:45)
[2019-03-08 05:00] VITALS: BP 99/59
--- NOTE | 2019-03-08 08:00 | NUR ---
Morning note patient resting in bed with even and unlabored respirations, no distress noted. Instructed patient on POC, fall precautions and to call for assistance as needed. Patient verbalized understanding. Fall precautions in place with bed in low, locked position, call light within reach. Will continue to monitor q1hr & PRN.
[2019-03-08 08:30] VITALS: BP 106/61
[2019-03-08] MEDS: LEVOFLOXACIN 500MG 100 ML IV SCH (09:04)
[2019-03-08] MEDS: PANTOPRAZOLE 40 MG TAB PO SCH (09:04)
[2019-03-08 10:48] LABS: Albumin 2.2 g/dL (3.4-5.0); Calcium 8.1 mg/dL (8.5-10.1); Magnesium 2.3 mg/dL (1.6-2.6); Potassium 4.1 mmol/L (3.5-5.1)
[2019-03-08 11:00] LABS: BUN/Creatinine Ratio 12.5; Bilirubin, Total 0.3 mg/dL (0.2-1.0); CRP High Sensitivity 14.1 mg/dL (< 0.3); Total Protein 6.9 g/dL (6.4-8.2)
[2019-03-08] MEDS ORDERED: methylPREDNISolone SOD SUCC 125 MG/2 ML VL IV ONE (11:30)
[2019-03-08 11:43] VITALS: BP 97/55
--- NOTE | 2019-03-08 12:36 | NUR ---
Nutrition Assessment Notes please see attached link for complete assessment Est. Needs based on ABW (93 kg): 1001-4519 kcal (20-23 kcal/kgBW), 93-102 gms pro (1.0-1.1 gms/kgBW r/t elev RFT severe hypoalb). Will continue to monitor pertinent labs and reassess nutrient need prn Addendum: 03/08/19 at [address] Amended: Links added.
[2019-03-08 14:32] LABS: Hematocrit 32.9 % (36.0-46.0); Hemoglobin 10.1 g/dL (12.2-16.2); Mean Corpuscular Hemoglobin 22.1 pg (28.0-32.0); Mean Corpuscular Hgb Conc. 30.7 g/dL (32.0-36.0); Platelet Count (auto) 149 10^3/uL (140-450); Red Blood Cells 4.57 10^6/uL (4.0-5.20); Red Cell Distribution Width 19.6 % (11.8-14.3); White Blood Cell 7.6 10^3/uL (4.4-10.8)
[2019-03-08 14:33] LABS: Basophils % (manual) 0 (0.0-2.0); Blast Cells 0; Eosinophils % (manual) 0 (0-7); Metamyelocytes % 0; Myelocytes % 0; Promyelocytes % 0; Reactive Lymphocytes 0
[2019-03-08 16:47] VITALS: BP 124/69
--- NOTE | 2019-03-08 18:18 | NUR ---
Patient resting in bed respirations even and unlabored, no distress noted. Patient denies nausea and abdominal pain at this time. Instructed patient to notify staff if assistance is needed by using the call light. Patient verbalized understanding. Fall precautions in place, bed in low locked position with x2 side rails up. Call light within reach. Visitor at bedside at this time. Will continue to monitor q1hr & PRN.
[2019-03-08 18:19] LABS: Band Neutrophils % (manual) 3; Lymphocytes % (manual) 10 (10.0-50.0); Monocytes % (manual) 16 (0-12)
--- NOTE | 2019-03-08 18:38 | NUR ---
End of shift patient resting in bed with even and unlabored respirations, no distress noted. Fall precautions in place with bed in low locked position, call light within reach.
--- NOTE | 2019-03-08 19:30 | NUR ---
Care endorsed to NICK rGeen.
--- NOTE | 2019-03-08 19:40 | NUR ---
Opening Shift Note Received report from Ceci ROMERO. Assumed care of patient, awake and alert. Patient in mild distress, complaining of abdominal pain at 10/10, pain medication will be given. Instructed on POC and to call for assist PRN, will continue to monitor for changes Q1hr and PRN.
[2019-03-08] MEDS: methylPREDNISolone SOD SUCC 125 MG/2 ML VL IV SCH (21:46)
[2019-03-08 22:00] VITALS: BP 140/78
[2019-03-08] MEDS: ACETAMINOPHEN 500 MG TAB PO PRN (22:17)
--- NOTE | 2019-03-08 22:17 | NUR ---
Temperature of 100.4, Tylenol PO given.
--- NOTE | 2019-03-08 23:19 | NUR ---
Latest temp is 98.9, continue care.
[2019-03-09] MEDS: HYDROmorphone HCL 2 MG/ML VL IV PRN ×4 (04:25→20:37)
[2019-03-09] MEDS: PROMETHAZINE HCL 25 MG/ML 1ML IV PRN ×4 (04:26→20:36)
[2019-03-09 05:00] VITALS: BP 127/77
[2019-03-09] MEDS: methylPREDNISolone SOD SUCC 125 MG/2 ML VL IV SCH ×3 (06:15→21:50)
[2019-03-09 07:12] LABS: Eosinophils # (auto) 0 uL; Monocytes # (auto) 0.3 uL
[2019-03-09 07:15] LABS: Basophils # (auto) 0.1 uL; Basophils % (auto) 0.6 % (0.0-2.0); Eosinophils % (auto) 0.1 % (0.0-7.0); Hematocrit 32.3 % (36.0-46.0); Hemoglobin 10.3 g/dL (12.2-16.2); Lymphocytes # (auto) 0.7 uL; Lymphocytes % (auto) 7.1 % (10.0-50.0); Mean Corpuscular Hemoglobin 22.7 pg (28.0-32.0); Monocytes % (auto) 3.3 % (0.0-12.0); Neutrophils # (auto) 9.3 uL; Neutrophils % (auto) 88.9 % (37.0-80.0); Platelet Count (auto) 158 10^3/uL (140-450); Red Blood Cells 4.55 10^6/uL (4.0-5.20); Red Cell Distribution Width 19.1 % (11.8-14.3); White Blood Cell 10.4 10^3/uL (4.4-10.8)
--- NOTE | 2019-03-09 07:20 | NUR ---
Care endorsed to Ceci ROMERO.
[2019-03-09 07:34] LABS: BUN/Creatinine Ratio 18.8; Potassium 4.4 mmol/L (3.5-5.1)
[2019-03-09] MEDS: PANTOPRAZOLE 40 MG TAB PO SCH (08:36)
[2019-03-09 09:00] VITALS: BP 104/63
--- NOTE | 2019-03-09 11:00 | NUR ---
Patient sitting in bed with even and unlabored respirations patient speaking on the cellphone at this time. No distress noted.
[2019-03-09] MEDS ORDERED: MORPHINE SULF INJ 2 MG/ML SYRINGE 1ML IV PRN (11:30)
[2019-03-09] MEDS ORDERED: traMADol HCL 50 MG TAB PO PRN (11:30)
--- NOTE | 2019-03-09 11:33 | NUR ---
was at bedside - Dr. Sharma
[2019-03-09 13:00] VITALS: BP 135/91
[2019-03-09 17:00] VITALS: BP 134/78
--- NOTE | 2019-03-09 19:35 | NUR ---
Opening Shift Note Received report from Ceci ROMERO. Assumed care of patient, awake and alert. No S/S of distress/SOB, in moderate abdominal pain. Instructed on POC and to call for assist PRN, will continue to monitor for changes Q1hr and PRN.
[2019-03-09 22:00] VITALS: BP 125/77
[2019-03-10] MEDS: HYDROmorphone HCL 2 MG/ML VL IV PRN ×2 (01:22→08:33)
[2019-03-10] MEDS: PROMETHAZINE HCL 25 MG/ML 1ML IV PRN ×2 (01:22→08:33)
[2019-03-10 05:00] VITALS: BP 130/78
[2019-03-10] MEDS: methylPREDNISolone SOD SUCC 125 MG/2 ML VL IV SCH (06:04)
--- NOTE | 2019-03-10 07:30 | NUR ---
Patient sleeping, no pain at this time. Endorsed care to Candie ROMERO.
[2019-03-10 07:31] LABS: Calcium 8.3 mg/dL (8.5-10.1); Potassium 4.2 mmol/L (3.5-5.1)
[2019-03-10 07:34] LABS: BUN/Creatinine Ratio 28.1
--- NOTE | 2019-03-10 07:40 | NUR ---
Patient in bed, awake, oriented x4, no acute distress noted.
--- NOTE | 2019-03-10 08:33 | NUR ---
Patient stated she's in severe pain, nauseous. Dilaudid IVP given for severe pain, Phenergan IVP given for nausea.
[2019-03-10 09:00] VITALS: BP 103/75
[2019-03-10] MEDS: PANTOPRAZOLE 40 MG TAB PO SCH (09:27)
[2019-03-10] MEDS ORDERED: predniSONE 20 MG TAB PO SCH (10:00)
[2019-03-10 12:09] VITALS: BP 103/75
[2019-03-10 12:31] VITALS: BP 103/75
--- NOTE | 2019-03-10 12:57 | NUR ---
Patient asked for doctor's notes how long is she okay to be off before coming back to work. Will page Dr. Sharma.
--- NOTE | 2019-03-10 12:58 | NUR ---
Paged Dr. Sharma. Waiting for MD to call back.
--- NOTE | 2019-03-10 13:02 | NUR ---
Dr. Sharma called back. MD made aware that patient asked how long is she okay to be off from work. Dr. Sharma said patient to see Dr. Blanchard for follow up next week, patient can ask Dr. Blanchard when is she okay to go back to work, and patient is going to change her primary physician. Patient made aware.
--- NOTE | 2019-03-10 13:10 | NUR ---
Discharge instructions given as ordered. Encourage to follow up with PMD as instructed. All questions and concerns addressed. Patient verbalized understanding. Medication reconciliation form completed and copy given to patient. IV removed with catheter intact, pressure dressing applied. Telemetry unit returned to RD. Patient is ambulatory, stated she will call Tyrone or Noemi to go home.
--- NOTE | 2019-03-10 14:10 | NUR ---
Patient not in the room.
--- NOTE | 2019-03-10 14:10 | NUR ---
Patient taken via wheelchair by Rosaura Cervantes. No acute distress noted. All personal belongings with patient.
== END 2019-03-10 14:10 | disposition home or self-care (01) | DRG 823 ==
LOC: ER 15:34 → TELE 18:03 → EDUNIT# 18:03 → TELE-EAST 20:06 → EAST 03-09 23:20
PROVIDERS: ADMIT Internal Medicine; ATTEND Internal Medicine
PROC: 07B63ZX Excision of Left Axillary Lymphatic, Percutaneous Approach, Diagnostic (ICD-10-PCS; principal; 2019-03-05)
DX: D47.Z2 Castleman disease (principal); N17.0 Acute kidney failure with tubular necrosis; J98.11 Atelectasis; R18.8 Other ascites; E87.1 Hypo-osmolality and hyponatremia; J90 Pleural effusion, not elsewhere classified; D73.89 Other diseases of spleen; D69.6 Thrombocytopenia, unspecified; M54.9 Dorsalgia, unspecified; R16.1 Splenomegaly, not elsewhere classified; E66.9 Obesity, unspecified; E87.8 Other disorders of electrolyte and fluid balance, not elsewhere classified; I10 Essential (primary) hypertension; Z82.49 Family history of ischemic heart disease and other diseases of the circulatory system; Z98.51 Tubal ligation status; Z88.0 Allergy status to penicillin; Z88.5 Allergy status to narcotic agent; Z79.82 Long term (current) use of aspirin; Z79.899 Other long term (current) drug therapy
CPT/HCPCS: 10022; 36415; 71260; 74177; 76942; 80048; 80053; 81001; 82150; 83690; 83735; 85007; 85025; 85027; 85610; 85652; 85730; 86141; 87040; 96361; 96372; 96374; 96375; G0378; J1885; J1956; J2405

== ENCOUNTER → 2019-04-20 | Outpatient (CLI) | payer BC ==
[~2019-04-20] MED LIST changes: -PRE5T PO; +PRED-559 PO
[2019-04-20 14:31] LABS: Hemoglobin 11.8 g/dL (12.2-16.2)
[2019-04-20 14:32] LABS: Hematocrit 38.3 % (36.0-46.0); Mean Corpuscular Hgb Conc. 30.8 g/dL (32.0-36.0); Mean Corpuscular Volume 74.8 fL (80.0-100.0); Platelet Count (auto) 169 10^3/uL (140-450); Red Blood Cells 5.13 10^6/uL (4.0-5.20)
[2019-04-20 14:34] LABS: Basophils % (manual) 0 (0.0-2.0); Blast Cells 0; Eosinophils % (manual) 0 (0-7); Metamyelocytes % 0; Myelocytes % 0; Promyelocytes % 0; Reactive Lymphocytes 0
[2019-04-20 15:21] LABS: Albumin 3.9 g/dL (3.4-5.0); Calcium 9.2 mg/dL (8.5-10.1); Potassium 4.3 mmol/L (3.5-5.1)
[2019-04-20 15:24] LABS: BUN/Creatinine Ratio 17.6; Bilirubin, Total 0.5 mg/dL (0.2-1.0); Total Protein 7.5 g/dL (6.4-8.2)
[2019-04-20 15:37] LABS: Band Neutrophils % (manual) 5; Lymphocytes % (manual) 25 (10.0-50.0); Monocytes % (manual) 6 (0-12)
[2019-04-22 13:55] LABS: Protein, Urine 35.5 mg/dL (0.0-11.9)
== END | disposition home or self-care (01) ==
LOC: LAB 14:13
PROVIDERS: ATTEND Internal Medicine
DX: D47.Z2 Castleman disease (principal)
CPT/HCPCS: 36415; 80053; 83615; 84156; 85007; 85027

== ENCOUNTER → 2019-05-24 | Outpatient (CLI) | payer BC ==
[2019-05-24 13:18] LABS: Basophils # (auto) 0.1 uL; Basophils % (auto) 0.9 % (0.0-2.0); Eosinophils # (auto) 0.1 uL; Eosinophils % (auto) 1.7 % (0.0-7.0); Hematocrit 38.3 % (36.0-46.0); Hemoglobin 11.8 g/dL (12.2-16.2); Lymphocytes # (auto) 1.8 uL; Lymphocytes % (auto) 26.4 % (10.0-50.0); Mean Corpuscular Hemoglobin 22.6 pg (28.0-32.0); Mean Corpuscular Hgb Conc. 30.8 g/dL (32.0-36.0); Mean Corpuscular Volume 73.6 fL (80.0-100.0); Monocytes # (auto) 0.7 uL; Monocytes % (auto) 10.1 % (0.0-12.0); Neutrophils # (auto) 4.1 uL; Neutrophils % (auto) 60.9 % (37.0-80.0); Nucleated Red Blood Cells % 0.2 %; Platelet Count (auto) 329 10^3/uL (140-450); Red Blood Cells 5.21 10^6/uL (4.0-5.20); Red Cell Distribution Width 21.5 % (11.8-14.3); White Blood Cell 6.7 10^3/uL (4.4-10.8)
== END | disposition home or self-care (01) ==
LOC: LAB 12:33
PROVIDERS: ATTEND Internal Medicine
DX: D47.Z2 Castleman disease (principal)
CPT/HCPCS: 36415; 85025

== ENCOUNTER → 2019-05-31 | Outpatient (CLI) | payer BC ==
[2019-05-31 12:25] LABS: Basophils # (auto) 0.1 uL; Eosinophils # (auto) 0.2 uL; Hemoglobin 13.8 g/dL (12.2-16.2); Lymphocytes # (auto) 1.3 uL; Monocytes # (auto) 0.7 uL; Neutrophils # (auto) 10.2 uL; Nucleated Red Blood Cells % 0.1 %; White Blood Cell 12.5 10^3/uL (4.4-10.8)
[2019-05-31 12:28] LABS: Basophils % (auto) 0.8 % (0.0-2.0); Eosinophils % (auto) 1.3 % (0.0-7.0); Hematocrit 44.5 % (36.0-46.0); Lymphocytes % (auto) 10.7 % (10.0-50.0); Mean Corpuscular Hemoglobin 22.6 pg (28.0-32.0); Mean Corpuscular Volume 73.1 fL (80.0-100.0); Monocytes % (auto) 5.2 % (0.0-12.0); Platelet Count (auto) 340 10^3/uL (140-450); Red Blood Cells 6.09 10^6/uL (4.0-5.20)
[2019-05-31 12:42] LABS: Red Cell Distribution Width 20.4 % (11.8-14.3)
[2019-05-31 13:04] LABS: Albumin 4.2 g/dL (3.4-5.0); Calcium 10.1 mg/dL (8.5-10.1); Potassium 4.1 mmol/L (3.5-5.1)
[2019-05-31 13:07] LABS: BUN/Creatinine Ratio 16.7; Bilirubin, Total 0.5 mg/dL (0.2-1.0); Total Protein 7.8 g/dL (6.4-8.2)
== END | disposition home or self-care (01) ==
LOC: LAB 11:39
PROVIDERS: ATTEND Internal Medicine
DX: D47.Z2 Castleman disease (principal)
CPT/HCPCS: 36415; 80053; 83615; 85025

== ENCOUNTER → 2019-06-10 | Outpatient (CLI) | payer BC | END | disposition home or self-care (01) | LOC: LAB 12:24 | PROVIDERS: ATTEND Internal Medicine | DX: D47.Z2 Castleman disease (principal); R05 Cough | CPT/HCPCS: 87070; 87077; 87186; 87205 ==

== ENCOUNTER → 2019-07-07 | Outpatient (CLI) | payer BC ==
[~2019-07-07] MED LIST changes: -AMLO10TA12 PO; +AMLO10TA13 PO
[2019-07-07 16:50] LABS: Basophils # (auto) 0.1 uL; Eosinophils # (auto) 0.2 uL; Monocytes # (auto) 0.6 uL; Monocytes % (auto) 8.1 % (0.0-12.0); Nucleated Red Blood Cells % 0.1 %; Red Blood Cells 6.19 10^6/uL (4.0-5.20)
[2019-07-07 16:52] LABS: Basophils % (auto) 0.9 % (0.0-2.0); Eosinophils % (auto) 2.2 % (0.0-7.0); Hematocrit 44.4 % (36.0-46.0); Hemoglobin 14.2 g/dL (12.2-16.2); Lymphocytes # (auto) 1.6 uL; Lymphocytes % (auto) 23.5 % (10.0-50.0); Mean Corpuscular Hemoglobin 22.9 pg (28.0-32.0); Mean Corpuscular Hgb Conc. 31.9 g/dL (32.0-36.0); Mean Corpuscular Volume 71.8 fL (80.0-100.0); Neutrophils # (auto) 4.5 uL; Neutrophils % (auto) 65.3 % (37.0-80.0); Platelet Count (auto) 297 10^3/uL (140-450); Red Cell Distribution Width 19.1 % (11.8-14.3); White Blood Cell 6.9 10^3/uL (4.4-10.8)
[2019-07-07 17:58] LABS: Albumin 4.2 g/dL (3.4-5.0); Calcium 9.1 mg/dL (8.5-10.1); Potassium 4.3 mmol/L (3.5-5.1)
[2019-07-07 18:02] LABS: BUN/Creatinine Ratio 12.5; Bilirubin, Total 0.3 mg/dL (0.2-1.0); Total Protein 7.9 g/dL (6.4-8.2)
== END | disposition home or self-care (01) ==
LOC: LAB 16:29
PROVIDERS: ATTEND Internal Medicine
DX: D47.Z2 Castleman disease (principal)
CPT/HCPCS: 36415; 80053; 83615; 85025

== ENCOUNTER 2019-08-02 10:59 | Emergency (ER) | payer SELFPAY ==
[~2019-08-02] VITALS: Ht 175.3 cm; Wt 112.5 kg
[2019-08-02] MEDS ORDERED: SODIUM CHLORIDE 0.9% 500 ML IV ONE (11:07)
[2019-08-02] MEDS ORDERED: KETOROLAC TROMETH 30 MG/ML 1ML VIAL IV ONE (11:15)
[2019-08-02] MEDS ORDERED: methylPREDNISolone SOD SUCC 125 MG/2 ML VL IV ONE (11:15)
[2019-08-02 11:33] LABS: Basophils # (auto) 0.1 uL; Basophils % (auto) 0.6 % (0.0-2.0); Eosinophils # (auto) 0.1 uL; Neutrophils # (auto) 13.4 uL
[2019-08-02 11:34] LABS: Eosinophils % (auto) 0.7 % (0.0-7.0); Hematocrit 41.9 % (36.0-46.0); Hemoglobin 13.3 g/dL (12.2-16.2); Lymphocytes # (auto) 0.8 uL; Lymphocytes % (auto) 5.5 % (10.0-50.0); Mean Corpuscular Hgb Conc. 31.7 g/dL (32.0-36.0); Mean Corpuscular Volume 69.2 fL (80.0-100.0); Monocytes # (auto) 0.5 uL; Monocytes % (auto) 3.4 % (0.0-12.0); Neutrophils % (auto) 89.8 % (37.0-80.0); Platelet Count (auto) 341 10^3/uL (140-450); Red Blood Cells 6.05 10^6/uL (4.0-5.20); Red Cell Distribution Width 17.9 % (11.8-14.3); White Blood Cell 14.9 10^3/uL (4.4-10.8)
[2019-08-02 11:51] LABS: Albumin 3.4 g/dL (3.4-5.0); BUN/Creatinine Ratio 11.6; Calcium 9.1 mg/dL (8.5-10.1); Magnesium 2.5 mg/dL (1.6-2.6); Potassium 3.4 mmol/L (3.5-5.1)
[2019-08-02 11:53] LABS: Bilirubin, Total 0.5 mg/dL (0.2-1.0); Total Protein 7.5 g/dL (6.4-8.2)
[2019-08-02 14:37] VITALS: BP 130/77
== END 2019-08-02 14:40 | disposition home or self-care (01) ==
LOC: ER 11:03 → EEVIPCON 11:03 → ER 14:40
DX: M25.552 Pain in left hip (principal); M79.642 Pain in left hand; M79.641 Pain in right hand; I10 Essential (primary) hypertension; M06.9 Rheumatoid arthritis, unspecified; Z88.6 Allergy status to analgesic agent; Z88.0 Allergy status to penicillin
CPT/HCPCS: 36415; 80053; 83735; 85025; 86225; 86235; 94761; 96374; 96375; 99283; J1885; J2930

== ENCOUNTER 2019-08-04 11:43 | Inpatient (IN) | payer BC ==
[~2019-08-04] VITALS: Ht 175.3 cm; Wt 120.9 kg
[2019-08-04] MEDS ORDERED: SODIUM CHLORIDE 0.9% 1,000 ML IVB ONE (14:47)
[2019-08-04] MEDS ORDERED: KETOROLAC TROMETH 30 MG/ML 1ML VIAL IV ONE (15:30)
[2019-08-04] MEDS ORDERED: methylPREDNISolone SOD SUCC 125 MG/2 ML VL IV ONE (15:30)
[2019-08-04 16:20] LABS: Basophils # (auto) 0.1 uL; Eosinophils # (auto) 0 uL; White Blood Cell 18.1 10^3/uL (4.4-10.8)
[2019-08-04 16:24] LABS: Basophils % (auto) 0.3 % (0.0-2.0); Hematocrit 38.2 % (36.0-46.0); Lymphocytes # (auto) 0.9 uL; Lymphocytes % (auto) 5.2 % (10.0-50.0); Mean Corpuscular Hemoglobin 21.9 pg (28.0-32.0); Mean Corpuscular Hgb Conc. 31.5 g/dL (32.0-36.0); Mean Corpuscular Volume 69.3 fL (80.0-100.0); Monocytes # (auto) 1.1 uL; Monocytes % (auto) 6.3 % (0.0-12.0); Neutrophils % (auto) 88.2 % (37.0-80.0); Platelet Count (auto) 354 10^3/uL (140-450); Red Cell Distribution Width 18.2 % (11.8-14.3)
[2019-08-04 16:27] LABS: Alanine Aminotransferase 21 U/L (13-56); Albumin 3.1 g/dL (3.4-5.0); Anion Gap 7 (5-15); Aspartate Aminotransferase 12 U/L (15-37); BUN/Creatinine Ratio 15.6; Blood Urea Nitrogen 10 mg/dL (7-18); Calcium 8.7 mg/dL (8.5-10.1); Carbon Dioxide 29 mmol/L (21-32); Chloride 100 mmol/L (98-107); GFR African American 127 mL/min; GFR Non-African American 105 mL/min; Glucose 98 mg/dL (74-106); Magnesium 2.4 mg/dL (1.6-2.6); Potassium 3.1 mmol/L (3.5-5.1); Sodium 136 mmol/L (136-145)
[2019-08-04 16:31] LABS: Alkaline Phosphatase 104 U/L (45-117); Bilirubin, Total 0.4 mg/dL (0.2-1.0); Total Protein 7.2 g/dL (6.4-8.2)
[2019-08-04 17:00] LABS: INR < 0.93 (0.9-1.15); Partial Thromboplastin Time 24.9 sec (23.64-32.05)
[2019-08-04] MEDS ORDERED: SODIUM CHLORIDE 0.9% 1,000 ML IV SCH (17:54)
[2019-08-04] MEDS ORDERED: KETOROLAC TROMETH 30 MG/ML 1ML VIAL IV PRN (18:00)
[2019-08-04] MEDS ORDERED: ALBUTEROL SULF 2.5 MG/0.5ML(0.5%) NEB SOLN NEB PRN (18:00)
[2019-08-04] MEDS ORDERED: ACETAMINOPHEN 500 MG TAB PO PRN (18:00)
[2019-08-04] MEDS: methylPREDNISolone SOD SUCC 40 MG/ML VL IV SCH (18:00)
[2019-08-04] MEDS ORDERED: TEMAZEPAM 15 MG CAP PO PRN (18:00)
[2019-08-04] MEDS ORDERED: PROMETHAZINE HCL 25 MG/ML 1ML IV PRN (18:00)
[2019-08-04] MEDS ORDERED: traMADol HCL 50 MG TAB PO PRN (18:00)
[2019-08-04 18:53] VITALS: BP 135/71
[2019-08-04 18:54] LABS: CRP High Sensitivity 8.92 mg/dL (< 0.3); Uric Acid 4.8 mg/dL (2.6-6.0)
--- NOTE | 2019-08-04 19:00 | NUR ---
MS admit from [facility] admitted to tele/MS after SBAR received. Patient oriented to Hannah Santoyo, primary RN, unit, room, bed, and unit policies regarding patient care and visiting hours. Patient weighed by bedscale and encouraged to call if they need something. All questions and concerns addressed, patient verbalized understanding. Note:
--- NOTE | 2019-08-04 19:35 | NUR ---
CALL PLACED TO HOSPITALIST VIA PBX BECAUSE PT IS REQUESTING A ONE TIME ORDER OF DILAUDID. AWAITING CALL BACK.
--- NOTE | 2019-08-04 19:37 | NUR ---
Respiratory note: ASSESSED PT FOR PRN MED NEB TX. PT IS CURRENTLY ON ROOM AIR: HR 65, RR 18, SPO2 95%. PT SHOWS NO S/S OF SOB OR RESPIRATORY DISTRESS. MED NEB TX NOT INDICATED AT THIS TIME. INFORMED PT IF SOB TO CONTACT RESPIRATORY FOR BREATHING TX. WILL CONTINUE TO MONITOR.
[2019-08-04] MEDS ORDERED: NALBUPHINE HCL 10 MG/1ml INJECTION IV ONE (22:30)
[2019-08-05] MEDS: methylPREDNISolone SOD SUCC 40 MG/ML VL IV SCH ×5 (00:27→23:39)
[2019-08-05] MEDS ORDERED: PANT40TA2 PO (00:59)
[2019-08-05] MEDS ORDERED: OMEG100078 PO (00:59)
[2019-08-05] MEDS ORDERED: HYDR25TA4 PO (00:59)
[2019-08-05] MEDS ORDERED: PRE5T PO (00:59)
[2019-08-05] MEDS ORDERED: THIA100T10 PO (01:01)
[2019-08-05 06:03] LABS: Basophils # (auto) 0 uL; Eosinophils # (auto) 0 uL; Hemoglobin 12.5 g/dL (12.2-16.2); Lymphocytes # (auto) 0.8 uL; Mean Corpuscular Hgb Conc. 31.3 g/dL (32.0-36.0); Monocytes # (auto) 0.3 uL
[2019-08-05 06:09] LABS: Basophils % (auto) 0.2 % (0.0-2.0); Hematocrit 39.9 % (36.0-46.0); Lymphocytes % (auto) 4.9 % (10.0-50.0); Mean Corpuscular Volume 70.2 fL (80.0-100.0); Monocytes % (auto) 1.8 % (0.0-12.0); Neutrophils # (auto) 15.7 uL; Neutrophils % (auto) 93.1 % (37.0-80.0); Nucleated Red Blood Cells % 0.1 %; Platelet Count (auto) 374 10^3/uL (140-450); Red Blood Cells 5.69 10^6/uL (4.0-5.20); Red Cell Distribution Width 17.9 % (11.8-14.3); White Blood Cell 16.8 10^3/uL (4.4-10.8)
--- NOTE | 2019-08-05 06:09 | NUR ---
Respiratory note: PT AWAKE, AND ALERT. NO RESPIRATORY DISTRESS NOTED. SPO2 98% ON RA, HR 47, RR 20, BS CLEAR T/O. PRN MEDNEB TX NOT INDICATED AT THIS TIME. PT INFORMED TO PUSH CALL BUTTON IF INCREASED WOB, SOB, OR WHEEZING OCCUR.
[2019-08-05] MEDS ORDERED: POM IV (06:30)
--- NOTE | 2019-08-05 08:00 | NUR ---
Opening Shift Note Assumed care of patient, awake, alert and oriented X4. No S/S of distress/SOB, complains of generalized pain, 8/, informed will medicate when bishop medication is due. Left upper arm midline saline locked with dressing clean, dry and intact. Instructed on POC and to call for assist PRN, verbalized understanding. Bed locked, in lowest position, call light within reach, will continue to monitor for changes Q1hr and PRN.
[2019-08-05 08:29] VITALS: BP 148/87
[2019-08-05] MEDS: PANTOPRAZOLE 40 MG TAB PO SCH (10:07)
[2019-08-05] MEDS: ENOXAPARIN SOD 40 MG/0.4 ML SYRINGE SC SCH ×2 (10:08→10:15)
[2019-08-05] MEDS: NALBUPHINE HCL 10 MG/1ml INJECTION IV PRN ×3 (10:16→23:39)
[2019-08-05] MEDS ORDERED: NAPROXEN 500 MG TAB PO ONE (10:30)
--- NOTE | 2019-08-05 10:30 | NUR ---
ROUNDS Dr Sharma at bedside for rounds, new orders received and followed through. Patient updated on plan of care, verbalized understanding.
[2019-08-05 12:16] VITALS: BP 125/77
[2019-08-05 16:26] VITALS: BP 154/83
[2019-08-05] MEDS ORDERED: diphenhdrAMINE HCL 25 MG CAP PO PRN (16:45)
--- NOTE | 2019-08-05 17:42 | NUR ---
RHEUMATOLOGY Dr Adam at bedside for Rheumatology consult, new orders received and followed through. Patient updated on plan of care, verbalized understanding.
[2019-08-05] MEDS ORDERED: COLCHICINE 0.6 MG CAP PO ONE (17:45)
--- NOTE | 2019-08-05 19:35 | NUR ---
Care endorsed to NICK Cramer, night nurse.
--- NOTE | 2019-08-05 20:00 | NUR ---
RECEIVED PATIENT FROM DAY SHIFT RN. PATIENT SITTING ON THE BED AND HAVING DINNER. NO S/S OF DISTRESS NOTED. C/O PAIN @ 4/10 AFTER PAIN MEDICATION GIVEN EARLIER. PATIENT UNDERSTOOD THE PAIN MANAGEMENT SCHEDULE AND WILL COME BACK FOR PAIN MEDICATION LATER WHEN THE TIME IS DUE. JOINTS SWELLING NOTED ON BOTH HANDS AND RIGHT KNEE. POC INSTRUCTED AND ENCOURAGED PATIENT TO CALL FOR GANG BOSS IF NEEDED. BED IN LOWEST POSITION WITH SIDE RAILS UP X 2. CALL M[place] WITHIN REACH. CONTINUE TO MONITOR FOR CHANGES Q1H AND PRN.
[2019-08-05 22:00] VITALS: BP 150/81
[2019-08-05] MEDS: COLCHICINE 0.6 MG CAP PO SCH (22:00)
[2019-08-05] MEDS: NAPROXEN 500 MG TAB PO SCH (22:00)
--- NOTE | 2019-08-05 22:24 | NUR ---
Respiratory note: ASSESSED PT FOR PRN MED NEB TX. PT IS CURRENTLY ON ROOM AIR: HR 52, RR 16, SPO2 98%. PT SHOWS NO S/S OF SOB OR RESPIRATORY DISTRESS. MED NEB TX NOT INDICATED AT THIS TIME. INFORMED PT IF SOB TO CONTACT RESPIRATORY FOR BREATHING TX. WILL CONTINUE TO MONITOR
--- NOTE | 2019-08-05 23:45 | NUR ---
MEDICATED PATIENT FOR PAIN @ 07/10. CONTINUE TO MONITOR.
--- NOTE | 2019-08-06 01:52 | NUR ---
PATIENT SLEEPING. NO S/S OF DISTRESS NOTED. CONTINUE TO MONITOR.
[2019-08-06 05:00] VITALS: BP 146/78
[2019-08-06] MEDS: methylPREDNISolone SOD SUCC 40 MG/ML VL IV SCH (06:02)
[2019-08-06] MEDS: NALBUPHINE HCL 10 MG/1ml INJECTION IV PRN (06:03)
--- NOTE | 2019-08-06 06:08 | NUR ---
MEDICATED PATIENT FOR PAIN @ 05/10. CONTINUE TO MONITOR.
--- NOTE | 2019-08-06 08:00 | NUR ---
Opening Shift Note Assumed care of patient, awake, alert and oriented X4. No S/S of distress/SOB, complains of generalized pain, 2/, informed will medicate when bishop medication is due. Left upper arm midline saline locked with dressing clean, dry and intact. Instructed on POC and to call for assist PRN, verbalized understanding. Bed locked, in lowest position, call light within reach, will continue to monitor for changes Q1hr and PRN.
[2019-08-06 09:00] VITALS: BP 167/91
[2019-08-06 09:51] LABS: Calcium 8.8 mg/dL (8.5-10.1); Potassium 3.7 mmol/L (3.5-5.1)
[2019-08-06 09:53] LABS: BUN/Creatinine Ratio 20.9
[2019-08-06 10:25] LABS: Basophils # (auto) 0 uL; Eosinophils # (auto) 0 uL; Mean Corpuscular Hemoglobin 21.8 pg (28.0-32.0)
[2019-08-06 10:29] LABS: Basophils % (auto) 0.2 % (0.0-2.0); Hematocrit 40.5 % (36.0-46.0); Hemoglobin 12.5 g/dL (12.2-16.2); Lymphocytes # (auto) 0.8 uL; Mean Corpuscular Volume 70.3 fL (80.0-100.0); Monocytes # (auto) 0.5 uL; Monocytes % (auto) 3.1 % (0.0-12.0); Neutrophils # (auto) 14.1 uL; Neutrophils % (auto) 91.7 % (37.0-80.0); Nucleated Red Blood Cells % 0.1 %; Platelet Count (auto) 350 10^3/uL (140-450); Red Blood Cells 5.75 10^6/uL (4.0-5.20); Red Cell Distribution Width 17.7 % (11.8-14.3); White Blood Cell 15.4 10^3/uL (4.4-10.8)
[2019-08-06] MEDS ORDERED: amLODIPine BESYLATE 5 MG TAB PO ONE ×2 (10:30)
--- NOTE | 2019-08-06 11:08 | NUR ---
RIGHT KNEE ASPIRATION DONE BY DR ORTIZ IN ULTRASOUND. 50ML OF HAZY STRAW FLUID ASPIRATED. SPCIMEN SENT TO MICRO AND LAB FOR C&S, CELL COUNT AND CRYSTALS. PT TOLERATED PROCEDURE WELL. NO BLEEDING. BANDAID PLACED OVER SITE.
[2019-08-06] MEDS: NAPROXEN 500 MG TAB PO SCH (11:14)
[2019-08-06] MEDS: COLCHICINE 0.6 MG CAP PO SCH (11:14)
[2019-08-06] MEDS: PANTOPRAZOLE 40 MG TAB PO SCH (11:14)
--- NOTE | 2019-08-06 11:27 | NUR ---
ROUNDS Dr Sharma at bedside for rounds, new orders received and followed through. Patient updated on plan of care, verbalized understanding.
[2019-08-06 12:10] VITALS: BP 167/91
[2019-08-07] MEDS ORDERED: AMLO5TAB15 PO (20:48)
== END 2019-08-06 14:30 | disposition home or self-care (01) | DRG 546 ==
LOC: ER 11:44 → CENTRAL 11:45
PROVIDERS: ADMIT Internal Medicine; ATTEND Internal Medicine
PROC: 0S9C3ZZ Drainage of Right Knee Joint, Percutaneous Approach (ICD-10-PCS; principal; 2019-08-06)
DX: M06.861 Other specified rheumatoid arthritis, right knee (principal); D47.Z2 Castleman disease; R65.10 Systemic inflammatory response syndrome (SIRS) of non-infectious origin without acute organ dysfunction; M06.4 Inflammatory polyarthropathy; E66.9 Obesity, unspecified; I10 Essential (primary) hypertension; D72.829 Elevated white blood cell count, unspecified; E87.6 Hypokalemia; M19.90 Unspecified osteoarthritis, unspecified site; M79.89 Other specified soft tissue disorders; M10.9 Gout, unspecified; M06.9 Rheumatoid arthritis, unspecified; Z82.49 Family history of ischemic heart disease and other diseases of the circulatory system; Z79.899 Other long term (current) drug therapy; Z88.5 Allergy status to narcotic agent; Z88.0 Allergy status to penicillin; Z68.39 Body mass index [BMI] 39.0-39.9, adult
CPT/HCPCS: 10022; 36415; 71045; 76881; 76942; 80048; 80053; 83735; 84484; 84550; 85025; 85610; 85652; 85730; 86141; 86200; 86431; 87205; 89051; 89060; G0378; J1885

== ENCOUNTER 2019-08-07 12:37 | Inpatient (IN) | payer BC ==
[~2019-08-07] VITALS: Ht 172.7 cm; Wt 127.3 kg
[~2019-08-07 12:37] MED LIST changes: -AMLO10TA13 PO; +OMEG100078 PO; -OMEP20CA74 PO; +PANT40TA2 PO; +POM IV; +PRE5T PO; -PRED-559 PO; -SPECTAB57 PO; +THIA100T10 PO; -[UNRECOGNIZED DRUG - CODE] PO
[2019-08-07] MEDS ORDERED: methylPREDNISolone SOD SUCC 125 MG/2 ML VL IV ONE (14:00)
[2019-08-07] MEDS ORDERED: HYDROmorphone HCL 2 MG/ML VL IV ONE (14:15)
[2019-08-07] MEDS ORDERED: PROMETHAZINE HCL 25 MG/ML 1ML IV ONE (14:15)
[2019-08-07 15:16] LABS: Basophils # (auto) 0 uL; Basophils % (auto) 0.3 % (0.0-2.0); Eosinophils # (auto) 0 uL; Eosinophils % (auto) 0.2 % (0.0-7.0); Hematocrit 39.1 % (36.0-46.0); Lymphocytes # (auto) 0.8 uL; Lymphocytes % (auto) 5.9 % (10.0-50.0); Mean Corpuscular Hemoglobin 21.7 pg (28.0-32.0); Mean Corpuscular Hgb Conc. 30.7 g/dL (32.0-36.0); Mean Corpuscular Volume 70.8 fL (80.0-100.0); Monocytes % (auto) 7.2 % (0.0-12.0); Neutrophils # (auto) 11.5 uL; Neutrophils % (auto) 86.4 % (37.0-80.0); Platelet Count (auto) 307 10^3/uL (140-450); Red Blood Cells 5.52 10^6/uL (4.0-5.20); Red Cell Distribution Width 18.3 % (11.8-14.3); White Blood Cell 13.3 10^3/uL (4.4-10.8)
[2019-08-07 15:30] LABS: Albumin 2.4 g/dL (3.4-5.0); Calcium 8.5 mg/dL (8.5-10.1); Magnesium 2.6 mg/dL (1.6-2.6); Potassium 3.4 mmol/L (3.5-5.1)
[2019-08-07 15:33] LABS: BUN/Creatinine Ratio 23.1; Bilirubin, Total 0.7 mg/dL (0.2-1.0); Total Protein 6.4 g/dL (6.4-8.2)
[2019-08-07] MEDS ORDERED: NAPROXEN 500 MG TAB PO ONE (16:45)
[2019-08-07] MEDS ORDERED: POTASSIUM EFFERVESENT TAB 25 MEQ PO ONE (17:00)
[2019-08-07] MEDS ORDERED: PROMETHAZINE HCL 25 MG/ML 1ML IV PRN (17:00)
[2019-08-07] MEDS ORDERED: ACETAMINOPHEN 500 MG TAB PO PRN (17:00)
[2019-08-07] MEDS ORDERED: NITROGLYCERIN 0.4 MG SL TAB SL PRN (17:00)
[2019-08-07] MEDS ORDERED: MORPHINE SULF INJ 2 MG/ML SYRINGE 1ML IV PRN (17:00)
[2019-08-07] MEDS: SODIUM CHLORIDE 0.9% 1,000 ML IV SCH (17:13)
[2019-08-07] MEDS: HYDROmorphone HCL 2 MG/ML VL IV PRN ×3 (17:13→21:09)
[2019-08-07] MEDS: NAPROXEN 500 MG TAB PO SCH (18:12)
[2019-08-07 18:31] LABS: INR 0.99 (0.9-1.15); Partial Thromboplastin Time 28.4 sec (23.64-32.05)
[2019-08-07] MEDS: diphenhdrAMINE HCL 25 MG CAP PO PRN (19:00)
--- NOTE | 2019-08-07 19:00 | NUR ---
Telemetry admit from [facility] admitted to Telemetry unit after SBAR received. Patient oriented to Valerie Galicia, primary RN, unit, room, bed, and unit policies regarding patient care and visiting hours. Patient now on continuous telemetry monitoring, tele box # 3 and telemetry reading on arrival to unit is SR 83. Patient placed on bedside oxygen, weighed by bedscale and encouraged to call if they need something. All questions and concerns addressed, patient verbalized understanding. Note:
--- NOTE | 2019-08-07 19:30 | NUR ---
Opening Shift Note Assumed care of patient, awake and alert. Verbalizes pain localized to her right knee and left scapula, rating it as a 8/10. Will assess patient and medicate as per order. Patient on room air at this time with unlabored respirations of 19bpm. Instructed on POC and to call for assist PRN, will continue to monitor for changes Q1hr and PRN.
[2019-08-07 20:00] VITALS: BP 108/70
--- NOTE | 2019-08-07 20:30 | NUR ---
URINALYSIS COLLECTED AND SENT TO LAB
[2019-08-07] MEDS ORDERED: AMLO5TAB15 PO (20:48)
--- NOTE | 2019-08-07 20:50 | NUR ---
IV insertion IV access obtained, via clean sterile technique by inserting 20 gauge catheter at left hand after 1 attempt. IV secured properly. No trauma to site. Patient tolerated well.
[2019-08-07 21:10] LABS: Urine Bacteria NONE SEEN /hpf (None Seen); Urine Blood 1+ /uL (Negative); Urine Hyaline Cast FEW /lpf (0 - 2); Urine Mucus FEW (None Seen); Urine Specific Gravity 1.027 (1.001-1.035); Urine WBC 96 /hpf (0 - 5)
[2019-08-07 21:32] VITALS: BP 108/70
[2019-08-07] MEDS: methylPREDNISolone SOD SUCC 40 MG/ML VL IV SCH (21:42)
[2019-08-07] MEDS: COLCHICINE 0.6 MG CAP PO SCH (21:42)
--- NOTE | 2019-08-07 23:25 | NUR ---
BRADYCARDIA PATIENT'S HEART RATE SUSTAINING BETWEEN 35BPM-45BPM. PATIENT ASSESSED AND IS ASYMPTOMATIC. PATIENT HAS HX OF BRADYCARDIA AND STATES "THIS IS NORMAL FOR HER WHEN SHE IS AT REST". WILL CONTINUE TO MONITOR.
[2019-08-08] MEDS: HYDROmorphone HCL 2 MG/ML VL IV PRN ×5 (00:54→21:54)
[2019-08-08 05:18] VITALS: BP 113/76
--- NOTE | 2019-08-08 05:55 | NUR ---
ROUNDS PATIENT AWAKE AND ALERT, CURRENTLY ON 2L NC AND SATURATING AT 97%. HEART RATE 40BPM. PATIENT ASYMPTOMATIC TO BRADYCARDIA, HOWEVER VERBALIZES GENERALIZED PAIN, STRONGER ON RIGHT KNEE RATING IT A 9/10. WILL MEDICATE PER ORDER. CALL LIGHT WITHIN REACH. WILL CONTINUE TO MONITOR.
--- NOTE | 2019-08-08 06:20 | NUR ---
MRSA SWAB COLLECTED AND SENT TO LAB
--- NOTE | 2019-08-08 07:30 | NUR ---
Opening Shift Note Assumed care of patient, awake and alert. No S/S of distress/SOB or pain. Instructed on POC and to call for assist PRN, will continue to monitor for changes Q1hr and PRN.
[2019-08-08] MEDS: NAPROXEN 500 MG TAB PO SCH ×3 (07:55→17:55)
[2019-08-08] MEDS: diphenhdrAMINE HCL 25 MG CAP PO PRN ×2 (07:55→17:50)
[2019-08-08 08:00] VITALS: BP 120/59
[2019-08-08 09:00] VITALS: BP 120/59
--- NOTE | 2019-08-08 09:00 | NUR ---
PT NOTES PT VERBALIZED PAIN ON RIGHT KNEE. PAIN ALSO ON LEFT SHOULDER. PT UNABLE TO LIFT ARM UP AND TURNS BY MOVING HER ENTIRE BODY WITH ARMS CLOSED TO HER SIDE. LEFT MIDDLE FINGER ALSO HAVE CONSIDERABLE SWELLING. AWARE.
[2019-08-08] MEDS ORDERED: cefTRIAXone 1GM/50ML D5W 50 ML IV ONE (10:00)
[2019-08-08] MEDS: methylPREDNISolone SOD SUCC 40 MG/ML VL IV SCH ×2 (10:01→21:54)
[2019-08-08] MEDS: PANTOPRAZOLE 40 MG TAB PO SCH (10:02)
[2019-08-08] MEDS: COLCHICINE 0.6 MG CAP PO SCH ×2 (10:02→21:54)
--- NOTE | 2019-08-08 11:30 | NUR ---
PT NOTES PT ASSISTED TO BEDSIDE COMMODE. ACTIVITY TOLERANCE IS POOR.
[2019-08-08 13:22] VITALS: BP 104/53
[2019-08-08] MEDS: SODIUM CHLORIDE 0.9% 1,000 ML IV SCH (15:48)
[2019-08-08] MEDS: traMADol HCL 50 MG TAB PO PRN ×2 (16:11→23:58)
[2019-08-08 17:05] VITALS: BP 128/79
--- NOTE | 2019-08-08 19:18 | NUR ---
CLOSING NOTES PT RESTING IN BED. NO DISTRESS NOTED. ENDORSED CARE TO NICK THOMAS.
--- NOTE | 2019-08-08 19:23 | NUR ---
Opening Shift Note Assumed care of patient, awake and alert. Verbalizes tolerable pain localized to her right knee and left shoulder, rating it as a 3/10. Patient on room air at this time with unlabored respirations of 18bpm. Instructed on POC and to call for assist PRN, will continue to monitor for changes Q1hr and PRN.
--- NOTE | 2019-08-08 22:15 | NUR ---
URINE BACTERIA CULTURE SAMPLE COLLECTED AND SENT TO LAB
[2019-08-08 22:21] VITALS: BP 115/76
[2019-08-09] MEDS: SODIUM CHLORIDE 0.9% 1,000 ML IV SCH ×2 (00:48→08:48)
[2019-08-09] MEDS: HYDROmorphone HCL 2 MG/ML VL IV PRN ×5 (02:05→21:05)
[2019-08-09 04:42] VITALS: BP 126/70
[2019-08-09] MEDS: NAPROXEN 500 MG TAB PO SCH ×2 (08:07→18:35)
[2019-08-09] MEDS: diphenhdrAMINE HCL 25 MG CAP PO PRN ×3 (08:07→18:34)
[2019-08-09] MEDS: cefTRIAXone 1GM/50ML D5W 50 ML IV SCH (08:57)
[2019-08-09 09:00] VITALS: BP 138/86
[2019-08-09 10:01] LABS: Basophils # (auto) 0.1 uL; Basophils % (auto) 0.2 % (0.0-2.0); Eosinophils # (auto) 0 uL; Hemoglobin 12.1 g/dL (12.2-16.2); Lymphocytes % (auto) 3.7 % (10.0-50.0); Mean Corpuscular Volume 69.9 fL (80.0-100.0)
[2019-08-09 10:03] LABS: Hematocrit 39.1 % (36.0-46.0); Lymphocytes # (auto) 0.8 uL; Mean Corpuscular Hemoglobin 21.7 pg (28.0-32.0); Mean Corpuscular Hgb Conc. 31.1 g/dL (32.0-36.0); Monocytes # (auto) 0.8 uL; Monocytes % (auto) 3.5 % (0.0-12.0); Neutrophils # (auto) 20.9 uL; Neutrophils % (auto) 92.6 % (37.0-80.0); Nucleated Red Blood Cells % 0.1 %; Platelet Count (auto) 353 10^3/uL (140-450); Red Blood Cells 5.59 10^6/uL (4.0-5.20); Red Cell Distribution Width 17.8 % (11.8-14.3); White Blood Cell 22.6 10^3/uL (4.4-10.8)
[2019-08-09] MEDS: methylPREDNISolone SOD SUCC 40 MG/ML VL IV SCH ×2 (10:35→21:34)
[2019-08-09] MEDS: COLCHICINE 0.6 MG CAP PO SCH ×2 (10:35→21:34)
[2019-08-09] MEDS: PANTOPRAZOLE 40 MG TAB PO SCH (10:35)
[2019-08-09 12:00] VITALS: BP 135/80
[2019-08-09] MEDS ORDERED: KETOROLAC TROMETH 30 MG/ML 1ML VIAL IV ONE (12:00)
--- NOTE | 2019-08-09 12:15 | NUR ---
Unable to put orders for uric acid crystals to be added on previous right knee fluid aspiration. Spoke with Austin from Lab re: to include uric acid crystal on the right knee fluid collected on 08/06/19 at [address] Sharma. Per Ely she will include try to include it.
--- NOTE | 2019-08-09 12:23 | NUR ---
Received a call from Ely of Lab, verified that Crystal ID is same as uric acid crystals and the result is negative. Informed Dr. Sharma about this and instructions received to relay the results to Dr. Cole as soon as he made the rounds.
--- NOTE | 2019-08-09 15:00 | NUR ---
Orders to discontinue Telemetry received. Telemetry box returned to ICU.
[2019-08-09 17:00] VITALS: BP 134/74
--- NOTE | 2019-08-09 19:15 | NUR ---
Opening Shift Note Assumed care of patient, awake and alert. Sitting up having dinner. Friend at bed side. No S/S of distress/SOB or pain. Patient states "my pain is under control and I am very comfortable right now". Instructed on POC and to call for assist PRN, will continue to monitor for changes Q1hr and PRN.
--- NOTE | 2019-08-09 21:00 | NUR ---
IV insertion X2 IV access obtained, via clean sterile technique by inserting 22 gauge catheter BOTH at right hand after 1 attempt. IV secured properly. No trauma to site. Patient tolerated well.
--- NOTE | 2019-08-09 21:05 | NUR ---
IV removal Left hand IV DC'd with clean sterile technique, catheter fully intact. Pressure dressing applied to site. Patient tolerated well. NOTE: IV REMOVED DUE TO PATIENT EXPERIENCING DISCOMFORT AND MILD SWEALLING NOTED.
[2019-08-09] MEDS: traMADol HCL 50 MG TAB PO PRN (21:58)
[2019-08-09 22:00] VITALS: BP 139/75
[2019-08-10] MEDS: HYDROmorphone HCL 2 MG/ML VL IV PRN ×6 (00:55→22:00)
--- NOTE | 2019-08-10 01:33 | NUR ---
PATIENT AMBULATED DOWN THE CURTIS INDEPENDENTLY AND PAIN FREE
[2019-08-10 05:00] VITALS: BP 153/79
[2019-08-10 06:55] LABS: Anion Gap 8 (5-15); BUN/Creatinine Ratio 28.6; Blood Urea Nitrogen 18 mg/dL (7-18); Calcium 8.8 mg/dL (8.5-10.1); Carbon Dioxide 26 mmol/L (21-32); Chloride 103 mmol/L (98-107); GFR African American 129 mL/min; GFR Non-African American 107 mL/min; Glucose 225 mg/dL (74-106); Potassium 4.5 mmol/L (3.5-5.1); Sodium 137 mmol/L (136-145)
[2019-08-10 07:14] LABS: Basophils # (auto) 0 uL; Basophils % (auto) 0.1 % (0.0-2.0); Eosinophils # (auto) 0 uL; Hematocrit 38.9 % (36.0-46.0); Hemoglobin 11.8 g/dL (12.2-16.2); Lymphocytes # (auto) 0.9 uL; Lymphocytes % (auto) 5.3 % (10.0-50.0); Mean Corpuscular Hemoglobin 21.9 pg (28.0-32.0); Mean Corpuscular Hgb Conc. 30.3 g/dL (32.0-36.0); Mean Corpuscular Volume 72.1 fL (80.0-100.0); Monocytes # (auto) 0.6 uL; Monocytes % (auto) 3.9 % (0.0-12.0); Neutrophils # (auto) 14.7 uL; Neutrophils % (auto) 90.7 % (37.0-80.0); Platelet Count (auto) 331 10^3/uL (140-450); Red Blood Cells 5.39 10^6/uL (4.0-5.20); Red Cell Distribution Width 17.6 % (11.8-14.3); White Blood Cell 16.2 10^3/uL (4.4-10.8)
--- NOTE | 2019-08-10 07:58 | NUR ---
Opening Shift Note Assumed care of patient, awake and alert. No S/S of distress/SOB or pain. Patient states that she still has pain but is feeling much better. Instructed on POC and to call for assist PRN, will continue to monitor for changes Q1hr and PRN. Addendum: 08/10/19 at 1902 by YADIRA MARCH RN Wrong patient
--- NOTE | 2019-08-10 08:05 | NUR ---
Opening Shift Note Assumed care of patient, awake and alert. No S/S of distress/SOB or pain. Patient states that she still has pain but is feeling much better. Instructed on POC and to call for assist PRN, will continue to monitor for changes Q1hr and PRN.
[2019-08-10] MEDS: NAPROXEN 500 MG TAB PO SCH (08:10)
[2019-08-10] MEDS: diphenhdrAMINE HCL 25 MG CAP PO PRN (08:11)
[2019-08-10 09:00] VITALS: BP 157/79
[2019-08-10] MEDS: PANTOPRAZOLE 40 MG TAB PO SCH (09:30)
[2019-08-10] MEDS: COLCHICINE 0.6 MG CAP PO SCH ×2 (09:30→22:22)
[2019-08-10] MEDS: traMADol HCL 50 MG TAB PO PRN (09:32)
[2019-08-10] MEDS: cefTRIAXone 1GM/50ML D5W 50 ML IV SCH (09:41)
[2019-08-10] MEDS: methylPREDNISolone SOD SUCC 40 MG/ML VL IV SCH (09:42)
[2019-08-10] MEDS ORDERED: amLODIPine BESYLATE 5 MG TAB PO ONE (12:00)
[2019-08-10] MEDS ORDERED: FUROSEMIDE 40 MG TAB PO ONE (12:00)
[2019-08-10] MEDS ORDERED: POTASSIUM CHL 20 Meq TABLET PO ONE (12:00)
[2019-08-10] MEDS ORDERED: KETOROLAC TROMETH 30 MG/ML 1ML VIAL IV PRN (12:00)
[2019-08-10 13:00] VITALS: BP 141/79
--- NOTE | 2019-08-10 16:30 | NUR ---
Family member at bedside.
[2019-08-10 17:00] VITALS: BP 158/88
--- NOTE | 2019-08-10 17:12 | NUR ---
Hep B and C study product technician inquired if lab works could be added to the the 0400 lab draws at request of patient so she doesn't have to be drawn twice.
--- NOTE | 2019-08-10 17:50 | NUR ---
Pain Patient stated that the Toradol did not help the pain in her left shoulder and it has gotten more severe. IV Dilaudid to be given.
--- NOTE | 2019-08-10 19:20 | NUR ---
Opening Shift Note Assumed care of patient, awake and alert. Patient on room air and with even and unlabored respirations at 17bpm. Patient rates her pain as a 2/10 which is tolerable for patient and localized on her right knee and left shoulder. Bed at its lowest position, side rails up X2. Call light within reach. Instructed on POC and to call for assist PRN, will continue to monitor for changes Q1hr and PRN.
[2019-08-10 21:12] VITALS: BP 146/85
[2019-08-10] MEDS: predniSONE 20 MG TAB PO SCH (22:22)
--- NOTE | 2019-08-11 01:23 | NUR ---
IV removal IV DC'd with sterile technique, catheter fully intact. Pressure dressing applied to site. Patient tolerated procedure well. Addendum: 08/12/19 at 0725 by WILFRID CAMPOS RN RN DATE: 08-12-19 TIME 0123
[2019-08-11] MEDS: HYDROmorphone HCL 2 MG/ML VL IV PRN ×5 (04:20→22:20)
[2019-08-11 05:06] VITALS: BP 159/84
--- NOTE | 2019-08-11 07:33 | NUR ---
Opening Shift Note Assumed care of patient, awake and alert. No S/S of distress OR SOB. Pt rates pain at 6/10 but denies the need for any pain medication at this time. Bed in lowest and locked position with side rails up x2 and call light in reach. Instructed on POC and to call for assist PRN, will continue to monitor for changes Q1hr and PRN.
[2019-08-11 08:16] LABS: Hematocrit 39.3 % (36.0-46.0); Hemoglobin 12.5 g/dL (12.2-16.2); Mean Corpuscular Hemoglobin 22.4 pg (28.0-32.0); Mean Corpuscular Hgb Conc. 31.8 g/dL (32.0-36.0); Mean Corpuscular Volume 70.5 fL (80.0-100.0); Platelet Count (auto) 369 10^3/uL (140-450); Red Blood Cells 5.58 10^6/uL (4.0-5.20); Red Cell Distribution Width 18.1 % (11.8-14.3); White Blood Cell 14.5 10^3/uL (4.4-10.8)
[2019-08-11 08:26] LABS: Band Neutrophils % (manual) 0; Basophils % (manual) 0 (0.0-2.0); Blast Cells 0; Eosinophils % (manual) 0 (0-7); Myelocytes % 0; Promyelocytes % 0; Reactive Lymphocytes 0
[2019-08-11 08:34] LABS: BUN/Creatinine Ratio 28.8; Calcium 8.7 mg/dL (8.5-10.1); Potassium 4.4 mmol/L (3.5-5.1)
[2019-08-11 08:47] VITALS: BP 164/83
[2019-08-11] MEDS: COLCHICINE 0.6 MG CAP PO SCH ×2 (09:13→22:20)
[2019-08-11] MEDS: cefTRIAXone 1GM/50ML D5W 50 ML IV SCH (09:13)
[2019-08-11] MEDS: predniSONE 20 MG TAB PO SCH ×2 (09:13→22:20)
[2019-08-11] MEDS: PANTOPRAZOLE 40 MG TAB PO SCH (09:14)
[2019-08-11] MEDS: amLODIPine BESYLATE 5 MG TAB PO SCH (09:14)
[2019-08-11 09:41] LABS: Lymphocytes % (manual) 3 (10.0-50.0); Metamyelocytes % 1; Monocytes % (manual) 4 (0-12)
[2019-08-11] MEDS ORDERED: BUMETANIDE 1 MG TAB PO ONE (10:15)
[2019-08-11] MEDS ORDERED: POTASSIUM CHL 20 Meq TABLET PO ONE (10:15)
--- NOTE | 2019-08-11 12:45 | NUR ---
NUTRITION ASSESSMENT NOTES Please refer to link notes of nutrition screen form filed under the intervention section of the plan of care for further details. Est. Needs: 1850 kcal to 2250 kcal (15-18 kcal/kgBW), 64 gms to 90 gms pro (1.0-1.4 gms/kgIBW: 64 kg d/t severe hypoalbuminemia). Will continue to monitor pertinent labs and reassess nutrient need prn Thank you. Addendum: 08/11/19 at [address] Amended: Links added.
[2019-08-11 13:00] VITALS: BP_SYST 123; BP_SYST 151; BP_DIAS 73; BP_DIAS 82
[2019-08-11 17:00] VITALS: BP 161/79
[2019-08-11 20:00] VITALS: BP 151/82
--- NOTE | 2019-08-11 20:44 | NUR ---
OPENING NOTES RECEIVED REPORT FROM DAY SHIFT NURSE, BRET. PT IS AWAKE AND ALERT AND ORIENTATED X4 WITH NO S/S OF DISTRESS NOR PAIN. NO S/S OF SOB. PT IS IN PRIVATE ROOM. BED IS IN LOWEST POSITION WITH SIDE RAILS UP X 2. BED BRAKES ARE LOCKED AND CALL LIGHT IS WITH REACH. HOB IS 30 DEGREES. WILL CONTINUE TO MONITOR Q 1HR. Addendum: 08/11/19 at 2044 by WILFRID CAMPOS RN RN TIME ASSESSED AT 1926
[2019-08-11 21:12] VITALS: BP 137/70
[2019-08-12] MEDS: HYDROmorphone HCL 2 MG/ML VL IV PRN ×4 (04:16→18:57)
[2019-08-12 05:07] VITALS: BP 149/99
[2019-08-12 06:56] LABS: Hemoglobin 12.4 g/dL (12.2-16.2); White Blood Cell 13.6 10^3/uL (4.4-10.8)
[2019-08-12 06:59] LABS: Calcium 8.3 mg/dL (8.5-10.1); Hematocrit 39.6 % (36.0-46.0); Mean Corpuscular Hemoglobin 21.9 pg (28.0-32.0); Mean Corpuscular Hgb Conc. 31.2 g/dL (32.0-36.0); Mean Corpuscular Volume 70.1 fL (80.0-100.0); Platelet Count (auto) 362 10^3/uL (140-450); Potassium 4.2 mmol/L (3.5-5.1); Red Blood Cells 5.65 10^6/uL (4.0-5.20); Red Cell Distribution Width 18.1 % (11.8-14.3)
[2019-08-12 07:07] LABS: Basophils % (manual) 0 (0.0-2.0); Blast Cells 0; Metamyelocytes % 0; Myelocytes % 0; Promyelocytes % 0; Reactive Lymphocytes 0
--- NOTE | 2019-08-12 07:20 | NUR ---
CLOSING NOTES ENDORSED CARE TO DAY SHIFT NURSEBRET.
--- NOTE | 2019-08-12 07:30 | NUR ---
Opening Shift Note Assumed care of patient, asleep and arouses to name. No S/S of distress, SOB, or pain at this time. Bed in lowest and locked position with side rails up x2 and call light in reach. Instructed on POC and to call for assist PRN, will continue to monitor for changes Q1hr and PRN.
--- NOTE | 2019-08-12 08:05 | NUR ---
RE: URINE SAMPLE PT AWARE THAT THERE IS A URINE SAMPLE THAT NEEDS TO BE COLLECTED. THE PT WAS EDUCATED ON THE IMPORTANCE OF THE URINE TESTING. PT VERBALIZED UNDERSTANDING AND THE URINE SAMPLE CUP PLACED AT BEDSIDE.
[2019-08-12 08:31] LABS: Band Neutrophils % (manual) 1; Eosinophils % (manual) 1 (0-7); Lymphocytes % (manual) 5 (10.0-50.0); Monocytes % (manual) 5 (0-12)
[2019-08-12 09:21] VITALS: BP 147/81
[2019-08-12] MEDS: cefTRIAXone 1GM/50ML D5W 50 ML IV SCH (09:28)
[2019-08-12] MEDS: predniSONE 20 MG TAB PO SCH (09:32)
[2019-08-12] MEDS: COLCHICINE 0.6 MG CAP PO SCH ×2 (09:32→22:00)
[2019-08-12] MEDS: PANTOPRAZOLE 40 MG TAB PO SCH (09:32)
[2019-08-12] MEDS: amLODIPine BESYLATE 5 MG TAB PO SCH (09:33)
[2019-08-12 10:46] LABS: Hepatitis B Core Total AB Negative; Hepatitis B Surface Antigen Negative (Negative)
[2019-08-12 10:47] LABS: Hepatitis C Antibody Negative (Negative)
[2019-08-12] MEDS ORDERED: ACETAMINOPHEN 500 MG TAB PO PRN (11:15)
[2019-08-12 13:26] VITALS: BP 143/84
--- NOTE | 2019-08-12 14:39 | NUR ---
Midline Placement: Patient educated on need for midline placement. All risks and benefits explained and all questions and concerns addresses prior to procedure. 18g/10cm midline inserted via L BASILIC vein using Ultrasound. Sterile technique utilized. Blood return obtained from SINGLE lumen and flushed easily with NS using proper technique. Midline secured with saline lock; biodisc and occlusive dressing applied. Primary RN notified. Midline lot # [id number]
[2019-08-12] MEDS: methylPREDNISolone SOD SUCC 40 MG/ML VL IV SCH ×2 (14:51→22:00)
--- NOTE | 2019-08-12 15:46 | NUR ---
PAGEJerrod RODRÍGUEZ FOR MEDICATION VERIFICATION. AWAITING CALL BACK.
--- NOTE | 2019-08-12 16:06 | NUR ---
SHANK BURNISHER, ELISE, NOTIFIED THAT THE PT IS SCHEDULED FOR RITUXAN IN THE AM.
[2019-08-12 17:00] VITALS: BP 140/83
[2019-08-12 18:07] LABS: Protein, Urine 21.9 mg/dL (0.0-11.9)
[2019-08-12 21:30] VITALS: BP 110/77
[2019-08-12] MEDS: NAPROXEN 500 MG TAB PO PRN (22:00)
[2019-08-12] MEDS: diphenhdrAMINE HCL 25 MG CAP PO PRN (22:00)
[2019-08-13] MEDS: HYDROmorphone HCL 2 MG/ML VL IV PRN ×5 (00:18→19:00)
[2019-08-13 05:00] VITALS: BP 157/83
[2019-08-13] MEDS: methylPREDNISolone SOD SUCC 40 MG/ML VL IV SCH ×3 (05:53→22:00)
[2019-08-13 07:06] LABS: White Blood Cell 20.8 10^3/uL (4.4-10.8)
[2019-08-13 07:10] LABS: Hematocrit 40.5 % (36.0-46.0); Hemoglobin 12.8 g/dL (12.2-16.2); Mean Corpuscular Hemoglobin 22.2 pg (28.0-32.0); Mean Corpuscular Hgb Conc. 31.5 g/dL (32.0-36.0); Mean Corpuscular Volume 70.3 fL (80.0-100.0); Platelet Count (auto) 412 10^3/uL (140-450); Red Blood Cells 5.76 10^6/uL (4.0-5.20); Red Cell Distribution Width 17.8 % (11.8-14.3)
[2019-08-13 07:15] LABS: Basophils % (manual) 0 (0.0-2.0); Blast Cells 0; Eosinophils % (manual) 0 (0-7); Myelocytes % 0; Promyelocytes % 0; Reactive Lymphocytes 0
[2019-08-13 07:22] LABS: Calcium 8.8 mg/dL (8.5-10.1); Potassium 4.3 mmol/L (3.5-5.1)
[2019-08-13 07:24] LABS: BUN/Creatinine Ratio 22.7
--- NOTE | 2019-08-13 07:30 | NUR ---
OPENING SHIFT NOTE: Received report from NOC RNChari. Assumed care of patient. Patient sitting up in bed, denies pain. Bed in lowest position, rails x2 up and call light within reach. Updated on plan of care. Will continue to monitor.
[2019-08-13 08:40] LABS: Band Neutrophils % (manual) 8; Lymphocytes % (manual) 4 (10.0-50.0); Metamyelocytes % 1; Monocytes % (manual) 6 (0-12)
[2019-08-13 09:00] VITALS: BP 144/73
--- NOTE | 2019-08-13 09:45 | NUR ---
MD: Dr Sharma to see patient. MD aware of need to clarify order of Rituixan by Dr Garcia. Orders received.
[2019-08-13] MEDS ORDERED: diphenhdrAMINE HCL 25 MG CAP PO ONE (10:00)
[2019-08-13] MEDS: amLODIPine BESYLATE 5 MG TAB PO SCH (10:25)
[2019-08-13] MEDS: COLCHICINE 0.6 MG CAP PO SCH (10:25)
[2019-08-13] MEDS: PANTOPRAZOLE 40 MG TAB PO SCH (10:25)
[2019-08-13] MEDS ORDERED: ACETAMINOPHEN 325 MG TAB PO ONE (11:30)
[2019-08-13] MEDS ORDERED: diphenhdrAMINE HCL 50 MG/1 ML VL IV ONE (11:30)
[2019-08-13] MEDS ORDERED: RITUXIMAB IV ONE (12:00)
[2019-08-13] MEDS ORDERED: SODIUM CHL 0.9% IV ONE (12:00)
[2019-08-13 13:00] VITALS: BP 140/76
--- NOTE | 2019-08-13 14:50 | NUR ---
MD: Dr Garcia at bedside to see patient.
--- NOTE | 2019-08-13 15:30 | NUR ---
CHEMO: Rituxan started at 84ml/hr to left upper arm midline. Patient previously premedicated with Benadryl, Tylenol, and SoluMedrol. Inital BP 130/77 HR 56.
[2019-08-13 17:00] VITALS: BP 130/77
--- NOTE | 2019-08-13 18:00 | NUR ---
CHEMO: Patient tolerating chemo. No signs of adverse reaction. Increase rate to 100ml/hr.
--- NOTE | 2019-08-13 19:09 | NUR ---
CLOSING SHIFT NOTE: Report given to NOC Raven ROMERO. Endorsed care of patient.
--- NOTE | 2019-08-13 19:31 | NUR ---
CHEMO: Infusion complete. Patient tolerated well. No adverse signs or symptoms.
[2019-08-13 22:00] VITALS: BP 146/77
[2019-08-14] MEDS: HYDROmorphone HCL 2 MG/ML VL IV PRN ×5 (00:26→22:03)
[2019-08-14 05:17] VITALS: BP 150/84
[2019-08-14] MEDS: methylPREDNISolone SOD SUCC 40 MG/ML VL IV SCH ×3 (05:45→22:02)
[2019-08-14 08:00] VITALS: BP 158/87
[2019-08-14 08:06] VITALS: BP 158/87
[2019-08-14 08:10] LABS: Hematocrit 41.5 % (36.0-46.0); Hemoglobin 12.7 g/dL (12.2-16.2); Mean Corpuscular Hemoglobin 21.7 pg (28.0-32.0); Mean Corpuscular Hgb Conc. 30.6 g/dL (32.0-36.0); Mean Corpuscular Volume 71.1 fL (80.0-100.0); Platelet Count (auto) 415 10^3/uL (140-450); Red Blood Cells 5.85 10^6/uL (4.0-5.20); White Blood Cell 24.9 10^3/uL (4.4-10.8)
[2019-08-14 08:16] LABS: Basophils % (manual) 0 (0.0-2.0); Blast Cells 0; Eosinophils % (manual) 0 (0-7); Metamyelocytes % 0; Myelocytes % 0; Promyelocytes % 0; Reactive Lymphocytes 0
[2019-08-14] MEDS: amLODIPine BESYLATE 5 MG TAB PO SCH (10:03)
[2019-08-14] MEDS: PANTOPRAZOLE 40 MG TAB PO SCH (10:04)
[2019-08-14] MEDS: NAPROXEN 500 MG TAB PO PRN (10:21)
[2019-08-14] MEDS: diphenhdrAMINE HCL 25 MG CAP PO PRN (10:21)
[2019-08-14 12:11] VITALS: BP 151/84
[2019-08-14 12:26] LABS: Band Neutrophils % (manual) 4; Lymphocytes % (manual) 3 (10.0-50.0); Monocytes % (manual) 3 (0-12)
[2019-08-14 16:33] VITALS: BP 140/74
--- NOTE | 2019-08-14 19:30 | NUR ---
OPENING NOTE REPORT RECEIVED FROM DAY SHIFT RN PATIENT IS RESTING IN BED, FAMILY IS AT BEDSIDE. NO S/S OF DISTRESS NOTED. POC DISCUSSED AND ALL QUESTIONS ANSWERED. WILL MONITOR Q1H PRN THROUGHOUT SHIFT, CALL LIGHT WITHIN REACH.
[2019-08-14 21:55] VITALS: BP 147/91
[2019-08-15] MEDS: HYDROmorphone HCL 2 MG/ML VL IV PRN ×4 (04:08→22:14)
[2019-08-15 05:44] VITALS: BP 159/73
--- NOTE | 2019-08-15 07:02 | NUR ---
CLOSING PATIENT IS RESTING IN BED WITH EYES CLOSED, NO S/S OF DISTRESS NOTED CALL LIGHT WITHIN REACH WILL ENDORSE CARE TO AM SHIFT RN
[2019-08-15 08:00] VITALS: BP 161/82
[2019-08-15 08:36] VITALS: BP 161/82
[2019-08-15] MEDS: PANTOPRAZOLE 40 MG TAB PO SCH (09:29)
[2019-08-15] MEDS: amLODIPine BESYLATE 5 MG TAB PO SCH (09:30)
[2019-08-15] MEDS ORDERED: methylPREDNISolone SOD SUCC 40 MG/ML VL IV SCH (10:00)
[2019-08-15 12:17] VITALS: BP 153/86
[2019-08-15] MEDS: NAPROXEN 500 MG TAB PO PRN (12:30)
[2019-08-15] MEDS: diphenhdrAMINE HCL 25 MG CAP PO PRN (12:30)
[2019-08-15 16:33] VITALS: BP 150/90
[2019-08-15 22:07] VITALS: BP 164/85
[2019-08-15] MEDS: predniSONE 20 MG TAB PO SCH (22:14)
[2019-08-16] MEDS: HYDROmorphone HCL 2 MG/ML VL IV PRN ×4 (03:00→20:13)
[2019-08-16 05:11] VITALS: BP 164/75
--- NOTE | 2019-08-16 06:57 | NUR ---
CLOSING PATIENT SLEEPING AT THIS TIME, NO S/S OF DISTRESS NOTED, CALL LIGHT WITHIN REACH WILL ENDORSE CARE TO AM SHIFT RN
[2019-08-16 07:13] LABS: Hemoglobin 12.7 g/dL (12.2-16.2)
[2019-08-16 07:16] LABS: Hematocrit 40.9 % (36.0-46.0); Mean Corpuscular Volume 70.9 fL (80.0-100.0); Platelet Count (auto) 350 10^3/uL (140-450); Red Blood Cells 5.76 10^6/uL (4.0-5.20); Red Cell Distribution Width 17.8 % (11.8-14.3); White Blood Cell 14.6 10^3/uL (4.4-10.8)
[2019-08-16 07:18] LABS: Band Neutrophils % (manual) 0; Basophils % (manual) 0 (0.0-2.0); Blast Cells 0; Eosinophils % (manual) 0 (0-7); Metamyelocytes % 0; Myelocytes % 0; Promyelocytes % 0; Reactive Lymphocytes 0
[2019-08-16 07:36] LABS: BUN/Creatinine Ratio 23.6; Calcium 8.7 mg/dL (8.5-10.1); Potassium 4.7 mmol/L (3.5-5.1)
[2019-08-16 07:50] LABS: Lymphocytes % (manual) 6 (10.0-50.0); Monocytes % (manual) 2 (0-12)
[2019-08-16 09:00] VITALS: BP 154/93
--- NOTE | 2019-08-16 09:00 | NUR ---
Opening Shift Note Assumed care of patient, awake and alert, oriented x 4 and verbally responsive. Skin is warm and dry to touch. Respiratory even and unlabored. No S/S of distress/SOB or pain. Instructed on POC and to call for assist PRN, will continue to monitor for changes Q1hr and PRN.
[2019-08-16] MEDS: predniSONE 20 MG TAB PO SCH ×2 (09:40→21:34)
[2019-08-16] MEDS: PANTOPRAZOLE 40 MG TAB PO SCH (09:47)
[2019-08-16] MEDS: amLODIPine BESYLATE 5 MG TAB PO SCH (09:48)
[2019-08-16] MEDS ORDERED: KETOROLAC TROMETH 30 MG/ML 1ML VIAL IV ONE (10:45)
[2019-08-16 10:49] VITALS: BP 137/83
--- NOTE | 2019-08-16 12:57 | NUR ---
Nutrition Follow-up Notes Wt.: 128.3 kg as of yesterday. Pt's asleep, no immediate family member at bedside during rounds this morning. Noted pt's s/p Chemo (08/01/19), no signs of distress noted earlier, currently on Regular diet with adequate PO intake aeb 95% ave. consumed meals (x7) in last 3 days. Noted pt's for active Christopher/Oncology consult. Est. Needs: 1850 kcal to 2250 kcal (15-18 kcal/kgBW), 64 gms to 90 gms pro (1.0-1.4 gms/kgIBW: 64 kg d/t severe hypoalbuminemia). Will continue to monitor pertinent labs and reassess nutrient need prn Labs: Gluc 284 H, CO2 33 H,C react prot 0.717 H; Alb 2.4 L Skin: Tima scale 21, low risk, skin intact per fnp. GI: Pt had 1 BM 08/14/19 per fnp. PES: Altered nutrition related lab values r/t current/chronic medical condition aeb hyperkelglycemia, elev. CRP and severe hypoalbuminemia Obesity r/t food intake more than body requirement aeb 196% IBW, BMI 41.8 kg/m2 and increased body adiposity Will continue to monitor PO intake, skin status, pertinent labs and weight trend. F/u in 3 to 5 days. Rec.: 1.) If Albumin continues trending down, consider Prostat 1 pkt TID. 2.) Continue close supervision with meals. 3.) Refer to RD for further nutrition educ. and weight monitoring upon discharge. 4.) Continue current plan of care.
[2019-08-16 13:00] VITALS: BP 148/83
[2019-08-16 17:00] VITALS: BP 129/69
--- NOTE | 2019-08-16 19:30 | NUR ---
OPENING SHIFT NOTE RECEIVED REPORT FROM DAYSHIFT RN. PATIENT LYING IN BED. NO S/S OF DISTRESS OR SOB. NO PAIN NOTED OR REPORTED AT THIS TIME. PATIENT A/O X4, AMBULATORY. UPDATED POC WITH PATIENT, VERBALIZED UNDERSTANDING. BED LOCKED IN LOW POSITION, CALL LIGHT WITHIN REACH. WILL CONTINUE TO MONITOR PATIENT Q1HR AND PRN.
[2019-08-16 21:47] VITALS: BP 156/90
[2019-08-17] MEDS: HYDROmorphone HCL 2 MG/ML VL IV PRN ×4 (02:00→22:30)
[2019-08-17 05:40] VITALS: BP 134/71
--- NOTE | 2019-08-17 07:30 | NUR ---
OPENING SHIFT NOTE RECEIVED REPORT FROM [facility] NURSE, ASSUMED CARE OF PATIENT. PATIENT IS A&OX4 WITH NO C/O PAIN OR DISTRESS AT THIS TIME. PATIENT BED IS IN LOW POSITION, BRAKES APPLIED, BED RAILS UP X2 AND CALL LIGHT WITHIN REACH. PATIENT EDUCATED ON POC AND CALL LIGHT USE PRN, PATIENT VERBALIZED UNDERSTANDING. CONTINUING TO MONITOR PATIENT Q1 HR AND PRN
[2019-08-17 09:00] VITALS: BP 153/84
[2019-08-17] MEDS: PANTOPRAZOLE 40 MG TAB PO SCH (09:55)
[2019-08-17] MEDS: predniSONE 20 MG TAB PO SCH ×2 (09:55→22:30)
[2019-08-17] MEDS: amLODIPine BESYLATE 5 MG TAB PO SCH (09:56)
[2019-08-17] MEDS: diphenhdrAMINE HCL 25 MG CAP PO PRN (11:37)
[2019-08-17] MEDS: NAPROXEN 500 MG TAB PO PRN (11:37)
[2019-08-17 13:00] VITALS: BP 155/84
[2019-08-17 17:00] VITALS: BP 146/92
[2019-08-17 22:00] VITALS: BP 148/75
[2019-08-18] MEDS: HYDROmorphone HCL 2 MG/ML VL IV PRN (03:40)
[2019-08-18 04:53] VITALS: BP 153/82
[2019-08-18 08:00] VITALS: BP 158/93
--- NOTE | 2019-08-18 08:05 | NUR ---
Opening Shift Note Assumed care of patient, awake and alert sitting up in bed uncomplaining. No S/S of distress/SOB or pain. Instructed on POC and to call for assist PRN, will continue to monitor for changes Q1hr and PRN.
[2019-08-18 10:03] LABS: Hemoglobin 12.8 g/dL (12.2-16.2); Mean Corpuscular Hemoglobin 22.1 pg (28.0-32.0); Mean Corpuscular Hgb Conc. 31.2 g/dL (32.0-36.0); Mean Corpuscular Volume 70.9 fL (80.0-100.0); Platelet Count (auto) 340 10^3/uL (140-450); Red Blood Cells 5.78 10^6/uL (4.0-5.20); Red Cell Distribution Width 18.2 % (11.8-14.3); White Blood Cell 14.1 10^3/uL (4.4-10.8)
[2019-08-18 10:04] LABS: Band Neutrophils % (manual) 0; Basophils % (manual) 0 (0.0-2.0); Blast Cells 0; Eosinophils % (manual) 0 (0-7); Promyelocytes % 0; Reactive Lymphocytes 0
[2019-08-18] MEDS: predniSONE 20 MG TAB PO SCH (10:39)
[2019-08-18] MEDS: diphenhdrAMINE HCL 25 MG CAP PO PRN (10:40)
[2019-08-18] MEDS: PANTOPRAZOLE 40 MG TAB PO SCH (10:41)
[2019-08-18] MEDS: amLODIPine BESYLATE 5 MG TAB PO SCH (10:41)
[2019-08-18] MEDS: NAPROXEN 500 MG TAB PO PRN (10:43)
[2019-08-18 11:07] LABS: Lymphocytes % (manual) 8 (10.0-50.0); Metamyelocytes % 1; Monocytes % (manual) 2 (0-12); Myelocytes % 1
[2019-08-18 12:00] VITALS: BP 138/86
--- NOTE | 2019-08-18 13:30 | NUR ---
Midline Removed Midline removed from left upper arm with clean sterile technique, catheter fully intact. Pressure dressing applied to site. Patient tolerated well.
--- NOTE | 2019-08-18 14:30 | NUR ---
Mother at bedside.
--- NOTE | 2019-08-18 15:15 | NUR ---
Discharge instructions given as ordered. Encourage to follow up with PMD as instructed. All questions and concerns addressed. Patient verbalized understanding. Medication reconciliation form completed and copy given to patient. Patient taken to vehicle via wheelchair with all personal belongings, accompanied by staff and family member. No distress noted at time of departure.
== END 2019-08-18 15:15 | disposition home or self-care (01) | DRG 554 ==
LOC: ER 12:37 → EDUNIT# 12:37 → EDBD 12:37 → TELE 12:38 → TELE-EAST 18:50 → EAST 08-12 19:43
PROVIDERS: ADMIT Internal Medicine; ATTEND Internal Medicine
DX: M06.4 Inflammatory polyarthropathy (principal); D47.Z2 Castleman disease; E87.1 Hypo-osmolality and hyponatremia; N39.0 Urinary tract infection, site not specified; Z68.41 Body mass index [BMI] 40.0-44.9, adult; E87.6 Hypokalemia; M10.9 Gout, unspecified; I10 Essential (primary) hypertension; D69.6 Thrombocytopenia, unspecified; R59.1 Generalized enlarged lymph nodes; R16.1 Splenomegaly, not elsewhere classified; R00.1 Bradycardia, unspecified; E66.9 Obesity, unspecified; D72.829 Elevated white blood cell count, unspecified; Z88.5 Allergy status to narcotic agent; Z88.0 Allergy status to penicillin; Z98.51 Tubal ligation status; Z82.49 Family history of ischemic heart disease and other diseases of the circulatory system; Z79.899 Other long term (current) drug therapy
CPT/HCPCS: 36415; 71045; 71250; 73030; 73562; 76536; 80048; 80053; 81001; 82570; 83735; 84156; 84443; 84550; 85007; 85025; 85027; 85610; 85652; 85730; 86141; 86704; 86803; 87081; 87086; 87340; 93005; 93306; 93971; 94761; 96374; 96375; G0378; J0696; J1885

== ENCOUNTER → 2019-09-09 | Outpatient (CLI) | payer BC ==
[~2019-09-09] MED LIST changes: +AMLO5TAB15 PO
[2019-09-09 12:36] LABS: Basophils # (auto) 0.1 uL; Eosinophils # (auto) 0.1 uL; Eosinophils % (auto) 1.2 % (0.0-7.0); Monocytes # (auto) 0.7 uL; Neutrophils # (auto) 4.3 uL; Nucleated Red Blood Cells % 0.1 %
[2019-09-09 12:39] LABS: Hematocrit 43.2 % (36.0-46.0); Hemoglobin 13.5 g/dL (12.2-16.2); Lymphocytes # (auto) 2.1 uL; Lymphocytes % (auto) 29.1 % (10.0-50.0); Mean Corpuscular Hemoglobin 22.1 pg (28.0-32.0); Mean Corpuscular Hgb Conc. 31.1 g/dL (32.0-36.0); Monocytes % (auto) 9.6 % (0.0-12.0); Neutrophils % (auto) 59.1 % (37.0-80.0); Platelet Count (auto) 278 10^3/uL (140-450); Red Blood Cells 6.09 10^6/uL (4.0-5.20); Red Cell Distribution Width 20.1 % (11.8-14.3); White Blood Cell 7.3 10^3/uL (4.4-10.8)
[2019-09-09 15:14] LABS: Albumin 3.8 g/dL (3.4-5.0); Potassium 3.5 mmol/L (3.5-5.1)
[2019-09-09 15:19] LABS: BUN/Creatinine Ratio 14.8; Bilirubin, Total 0.5 mg/dL (0.2-1.0); Calcium 7.9 mg/dL (8.5-10.1); Total Protein 7.3 g/dL (6.4-8.2)
== END | disposition home or self-care (01) ==
LOC: LAB 11:38
PROVIDERS: ATTEND Internal Medicine
DX: D47.Z2 Castleman disease (principal)
CPT/HCPCS: 36415; 80053; 83615; 85025

== ENCOUNTER → 2019-10-14 | Outpatient (CLI) | payer BC ==
[2019-10-14 10:18] LABS: Potassium 3.6 mmol/L (3.5-5.1)
[2019-10-14 10:24] LABS: Basophils # (auto) 0.1 uL; Basophils % (auto) 1.2 % (0.0-2.0); Eosinophils # (auto) 0.3 uL; Eosinophils % (auto) 2.7 % (0.0-7.0); Hematocrit 42.9 % (36.0-46.0); Hemoglobin 13.7 g/dL (12.2-16.2); Lymphocytes % (auto) 21.3 % (10.0-50.0); Mean Corpuscular Hemoglobin 23.3 pg (28.0-32.0); Mean Corpuscular Volume 72.8 fL (80.0-100.0); Monocytes # (auto) 0.7 uL; Monocytes % (auto) 7.6 % (0.0-12.0); Neutrophils # (auto) 6.5 uL; Neutrophils % (auto) 67.2 % (37.0-80.0); Nucleated Red Blood Cells % 0.1 %; Platelet Count (auto) 203 10^3/uL (140-450); Red Blood Cells 5.89 10^6/uL (4.0-5.20); White Blood Cell 9.6 10^3/uL (4.4-10.8)
[2019-10-14 10:25] LABS: Albumin 3.7 g/dL (3.4-5.0); BUN/Creatinine Ratio 12.8; Bilirubin, Total 0.3 mg/dL (0.2-1.0); Calcium 8.9 mg/dL (8.5-10.1); Total Protein 6.6 g/dL (6.4-8.2)
[2019-10-14 10:26] LABS: Red Cell Distribution Width 20.1 % (11.8-14.3)
== END | disposition home or self-care (01) ==
LOC: LAB 09:23
PROVIDERS: ATTEND Internal Medicine
DX: D47.Z2 Castleman disease (principal); I10 Essential (primary) hypertension; M19.90 Unspecified osteoarthritis, unspecified site; Z87.440 Personal history of urinary (tract) infections
CPT/HCPCS: 36415; 80053; 83615; 85025

== ENCOUNTER → 2019-12-14 | Outpatient (CLI) | payer BC ==
[2019-12-14 16:04] LABS: Basophils # (auto) 0.1 uL; Eosinophils # (auto) 0.1 uL; Eosinophils % (auto) 1.4 % (0.0-7.0); Hemoglobin 13.2 g/dL (12.2-16.2); Nucleated Red Blood Cells % 0.1 %
[2019-12-14 16:06] LABS: Basophils % (auto) 0.8 % (0.0-2.0); Hematocrit 41.6 % (36.0-46.0); Lymphocytes # (auto) 1.2 uL; Lymphocytes % (auto) 12.7 % (10.0-50.0); Mean Corpuscular Hemoglobin 23.5 pg (28.0-32.0); Mean Corpuscular Hgb Conc. 31.8 g/dL (32.0-36.0); Mean Corpuscular Volume 73.8 fL (80.0-100.0); Monocytes # (auto) 0.5 uL; Monocytes % (auto) 5.9 % (0.0-12.0); Neutrophils # (auto) 7.4 uL; Neutrophils % (auto) 79.2 % (37.0-80.0); Platelet Count (auto) 300 10^3/uL (140-450); Red Blood Cells 5.63 10^6/uL (4.0-5.20); White Blood Cell 9.3 10^3/uL (4.4-10.8)
[2019-12-14 16:23] LABS: Calcium 9.1 mg/dL (8.5-10.1); Potassium 3.9 mmol/L (3.5-5.1)
[2019-12-14 16:29] LABS: BUN/Creatinine Ratio 17.7; Bilirubin, Total 0.4 mg/dL (0.2-1.0); Total Protein 7.3 g/dL (6.4-8.2)
== END | disposition home or self-care (01) ==
LOC: LAB 15:24
PROVIDERS: ATTEND Internal Medicine
DX: D47.Z2 Castleman disease (principal)
CPT/HCPCS: 36415; 80053; 83615; 85025

== ENCOUNTER → 2019-12-15 | Outpatient (CLI) | payer BC ==
[2019-12-15 11:22] LABS: Eosinophils # (auto) 0.2 uL; Hemoglobin 13.4 g/dL (12.2-16.2); Mean Corpuscular Hemoglobin 23.1 pg (28.0-32.0); Monocytes # (auto) 0.6 uL; Neutrophils # (auto) 4.5 uL; Nucleated Red Blood Cells % 0.1 %; Red Blood Cells 5.78 10^6/uL (4.0-5.20); Red Cell Distribution Width 17.3 % (11.8-14.3)
[2019-12-15 11:24] LABS: Basophils # (auto) 0.2 uL; Basophils % (auto) 2.4 % (0.0-2.0); Eosinophils % (auto) 2.3 % (0.0-7.0); Hematocrit 42.2 % (36.0-46.0); Lymphocytes # (auto) 1.5 uL; Lymphocytes % (auto) 22.3 % (10.0-50.0); Mean Corpuscular Hgb Conc. 31.7 g/dL (32.0-36.0); Mean Corpuscular Volume 73.1 fL (80.0-100.0); Monocytes % (auto) 8.6 % (0.0-12.0); Neutrophils % (auto) 64.4 % (37.0-80.0); Platelet Count (auto) 314 10^3/uL (140-450)
[2019-12-15 11:34] LABS: Potassium 3.5 mmol/L (3.5-5.1)
[2019-12-15 11:46] LABS: Albumin 3.7 g/dL (3.4-5.0); BUN/Creatinine Ratio 16.7; Bilirubin, Total 0.4 mg/dL (0.2-1.0); Total Protein 7.2 g/dL (6.4-8.2)
== END | disposition home or self-care (01) ==
LOC: LAB 10:17
PROVIDERS: ATTEND Internal Medicine
DX: D47.Z2 Castleman disease (principal); I10 Essential (primary) hypertension; N19 Unspecified kidney failure; F41.9 Anxiety disorder, unspecified; Z68.41 Body mass index [BMI] 40.0-44.9, adult
CPT/HCPCS: 36415; 80053; 80061; 84443; 85025

== ENCOUNTER → 2020-09-12 | Outpatient (CLI) | payer BC, MEDICARE ==
[2020-09-12 18:18] LABS: Basophils # (auto) 0.1 10 ^3/uL (0-0.2); Basophils % (auto) 1.1 % (0.0-2.0); Eosinophils # (auto) 0.2 10 ^3/uL (0-0.8); Eosinophils % (auto) 4.8 % (0.0-7.0); Hematocrit 42.4 % (36.0-46.0); Hemoglobin 13.3 g/dL (12.2-16.2); Lymphocytes # (auto) 1.4 10 ^3/uL (0.4-5.4); Lymphocytes % (auto) 28.6 % (10.0-50.0); Mean Corpuscular Hemoglobin 23.6 pg (28.0-32.0); Mean Corpuscular Hgb Conc. 31.4 g/dL (32.0-36.0); Mean Corpuscular Volume 75.1 fL (80.0-100.0); Monocytes # (auto) 0.6 10 ^3/uL (0-1.3); Monocytes % (auto) 12.4 % (0.0-12.0); Neutrophils # (auto) 2.7 10 ^3/uL (1.6-8.6); Neutrophils % (auto) 53.1 % (37.0-80.0); Nucleated Red Blood Cells % 0.1 %; Platelet Count (auto) 233 10^3/uL (140-450); Red Blood Cells 5.65 10^6/uL (4.0-5.20); Red Cell Distribution Width 17.2 % (11.8-14.3)
[2020-09-12 20:45] LABS: Albumin 4.1 g/dL (3.4-5.0); Calcium 9.1 mg/dL (8.5-10.1); Potassium 3.4 mmol/L (3.5-5.1)
[2020-09-12 20:48] LABS: BUN/Creatinine Ratio 23.8; Bilirubin, Total 0.5 mg/dL (0.2-1.0); Total Protein 7.1 g/dL (6.4-8.2)
== END | disposition home or self-care (01) ==
LOC: LAB 17:24
PROVIDERS: ATTEND Internal Medicine
DX: D47.Z2 Castleman disease (principal)
CPT/HCPCS: 36415; 80053; 83615; 85025

== ENCOUNTER → 2020-11-06 | Outpatient (CLI) | payer BC ==
[2020-11-06 16:11] LABS: Basophils # (auto) 0 10 ^3/uL (0-0.2); Eosinophils # (auto) 0.2 10 ^3/uL (0-0.8); Mean Corpuscular Hgb Conc. 31.9 g/dL (32.0-36.0)
[2020-11-06 16:12] LABS: Basophils % (auto) 0.6 % (0.0-2.0); Eosinophils % (auto) 3.5 % (0.0-7.0); Hematocrit 43.5 % (36.0-46.0); Hemoglobin 13.9 g/dL (12.2-16.2); Lymphocytes # (auto) 1.1 10 ^3/uL (0.4-5.4); Lymphocytes % (auto) 18.8 % (10.0-50.0); Mean Corpuscular Hemoglobin 24.2 pg (28.0-32.0); Mean Corpuscular Volume 75.6 fL (80.0-100.0); Monocytes # (auto) 0.6 10 ^3/uL (0-1.3); Monocytes % (auto) 10.9 % (0.0-12.0); Neutrophils # (auto) 3.9 10 ^3/uL (1.6-8.6); Neutrophils % (auto) 66.2 % (37.0-80.0); Platelet Count (auto) 272 10^3/uL (140-450); Red Blood Cells 5.75 10^6/uL (4.0-5.20); Red Cell Distribution Width 16.7 % (11.8-14.3); White Blood Cell 5.9 10^3/uL (4.4-10.8)
[2020-11-06 16:28] LABS: Calcium 9.2 mg/dL (8.5-10.1); Potassium 3.3 mmol/L (3.5-5.1)
[2020-11-06 16:38] LABS: Bilirubin, Total 0.5 mg/dL (0.2-1.0); Total Protein 7.1 g/dL (6.4-8.2)
== END | disposition home or self-care (01) ==
LOC: LAB 15:27
PROVIDERS: ATTEND Internal Medicine
DX: D47.Z2 Castleman disease (principal)
CPT/HCPCS: 36415; 80053; 83615; 85025

== ENCOUNTER → 2020-11-09 | Outpatient (CLI) | payer BC | END | disposition home or self-care (01) | LOC: LAB 10:38 | PROVIDERS: ATTEND Internal Medicine | DX: U07.1 COVID-19 (principal) | CPT/HCPCS: C9803; U0003 ==

== ENCOUNTER 2021-01-31 18:29 | Inpatient (IN) | payer MEDICARE, OTHER ==
[~2021-01-31] VITALS: Ht 175.3 cm; Wt 127.7 kg
[~2021-01-31 18:29] MED LIST changes: +AMLO-489 PO; -AMLO5TAB15 PO
[2021-01-31 19:05] LABS: Mean Corpuscular Hgb Conc. 32.6 g/dL (32.0-36.0); Mean Corpuscular Volume 73.2 fL (80.0-100.0)
[2021-01-31 19:07] LABS: Hematocrit 36.5 % (36.0-46.0); Hemoglobin 11.9 g/dL (12.2-16.2); Mean Corpuscular Hemoglobin 23.8 pg (28.0-32.0); Platelet Count (auto) 362 10^3/uL (140-450); Red Blood Cells 4.98 10^6/uL (4.0-5.20); Red Cell Distribution Width 15.4 % (11.8-14.3); White Blood Cell 6.6 10^3/uL (4.4-10.8)
[2021-01-31 19:18] LABS: Basophils % (manual) 0 (0.0-2.0); Blast Cells 0; Metamyelocytes % 0; Myelocytes % 0; Promyelocytes % 0; Reactive Lymphocytes 0
[2021-01-31 19:34] LABS: Band Neutrophils % (manual) 1; Eosinophils % (manual) 2 (0-7); Lymphocytes % (manual) 14 (10.0-50.0); Monocytes % (manual) 12 (0-12)
[2021-01-31 19:39] LABS: INR 1.02 (0.9-1.15); Partial Thromboplastin Time 27.1 sec (23.0-31.2)
[2021-01-31 19:57] LABS: Albumin 2.9 g/dL (3.4-5.0); Anion Gap 4 (5-15); Blood Urea Nitrogen 12 mg/dL (7-18); Calcium 8.5 mg/dL (8.5-10.1); Carbon Dioxide 31 mmol/L (21-32); Chloride 103 mmol/L (98-107); Glucose 96 mg/dL (74-106); Magnesium 2.3 mg/dL (1.6-2.6); Potassium 3.7 mmol/L (3.5-5.1); Sodium 138 mmol/L (136-145)
[2021-01-31 20:03] LABS: Alanine Aminotransferase 25 U/L (13-56); Alkaline Phosphatase 125 U/L (45-117); Aspartate Aminotransferase 23 U/L (15-37); BUN/Creatinine Ratio 13.8; Bilirubin, Total 0.4 mg/dL (0.2-1.0); GFR African American 89 mL/min; GFR Non-African American 73 mL/min; Total Protein 7.1 g/dL (6.4-8.2)
[2021-01-31] MEDS ORDERED: AZITHROMYCIN 500MG/ 250ML 250 ML IV ONE (20:15)
[2021-01-31] MEDS ORDERED: cefTRIAXone 1GM/50ML D5W 50 ML IV ONE (20:15)
[2021-02-01] VITALS (7 sets, daily range): BP systolic 95–133; BP diastolic 62–75
[2021-02-01 01:39] LABS: Urine Bacteria NONE SEEN /hpf (None Seen); Urine Blood Negative /uL (Negative); Urine Specific Gravity 1.015 (1.001-1.035); Urine WBC 1 /hpf (0 - 5)
[2021-02-01] MEDS ORDERED: DOCUSATE SOD 100 MG CAP PO PRN (02:45)
[2021-02-01] MEDS ORDERED: ACETAMINOPHEN 325 MG TAB PO PRN (02:45)
[2021-02-01] MEDS ORDERED: MORPHINE SULF INJ 2 MG/ML SYRINGE 1ML IV PRN (02:45)
[2021-02-01] MEDS ORDERED: NITROGLYCERIN 0.4 MG SL TAB SL PRN (02:45)
[2021-02-01] MEDS ORDERED: RIT50I IV (05:51)
[2021-02-01] MEDS ORDERED: EMOLCRE PO (05:51)
[2021-02-01] MEDS ORDERED: [UNRECOGNIZED DRUG - CODE] PO (05:51)
[2021-02-01] MEDS ORDERED: [UNRECOGNIZED DRUG - CODE] PO ×2 (05:51→05:53)
[2021-02-01] MEDS: SODIUM CHLOR 0.9% PF (SALINE LOCK) 10ML VIAL/SYR IV SCH ×3 (06:02→22:04)
[2021-02-01] MEDS ORDERED: FAMOTIDINE 20 MG TAB PO SCH (10:00)
[2021-02-01] MEDS ORDERED: AZITHROMYCIN 500MG/ 250ML 250 ML IV SCH (10:00)
[2021-02-01] MEDS ORDERED: ENOXAPARIN SOD 40 MG/0.4 ML SYRINGE SC SCH (10:00)
[2021-02-01] MEDS: ZINC SULFATE 220mg CAP or TAB PO SCH (10:15)
[2021-02-01] MEDS: MULTIPLE VITAMIN TAB PO SCH (10:15)
[2021-02-01] MEDS: ASCORBIC ACID 500 MG TAB PO SCH ×2 (10:16→22:05)
[2021-02-01] MEDS ORDERED: predniSONE 5 MG TAB PO ONE (10:45)
[2021-02-01] MEDS ORDERED: PANTOPRAZOLE 40 MG TAB PO ONE (10:45)
[2021-02-01] MEDS ORDERED: cefTRIAXone 1GM/50ML D5W 50 ML IV ONE (10:45)
[2021-02-02] MEDS: ONDANSETRON HCL 4 MG/2 ML VIAL IV PRN ×2 (04:24→11:25)
[2021-02-02 05:01] VITALS: BP 121/90
[2021-02-02] MEDS: SODIUM CHLOR 0.9% PF (SALINE LOCK) 10ML VIAL/SYR IV SCH ×3 (05:16→21:35)
[2021-02-02 07:01] LABS: Hematocrit 35.7 % (36.0-46.0); Hemoglobin 11.7 g/dL (12.2-16.2); Mean Corpuscular Hemoglobin 23.5 pg (28.0-32.0); Mean Corpuscular Hgb Conc. 32.8 g/dL (32.0-36.0); Mean Corpuscular Volume 71.9 fL (80.0-100.0); Platelet Count (auto) 154 10^3/uL (140-450); Red Blood Cells 4.97 10^6/uL (4.0-5.20); Red Cell Distribution Width 15.4 % (11.8-14.3); White Blood Cell 13.9 10^3/uL (4.4-10.8)
[2021-02-02 07:02] LABS: Albumin 2.8 g/dL (3.4-5.0); Calcium 8.9 mg/dL (8.5-10.1); Potassium 4.1 mmol/L (3.5-5.1)
[2021-02-02 07:06] LABS: Bilirubin, Total 0.4 mg/dL (0.2-1.0); Total Protein 7.4 g/dL (6.4-8.2)
[2021-02-02 07:19] LABS: Band Neutrophils % (manual) 0; Basophils % (manual) 0 (0.0-2.0); Metamyelocytes % 0
[2021-02-02 07:20] LABS: Blast Cells 0; Myelocytes % 0; Promyelocytes % 0; Reactive Lymphocytes 0
[2021-02-02 09:00] VITALS: BP 107/66
[2021-02-02] MEDS: PANTOPRAZOLE 40 MG TAB PO SCH (09:57)
[2021-02-02] MEDS: predniSONE 5 MG TAB PO SCH (09:58)
[2021-02-02] MEDS: ASCORBIC ACID 500 MG TAB PO SCH ×2 (09:58→21:35)
[2021-02-02] MEDS: MULTIPLE VITAMIN TAB PO SCH (09:59)
[2021-02-02] MEDS: ZINC SULFATE 220mg CAP or TAB PO SCH (09:59)
[2021-02-02] MEDS: cefTRIAXone 1GM/50ML D5W 50 ML IV SCH (09:59)
[2021-02-02] MEDS ORDERED: AZITHROMYCIN 250 MG TAB PO ONE (11:15)
[2021-02-02 13:00] VITALS: BP 131/80
[2021-02-02 15:03] LABS: Eosinophils % (manual) 2 (0-7); Lymphocytes % (manual) 15 (10.0-50.0); Monocytes % (manual) 18 (0-12)
[2021-02-02 16:54] VITALS: BP 108/57
[2021-02-02 22:48] VITALS: BP 106/68
[2021-02-03 05:30] VITALS: BP 127/68
[2021-02-03] MEDS: SODIUM CHLOR 0.9% PF (SALINE LOCK) 10ML VIAL/SYR IV SCH ×3 (06:16→21:42)
[2021-02-03 06:30] LABS: Basophils # (auto) 0 10 ^3/uL (0-0.2); Basophils % (auto) 0.9 % (0.0-2.0); Eosinophils # (auto) 0.2 10 ^3/uL (0-0.8); Eosinophils % (auto) 4.2 % (0.0-7.0); Hematocrit 37.1 % (36.0-46.0); Lymphocytes % (auto) 20.1 % (10.0-50.0); Mean Corpuscular Hemoglobin 23.6 pg (28.0-32.0); Mean Corpuscular Hgb Conc. 32.3 g/dL (32.0-36.0); Mean Corpuscular Volume 73.1 fL (80.0-100.0); Monocytes # (auto) 0.7 10 ^3/uL (0-1.3); Monocytes % (auto) 15.4 % (0.0-12.0); Neutrophils # (auto) 2.9 10 ^3/uL (1.6-8.6); Neutrophils % (auto) 59.4 % (37.0-80.0); Nucleated Red Blood Cells % 0.3 %; Platelet Count (auto) 270 10^3/uL (140-450); Red Blood Cells 5.07 10^6/uL (4.0-5.20); Red Cell Distribution Width 15.2 % (11.8-14.3); White Blood Cell 4.9 10^3/uL (4.4-10.8)
[2021-02-03 08:51] VITALS: BP 135/80
[2021-02-03] MEDS: cefTRIAXone 1GM/50ML D5W 50 ML IV SCH (09:02)
[2021-02-03] MEDS: ASCORBIC ACID 500 MG TAB PO SCH ×2 (09:04→21:43)
[2021-02-03] MEDS: predniSONE 5 MG TAB PO SCH (09:04)
[2021-02-03] MEDS: ZINC SULFATE 220mg CAP or TAB PO SCH (09:04)
[2021-02-03] MEDS: AZITHROMYCIN 250 MG TAB PO SCH (09:04)
[2021-02-03] MEDS: MULTIPLE VITAMIN TAB PO SCH (09:04)
[2021-02-03] MEDS: PANTOPRAZOLE 40 MG TAB PO SCH (09:04)
[2021-02-03 10:49] LABS: BUN/Creatinine Ratio 17.2; Calcium 8.9 mg/dL (8.5-10.1); Potassium 3.7 mmol/L (3.5-5.1)
[2021-02-03 12:30] VITALS: BP 113/69
[2021-02-03] MEDS ORDERED: methylPREDNISolone SOD SUCC 40 MG/ML VL IV ONE (13:00)
[2021-02-03] MEDS ORDERED: ACETAMINOPHEN 500 MG TAB PO PRN (13:30)
[2021-02-03 16:32] VITALS: BP 113/73
[2021-02-03] MEDS: PIPERACILLIN-TAZOB 3.375GM 100 ML IV SCH ×2 (17:39→23:38)
[2021-02-03 22:00] VITALS: BP 120/68
[2021-02-03] MEDS ORDERED: methylPREDNISolone SOD SUCC 40 MG/ML VL IV SCH (22:00)
[2021-02-04 05:00] VITALS: BP 135/95
[2021-02-04] MEDS: SODIUM CHLOR 0.9% PF (SALINE LOCK) 10ML VIAL/SYR IV SCH ×3 (05:43→21:06)
[2021-02-04] MEDS: PIPERACILLIN-TAZOB 3.375GM 100 ML IV SCH ×4 (05:43→23:39)
[2021-02-04 08:30] VITALS: BP 148/101
[2021-02-04] MEDS: MULTIPLE VITAMIN TAB PO SCH (09:45)
[2021-02-04] MEDS: AZITHROMYCIN 250 MG TAB PO SCH (09:46)
[2021-02-04] MEDS: ZINC SULFATE 220mg CAP or TAB PO SCH (09:46)
[2021-02-04] MEDS: ASCORBIC ACID 500 MG TAB PO SCH ×2 (09:46→21:06)
[2021-02-04] MEDS: PANTOPRAZOLE 40 MG TAB PO SCH (09:46)
[2021-02-04] MEDS ORDERED: predniSONE 5 MG TAB PO ONE (11:30)
[2021-02-04] MEDS ORDERED: TEMAZEPAM 15 MG CAP PO PRN (11:30)
[2021-02-04 13:00] VITALS: BP 120/73
[2021-02-04 16:23] VITALS: BP 120/63
[2021-02-04 21:42] VITALS: BP 138/81
[2021-02-05] MEDS ORDERED: diphenhdrAMINE HCL 25 MG CAP PO ONE (04:45)
[2021-02-05 05:16] VITALS: BP 135/73
[2021-02-05] MEDS: PIPERACILLIN-TAZOB 3.375GM 100 ML IV SCH ×3 (05:39→18:42)
[2021-02-05] MEDS: SODIUM CHLOR 0.9% PF (SALINE LOCK) 10ML VIAL/SYR IV SCH ×3 (05:39→21:57)
[2021-02-05 09:00] VITALS: BP 146/72
[2021-02-05] MEDS: ASCORBIC ACID 500 MG TAB PO SCH ×2 (11:55→21:57)
[2021-02-05] MEDS: PANTOPRAZOLE 40 MG TAB PO SCH (11:55)
[2021-02-05] MEDS: MULTIPLE VITAMIN TAB PO SCH (11:55)
[2021-02-05] MEDS: ZINC SULFATE 220mg CAP or TAB PO SCH (11:56)
[2021-02-05] MEDS: AZITHROMYCIN 250 MG TAB PO SCH (11:58)
[2021-02-05] MEDS: predniSONE 5 MG TAB PO SCH (11:59)
[2021-02-05] MEDS: diphenhdrAMINE HCL 50 MG/1 ML VL IV PRN ×2 (12:00→18:42)
[2021-02-05 13:00] VITALS: BP 117/53
[2021-02-05 17:00] VITALS: BP 110/68
[2021-02-05 22:00] VITALS: BP 120/61
[2021-02-06] MEDS: diphenhdrAMINE HCL 50 MG/1 ML VL IV PRN ×4 (00:42→21:53)
[2021-02-06] MEDS: PIPERACILLIN-TAZOB 3.375GM 100 ML IV SCH ×2 (00:42→06:41)
[2021-02-06 05:00] VITALS: BP 141/82
[2021-02-06] MEDS: SODIUM CHLOR 0.9% PF (SALINE LOCK) 10ML VIAL/SYR IV SCH ×3 (06:14→21:53)
[2021-02-06 07:02] LABS: Basophils # (auto) 0 10 ^3/uL (0-0.2); Basophils % (auto) 0.4 % (0.0-2.0); Eosinophils # (auto) 0.1 10 ^3/uL (0-0.8); Lymphocytes # (auto) 1.3 10 ^3/uL (0.4-5.4); Neutrophils # (auto) 4.2 10 ^3/uL (1.6-8.6); Nucleated Red Blood Cells % 0.1 %; White Blood Cell 6.3 10^3/uL (4.4-10.8)
[2021-02-06 07:05] LABS: BUN/Creatinine Ratio 17.2; Calcium 8.6 mg/dL (8.5-10.1); Eosinophils % (auto) 1.5 % (0.0-7.0); Hematocrit 37.9 % (36.0-46.0); Hemoglobin 11.9 g/dL (12.2-16.2); Lymphocytes % (auto) 20.6 % (10.0-50.0); Mean Corpuscular Hemoglobin 23.4 pg (28.0-32.0); Mean Corpuscular Hgb Conc. 31.4 g/dL (32.0-36.0); Mean Corpuscular Volume 74.4 fL (80.0-100.0); Monocytes # (auto) 0.7 10 ^3/uL (0-1.3); Monocytes % (auto) 10.6 % (0.0-12.0); Neutrophils % (auto) 66.9 % (37.0-80.0); Platelet Count (auto) 442 10^3/uL (140-450); Potassium 4.2 mmol/L (3.5-5.1); Red Blood Cells 5.09 10^6/uL (4.0-5.20); Red Cell Distribution Width 15.5 % (11.8-14.3)
[2021-02-06 09:00] VITALS: BP 140/80
[2021-02-06] MEDS: PANTOPRAZOLE 40 MG TAB PO SCH (09:56)
[2021-02-06] MEDS ORDERED: AMOXICILLIN/CLAVUL 875 MG TAB PO ONE (11:00)
[2021-02-06] MEDS: MULTIPLE VITAMIN TAB PO SCH (11:06)
[2021-02-06] MEDS: ASCORBIC ACID 500 MG TAB PO SCH ×2 (11:06→21:53)
[2021-02-06] MEDS: predniSONE 5 MG TAB PO SCH (11:06)
[2021-02-06] MEDS ORDERED: AMOXICILLIN/CLAVUL 875 MG TAB PO SCH (12:00)
[2021-02-06 13:00] VITALS: BP 118/65
[2021-02-06] MEDS: AMOXICILLIN/CLAVUL 875 MG TAB PO SCH ×2 (15:26→21:53)
[2021-02-06 16:35] VITALS: BP 111/62
[2021-02-06 22:21] VITALS: BP 119/76
[2021-02-07 05:30] VITALS: BP 133/74
[2021-02-07] MEDS: SODIUM CHLOR 0.9% PF (SALINE LOCK) 10ML VIAL/SYR IV SCH ×2 (06:00→15:48)
[2021-02-07 09:00] VITALS: BP 139/91
[2021-02-07] MEDS: PANTOPRAZOLE 40 MG TAB PO SCH (09:53)
[2021-02-07] MEDS: predniSONE 5 MG TAB PO SCH (13:10)
[2021-02-07] MEDS: ASCORBIC ACID 500 MG TAB PO SCH (13:11)
[2021-02-07] MEDS: AMOXICILLIN/CLAVUL 875 MG TAB PO SCH (13:11)
[2021-02-07] MEDS: MULTIPLE VITAMIN TAB PO SCH (13:11)
== END 2021-02-07 16:30 | disposition home or self-care (01) | DRG 871 ==
LOC: ER 18:29 → EEVIPCON 18:29 → TELE 18:30 → TELE-CENTR 02-01 04:25 → CENTRAL 02-01 10:52
PROVIDERS: ADMIT Nurse Practitioner Family; ATTEND Internal Medicine
DX: A41.9 Sepsis, unspecified organism (principal); J18.9 Pneumonia, unspecified organism; D47.Z2 Castleman disease; E66.01 Morbid (severe) obesity due to excess calories; I12.9 Hypertensive chronic kidney disease with stage 1 through stage 4 chronic kidney disease, or unspecified chronic kidney disease; N18.9 Chronic kidney disease, unspecified; Z82.49 Family history of ischemic heart disease and other diseases of the circulatory system; M19.90 Unspecified osteoarthritis, unspecified site; Z20.822 Contact with and (suspected) exposure to COVID-19; Z88.5 Allergy status to narcotic agent; Z88.0 Allergy status to penicillin; Z68.39 Body mass index [BMI] 39.0-39.9, adult
CPT/HCPCS: 36415; 71045; 71046; 80048; 80053; 81001; 83605; 83735; 83880; 84484; 85007; 85025; 85027; 85379; 85610; 85652; 85730; 86141; 87070; 87205; 87426; 93005; 96365; 96367; 96372; G0378; J0696; J2405; J2543

== ENCOUNTER → 2021-06-29 | Outpatient (CLI) | payer MEDICARE, BC ==
[~2021-06-29] MED LIST changes: -AMLO-489 PO; -POM IV; +RIT50I IV; +[UNRECOGNIZED DRUG - CODE] PO; +[UNRECOGNIZED DRUG - CODE] PO
[2021-06-29 11:16] LABS: Basophils # (auto) 0 10 ^3/uL (0-0.2); Eosinophils # (auto) 0.2 10 ^3/uL (0-0.8); Monocytes # (auto) 0.7 10 ^3/uL (0-1.3); Neutrophils # (auto) 2.8 10 ^3/uL (1.6-8.6); Nucleated Red Blood Cells % 0.1 %; White Blood Cell 5.2 10^3/uL (4.4-10.8)
[2021-06-29 11:18] LABS: Basophils % (auto) 0.7 % (0.0-2.0); Eosinophils % (auto) 3.5 % (0.0-7.0); Hematocrit 40.7 % (36.0-46.0); Hemoglobin 13.5 g/dL (12.2-16.2); Lymphocytes # (auto) 1.5 10 ^3/uL (0.4-5.4); Lymphocytes % (auto) 27.9 % (10.0-50.0); Mean Corpuscular Hemoglobin 24.9 pg (28.0-32.0); Mean Corpuscular Hgb Conc. 33.3 g/dL (32.0-36.0); Mean Corpuscular Volume 74.8 fL (80.0-100.0); Monocytes % (auto) 13.8 % (0.0-12.0); Neutrophils % (auto) 54.1 % (37.0-80.0); Red Blood Cells 5.44 10^6/uL (4.0-5.20); Red Cell Distribution Width 15.9 % (11.8-14.3)
[2021-06-29 11:37] LABS: Potassium 3.9 mmol/L (3.5-5.1)
[2021-06-29 11:50] LABS: Albumin 3.7 g/dL (3.4-5.0); BUN/Creatinine Ratio 28.4; Bilirubin, Total 0.5 mg/dL (0.2-1.0); CRP High Sensitivity 0.7 mg/dL (< 0.3); Total Protein 7.4 g/dL (6.4-8.2)
== END | disposition home or self-care (01) ==
LOC: LAB 10:33
PROVIDERS: ATTEND Internal Medicine
DX: D47.Z2 Castleman disease (principal)
CPT/HCPCS: 36415; 80053; 85025; 85652; 86141

== ENCOUNTER → 2022-01-17 | Outpatient (CLI) | payer MEDICARE, BC ==
[2022-01-17 13:25] LABS: Basophils # (auto) 0.1 10 ^3/uL (0-0.2); Eosinophils # (auto) 0.2 10 ^3/uL (0-0.8); Eosinophils % (auto) 3.1 % (0.0-7.0); Hematocrit 42.1 % (36.0-46.0); Mean Corpuscular Volume 76.6 fL (80.0-100.0)
[2022-01-17 13:27] LABS: Hemoglobin 13.7 g/dL (12.2-16.2); Lymphocytes # (auto) 1.7 10 ^3/uL (0.4-5.4); Lymphocytes % (auto) 33.2 % (10.0-50.0); Mean Corpuscular Hemoglobin 24.8 pg (28.0-32.0); Mean Corpuscular Hgb Conc. 32.4 g/dL (32.0-36.0); Monocytes # (auto) 0.5 10 ^3/uL (0-1.3); Monocytes % (auto) 10.8 % (0.0-12.0); Neutrophils # (auto) 2.6 10 ^3/uL (1.6-8.6); Neutrophils % (auto) 51.9 % (37.0-80.0); Nucleated Red Blood Cells % 0.1 %; Red Cell Distribution Width 15.6 % (11.8-14.3); White Blood Cell 5.1 10^3/uL (4.4-10.8)
[2022-01-17 13:57] LABS: Albumin 4.1 g/dL (3.4-5.0); Calcium 9.6 mg/dL (8.5-10.1); Potassium 3.5 mmol/L (3.5-5.1)
[2022-01-17 14:01] LABS: BUN/Creatinine Ratio 19.7; Bilirubin, Total 0.7 mg/dL (0.2-1.0); Total Protein 7.4 g/dL (6.4-8.2)
[2022-01-17 14:15] LABS: Thyroid Stimulating Hormone 1.59 uIU/mL (0.358-3.74)
== END | disposition home or self-care (01) ==
LOC: LAB 12:50
PROVIDERS: ATTEND Internal Medicine
DX: M12.9 Arthropathy, unspecified (principal); I10 Essential (primary) hypertension; D47.Z2 Castleman disease
CPT/HCPCS: 36415; 80053; 80061; 83615; 84443; 85025; 85652; 86038

== ENCOUNTER → 2022-08-23 | Outpatient (CLI) | payer BC, MEDICARE ==
[2022-08-23 13:19] LABS: Eosinophils # (auto) 0.1 10 ^3/uL (0-0.8); Hemoglobin 13.4 g/dL (12.2-16.2); Monocytes # (auto) 0.5 10 ^3/uL (0-1.3); Monocytes % (auto) 8.4 % (0.0-12.0); White Blood Cell 5.9 10^3/uL (4.4-10.8)
[2022-08-23 13:21] LABS: Basophils # (auto) 0.1 10 ^3/uL (0-0.2); Eosinophils % (auto) 2.3 % (0.0-7.0); Hematocrit 42.6 % (36.0-46.0); Lymphocytes % (auto) 17.2 % (10.0-50.0); Mean Corpuscular Hemoglobin 23.8 pg (28.0-32.0); Mean Corpuscular Hgb Conc. 31.5 g/dL (32.0-36.0); Mean Corpuscular Volume 75.5 fL (80.0-100.0); Neutrophils # (auto) 4.2 10 ^3/uL (1.6-8.6); Neutrophils % (auto) 71.1 % (37.0-80.0); Nucleated Red Blood Cells % 0.1 %; Red Blood Cells 5.64 10^6/uL (4.0-5.20)
[2022-08-23 13:35] LABS: Albumin 3.4 g/dL (3.4-5.0); Calcium 8.6 mg/dL (8.5-10.1); Potassium 4.1 mmol/L (3.5-5.1)
[2022-08-23 13:37] LABS: BUN/Creatinine Ratio 10.9; Bilirubin, Total 0.5 mg/dL (0.2-1.0); Total Protein 6.5 g/dL (6.4-8.2)
== END | disposition home or self-care (01) ==
LOC: LAB 12:49
PROVIDERS: ATTEND Internal Medicine
DX: D47.Z2 Castleman disease (principal); Z88.8 Allergy status to other drugs, medicaments and biological substances
CPT/HCPCS: 36415; 80053; 83615; 85025

== ENCOUNTER 2022-10-21 10:45 | Inpatient (IN) | payer BC, MEDICARE ==
[~2022-10-21] VITALS: Ht 175.3 cm; Wt 128.9 kg
[2022-10-21] MEDS ORDERED: ACETAMINOPHEN 500 MG TAB PO PRN (17:00)
[2022-10-21] MEDS ORDERED: HYDROcodone-ACET 5/325MG TAB PO PRN (17:00)
[2022-10-21] MEDS: ALBUTEROL SULF 2.5 MG/0.5ML(0.5%) NEB SOLN NEB SCH (18:40)
[2022-10-21] MEDS: IPRATROPIUM BROM 0.5 MG/2.5ML INH SOL NEB PRN (18:40)
[2022-10-21] MEDS: ONDANSETRON HCL 4 MG/2 ML VIAL IV PRN (18:54)
[2022-10-21 20:00] VITALS: BP 127/74
[2022-10-21 20:00] LABS: Eosinophils # (auto) 0 10 ^3/uL (0-0.8); Hemoglobin 10.8 g/dL (12.2-16.2); Monocytes # (auto) 1.2 10 ^3/uL (0-1.3); Neutrophils # (auto) 9.2 10 ^3/uL (1.6-8.6); Nucleated Red Blood Cells % 0.4 %; White Blood Cell 12.4 10^3/uL (4.4-10.8)
[2022-10-21 20:04] LABS: Basophils # (auto) 0 10 ^3/uL (0-0.2); Basophils % (auto) 0.4 % (0.0-2.0); Eosinophils % (auto) 0.4 % (0.0-7.0); Hematocrit 34.1 % (36.0-46.0); Lymphocytes # (auto) 1.9 10 ^3/uL (0.4-5.4); Lymphocytes % (auto) 15.2 % (10.0-50.0); Mean Corpuscular Hemoglobin 22.8 pg (28.0-32.0); Mean Corpuscular Hgb Conc. 31.6 g/dL (32.0-36.0); Mean Corpuscular Volume 72.3 fL (80.0-100.0); Red Blood Cells 4.72 10^6/uL (4.0-5.20); Red Cell Distribution Width 15.9 % (11.8-14.3)
[2022-10-21] MEDS ORDERED: ALPRAZolam 0.5 MG TAB PO ONE (20:15)
[2022-10-21 20:26] LABS: BUN/Creatinine Ratio 16.2; Calcium 9.2 mg/dL (8.5-10.1); Potassium 4.3 mmol/L (3.5-5.1)
[2022-10-21 20:41] LABS: CRP High Sensitivity 14.5 mg/dL (< 0.3)
[2022-10-21 22:00] VITALS: BP 127/74
[2022-10-21] MEDS: methylPREDNISolone SOD SUCC 40 MG/ML VL IV SCH (22:21)
[2022-10-22] VITALS (7 sets, daily range): BP systolic 129–157; BP diastolic 73–94
[2022-10-22] MEDS: ALBUTEROL SULF 2.5 MG/0.5ML(0.5%) NEB SOLN NEB SCH ×3 (07:21→20:10)
[2022-10-22] MEDS: IPRATROPIUM BROM 0.5 MG/2.5ML INH SOL NEB PRN ×3 (07:21→20:10)
[2022-10-22] MEDS: cefTRIAXone 1GM/50ML D5W 50 ML IV SCH (09:34)
[2022-10-22] MEDS: methylPREDNISolone SOD SUCC 40 MG/ML VL IV SCH (10:00)
[2022-10-22] MEDS: AZITHROMYCIN 500MG/ 250ML 250 ML IV SCH (10:29)
[2022-10-22] MEDS ORDERED: OSELTAMIVIR 75 MG CAP PO ONE (10:45)
[2022-10-22] MEDS ORDERED: predniSONE 5 MG TAB PO ONE (10:45)
[2022-10-22] MEDS ORDERED: TRIAMTERENE/HCTZ 37.5/25 MG CAP/TAB PO ONE (10:45)
[2022-10-22] MEDS: ONDANSETRON HCL 4 MG/2 ML VIAL IV PRN (13:44)
[2022-10-22] MEDS ORDERED: LORazepam 0.5 MG TAB PO PRN (15:15)
[2022-10-22 17:18] LABS: Urine Bacteria NONE SEEN /hpf (None Seen); Urine Blood Negative /uL (Negative); Urine Specific Gravity 1.005 (1.001-1.035); Urine WBC <1 /hpf (0 - 5)
[2022-10-22] MEDS: ALPRAZolam 0.25 MG TAB PO PRN (17:52)
[2022-10-22] MEDS ORDERED: OSELTAMIVIR 75 MG CAP PO SCH (22:00)
[2022-10-22] MEDS: OSELTAMIVIR PHOSPHATE 75 MG PO SCH (22:01)
[2022-10-23 04:53] VITALS: BP 143/80
[2022-10-23] MEDS: ALPRAZolam 0.25 MG TAB PO PRN (05:46)
[2022-10-23] MEDS: IPRATROPIUM BROM 0.5 MG/2.5ML INH SOL NEB PRN ×2 (06:03→11:32)
[2022-10-23] MEDS: ALBUTEROL SULF 2.5 MG/0.5ML(0.5%) NEB SOLN NEB SCH ×2 (06:03→11:32)
[2022-10-23 06:52] LABS: Red Cell Distribution Width 15.8 % (11.8-14.3)
[2022-10-23 06:54] LABS: Hematocrit 32.3 % (36.0-46.0); Hemoglobin 10.1 g/dL (12.2-16.2); Mean Corpuscular Hemoglobin 22.7 pg (28.0-32.0); Mean Corpuscular Hgb Conc. 31.4 g/dL (32.0-36.0); Mean Corpuscular Volume 72.4 fL (80.0-100.0); Red Blood Cells 4.46 10^6/uL (4.0-5.20); White Blood Cell 14.5 10^3/uL (4.4-10.8)
[2022-10-23 06:58] LABS: Basophils % (manual) 0 (0.0-2.0); Blast Cells 0; Eosinophils % (manual) 0 (0-7); Myelocytes % 0; Promyelocytes % 0; Reactive Lymphocytes 0
[2022-10-23 07:10] LABS: BUN/Creatinine Ratio 26.7; Potassium 4.6 mmol/L (3.5-5.1)
[2022-10-23 09:00] VITALS: BP 119/69
[2022-10-23] MEDS: cefTRIAXone 1GM/50ML D5W 50 ML IV SCH (09:33)
[2022-10-23] MEDS ORDERED: predniSONE 5 MG TAB PO SCH (10:00)
[2022-10-23] MEDS ORDERED: TRIAMTERENE/HCTZ 37.5/25 MG CAP/TAB PO SCH (10:00)
[2022-10-23] MEDS: AZITHROMYCIN 500MG/ 250ML 250 ML IV SCH (10:50)
[2022-10-23] MEDS: OSELTAMIVIR PHOSPHATE 75 MG PO SCH (10:50)
[2022-10-23] MEDS ORDERED: AZITTAB2 PO (10:51)
[2022-10-23 11:09] LABS: Band Neutrophils % (manual) 5; Lymphocytes % (manual) 16 (10.0-50.0); Metamyelocytes % 2; Monocytes % (manual) 5 (0-12)
[2022-10-23 13:00] VITALS: BP 131/65
[2022-10-23 13:53] VITALS: BP 129/87
== END 2022-10-23 14:40 | disposition home or self-care (01) | DRG 194 ==
LOC: EAST 17:57 → EEVIPCON 17:57
PROVIDERS: ADMIT Internal Medicine; ATTEND Internal Medicine
DX: J10.08 Influenza due to other identified influenza virus with other specified pneumonia (principal); D47.Z2 Castleman disease; Z68.41 Body mass index [BMI] 40.0-44.9, adult; J12.9 Viral pneumonia, unspecified; Z20.822 Contact with and (suspected) exposure to COVID-19; I10 Essential (primary) hypertension; E66.01 Morbid (severe) obesity due to excess calories; D69.6 Thrombocytopenia, unspecified; Z88.5 Allergy status to narcotic agent; Z88.0 Allergy status to penicillin; Z79.899 Other long term (current) drug therapy; Z82.49 Family history of ischemic heart disease and other diseases of the circulatory system; Z86.16 Personal history of COVID-19
CPT/HCPCS: 36415; 71045; 80048; 81001; 83036; 83880; 85007; 85025; 85027; 85652; 86141; 87070; 87205; 87426; 87804; 94640; G0378; J0696; J2405

== ENCOUNTER → 2022-11-12 | Outpatient (CLI) | payer BC, MEDICARE ==
[~2022-11-12] MED LIST changes: +AZITTAB2 PO; -RIT50I IV; -[UNRECOGNIZED DRUG - CODE] PO
[2022-11-12 12:10] LABS: Hematocrit 36.3 % (36.0-46.0); Hemoglobin 11.2 g/dL (12.2-16.2); Red Blood Cells 5.02 10^6/uL (4.0-5.20); Red Cell Distribution Width 18.7 % (11.8-14.3); White Blood Cell 7.8 10^3/uL (4.4-10.8)
[2022-11-12 12:11] LABS: Mean Corpuscular Hemoglobin 22.4 pg (28.0-32.0); Mean Corpuscular Volume 72.2 fL (80.0-100.0)
[2022-11-12 12:37] LABS: Albumin 3.4 g/dL (3.4-5.0); Calcium 9.3 mg/dL (8.5-10.1); Potassium 3.9 mmol/L (3.5-5.1)
[2022-11-12 12:46] LABS: BUN/Creatinine Ratio 14.1; Bilirubin, Total 0.6 mg/dL (0.2-1.0); Phosphorus 4.1 mg/dL (2.5-4.90); Total Protein 7.5 g/dL (6.4-8.2); Uric Acid 8.4 mg/dL (2.6-6.0)
[2022-11-12 12:47] LABS: Basophils % (manual) 0 (0.0-2.0); Blast Cells 0; Promyelocytes % 0; Reactive Lymphocytes 0
[2022-11-12 13:09] LABS: Protein, Urine 15.5 mg/dL (0.0-11.9)
[2022-11-12 13:39] LABS: Urine Blood Negative /uL (Negative); Urine Specific Gravity 1.015 (1.001-1.035)
[2022-11-12 15:00] LABS: Band Neutrophils % (manual) 26; Eosinophils % (manual) 1 (0-7); Lymphocytes % (manual) 40 (10.0-50.0); Metamyelocytes % 1; Monocytes % (manual) 6 (0-12); Myelocytes % 4
[2022-11-13 07:06] LABS: Immunoglobulin G, Serum 1004 mg/dL (586-1602)
== END | disposition home or self-care (01) ==
LOC: LAB 11:15
PROVIDERS: ATTEND Internal Medicine
DX: D47.Z2 Castleman disease (principal)
CPT/HCPCS: 36415; 80053; 81001; 82150; 82570; 82784; 83615; 83690; 84100; 84156; 84550; 85007; 85027

== ENCOUNTER 2022-12-03 10:17 | Inpatient (IN) | payer BC, MEDICARE ==
[~2022-12-03] VITALS: Ht 175.3 cm; Wt 135.7 kg
[2022-12-03] MEDS ORDERED: IPRATROPIUM BROM 0.5 MG/2.5ML INH SOL NEB ONE (11:45)
[2022-12-03] MEDS ORDERED: ALBUTEROL SULF 2.5 MG/0.5ML(0.5%) NEB SOLN NEB ONE (11:45)
[2022-12-03] MEDS ORDERED: methylPREDNISolone SOD SUCC 125 MG/2 ML VL IM ONE (11:45)
[2022-12-03] MEDS ORDERED: ALBUTEROL MEDNEB 2.5 mg/3ml NEB ONE (11:54)
[2022-12-03 11:58] LABS: Urine Bacteria FEW /hpf (None Seen); Urine Blood Negative /uL (Negative); Urine Hyaline Cast FEW /lpf (0 - 2); Urine Mucus FEW (None Seen); Urine Specific Gravity 1.025 (1.001-1.035); Urine WBC 17 /hpf (0 - 5)
[2022-12-03 12:29] LABS: Basophils # (auto) 0.1 10 ^3/uL (0-0.2); Basophils % (auto) 0.7 % (0.0-2.0); Eosinophils # (auto) 0 10 ^3/uL (0-0.8); Eosinophils % (auto) 0.4 % (0.0-7.0); Mean Corpuscular Hemoglobin 22.7 pg (28.0-32.0)
[2022-12-03 12:32] LABS: Hemoglobin 11.4 g/dL (12.2-16.2); Lymphocytes # (auto) 1.3 10 ^3/uL (0.4-5.4); Lymphocytes % (auto) 17.1 % (10.0-50.0); Mean Corpuscular Hgb Conc. 31.6 g/dL (32.0-36.0); Mean Corpuscular Volume 71.8 fL (80.0-100.0); Monocytes # (auto) 0.9 10 ^3/uL (0-1.3); Monocytes % (auto) 11.6 % (0.0-12.0); Neutrophils # (auto) 5.4 10 ^3/uL (1.6-8.6); Neutrophils % (auto) 70.2 % (37.0-80.0); Nucleated Red Blood Cells % 0.5 %; Red Blood Cells 5.02 10^6/uL (4.0-5.20); Red Cell Distribution Width 19.6 % (11.8-14.3); White Blood Cell 7.6 10^3/uL (4.4-10.8)
[2022-12-03 12:35] LABS: Albumin 3.1 g/dL (3.4-5.0); BUN/Creatinine Ratio 17.3; Calcium 8.5 mg/dL (8.5-10.1)
[2022-12-03 12:37] LABS: Bilirubin, Total 0.7 mg/dL (0.2-1.0); Total Protein 6.5 g/dL (6.4-8.2)
[2022-12-03] MEDS ORDERED: ALPRAZolam 0.5 MG TAB PO PRN (13:00)
[2022-12-03] MEDS ORDERED: SODIUM CHLORIDE 0.9% 1,000 ML IV SCH (13:00)
[2022-12-03] MEDS ORDERED: ALBUTEROL SULF 2.5 MG/0.5ML(0.5%) NEB SOLN NEB PRN (13:00)
[2022-12-03] MEDS ORDERED: cefTRIAXone 1GM/50ML D5W 50 ML IV ONE (13:15)
[2022-12-03] MEDS ORDERED: VANCOMYCIN PER PHARMACY 0 MG IV SCH (13:30)
[2022-12-03] MEDS ORDERED: levoFLOXacin 500MG 100 ML IV ONE ×2 (13:45→22:15)
[2022-12-03 13:47] LABS: Cholesterol 139 mg/dL (< 200)
[2022-12-03 13:50] LABS: HDL Cholesterol 16 mg/dL (40-59); LDL Cholesterol 102 mg/dL (< 100); Triglycerides 113 mg/dL (< 150)
[2022-12-03 14:39] VITALS: BP 100/69
[2022-12-03] MEDS ORDERED: VANCOMYCIN 1GM/250ML 250 ML IV SCH (15:00)
[2022-12-03] MEDS: SODIUM CHLORIDE 0.9% 1,000 ML IV SCH ×3 (18:03→19:04)
[2022-12-03] MEDS: ALBUTEROL SULF 2.5 MG/0.5ML(0.5%) NEB SOLN NEB SCH (18:59)
[2022-12-03] MEDS: IPRATROPIUM BROM 0.5 MG/2.5ML INH SOL NEB SCH (19:00)
[2022-12-03] MEDS ORDERED: methylPREDNISolone SOD SUCC 125 MG/2 ML VL IV SCH (22:00)
[2022-12-03 22:16] VITALS: BP 136/85
[2022-12-03] MEDS: ACETAMINOPHEN 325 MG TAB PO PRN (22:22)
[2022-12-03] MEDS ORDERED: PRE1T PO (23:12)
[2022-12-03] MEDS ORDERED: HYDR-4611 (23:12)
[2022-12-03] MEDS ORDERED: ALPR0.5T7 PO (23:12)
[2022-12-03] MEDS: VANCOMYCIN 1GM/250ML 250 ML IV SCH (23:50)
[2022-12-04 00:33] VITALS: BP 137/80
[2022-12-04] MEDS: ALPRAZolam 0.5 MG TAB PO PRN ×2 (00:33→13:50)
[2022-12-04 05:00] VITALS: BP_SYST 133; BP_SYST 135; BP_DIAS 76; BP_DIAS 80
[2022-12-04] MEDS ORDERED: ALBUTEROL MEDNEB 2.5 mg/3ml NEB ONE ×3 (05:44→18:08)
[2022-12-04] MEDS: ALBUTEROL SULF 2.5 MG/0.5ML(0.5%) NEB SOLN NEB SCH ×4 (05:55→19:04)
[2022-12-04] MEDS: IPRATROPIUM BROM 0.5 MG/2.5ML INH SOL NEB SCH ×4 (05:55→19:04)
[2022-12-04 06:51] LABS: Albumin 2.9 g/dL (3.4-5.0); Calcium 8.9 mg/dL (8.5-10.1); Potassium 4.6 mmol/L (3.5-5.1)
[2022-12-04 06:53] LABS: BUN/Creatinine Ratio 23.3
[2022-12-04 06:56] LABS: Bilirubin, Total 0.8 mg/dL (0.2-1.0); Total Protein 7.2 g/dL (6.4-8.2)
[2022-12-04 08:20] VITALS: BP 120/80
[2022-12-04] MEDS: VANCOMYCIN 1GM/250ML 250 ML IV SCH (08:43)
[2022-12-04] MEDS ORDERED: cefTRIAXone 1GM/50ML D5W 50 ML IV SCH (09:00)
[2022-12-04] MEDS ORDERED: cefTRIAXone 1GM/50ML D5W 50 ML IV ONE (10:00)
[2022-12-04] MEDS ORDERED: ENOXAPARIN SOD 40 MG/0.4 ML SYRINGE SC SCH (10:00)
[2022-12-04] MEDS: PANTOPRAZOLE 40 MG TAB PO SCH (11:21)
[2022-12-04] MEDS: predniSONE 1 MG TAB PO SCH (11:21)
[2022-12-04 12:15] VITALS: BP 141/78
[2022-12-04 16:15] VITALS: BP 133/84
[2022-12-04] MEDS ORDERED: levoFLOXacin 500MG 100 ML IV SCH (21:00)
[2022-12-04 22:00] VITALS: BP 139/83
[2022-12-05] MEDS ORDERED: ALBUTEROL MEDNEB 2.5 mg/3ml NEB ONE ×4 (00:16→17:55)
[2022-12-05 05:04] VITALS: BP 126/78
[2022-12-05] MEDS: ALBUTEROL SULF 2.5 MG/0.5ML(0.5%) NEB SOLN NEB SCH ×4 (06:00→18:20)
[2022-12-05 06:27] LABS: Basophils # (auto) 0 10 ^3/uL (0-0.2); Eosinophils # (auto) 0 10 ^3/uL (0-0.8); Monocytes # (auto) 0.9 10 ^3/uL (0-1.3)
[2022-12-05 06:31] LABS: Basophils % (auto) 0.3 % (0.0-2.0); Hematocrit 33.5 % (36.0-46.0); Hemoglobin 10.7 g/dL (12.2-16.2); Lymphocytes # (auto) 1.1 10 ^3/uL (0.4-5.4); Lymphocytes % (auto) 10.5 % (10.0-50.0); Mean Corpuscular Hemoglobin 23.2 pg (28.0-32.0); Mean Corpuscular Hgb Conc. 31.9 g/dL (32.0-36.0); Mean Corpuscular Volume 72.6 fL (80.0-100.0); Neutrophils % (auto) 80.2 % (37.0-80.0); Nucleated Red Blood Cells % 0.2 %; Red Blood Cells 4.62 10^6/uL (4.0-5.20)
[2022-12-05 06:34] LABS: Red Cell Distribution Width 20.2 % (11.8-14.3)
[2022-12-05 06:52] LABS: Potassium 4.4 mmol/L (3.5-5.1)
[2022-12-05] MEDS: IPRATROPIUM BROM 0.5 MG/2.5ML INH SOL NEB SCH ×4 (06:55→18:20)
[2022-12-05 06:58] LABS: BUN/Creatinine Ratio 29.9; Calcium 8.2 mg/dL (8.5-10.1)
[2022-12-05 08:00] VITALS: BP 122/82
[2022-12-05] MEDS: cefTRIAXone 1GM/50ML D5W 50 ML IV SCH (08:32)
[2022-12-05] MEDS: PANTOPRAZOLE 40 MG TAB PO SCH (08:33)
[2022-12-05] MEDS: predniSONE 1 MG TAB PO SCH (08:33)
[2022-12-05] MEDS ORDERED: FUROSEMIDE 20 MG/2 ML VIAL IV ONE ×2 (10:00)
[2022-12-05 12:00] VITALS: BP 124/78
[2022-12-05] MEDS: ALPRAZolam 0.5 MG TAB PO PRN ×2 (12:26→23:54)
[2022-12-05] MEDS: AZITHROMYCIN 250 MG TAB PO SCH (12:26)
[2022-12-05 16:00] VITALS: BP 117/72
[2022-12-05 22:00] VITALS: BP 130/82
[2022-12-06] MEDS ORDERED: ALBUTEROL MEDNEB 2.5 mg/3ml NEB ONE ×3 (00:10→23:57)
[2022-12-06] MEDS: IPRATROPIUM BROM 0.5 MG/2.5ML INH SOL NEB SCH ×5 (00:52→18:33)
[2022-12-06] MEDS: ALBUTEROL SULF 2.5 MG/0.5ML(0.5%) NEB SOLN NEB SCH ×5 (00:53→18:33)
[2022-12-06 05:00] VITALS: BP 115/74
[2022-12-06 06:02] LABS: Basophils # (auto) 0 10 ^3/uL (0-0.2); Eosinophils # (auto) 0 10 ^3/uL (0-0.8); Eosinophils % (auto) 0.1 % (0.0-7.0); Monocytes # (auto) 1.2 10 ^3/uL (0-1.3)
[2022-12-06 06:06] LABS: Basophils % (auto) 0.3 % (0.0-2.0); Hematocrit 32.7 % (36.0-46.0); Hemoglobin 10.2 g/dL (12.2-16.2); Lymphocytes # (auto) 1.4 10 ^3/uL (0.4-5.4); Lymphocytes % (auto) 13.1 % (10.0-50.0); Mean Corpuscular Hemoglobin 22.2 pg (28.0-32.0); Mean Corpuscular Hgb Conc. 31.1 g/dL (32.0-36.0); Mean Corpuscular Volume 71.3 fL (80.0-100.0); Neutrophils # (auto) 8.3 10 ^3/uL (1.6-8.6); Neutrophils % (auto) 75.5 % (37.0-80.0); Nucleated Red Blood Cells % 0.2 %; Red Blood Cells 4.59 10^6/uL (4.0-5.20)
[2022-12-06 06:29] LABS: BUN/Creatinine Ratio 29.2; Calcium 8.5 mg/dL (8.5-10.1); Potassium 4.1 mmol/L (3.5-5.1)
[2022-12-06 06:50] LABS: Red Cell Distribution Width 20.2 % (11.8-14.3)
[2022-12-06 08:00] VITALS: BP 109/74
[2022-12-06] MEDS: predniSONE 1 MG TAB PO SCH (09:26)
[2022-12-06] MEDS: PANTOPRAZOLE 40 MG TAB PO SCH (09:26)
[2022-12-06] MEDS: cefTRIAXone 1GM/50ML D5W 50 ML IV SCH (09:26)
[2022-12-06] MEDS: AZITHROMYCIN 250 MG TAB PO SCH (09:26)
[2022-12-06] MEDS: ACETAMINOPHEN 325 MG TAB PO PRN (09:29)
[2022-12-06] MEDS ORDERED: FUROSEMIDE 20 MG/2 ML VIAL IV ONE (10:00)
[2022-12-06] MEDS ORDERED: POTASSIUM CHL 20 Meq TABLET PO ONE (10:00)
[2022-12-06] MEDS: ALPRAZolam 0.5 MG TAB PO PRN ×2 (11:06→23:53)
[2022-12-06 12:00] VITALS: BP 105/63
[2022-12-06] MEDS: ONDANSETRON HCL 4 MG/2 ML VIAL IV PRN (12:21)
[2022-12-06 16:00] VITALS: BP 108/67
[2022-12-06 22:00] VITALS: BP 97/57
[2022-12-07] VITALS (7 sets, daily range): BP systolic 91–115; BP diastolic 54–67
[2022-12-07] MEDS ORDERED: ALBUTEROL MEDNEB 2.5 mg/3ml NEB ONE ×3 (05:52→18:06)
[2022-12-07] MEDS: IPRATROPIUM BROM 0.5 MG/2.5ML INH SOL NEB SCH ×4 (06:12→18:12)
[2022-12-07] MEDS: ALBUTEROL SULF 2.5 MG/0.5ML(0.5%) NEB SOLN NEB SCH ×4 (06:12→18:12)
[2022-12-07 07:43] LABS: Potassium 4.5 mmol/L (3.5-5.1)
[2022-12-07 07:53] LABS: BUN/Creatinine Ratio 23.5; Calcium 8.4 mg/dL (8.5-10.1)
[2022-12-07] MEDS: predniSONE 1 MG TAB PO SCH (09:59)
[2022-12-07] MEDS ORDERED: levoFLOXacin 500 MG TAB PO SCH (10:00)
[2022-12-07] MEDS: PANTOPRAZOLE 40 MG TAB PO SCH (10:00)
[2022-12-07] MEDS: ACETAMINOPHEN 325 MG TAB PO PRN ×2 (10:01→21:33)
[2022-12-07] MEDS: ALPRAZolam 0.5 MG TAB PO PRN ×2 (12:11→18:08)
[2022-12-07 16:36] LABS: Urine Bacteria NONE SEEN /hpf (None Seen); Urine Blood Negative /uL (Negative); Urine Hyaline Cast MANY /lpf (0 - 2); Urine Specific Gravity 1.031 (1.001-1.035); Urine WBC 11 /hpf (0 - 5)
[2022-12-08] MEDS ORDERED: ALBUTEROL MEDNEB 2.5 mg/3ml NEB ONE ×3 (00:21→18:05)
[2022-12-08] MEDS: IPRATROPIUM BROM 0.5 MG/2.5ML INH SOL NEB SCH ×3 (00:39→18:00)
[2022-12-08] MEDS: ALBUTEROL SULF 2.5 MG/0.5ML(0.5%) NEB SOLN NEB SCH ×3 (00:40→18:00)
[2022-12-08 05:00] VITALS: BP 115/66
[2022-12-08] MEDS: ONDANSETRON HCL 4 MG/2 ML VIAL IV PRN (07:28)
[2022-12-08] MEDS: ACETAMINOPHEN 325 MG TAB PO PRN ×2 (07:54→20:18)
[2022-12-08 08:00] VITALS: BP 118/70
[2022-12-08 09:00] LABS: Hematocrit 30.5 % (36.0-46.0); Hemoglobin 9.7 g/dL (12.2-16.2); Mean Corpuscular Hemoglobin 22.6 pg (28.0-32.0); Mean Corpuscular Hgb Conc. 31.7 g/dL (32.0-36.0); Mean Corpuscular Volume 71.4 fL (80.0-100.0); Red Blood Cells 4.27 10^6/uL (4.0-5.20); White Blood Cell 9.4 10^3/uL (4.4-10.8)
[2022-12-08 09:17] LABS: BUN/Creatinine Ratio 20.7; Calcium 7.9 mg/dL (8.5-10.1); Potassium 4.6 mmol/L (3.5-5.1)
[2022-12-08 09:19] LABS: Red Cell Distribution Width 20.1 % (11.8-14.3)
[2022-12-08 09:20] LABS: Basophils % (manual) 0 (0.0-2.0); Promyelocytes % 0; Reactive Lymphocytes 0
[2022-12-08 09:22] LABS: Blast Cells 0
[2022-12-08] MEDS ORDERED: predniSONE 5 MG TAB PO ONE (10:15)
[2022-12-08] MEDS: PANTOPRAZOLE 40 MG TAB PO SCH (10:48)
[2022-12-08] MEDS: SODIUM CHLORIDE 0.9% 1,000 ML IV SCH (10:48)
[2022-12-08] MEDS: DOXYCYCLINE 100MG/250ML 250 ML IV SCH ×2 (10:48→22:24)
[2022-12-08] MEDS: ALPRAZolam 0.5 MG TAB PO PRN ×3 (10:49→23:43)
[2022-12-08 10:52] LABS: Band Neutrophils % (manual) 9; Eosinophils % (manual) 1 (0-7); Lymphocytes % (manual) 17 (10.0-50.0); Metamyelocytes % 1; Monocytes % (manual) 13 (0-12); Myelocytes % 1
[2022-12-08 12:56] VITALS: BP 91/55
[2022-12-08] MEDS ORDERED: OMNIPAQUE ORAL SOLN 500ml 12mg/ml PO ONE (16:02)
[2022-12-08] MEDS: HYDROcodone-ACET 5/325MG TAB PO PRN (16:06)
[2022-12-08 16:21] VITALS: BP 122/75
[2022-12-08] MEDS ORDERED: methylPREDNISolone SOD SUCC 40 MG/ML VL IM ONE (18:15)
[2022-12-08] MEDS ORDERED: cefTRIAXone 1GM/50ML D5W 50 ML IV ONE (18:15)
[2022-12-08 22:00] VITALS: BP 116/69
[2022-12-09] VITALS (7 sets, daily range): BP systolic 93–159; BP diastolic 59–97
[2022-12-09] MEDS: HYDROcodone-ACET 5/325MG TAB PO PRN ×2 (02:27→11:07)
[2022-12-09 05:39] LABS: Eosinophils # (auto) 0 10 ^3/uL (0-0.8)
[2022-12-09 05:42] LABS: Basophils # (auto) 0.1 10 ^3/uL (0-0.2); Basophils % (auto) 0.8 % (0.0-2.0); Eosinophils % (auto) 0.2 % (0.0-7.0); Hematocrit 28.7 % (36.0-46.0); Hemoglobin 9.2 g/dL (12.2-16.2); Lymphocytes # (auto) 1.2 10 ^3/uL (0.4-5.4); Lymphocytes % (auto) 12.7 % (10.0-50.0); Mean Corpuscular Hgb Conc. 32.2 g/dL (32.0-36.0); Mean Corpuscular Volume 71.5 fL (80.0-100.0); Monocytes # (auto) 1.2 10 ^3/uL (0-1.3); Monocytes % (auto) 12.4 % (0.0-12.0); Neutrophils # (auto) 7.2 10 ^3/uL (1.6-8.6); Neutrophils % (auto) 73.9 % (37.0-80.0); Nucleated Red Blood Cells % 0.3 %; Red Blood Cells 4.01 10^6/uL (4.0-5.20); Red Cell Distribution Width 19.5 % (11.8-14.3); White Blood Cell 9.8 10^3/uL (4.4-10.8)
[2022-12-09 05:45] LABS: Potassium 4.8 mmol/L (3.5-5.1)
[2022-12-09] MEDS ORDERED: ALBUTEROL MEDNEB 2.5 mg/3ml NEB ONE ×2 (05:52→11:16)
[2022-12-09 05:58] LABS: Albumin 2.1 g/dL (3.4-5.0); BUN/Creatinine Ratio 23.5; Bilirubin, Total 0.5 mg/dL (0.2-1.0); Calcium 7.8 mg/dL (8.5-10.1); Total Protein 5.4 g/dL (6.4-8.2)
[2022-12-09] MEDS: ALBUTEROL SULF 2.5 MG/0.5ML(0.5%) NEB SOLN NEB SCH ×4 (06:00→17:49)
[2022-12-09] MEDS: IPRATROPIUM BROM 0.5 MG/2.5ML INH SOL NEB SCH ×4 (06:00→17:49)
[2022-12-09] MEDS ORDERED: OMNIPAQUE ORAL SOLN 500ml 12mg/ml PO ONE (06:10)
[2022-12-09] MEDS ORDERED: IOHEXOL 300 MG/ML 100ML BOTTLE IJ ONE (06:10)
[2022-12-09] MEDS: SODIUM CHLORIDE 0.9% 1,000 ML IV SCH (06:56)
[2022-12-09] MEDS: cefTRIAXone 1GM/50ML D5W 50 ML IV SCH (09:44)
[2022-12-09] MEDS: predniSONE 5 MG TAB PO SCH (09:45)
[2022-12-09] MEDS: PANTOPRAZOLE 40 MG TAB PO SCH (09:46)
[2022-12-09] MEDS ORDERED: predniSONE 5 MG TAB PO SCH (10:00)
[2022-12-09] MEDS: DOXYCYCLINE 100MG/250ML 250 ML IV SCH ×2 (15:10→21:27)
[2022-12-09] MEDS: ACETAMINOPHEN 325 MG TAB PO PRN ×2 (15:43→21:28)
[2022-12-09] MEDS: ALPRAZolam 0.5 MG TAB PO PRN (18:23)
[2022-12-10] MEDS: ALPRAZolam 0.5 MG TAB PO PRN ×2 (00:22→11:42)
[2022-12-10 05:00] VITALS: BP 92/55
[2022-12-10] MEDS: IPRATROPIUM BROM 0.5 MG/2.5ML INH SOL NEB SCH ×5 (06:01→19:13)
[2022-12-10] MEDS: ALBUTEROL SULF 2.5 MG/0.5ML(0.5%) NEB SOLN NEB SCH ×5 (06:01→19:13)
[2022-12-10] MEDS: SODIUM CHLORIDE 0.9% 1,000 ML IV SCH (06:34)
[2022-12-10] MEDS: predniSONE 5 MG TAB PO SCH (08:45)
[2022-12-10] MEDS: cefTRIAXone 1GM/50ML D5W 50 ML IV SCH (08:45)
[2022-12-10] MEDS: PANTOPRAZOLE 40 MG TAB PO SCH (08:45)
[2022-12-10 09:00] VITALS: BP 113/72
[2022-12-10 09:04] LABS: Hemoglobin 8.9 g/dL (12.2-16.2)
[2022-12-10 09:05] LABS: Hematocrit 28.6 % (36.0-46.0); Mean Corpuscular Hemoglobin 22.2 pg (28.0-32.0); Mean Corpuscular Hgb Conc. 31.2 g/dL (32.0-36.0); Mean Corpuscular Volume 71.1 fL (80.0-100.0); Red Blood Cells 4.02 10^6/uL (4.0-5.20); Red Cell Distribution Width 19.8 % (11.8-14.3); White Blood Cell 11.2 10^3/uL (4.4-10.8)
[2022-12-10 09:09] LABS: Basophils % (manual) 0 (0.0-2.0); Blast Cells 0; Promyelocytes % 0; Reactive Lymphocytes 0
[2022-12-10 09:19] LABS: Calcium 7.8 mg/dL (8.5-10.1)
[2022-12-10 09:22] LABS: BUN/Creatinine Ratio 27.8
[2022-12-10] MEDS: DOXYCYCLINE 100MG/250ML 250 ML IV SCH ×2 (10:13→21:07)
[2022-12-10] MEDS: HYDROcodone-ACET 5/325MG TAB PO PRN (10:17)
[2022-12-10 10:46] LABS: Band Neutrophils % (manual) 7; Eosinophils % (manual) 1 (0-7); Lymphocytes % (manual) 11 (10.0-50.0); Metamyelocytes % 1; Monocytes % (manual) 6 (0-12); Myelocytes % 2
[2022-12-10 13:00] VITALS: BP 107/61
[2022-12-10] MEDS ORDERED: MORPHINE SULFATE INJ 2 MG/ml SYRG IV PRN (16:30)
[2022-12-10] MEDS: HYDROmorphone HCL 2 MG/ML VL/or syr IV PRN ×2 (16:45→21:07)
[2022-12-10] MEDS: ONDANSETRON HCL 4 MG/2 ML VIAL IV PRN (16:45)
[2022-12-10 17:00] VITALS: BP 137/83
[2022-12-10] MEDS: HYDROcodone-ACET 10/325MG TAB PO PRN ×2 (18:33→23:53)
[2022-12-10] MEDS ORDERED: ALBUTEROL MEDNEB 2.5 mg/3ml NEB ONE (18:59)
[2022-12-10 23:09] VITALS: BP 121/67
[2022-12-11 05:43] VITALS: BP 123/71
[2022-12-11] MEDS ORDERED: ALBUTEROL MEDNEB 2.5 mg/3ml NEB ONE ×4 (05:54→23:37)
[2022-12-11 06:04] LABS: Eosinophils # (auto) 0 10 ^3/uL (0-0.8); Eosinophils % (auto) 0.2 % (0.0-7.0); Hemoglobin 8.9 g/dL (12.2-16.2)
[2022-12-11 06:06] LABS: Basophils # (auto) 0.1 10 ^3/uL (0-0.2); Basophils % (auto) 0.6 % (0.0-2.0); Lymphocytes # (auto) 1.6 10 ^3/uL (0.4-5.4); Lymphocytes % (auto) 12.1 % (10.0-50.0); Mean Corpuscular Hemoglobin 22.8 pg (28.0-32.0); Mean Corpuscular Hgb Conc. 31.8 g/dL (32.0-36.0); Mean Corpuscular Volume 71.5 fL (80.0-100.0); Monocytes # (auto) 1.4 10 ^3/uL (0-1.3); Monocytes % (auto) 10.7 % (0.0-12.0); Neutrophils % (auto) 76.4 % (37.0-80.0); Red Blood Cells 3.91 10^6/uL (4.0-5.20); White Blood Cell 13.1 10^3/uL (4.4-10.8)
[2022-12-11 06:12] LABS: Red Cell Distribution Width 20.2 % (11.8-14.3)
[2022-12-11 06:21] LABS: Potassium 5.5 mmol/L (3.5-5.1)
[2022-12-11 06:30] LABS: Albumin 1.9 g/dL (3.4-5.0); BUN/Creatinine Ratio 26.1; Bilirubin, Total 0.4 mg/dL (0.2-1.0); Calcium 8.2 mg/dL (8.5-10.1); Total Protein 6.2 g/dL (6.4-8.2)
[2022-12-11] MEDS: ALBUTEROL SULF 2.5 MG/0.5ML(0.5%) NEB SOLN NEB SCH ×5 (07:30→21:12)
[2022-12-11] MEDS: IPRATROPIUM BROM 0.5 MG/2.5ML INH SOL NEB SCH ×5 (07:30→21:13)
[2022-12-11 08:00] VITALS: BP 114/74
[2022-12-11] MEDS: cefTRIAXone 1GM/50ML D5W 50 ML IV SCH (08:29)
[2022-12-11] MEDS: HYDROmorphone HCL 2 MG/ML VL/or syr IV PRN ×4 (08:30→21:47)
[2022-12-11 09:16] VITALS: BP 114/74
[2022-12-11] MEDS ORDERED: methylPREDNISolone SOD SUCC 40 MG/ML VL IV ONE (09:45)
[2022-12-11] MEDS ORDERED: SODIUM CHLORIDE 0.9% 1,000 ML IV SCH (09:45)
[2022-12-11] MEDS ORDERED: SODIUM ZIRCONIUM CYCL 10 GM PAK PO ONE ×2 (09:45→13:00)
[2022-12-11] MEDS ORDERED: predniSONE 5 MG TAB PO SCH (10:00)
[2022-12-11] MEDS ORDERED: ACETAMINOPHEN 500 MG TAB PO PRN (10:00)
[2022-12-11] MEDS: PANTOPRAZOLE 40 MG/10 ML VIAL INJ IV SCH ×2 (10:22→21:47)
[2022-12-11] MEDS ORDERED: HYDROmorphone HCL 2 MG/ML VL/or syr IV ONE (10:30)
[2022-12-11] MEDS: ONDANSETRON HCL 4 MG/2 ML VIAL IV PRN ×3 (10:45→20:20)
[2022-12-11] MEDS: CEFEPIME 2 GM in SODIUM CHL 0.9% 50 ML IV SCH (12:24)
[2022-12-11 13:11] VITALS: BP 114/76
[2022-12-11] MEDS: SODIUM ZIRCONIUM CYCL 10 GM PAK PO SCH ×2 (14:17→21:50)
[2022-12-11] MEDS: HYDROcodone-ACET 10/325MG TAB PO PRN ×2 (14:28→20:20)
[2022-12-11] MEDS: SODIUM CHLORIDE 0.9% 1,000 ML IV SCH ×2 (15:30→20:27)
[2022-12-11 17:00] VITALS: BP 116/74
[2022-12-11] MEDS ORDERED: KETOROLAC TROMETH 30 MG/ML 1ML VIAL IV ONE (21:15)
[2022-12-11] MEDS: methylPREDNISolone SOD SUCC 40 MG/ML VL IV SCH (21:47)
[2022-12-11] MEDS: LINEZOLID 600MG/300ML 300 ML IV SCH (21:50)
[2022-12-11 22:12] VITALS: BP 155/105
[2022-12-12] MEDS: IPRATROPIUM BROM 0.5 MG/2.5ML INH SOL NEB SCH ×4 (00:06→18:10)
[2022-12-12] MEDS: CEFEPIME 2 GM in SODIUM CHL 0.9% 50 ML IV SCH ×2 (01:48→12:22)
[2022-12-12] MEDS: HYDROmorphone HCL 2 MG/ML VL/or syr IV PRN ×4 (01:56→18:50)
[2022-12-12] MEDS: ONDANSETRON HCL 4 MG/2 ML VIAL IV PRN ×4 (01:57→18:50)
[2022-12-12 02:29] LABS: Protein, Urine 117.1 mg/dL (0.0-11.9)
[2022-12-12 03:03] LABS: Urine Bacteria NONE SEEN /hpf (None Seen); Urine Blood Negative /uL (Negative); Urine Hyaline Cast FEW /lpf (0 - 2); Urine Specific Gravity 1.023 (1.001-1.035); Urine WBC 3 /hpf (0 - 5)
[2022-12-12 05:04] VITALS: BP 95/60
[2022-12-12] MEDS: SODIUM ZIRCONIUM CYCL 10 GM PAK PO SCH ×3 (06:00→21:53)
[2022-12-12] MEDS: ALBUTEROL SULF 2.5 MG/0.5ML(0.5%) NEB SOLN NEB SCH ×3 (06:41→18:10)
[2022-12-12 07:02] LABS: INR 1.23 (0.9-1.15); Partial Thromboplastin Time 25.7 sec (24.6-33.4)
[2022-12-12 07:04] LABS: Anion Gap 9 (5-15); Blood Urea Nitrogen 41 mg/dL (7-18); Calcium 8.2 mg/dL (8.5-10.1); Carbon Dioxide 21 mmol/L (21-32); Chloride 105 mmol/L (98-107); Glucose 138 mg/dL (74-106); Potassium 5.5 mmol/L (3.5-5.1); Sodium 135 mmol/L (136-145)
[2022-12-12 07:13] LABS: Alanine Aminotransferase 16 U/L (13-56); Alkaline Phosphatase 358 U/L (45-117); Aspartate Aminotransferase 23 U/L (15-37); Bilirubin, Total 0.5 mg/dL (0.2-1.0); GFR African American 42 mL/min; GFR Non-African American 35 mL/min; Total Protein 5.4 g/dL (6.4-8.2)
[2022-12-12 07:17] LABS: White Blood Cell 17.1 10^3/uL (4.4-10.8)
[2022-12-12 07:18] LABS: CRP High Sensitivity > 19 mg/dL (< 0.3); Hematocrit 29.7 % (36.0-46.0); Hemoglobin 9.4 g/dL (12.2-16.2); Mean Corpuscular Hemoglobin 22.7 pg (28.0-32.0); Mean Corpuscular Hgb Conc. 31.7 g/dL (32.0-36.0); Mean Corpuscular Volume 71.4 fL (80.0-100.0); Red Blood Cells 4.16 10^6/uL (4.0-5.20)
[2022-12-12 07:32] LABS: Red Cell Distribution Width 20.8 % (11.8-14.3)
[2022-12-12 07:33] LABS: Basophils % (manual) 0 (0.0-2.0); Blast Cells 0; Eosinophils % (manual) 0 (0-7); Metamyelocytes % 0; Promyelocytes % 0; Reactive Lymphocytes 0
[2022-12-12 08:51] LABS: Band Neutrophils % (manual) 2; Lymphocytes % (manual) 12 (10.0-50.0); Monocytes % (manual) 7 (0-12); Myelocytes % 1
[2022-12-12 09:00] VITALS: BP 106/61
[2022-12-12] MEDS: methylPREDNISolone SOD SUCC 40 MG/ML VL IV SCH ×2 (09:54→21:53)
[2022-12-12] MEDS: PANTOPRAZOLE 40 MG/10 ML VIAL INJ IV SCH ×2 (09:54→21:53)
[2022-12-12] MEDS: LINEZOLID 600MG/300ML 300 ML IV SCH ×2 (09:55→21:53)
[2022-12-12] MEDS: SODIUM CHLORIDE 0.9% 1,000 ML IV SCH (12:22)
[2022-12-12 13:00] VITALS: BP 97/69
[2022-12-12 16:09] VITALS: BP 100/59
[2022-12-12 22:00] VITALS: BP 126/72
[2022-12-12] MEDS ORDERED: ALBUTEROL MEDNEB 2.5 mg/3ml NEB ONE (22:07)
[2022-12-12 23:16] VITALS: BP 126/72
[2022-12-13] MEDS: HYDROmorphone HCL 2 MG/ML VL/or syr IV PRN ×5 (00:06→22:33)
[2022-12-13] MEDS: ONDANSETRON HCL 4 MG/2 ML VIAL IV PRN ×5 (00:06→22:49)
[2022-12-13] MEDS: CEFEPIME 2 GM in SODIUM CHL 0.9% 50 ML IV SCH ×2 (00:06→11:43)
[2022-12-13] MEDS: SODIUM CHLORIDE 0.9% 1,000 ML IV SCH ×2 (04:09→13:25)
[2022-12-13 05:00] VITALS: BP 137/77
[2022-12-13] MEDS: SODIUM ZIRCONIUM CYCL 10 GM PAK PO SCH (05:13)
[2022-12-13] MEDS ORDERED: ALBUTEROL MEDNEB 2.5 mg/3ml NEB ONE ×3 (05:53→18:00)
[2022-12-13] MEDS: IPRATROPIUM BROM 0.5 MG/2.5ML INH SOL NEB SCH ×5 (07:33→20:08)
[2022-12-13] MEDS: ALBUTEROL SULF 2.5 MG/0.5ML(0.5%) NEB SOLN NEB SCH ×5 (07:33→20:08)
[2022-12-13 08:00] VITALS: BP 124/64
[2022-12-13 09:26] LABS: Eosinophils # (auto) 0 10 ^3/uL (0-0.8); Hemoglobin 9.9 g/dL (12.2-16.2); Mean Corpuscular Hemoglobin 21.7 pg (28.0-32.0); Nucleated Red Blood Cells % 0.1 %; White Blood Cell 22.7 10^3/uL (4.4-10.8)
[2022-12-13 09:27] LABS: Basophils # (auto) 0 10 ^3/uL (0-0.2); Basophils % (auto) 0.2 % (0.0-2.0); Hematocrit 33.1 % (36.0-46.0); Lymphocytes # (auto) 1.6 10 ^3/uL (0.4-5.4); Lymphocytes % (auto) 7.1 % (10.0-50.0); Mean Corpuscular Volume 72.4 fL (80.0-100.0); Monocytes % (auto) 4.6 % (0.0-12.0); Neutrophils % (auto) 88.1 % (37.0-80.0); Red Blood Cells 4.57 10^6/uL (4.0-5.20)
[2022-12-13 09:38] LABS: BUN/Creatinine Ratio 30.6; Potassium 5.1 mmol/L (3.5-5.1)
[2022-12-13 09:47] LABS: Red Cell Distribution Width 20.8 % (11.8-14.3)
[2022-12-13] MEDS: PANTOPRAZOLE 40 MG/10 ML VIAL INJ IV SCH ×2 (10:01→22:31)
[2022-12-13] MEDS: methylPREDNISolone SOD SUCC 40 MG/ML VL IV SCH ×2 (10:01→22:32)
[2022-12-13] MEDS: LINEZOLID 600MG/300ML 300 ML IV SCH ×2 (10:01→22:31)
[2022-12-13 12:00] VITALS: BP 112/70
[2022-12-13 16:00] VITALS: BP 123/71
[2022-12-13 20:00] VITALS: BP 115/66
[2022-12-13 22:00] VITALS: BP 115/66
[2022-12-14] MEDS ORDERED: ALBUTEROL MEDNEB 2.5 mg/3ml NEB ONE ×3 (00:12→12:11)
[2022-12-14] MEDS: CEFEPIME 2 GM in SODIUM CHL 0.9% 50 ML IV SCH ×2 (00:49→13:18)
[2022-12-14] MEDS: ALPRAZolam 0.5 MG TAB PO PRN (03:21)
[2022-12-14] MEDS: HYDROmorphone HCL 2 MG/ML VL/or syr IV PRN ×5 (04:43→22:51)
[2022-12-14] MEDS: ONDANSETRON HCL 4 MG/2 ML VIAL IV PRN ×2 (04:43→22:45)
[2022-12-14] MEDS: SODIUM CHLORIDE 0.9% 1,000 ML IV SCH ×2 (04:54→16:05)
[2022-12-14 05:00] VITALS: BP 124/69
[2022-12-14 07:10] LABS: Hematocrit 30.1 % (36.0-46.0); Hemoglobin 9.4 g/dL (12.2-16.2); Mean Corpuscular Hemoglobin 22.4 pg (28.0-32.0); Mean Corpuscular Hgb Conc. 31.2 g/dL (32.0-36.0); Mean Corpuscular Volume 71.8 fL (80.0-100.0); Red Blood Cells 4.19 10^6/uL (4.0-5.20); White Blood Cell 21.9 10^3/uL (4.4-10.8)
[2022-12-14 07:11] LABS: Red Cell Distribution Width 20.9 % (11.8-14.3)
[2022-12-14 07:14] LABS: Basophils % (manual) 0 (0.0-2.0); Blast Cells 0; Eosinophils % (manual) 0 (0-7); Metamyelocytes % 0; Myelocytes % 0; Promyelocytes % 0; Reactive Lymphocytes 0
[2022-12-14 07:47] LABS: BUN/Creatinine Ratio 40.8; Calcium 8.4 mg/dL (8.5-10.1); Potassium 5.4 mmol/L (3.5-5.1)
[2022-12-14] MEDS: IPRATROPIUM BROM 0.5 MG/2.5ML INH SOL NEB SCH ×5 (07:48→23:58)
[2022-12-14] MEDS: ALBUTEROL SULF 2.5 MG/0.5ML(0.5%) NEB SOLN NEB SCH ×5 (07:48→23:58)
[2022-12-14 08:00] VITALS: BP 129/72
[2022-12-14 09:39] LABS: Band Neutrophils % (manual) 9; Lymphocytes % (manual) 15 (10.0-50.0); Monocytes % (manual) 3 (0-12)
[2022-12-14] MEDS: PANTOPRAZOLE 40 MG/10 ML VIAL INJ IV SCH ×2 (09:55→21:29)
[2022-12-14] MEDS: methylPREDNISolone SOD SUCC 40 MG/ML VL IV SCH ×2 (09:55→21:29)
[2022-12-14] MEDS: LINEZOLID 600MG/300ML 300 ML IV SCH ×2 (09:55→21:29)
[2022-12-14 12:00] VITALS: BP 107/72
[2022-12-14] MEDS ORDERED: SODIUM ZIRCONIUM CYCL 10 GM PAK PO ONE (13:30)
[2022-12-14 13:49] VITALS: BP 131/55
[2022-12-14 22:00] VITALS: BP 122/80
[2022-12-15] MEDS: CEFEPIME 2 GM in SODIUM CHL 0.9% 50 ML IV SCH ×2 (00:09→12:10)
[2022-12-15 05:00] VITALS: BP 126/67
[2022-12-15] MEDS: SODIUM CHLORIDE 0.9% 1,000 ML IV SCH ×2 (05:25→18:05)
[2022-12-15] MEDS: ONDANSETRON HCL 4 MG/2 ML VIAL IV PRN (06:04)
[2022-12-15] MEDS ORDERED: ALBUTEROL MEDNEB 2.5 mg/3ml NEB ONE ×2 (06:08→13:28)
[2022-12-15] MEDS: HYDROmorphone HCL 2 MG/ML VL/or syr IV PRN ×2 (06:18→12:10)
[2022-12-15] MEDS: IPRATROPIUM BROM 0.5 MG/2.5ML INH SOL NEB SCH (06:26)
[2022-12-15] MEDS: ALBUTEROL SULF 2.5 MG/0.5ML(0.5%) NEB SOLN NEB SCH (06:26)
[2022-12-15 08:39] LABS: Hemoglobin 9.5 g/dL (12.2-16.2); Mean Corpuscular Hemoglobin 21.8 pg (28.0-32.0); Mean Corpuscular Hgb Conc. 30.7 g/dL (32.0-36.0); Red Blood Cells 4.36 10^6/uL (4.0-5.20); White Blood Cell 27.2 10^3/uL (4.4-10.8)
[2022-12-15 08:40] LABS: Red Cell Distribution Width 20.6 % (11.8-14.3)
[2022-12-15 08:42] LABS: Basophils % (manual) 0 (0.0-2.0); Blast Cells 0; Eosinophils % (manual) 0 (0-7); Metamyelocytes % 0; Myelocytes % 0; Promyelocytes % 0; Reactive Lymphocytes 0
[2022-12-15 08:46] LABS: BUN/Creatinine Ratio 49.5; Calcium 8.3 mg/dL (8.5-10.1); Potassium 5.3 mmol/L (3.5-5.1)
[2022-12-15 09:14] VITALS: BP 110/63
[2022-12-15] MEDS: PANTOPRAZOLE 40 MG/10 ML VIAL INJ IV SCH ×2 (09:23→21:37)
[2022-12-15] MEDS: methylPREDNISolone SOD SUCC 40 MG/ML VL IV SCH ×2 (09:24→21:37)
[2022-12-15] MEDS: LINEZOLID 600MG/300ML 300 ML IV SCH ×2 (09:24→21:37)
[2022-12-15 09:41] LABS: Band Neutrophils % (manual) 6; Lymphocytes % (manual) 3 (10.0-50.0); Monocytes % (manual) 8 (0-12)
[2022-12-15 12:40] VITALS: BP 119/62
[2022-12-15] MEDS ORDERED: IPRATROPIUM BROM 0.5 MG/2.5ML INH SOL ONE (13:28)
[2022-12-15] MEDS: FLORASTOR (S. BOULARDII) 250 MG CAP PO SCH (15:23)
[2022-12-15 16:38] VITALS: BP 120/57
[2022-12-15] MEDS: HYDROcodone-ACET 10/325MG TAB PO PRN (18:32)
[2022-12-15] MEDS: SODIUM ZIRCONIUM CYCL 10 GM PAK PO SCH (21:37)
[2022-12-15 22:00] VITALS: BP 136/89
[2022-12-16] MEDS: CEFEPIME 2 GM in SODIUM CHL 0.9% 50 ML IV SCH (00:37)
[2022-12-16 03:15] VITALS: BP 136/89
[2022-12-16 05:00] VITALS: BP 124/71
[2022-12-16 08:50] VITALS: BP 132/87
[2022-12-16] MEDS: methylPREDNISolone SOD SUCC 40 MG/ML VL IV SCH ×2 (09:12→22:29)
[2022-12-16] MEDS: PANTOPRAZOLE 40 MG/10 ML VIAL INJ IV SCH (09:12)
[2022-12-16] MEDS: SODIUM ZIRCONIUM CYCL 10 GM PAK PO SCH ×2 (09:12→22:00)
[2022-12-16] MEDS: LINEZOLID 600MG/300ML 300 ML IV SCH ×2 (09:12→22:27)
[2022-12-16] MEDS: FLORASTOR (S. BOULARDII) 250 MG CAP PO SCH (09:12)
[2022-12-16] MEDS: HYDROmorphone HCL 2 MG/ML VL/or syr IV PRN ×3 (09:19→22:32)
[2022-12-16] MEDS: ONDANSETRON HCL 4 MG/2 ML VIAL IV PRN (09:19)
[2022-12-16 09:42] LABS: Hematocrit 34.3 % (36.0-46.0); Hemoglobin 10.4 g/dL (12.2-16.2); Mean Corpuscular Hemoglobin 21.9 pg (28.0-32.0); Mean Corpuscular Hgb Conc. 30.3 g/dL (32.0-36.0); Mean Corpuscular Volume 72.3 fL (80.0-100.0); Red Blood Cells 4.75 10^6/uL (4.0-5.20)
[2022-12-16] MEDS ORDERED: FLUCONAZOLE 100 MG TAB PO ONE (10:30)
[2022-12-16] MEDS ORDERED: diphenhdrAMINE HCL 50 MG/1 ML VL IV ONE (10:30)
[2022-12-16] MEDS ORDERED: ACETAMINOPHEN 325 MG TAB PO ONE (10:30)
[2022-12-16] MEDS ORDERED: RITUXIMAB IV SCH (10:30)
[2022-12-16 11:00] LABS: Red Cell Distribution Width 21.5 % (11.8-14.3)
[2022-12-16 11:01] LABS: White Blood Cell 37.9 10^3/uL (4.4-10.8)
[2022-12-16 11:02] LABS: Basophils % (manual) 0 (0.0-2.0); Blast Cells 0; Eosinophils % (manual) 0 (0-7); Myelocytes % 0; Promyelocytes % 0; Reactive Lymphocytes 0
[2022-12-16 11:47] LABS: Calcium 9.4 mg/dL (8.5-10.1)
[2022-12-16 12:10] LABS: Band Neutrophils % (manual) 8; Lymphocytes % (manual) 5 (10.0-50.0); Metamyelocytes % 3; Monocytes % (manual) 3 (0-12)
[2022-12-16 12:12] LABS: BUN/Creatinine Ratio 49.1
[2022-12-16] MEDS ORDERED: FLUCONAZOLE 200MG/100ML 100 ML IV ONE (12:23)
[2022-12-16 12:57] VITALS: BP 130/79
[2022-12-16] MEDS: ALPRAZolam 0.5 MG TAB PO PRN (14:08)
[2022-12-16 16:49] VITALS: BP 158/100
[2022-12-16 22:00] VITALS: BP 117/66
[2022-12-16] MEDS: PANTOPRAZOLE 40 MG TAB PO SCH (22:28)
[2022-12-17] MEDS: HYDROmorphone HCL 2 MG/ML VL/or syr IV PRN (03:33)
[2022-12-17 05:00] VITALS: BP 129/62
[2022-12-17 06:59] LABS: Mean Corpuscular Hemoglobin 21.6 pg (28.0-32.0); Mean Corpuscular Hgb Conc. 30.1 g/dL (32.0-36.0)
[2022-12-17 07:01] LABS: Hematocrit 32.7 % (36.0-46.0); Hemoglobin 9.9 g/dL (12.2-16.2); Mean Corpuscular Volume 71.8 fL (80.0-100.0); Red Blood Cells 4.55 10^6/uL (4.0-5.20)
[2022-12-17 07:13] LABS: Calcium 9.1 mg/dL (8.5-10.1)
[2022-12-17 07:21] LABS: Red Cell Distribution Width 21.4 % (11.8-14.3)
[2022-12-17 07:24] LABS: White Blood Cell 34.4 10^3/uL (4.4-10.8)
[2022-12-17 07:26] LABS: Basophils % (manual) 0 (0.0-2.0); Blast Cells 0; Eosinophils % (manual) 0 (0-7); Promyelocytes % 0; Reactive Lymphocytes 0
[2022-12-17 08:00] VITALS: BP 114/60
[2022-12-17 08:09] LABS: Band Neutrophils % (manual) 8; Lymphocytes % (manual) 9 (10.0-50.0); Metamyelocytes % 3; Monocytes % (manual) 5 (0-12); Myelocytes % 2
[2022-12-17] MEDS: levoFLOXacin 500 MG TAB PO SCH (09:50)
[2022-12-17] MEDS: SODIUM ZIRCONIUM CYCL 10 GM PAK PO SCH ×2 (09:50→21:52)
[2022-12-17] MEDS: FLORASTOR (S. BOULARDII) 250 MG CAP PO SCH (09:50)
[2022-12-17] MEDS: FLUCONAZOLE 200MG/100ML 100 ML IV SCH (09:50)
[2022-12-17] MEDS: PANTOPRAZOLE 40 MG TAB PO SCH ×2 (09:50→21:51)
[2022-12-17] MEDS: methylPREDNISolone SOD SUCC 40 MG/ML VL IV SCH ×2 (09:51→21:52)
[2022-12-17] MEDS ORDERED: predniSONE 20 MG TAB PO SCH (10:00)
[2022-12-17] MEDS ORDERED: FLUCONAZOLE 100 MG TAB PO SCH (10:00)
[2022-12-17] MEDS ORDERED: BUMETANIDE 1 MG TAB PO ONE (10:00)
[2022-12-17] MEDS: HYDROcodone-ACET 10/325MG TAB PO PRN ×2 (10:07→18:07)
[2022-12-17] MEDS: LINEZOLID 600MG/300ML 300 ML IV SCH ×2 (11:32→21:52)
[2022-12-17 12:00] VITALS: BP 131/62
[2022-12-17] MEDS: ALPRAZolam 0.5 MG TAB PO PRN (13:47)
[2022-12-17 16:00] VITALS: BP 134/77
[2022-12-17 20:00] VITALS: BP 120/76
[2022-12-17 22:00] VITALS: BP 120/76
[2022-12-18] MEDS: HYDROcodone-ACET 10/325MG TAB PO PRN ×2 (01:09→13:51)
[2022-12-18 05:00] VITALS: BP 128/76
[2022-12-18 06:29] LABS: Hemoglobin 10.3 g/dL (12.2-16.2)
[2022-12-18 06:32] LABS: Hematocrit 34.8 % (36.0-46.0); Mean Corpuscular Hemoglobin 21.3 pg (28.0-32.0); Mean Corpuscular Hgb Conc. 29.5 g/dL (32.0-36.0); Mean Corpuscular Volume 72.1 fL (80.0-100.0); Red Blood Cells 4.83 10^6/uL (4.0-5.20)
[2022-12-18 06:50] LABS: Potassium 5.3 mmol/L (3.5-5.1)
[2022-12-18 07:02] LABS: BUN/Creatinine Ratio 47.9; Calcium 9.1 mg/dL (8.5-10.1); Phosphorus 5.4 mg/dL (2.5-4.90)
[2022-12-18 07:42] LABS: Red Cell Distribution Width 21.9 % (11.8-14.3); White Blood Cell 38.1 10^3/uL (4.4-10.8)
[2022-12-18 07:43] LABS: Basophils % (manual) 0 (0.0-2.0); Blast Cells 0; Eosinophils % (manual) 0 (0-7); Promyelocytes % 0; Reactive Lymphocytes 0
[2022-12-18 08:00] VITALS: BP 149/75
[2022-12-18] MEDS ORDERED: BUMETANIDE 1 MG TAB PO ONE (08:45)
[2022-12-18] MEDS ORDERED: diphenhdrAMINE HCL 25 MG CAP PO ONE (10:00)
[2022-12-18] MEDS ORDERED: ACETAMINOPHEN 325 MG TAB PO ONE (10:00)
[2022-12-18] MEDS: FLORASTOR (S. BOULARDII) 250 MG CAP PO SCH (10:36)
[2022-12-18] MEDS: PANTOPRAZOLE 40 MG TAB PO SCH ×2 (10:36→21:59)
[2022-12-18] MEDS: levoFLOXacin 500 MG TAB PO SCH (10:37)
[2022-12-18] MEDS: LINEZOLID 600MG/300ML 300 ML IV SCH ×2 (10:37→21:59)
[2022-12-18] MEDS: SODIUM ZIRCONIUM CYCL 10 GM PAK PO SCH (10:37)
[2022-12-18] MEDS: FLUCONAZOLE 200MG/100ML 100 ML IV SCH (10:37)
[2022-12-18] MEDS ORDERED: SODIUM CHL 0.9% IV ONE ×2 (11:00→15:00)
[2022-12-18] MEDS ORDERED: RITUXIMAB IV ONE ×2 (11:00→15:00)
[2022-12-18 11:30] LABS: Band Neutrophils % (manual) 2; Lymphocytes % (manual) 17 (10.0-50.0); Metamyelocytes % 2; Monocytes % (manual) 4 (0-12); Myelocytes % 1
[2022-12-18 11:56] VITALS: BP 110/77
[2022-12-18] MEDS: methylPREDNISolone SOD SUCC 40 MG/ML VL IV SCH ×2 (14:14→21:59)
[2022-12-18 16:00] VITALS: BP 120/68
[2022-12-18] MEDS: HYDROmorphone HCL 2 MG/ML VL/or syr IV PRN (17:24)
[2022-12-18 21:15] LABS: Uric Acid 10.6 mg/dL (2.6-6.0)
[2022-12-18 22:00] VITALS: BP 99/51
[2022-12-18] MEDS: ALPRAZolam 0.5 MG TAB PO PRN (22:00)
[2022-12-19 01:53] VITALS: BP 99/51
[2022-12-19 05:00] VITALS: BP 134/69
[2022-12-19 08:11] LABS: Hemoglobin 10.1 g/dL (12.2-16.2); Mean Corpuscular Volume 71.9 fL (80.0-100.0)
[2022-12-19 08:15] LABS: Hematocrit 34.4 % (36.0-46.0); Mean Corpuscular Hemoglobin 21.2 pg (28.0-32.0); Mean Corpuscular Hgb Conc. 29.4 g/dL (32.0-36.0); Red Blood Cells 4.78 10^6/uL (4.0-5.20)
[2022-12-19 08:29] LABS: Red Cell Distribution Width 21.9 % (11.8-14.3)
[2022-12-19 08:30] LABS: White Blood Cell 41.6 10^3/uL (4.4-10.8)
[2022-12-19 08:31] LABS: Basophils % (manual) 0 (0.0-2.0); Blast Cells 0; Eosinophils % (manual) 0 (0-7); Myelocytes % 0; Promyelocytes % 0; Reactive Lymphocytes 0
[2022-12-19 08:43] LABS: Calcium 8.4 mg/dL (8.5-10.1); Potassium 4.9 mmol/L (3.5-5.1)
[2022-12-19 08:46] LABS: BUN/Creatinine Ratio 52.1
[2022-12-19 08:53] LABS: Band Neutrophils % (manual) 3; Lymphocytes % (manual) 1 (10.0-50.0); Metamyelocytes % 9; Monocytes % (manual) 4 (0-12)
[2022-12-19 09:00] VITALS: BP 105/69
[2022-12-19] MEDS: levoFLOXacin 500 MG TAB PO SCH (10:05)
[2022-12-19] MEDS: FLORASTOR (S. BOULARDII) 250 MG CAP PO SCH ×2 (10:06→10:54)
[2022-12-19] MEDS: methylPREDNISolone SOD SUCC 40 MG/ML VL IV SCH ×2 (10:06→21:41)
[2022-12-19] MEDS: FLUCONAZOLE 200MG/100ML 100 ML IV SCH (10:06)
[2022-12-19] MEDS: PANTOPRAZOLE 40 MG TAB PO SCH ×2 (10:06→21:43)
[2022-12-19] MEDS: LINEZOLID 600MG/300ML 300 ML IV SCH ×2 (10:06→21:43)
[2022-12-19] MEDS: HYDROcodone-ACET 10/325MG TAB PO PRN (10:55)
[2022-12-19 13:00] VITALS: BP 130/73
[2022-12-19] MEDS: HYDROmorphone HCL 2 MG/ML VL/or syr IV PRN ×2 (16:20→21:42)
[2022-12-19 16:32] VITALS: BP 145/73
[2022-12-19 22:00] VITALS: BP 143/85
[2022-12-20 05:00] VITALS: BP 157/76
[2022-12-20 09:00] VITALS: BP 139/92
[2022-12-20] MEDS: PANTOPRAZOLE 40 MG TAB PO SCH ×2 (10:06→22:29)
[2022-12-20] MEDS: HYDROcodone-ACET 10/325MG TAB PO PRN ×2 (10:06→22:30)
[2022-12-20] MEDS: methylPREDNISolone SOD SUCC 40 MG/ML VL IV SCH ×2 (10:06→22:29)
[2022-12-20] MEDS: FLORASTOR (S. BOULARDII) 250 MG CAP PO SCH (10:06)
[2022-12-20] MEDS: levoFLOXacin 500 MG TAB PO SCH (10:06)
[2022-12-20] MEDS: FLUCONAZOLE 200MG/100ML 100 ML IV SCH (10:07)
[2022-12-20] MEDS: LINEZOLID 600MG/300ML 300 ML IV SCH ×2 (10:07→22:29)
[2022-12-20 11:24] LABS: Mean Corpuscular Hemoglobin 22.2 pg (28.0-32.0); Red Blood Cells 4.49 10^6/uL (4.0-5.20)
[2022-12-20 11:26] LABS: Hematocrit 32.2 % (36.0-46.0); Mean Corpuscular Hgb Conc. 30.9 g/dL (32.0-36.0); Mean Corpuscular Volume 71.8 fL (80.0-100.0)
[2022-12-20 11:31] LABS: BUN/Creatinine Ratio 50.5; Calcium 8.7 mg/dL (8.5-10.1)
[2022-12-20 11:48] LABS: Red Cell Distribution Width 21.9 % (11.8-14.3)
[2022-12-20 11:51] LABS: White Blood Cell 31.4 10^3/uL (4.4-10.8)
[2022-12-20 11:54] LABS: Basophils % (manual) 0 (0.0-2.0); Blast Cells 0; Eosinophils % (manual) 0 (0-7); Metamyelocytes % 0; Promyelocytes % 0; Reactive Lymphocytes 0
[2022-12-20 13:00] VITALS: BP 127/75
[2022-12-20] MEDS ORDERED: BUMETANIDE 1 MG TAB PO ONE (13:00)
[2022-12-20 13:29] LABS: Band Neutrophils % (manual) 7; Lymphocytes % (manual) 3 (10.0-50.0); Monocytes % (manual) 10 (0-12); Myelocytes % 4
[2022-12-20] MEDS: HYDROmorphone HCL 2 MG/ML VL/or syr IV PRN (16:59)
[2022-12-20 17:00] VITALS: BP 128/76
[2022-12-20 22:46] VITALS: BP 120/68
[2022-12-21] MEDS: HYDROmorphone HCL 2 MG/ML VL/or syr IV PRN ×3 (04:07→22:04)
[2022-12-21 04:38] VITALS: BP 138/74
[2022-12-21 08:37] LABS: Mean Corpuscular Hemoglobin 21.3 pg (28.0-32.0)
[2022-12-21 08:38] LABS: Hematocrit 34.3 % (36.0-46.0); Hemoglobin 10.1 g/dL (12.2-16.2); Mean Corpuscular Hgb Conc. 29.5 g/dL (32.0-36.0); Mean Corpuscular Volume 72.1 fL (80.0-100.0); Red Blood Cells 4.77 10^6/uL (4.0-5.20)
[2022-12-21 08:42] LABS: Red Cell Distribution Width 21.8 % (11.8-14.3)
[2022-12-21 08:44] LABS: White Blood Cell 30.5 10^3/uL (4.4-10.8)
[2022-12-21 08:48] LABS: Basophils % (manual) 0 (0.0-2.0); Blast Cells 0; Eosinophils % (manual) 0 (0-7); Promyelocytes % 0; Reactive Lymphocytes 0
[2022-12-21 08:57] LABS: BUN/Creatinine Ratio 53.7; Calcium 8.2 mg/dL (8.5-10.1); Potassium 5.4 mmol/L (3.5-5.1)
[2022-12-21] MEDS: methylPREDNISolone SOD SUCC 40 MG/ML VL IV SCH ×2 (09:12→22:02)
[2022-12-21] MEDS: LINEZOLID 600MG/300ML 300 ML IV SCH ×2 (09:12→22:04)
[2022-12-21] MEDS: FLUCONAZOLE 200MG/100ML 100 ML IV SCH (09:12)
[2022-12-21] MEDS: PANTOPRAZOLE 40 MG TAB PO SCH ×2 (09:13→22:04)
[2022-12-21] MEDS: FLORASTOR (S. BOULARDII) 250 MG CAP PO SCH (09:13)
[2022-12-21] MEDS: levoFLOXacin 500 MG TAB PO SCH (09:13)
[2022-12-21 09:15] VITALS: BP 133/64
[2022-12-21] MEDS: HYDROcodone-ACET 10/325MG TAB PO PRN (09:27)
[2022-12-21 09:32] LABS: Band Neutrophils % (manual) 5; Lymphocytes % (manual) 5 (10.0-50.0); Metamyelocytes % 3; Monocytes % (manual) 4 (0-12); Myelocytes % 2
[2022-12-21] MEDS: ACYCLOVIR 400 MG TAB PO SCH ×4 (11:55→22:00)
[2022-12-21] MEDS ORDERED: SODIUM ZIRCONIUM CYCL 10 GM PAK PO ONE (12:00)
[2022-12-21 13:05] VITALS: BP 127/71
[2022-12-21 17:10] VITALS: BP 118/63
[2022-12-21 20:00] VITALS: BP 118/63
[2022-12-21 22:00] VITALS: BP 129/77
[2022-12-22 05:00] VITALS: BP 149/76
[2022-12-22 05:05] LABS: Hematocrit 31.8 % (36.0-46.0); Hemoglobin 9.8 g/dL (12.2-16.2)
[2022-12-22 05:10] LABS: Mean Corpuscular Hgb Conc. 30.6 g/dL (32.0-36.0); Mean Corpuscular Volume 71.7 fL (80.0-100.0); Red Blood Cells 4.44 10^6/uL (4.0-5.20); White Blood Cell 23.3 10^3/uL (4.4-10.8)
[2022-12-22 05:19] LABS: INR 1.13 (0.9-1.15)
[2022-12-22 05:27] LABS: BUN/Creatinine Ratio 48.6; Calcium 8.4 mg/dL (8.5-10.1); Potassium 5.4 mmol/L (3.5-5.1)
[2022-12-22] MEDS: ACYCLOVIR 400 MG TAB PO SCH ×2 (06:00→07:53)
[2022-12-22 06:03] LABS: Basophils % (manual) 0 (0.0-2.0); Blast Cells 0; Eosinophils % (manual) 0 (0-7); Metamyelocytes % 0; Myelocytes % 0; Promyelocytes % 0; Reactive Lymphocytes 0
[2022-12-22 06:59] LABS: Band Neutrophils % (manual) 1; Lymphocytes % (manual) 10 (10.0-50.0); Monocytes % (manual) 1 (0-12)
[2022-12-22] MEDS ORDERED: SODIUM ZIRCONIUM CYCL 10 GM PAK PO ONE ×2 (07:00→08:15)
[2022-12-22] MEDS: methylPREDNISolone SOD SUCC 40 MG/ML VL IV SCH ×2 (07:52→22:39)
[2022-12-22] MEDS: FLORASTOR (S. BOULARDII) 250 MG CAP PO SCH (07:52)
[2022-12-22] MEDS: levoFLOXacin 500 MG TAB PO SCH (07:52)
[2022-12-22] MEDS: PANTOPRAZOLE 40 MG TAB PO SCH ×2 (07:52→22:41)
[2022-12-22] MEDS: HYDROmorphone HCL 2 MG/ML VL/or syr IV PRN ×3 (07:52→22:35)
[2022-12-22] MEDS: FLUCONAZOLE 200MG/100ML 100 ML IV SCH (07:53)
[2022-12-22] MEDS: LINEZOLID 600MG/300ML 300 ML IV SCH ×2 (07:53→22:39)
[2022-12-22 09:00] VITALS: BP 143/87
[2022-12-22] MEDS ORDERED: FUROSEMIDE 20 MG TAB PO SCH (10:00)
[2022-12-22] MEDS: BUMETANIDE 1 MG TAB PO SCH (12:10)
[2022-12-22] MEDS: NYSTATIN (MOUTH-THROAT) 500,000 UNITS/5 ML SUSP MT SCH ×3 (12:10→22:40)
[2022-12-22] MEDS: HYDROcodone-ACET 10/325MG TAB PO PRN (12:11)
[2022-12-22 12:43] VITALS: BP 144/87
[2022-12-22 17:02] VITALS: BP 136/80
[2022-12-22 22:00] VITALS: BP 148/85
[2022-12-23 05:00] VITALS: BP 152/84
[2022-12-23] MEDS: HYDROmorphone HCL 2 MG/ML VL/or syr IV PRN ×4 (05:33→22:39)
[2022-12-23] MEDS: NYSTATIN (MOUTH-THROAT) 500,000 UNITS/5 ML SUSP MT SCH ×4 (05:33→22:38)
[2022-12-23 08:00] VITALS: BP 146/93
[2022-12-23] MEDS: PANTOPRAZOLE 40 MG TAB PO SCH ×2 (09:16→22:38)
[2022-12-23] MEDS: levoFLOXacin 500 MG TAB PO SCH (09:16)
[2022-12-23] MEDS: methylPREDNISolone SOD SUCC 40 MG/ML VL IV SCH (09:16)
[2022-12-23] MEDS: LINEZOLID 600MG/300ML 300 ML IV SCH (09:17)
[2022-12-23] MEDS: FLUCONAZOLE 200MG/100ML 100 ML IV SCH (09:17)
[2022-12-23] MEDS: FLORASTOR (S. BOULARDII) 250 MG CAP PO SCH (09:17)
[2022-12-23] MEDS: BUMETANIDE 1 MG TAB PO SCH (09:17)
[2022-12-23] MEDS: HYDROcodone-ACET 10/325MG TAB PO PRN ×2 (09:18→20:05)
[2022-12-23 11:55] VITALS: BP 151/83
[2022-12-23 16:00] VITALS: BP 152/69
[2022-12-23 22:00] VITALS: BP 165/96
[2022-12-23] MEDS: LINEZOLID 600MG TABLET PO SCH (22:38)
[2022-12-24 00:23] VITALS: BP 135/69
[2022-12-24] MEDS: ALPRAZolam 0.5 MG TAB PO PRN (03:03)
[2022-12-24 05:00] VITALS: BP 152/89
[2022-12-24 05:38] LABS: Hemoglobin 9.7 g/dL (12.2-16.2)
[2022-12-24 05:41] LABS: Hematocrit 31.7 % (36.0-46.0); Mean Corpuscular Hemoglobin 21.8 pg (28.0-32.0); Mean Corpuscular Hgb Conc. 30.6 g/dL (32.0-36.0); Mean Corpuscular Volume 71.2 fL (80.0-100.0); Red Blood Cells 4.46 10^6/uL (4.0-5.20); White Blood Cell 16.4 10^3/uL (4.4-10.8)
[2022-12-24] MEDS: NYSTATIN (MOUTH-THROAT) 500,000 UNITS/5 ML SUSP MT SCH ×4 (05:48→21:02)
[2022-12-24 05:49] LABS: Red Cell Distribution Width 21.4 % (11.8-14.3)
[2022-12-24 05:50] LABS: Basophils % (manual) 0 (0.0-2.0); Blast Cells 0; Calcium 8.4 mg/dL (8.5-10.1); Eosinophils % (manual) 0 (0-7); Myelocytes % 0; Potassium 4.5 mmol/L (3.5-5.1); Promyelocytes % 0
[2022-12-24] MEDS: HYDROmorphone HCL 2 MG/ML VL/or syr IV PRN ×4 (05:50→22:43)
[2022-12-24 05:55] LABS: BUN/Creatinine Ratio 43.5; Bilirubin, Total 0.4 mg/dL (0.2-1.0); Total Protein 5.4 g/dL (6.4-8.2); Uric Acid 8.7 mg/dL (2.6-6.0)
[2022-12-24 07:57] LABS: Band Neutrophils % (manual) 5; Lymphocytes % (manual) 3 (10.0-50.0); Metamyelocytes % 2; Monocytes % (manual) 5 (0-12); Reactive Lymphocytes 1
[2022-12-24 08:00] VITALS: BP 158/85
[2022-12-24] MEDS: FLUCONAZOLE 100 MG TAB PO SCH (09:31)
[2022-12-24] MEDS: levoFLOXacin 500 MG TAB PO SCH (09:31)
[2022-12-24] MEDS: predniSONE 20 MG TAB PO SCH (09:31)
[2022-12-24] MEDS: FLORASTOR (S. BOULARDII) 250 MG CAP PO SCH (09:31)
[2022-12-24] MEDS: PANTOPRAZOLE 40 MG TAB PO SCH ×2 (09:31→21:02)
[2022-12-24] MEDS: BUMETANIDE 1 MG TAB PO SCH (09:32)
[2022-12-24] MEDS: LINEZOLID 600MG TABLET PO SCH ×2 (09:32→21:02)
[2022-12-24] MEDS ORDERED: amLODIPine BESYLATE 5 MG TAB PO ONE (10:45)
[2022-12-24 12:00] VITALS: BP 149/96
[2022-12-24] MEDS ORDERED: RITUXIMAB IV ONE (13:45)
[2022-12-24 16:00] VITALS: BP 149/100
[2022-12-24] MEDS: HYDROcodone-ACET 10/325MG TAB PO PRN (17:44)
[2022-12-24 22:00] VITALS: BP 139/78
[2022-12-25] MEDS: HYDROcodone-ACET 10/325MG TAB PO PRN ×2 (03:39→11:32)
[2022-12-25 05:00] VITALS: BP 125/80
[2022-12-25] MEDS: NYSTATIN (MOUTH-THROAT) 500,000 UNITS/5 ML SUSP MT SCH ×2 (06:36→11:32)
[2022-12-25 07:02] LABS: Anion Gap 8 (5-15); Blood Urea Nitrogen 27 mg/dL (7-18); Carbon Dioxide 27 mmol/L (21-32); Chloride 106 mmol/L (98-107); GFR African American 135 mL/min; GFR Non-African American 112 mL/min; Glucose 94 mg/dL (74-106); Potassium 4.5 mmol/L (3.5-5.1); Sodium 141 mmol/L (136-145)
[2022-12-25 07:06] LABS: Eosinophils # (auto) 0 10 ^3/uL (0-0.8); Eosinophils % (auto) 0.1 % (0.0-7.0); Hemoglobin 9.6 g/dL (12.2-16.2); Lymphocytes # (auto) 0.7 10 ^3/uL (0.4-5.4); Lymphocytes % (auto) 6.5 % (10.0-50.0)
[2022-12-25 07:12] LABS: Basophils # (auto) 0.1 10 ^3/uL (0-0.2); Basophils % (auto) 0.9 % (0.0-2.0); Hematocrit 30.8 % (36.0-46.0); Mean Corpuscular Hemoglobin 22.9 pg (28.0-32.0); Mean Corpuscular Hgb Conc. 31.2 g/dL (32.0-36.0); Mean Corpuscular Volume 73.4 fL (80.0-100.0); Monocytes # (auto) 0.8 10 ^3/uL (0-1.3); Monocytes % (auto) 7.7 % (0.0-12.0); Neutrophils # (auto) 9.2 10 ^3/uL (1.6-8.6); Neutrophils % (auto) 84.8 % (37.0-80.0); Nucleated Red Blood Cells % 0.2 %; Red Blood Cells 4.19 10^6/uL (4.0-5.20); White Blood Cell 10.9 10^3/uL (4.4-10.8)
[2022-12-25 07:20] LABS: Red Cell Distribution Width 21.9 % (11.8-14.3)
[2022-12-25 08:00] VITALS: BP 155/81
[2022-12-25] MEDS: levoFLOXacin 500 MG TAB PO SCH (08:53)
[2022-12-25] MEDS: PANTOPRAZOLE 40 MG TAB PO SCH (08:53)
[2022-12-25] MEDS: FLORASTOR (S. BOULARDII) 250 MG CAP PO SCH (08:54)
[2022-12-25] MEDS: predniSONE 20 MG TAB PO SCH (08:54)
[2022-12-25] MEDS: BUMETANIDE 1 MG TAB PO SCH (08:54)
[2022-12-25] MEDS: LINEZOLID 600MG TABLET PO SCH (08:55)
[2022-12-25] MEDS: FLUCONAZOLE 100 MG TAB PO SCH (08:55)
[2022-12-25] MEDS ORDERED: amLODIPine BESYLATE 5 MG TAB PO SCH (10:00)
[2022-12-25] MEDS ORDERED: BUM1T PO (10:27)
[2022-12-25] MEDS ORDERED: POTA10TA32 PO (10:27)
[2022-12-25] MEDS ORDERED: PANT40TA2 PO (10:27)
[2022-12-25] MEDS ORDERED: AML5T PO (10:27)
[2022-12-25] MEDS ORDERED: HYDR-4072 PO (10:27)
[2022-12-25] MEDS ORDERED: LINE1TAB6 PO (10:27)
[2022-12-25] MEDS ORDERED: FLUC100T34 PO (10:27)
[2022-12-25] MEDS ORDERED: PRED20TA2 PO (10:27)
[2022-12-25 10:40] VITALS: BP 155/81
[2022-12-25] MEDS ORDERED: amLODIPine BESYLATE 5 MG TAB PO ONE (11:00)
[2022-12-25 11:51] VITALS: BP 154/84
== END 2022-12-25 14:30 | disposition home or self-care (01) | DRG 871 ==
LOC: ER 10:17 → EEVIPCON 10:17 → OVERFLOW 13:02 → CENTRAL 21:15 → TELE-CENTR 12-12 11:49
PROVIDERS: ADMIT Nurse Practitioner Family; ATTEND Internal Medicine
PROC: 05HB33Z Insertion of Infusion Device into Right Basilic Vein, Percutaneous Approach (ICD-10-PCS; 2022-12-03)
PROC: 5A09357 Assistance with Respiratory Ventilation, Less than 24 Consecutive Hours, Continuous Positive Airway Pressure (ICD-10-PCS; principal; 2022-12-13)
PROC: 05HC33Z Insertion of Infusion Device into Left Basilic Vein, Percutaneous Approach (ICD-10-PCS; 2022-12-19)
DX: A41.9 Sepsis, unspecified organism (principal); I50.31 Acute diastolic (congestive) heart failure; J18.9 Pneumonia, unspecified organism; K85.90 Acute pancreatitis without necrosis or infection, unspecified; N17.0 Acute kidney failure with tubular necrosis; D47.Z2 Castleman disease; J90 Pleural effusion, not elsewhere classified; I13.0 Hypertensive heart and chronic kidney disease with heart failure and stage 1 through stage 4 chronic kidney disease, or unspecified chronic kidney disease; Z68.41 Body mass index [BMI] 40.0-44.9, adult; E66.01 Morbid (severe) obesity due to excess calories; F41.9 Anxiety disorder, unspecified; Z20.822 Contact with and (suspected) exposure to COVID-19; N18.9 Chronic kidney disease, unspecified; B95.2 Enterococcus as the cause of diseases classified elsewhere; D69.6 Thrombocytopenia, unspecified; E87.5 Hyperkalemia; K57.10 Diverticulosis of small intestine without perforation or abscess without bleeding; K81.9 Cholecystitis, unspecified; K46.9 Unspecified abdominal hernia without obstruction or gangrene; N30.90 Cystitis, unspecified without hematuria; R16.2 Hepatomegaly with splenomegaly, not elsewhere classified; D64.9 Anemia, unspecified; M13.0 Polyarthritis, unspecified; R80.9 Proteinuria, unspecified; I95.9 Hypotension, unspecified; B00.9 Herpesviral infection, unspecified; E87.70 Fluid overload, unspecified; Z82.49 Family history of ischemic heart disease and other diseases of the circulatory system; Z88.0 Allergy status to penicillin; Z82.5 Family history of asthma and other chronic lower respiratory diseases; Z79.899 Other long term (current) drug therapy; Z88.5 Allergy status to narcotic agent
CPT/HCPCS: 36415; 71045; 71046; 74177; 76700; 78226; 80048; 80053; 80061; 81001; 82570; 83036; 83516; 83520; 83690; 83880; 84100; 84156; 84300; 84443; 84484; 84550; 85007; 85025; 85027; 85610; 85652; 85730; 86141; 86225; 86235; 86256; 87040; 87070; 87086; 87088; 87186; 87205; 87426; 87804; 93306; 94640; C9113; G0378; J0696; J1450; J1885; J1956; J2405; J3490; J9312

== ENCOUNTER → 2022-12-31 | Outpatient (CLI) | payer BC, MEDICARE ==
[~2022-12-31] MED LIST changes: +ALPR0.5T7 PO; +AML5T PO; +BUM1T PO; +FLUC100T34 PO; +HYDR-4072 PO; +HYDR-4611; +LINE1TAB6 PO; +POTA10TA32 PO; +PRE1T PO; +PRED20TA2 PO
[2022-12-31 16:30] LABS: Basophils # (auto) 0.1 10 ^3/uL (0-0.2); Eosinophils # (auto) 0 10 ^3/uL (0-0.8); Hemoglobin 9.6 g/dL (12.2-16.2); Lymphocytes # (auto) 0.7 10 ^3/uL (0.4-5.4)
[2022-12-31 16:32] LABS: Basophils % (auto) 0.8 % (0.0-2.0); Hematocrit 30.5 % (36.0-46.0); Lymphocytes % (auto) 8.3 % (10.0-50.0); Mean Corpuscular Hemoglobin 22.9 pg (28.0-32.0); Mean Corpuscular Hgb Conc. 31.6 g/dL (32.0-36.0); Mean Corpuscular Volume 72.4 fL (80.0-100.0); Monocytes # (auto) 0.5 10 ^3/uL (0-1.3); Monocytes % (auto) 5.6 % (0.0-12.0); Neutrophils # (auto) 7.1 10 ^3/uL (1.6-8.6); Neutrophils % (auto) 85.3 % (37.0-80.0); Nucleated Red Blood Cells % 0.1 %; Red Blood Cells 4.21 10^6/uL (4.0-5.20); White Blood Cell 8.4 10^3/uL (4.4-10.8)
[2022-12-31 16:33] LABS: Red Cell Distribution Width 22.7 % (11.8-14.3)
[2022-12-31 17:19] LABS: Albumin 2.7 g/dL (3.4-5.0); Calcium 8.3 mg/dL (8.5-10.1); Potassium 3.8 mmol/L (3.5-5.1)
[2022-12-31 17:22] LABS: BUN/Creatinine Ratio 20.8; Bilirubin, Total 0.4 mg/dL (0.2-1.0); Total Protein 6.2 g/dL (6.4-8.2)
== END | disposition home or self-care (01) ==
LOC: LAB 15:28
PROVIDERS: ATTEND Internal Medicine
DX: D47.Z2 Castleman disease (principal); Z88.8 Allergy status to other drugs, medicaments and biological substances
CPT/HCPCS: 36415; 80053; 82306; 83615; 83735; 85025

== ENCOUNTER → 2023-01-10 | Outpatient (CLI) | payer BC, MEDICARE ==
[2023-01-10 11:34] LABS: Basophils # (auto) 0.1 10 ^3/uL (0-0.2); Eosinophils # (auto) 0 10 ^3/uL (0-0.8); Eosinophils % (auto) 0.4 % (0.0-7.0); Hemoglobin 10.7 g/dL (12.2-16.2); Lymphocytes # (auto) 1.7 10 ^3/uL (0.4-5.4); Monocytes # (auto) 0.7 10 ^3/uL (0-1.3); Neutrophils % (auto) 63.8 % (37.0-80.0); Nucleated Red Blood Cells % 0.4 %
[2023-01-10 11:37] LABS: Basophils % (auto) 0.9 % (0.0-2.0); Hematocrit 34.5 % (36.0-46.0); Lymphocytes % (auto) 24.6 % (10.0-50.0); Mean Corpuscular Hemoglobin 22.7 pg (28.0-32.0); Mean Corpuscular Volume 73.1 fL (80.0-100.0); Monocytes % (auto) 10.3 % (0.0-12.0); Neutrophils # (auto) 4.5 10 ^3/uL (1.6-8.6); Red Blood Cells 4.73 10^6/uL (4.0-5.20)
[2023-01-10 12:10] LABS: Red Cell Distribution Width 22.1 % (11.8-14.3)
[2023-01-10 13:35] LABS: Calcium 8.7 mg/dL (8.5-10.1); Magnesium 2.1 mg/dL (1.6-2.6); Potassium 3.6 mmol/L (3.5-5.1)
[2023-01-10 13:37] LABS: BUN/Creatinine Ratio 15.9
[2023-01-10 13:40] LABS: Bilirubin, Total 0.4 mg/dL (0.2-1.0); Total Protein 6.5 g/dL (6.4-8.2)
== END | disposition home or self-care (01) ==
LOC: LAB 11:06
PROVIDERS: ATTEND Internal Medicine
DX: D47.Z2 Castleman disease (principal)
CPT/HCPCS: 36415; 80053; 82306; 83615; 83735; 85025

== ENCOUNTER → 2023-01-17 | Outpatient (CLI) | payer BC ==
[2023-01-17 14:44] LABS: Hemoglobin 11.6 g/dL (12.2-16.2)
[2023-01-17 14:45] LABS: Hematocrit 37.4 % (36.0-46.0); Mean Corpuscular Hemoglobin 22.8 pg (28.0-32.0); Mean Corpuscular Hgb Conc. 30.9 g/dL (32.0-36.0); Mean Corpuscular Volume 73.6 fL (80.0-100.0); Red Blood Cells 5.08 10^6/uL (4.0-5.20); White Blood Cell 11.7 10^3/uL (4.4-10.8)
[2023-01-17 14:48] LABS: Red Cell Distribution Width 21.8 % (11.8-14.3)
[2023-01-17 14:49] LABS: Basophils % (manual) 0 (0.0-2.0); Blast Cells 0; Eosinophils % (manual) 0 (0-7); Metamyelocytes % 0; Myelocytes % 0; Promyelocytes % 0; Reactive Lymphocytes 0
[2023-01-17 15:20] LABS: Band Neutrophils % (manual) 6; Lymphocytes % (manual) 30 (10.0-50.0); Monocytes % (manual) 8 (0-12)
[2023-01-17 15:24] LABS: Albumin 3.7 g/dL (3.4-5.0); Calcium 9.2 mg/dL (8.5-10.1); Magnesium 2.2 mg/dL (1.6-2.6)
[2023-01-17 15:28] LABS: BUN/Creatinine Ratio 19.4; Bilirubin, Total 0.4 mg/dL (0.2-1.0); Total Protein 7.4 g/dL (6.4-8.2)
== END | disposition home or self-care (01) ==
LOC: LAB 14:21
PROVIDERS: ATTEND Internal Medicine
DX: D47.Z2 Castleman disease (principal); Z88.8 Allergy status to other drugs, medicaments and biological substances
CPT/HCPCS: 36415; 80053; 82306; 83615; 83735; 85007; 85027

== ENCOUNTER → 2023-01-24 | Outpatient (CLI) | payer BC ==
[2023-01-24 16:45] LABS: Basophils # (auto) 0.1 10 ^3/uL (0-0.2); Eosinophils # (auto) 0.1 10 ^3/uL (0-0.8); Lymphocytes # (auto) 3.4 10 ^3/uL (0.4-5.4)
[2023-01-24 16:48] LABS: Basophils % (auto) 0.7 % (0.0-2.0); Eosinophils % (auto) 0.5 % (0.0-7.0); Hematocrit 37.6 % (36.0-46.0); Lymphocytes % (auto) 30.2 % (10.0-50.0); Mean Corpuscular Hemoglobin 23.7 pg (28.0-32.0); Mean Corpuscular Hgb Conc. 31.9 g/dL (32.0-36.0); Mean Corpuscular Volume 74.1 fL (80.0-100.0); Monocytes # (auto) 0.9 10 ^3/uL (0-1.3); Monocytes % (auto) 8.2 % (0.0-12.0); Neutrophils # (auto) 6.7 10 ^3/uL (1.6-8.6); Neutrophils % (auto) 60.4 % (37.0-80.0); Nucleated Red Blood Cells % 0.1 %; Red Blood Cells 5.07 10^6/uL (4.0-5.20); White Blood Cell 11.1 10^3/uL (4.4-10.8)
[2023-01-24 16:51] LABS: Albumin 4.1 g/dL (3.4-5.0); Calcium 8.8 mg/dL (8.5-10.1); Magnesium 2.3 mg/dL (1.6-2.6); Potassium 3.7 mmol/L (3.5-5.1)
[2023-01-24 16:54] LABS: Red Cell Distribution Width 21.7 % (11.8-14.3)
[2023-01-24 16:55] LABS: BUN/Creatinine Ratio 21.5; Bilirubin, Total 0.4 mg/dL (0.2-1.0); Total Protein 7.3 g/dL (6.4-8.2)
== END | disposition home or self-care (01) ==
LOC: LAB 16:23
PROVIDERS: ATTEND Internal Medicine
DX: D47.Z2 Castleman disease (principal); Z88.8 Allergy status to other drugs, medicaments and biological substances
CPT/HCPCS: 36415; 80053; 82306; 83615; 83735; 85025

== ENCOUNTER → 2023-02-03 | Outpatient (CLI) | payer BC ==
[2023-02-03 11:32] LABS: Basophils # (auto) 0.1 10 ^3/uL (0-0.2); Eosinophils # (auto) 0.1 10 ^3/uL (0-0.8); Eosinophils % (auto) 0.9 % (0.0-7.0); Hemoglobin 12.5 g/dL (12.2-16.2); Lymphocytes # (auto) 2.2 10 ^3/uL (0.4-5.4); Lymphocytes % (auto) 20.3 % (10.0-50.0); Mean Corpuscular Hemoglobin 23.4 pg (28.0-32.0); Mean Corpuscular Hgb Conc. 31.3 g/dL (32.0-36.0); Mean Corpuscular Volume 74.8 fL (80.0-100.0); Monocytes # (auto) 0.9 10 ^3/uL (0-1.3); Monocytes % (auto) 8.2 % (0.0-12.0); Neutrophils # (auto) 7.7 10 ^3/uL (1.6-8.6); Neutrophils % (auto) 69.6 % (37.0-80.0); Nucleated Red Blood Cells % 0.1 %; Red Blood Cells 5.35 10^6/uL (4.0-5.20)
[2023-02-03 11:34] LABS: Red Cell Distribution Width 20.9 % (11.8-14.3)
[2023-02-03 11:59] LABS: Potassium 3.3 mmol/L (3.5-5.1)
[2023-02-03 12:07] LABS: Albumin 3.6 g/dL (3.4-5.0); BUN/Creatinine Ratio 22.1; Bilirubin, Total 0.4 mg/dL (0.2-1.0); Calcium 9.3 mg/dL (8.5-10.1); Total Protein 7.1 g/dL (6.4-8.2)
== END | disposition home or self-care (01) ==
LOC: LAB 11:00
PROVIDERS: ATTEND Internal Medicine
DX: D47.Z2 Castleman disease (principal); N39.0 Urinary tract infection, site not specified
CPT/HCPCS: 36415; 80053; 82306; 83615; 83735; 85025; 87086

== ENCOUNTER → 2023-04-08 | Outpatient (CLI) | payer BC ==
[2023-04-08 16:10] LABS: Eosinophils # (auto) 0.2 10 ^3/uL (0-0.8); Lymphocytes # (auto) 2.2 10 ^3/uL (0.4-5.4); Neutrophils # (auto) 3.9 10 ^3/uL (1.6-8.6); White Blood Cell 7.1 10^3/uL (4.4-10.8)
[2023-04-08 16:11] LABS: Basophils # (auto) 0 10 ^3/uL (0-0.2); Basophils % (auto) 0.7 % (0.0-2.0); Eosinophils % (auto) 3.4 % (0.0-7.0); Hemoglobin 13.4 g/dL (12.2-16.2); Mean Corpuscular Hemoglobin 23.9 pg (28.0-32.0); Mean Corpuscular Hgb Conc. 31.8 g/dL (32.0-36.0); Monocytes # (auto) 0.8 10 ^3/uL (0-1.3); Monocytes % (auto) 10.7 % (0.0-12.0); Neutrophils % (auto) 54.2 % (37.0-80.0); Nucleated Red Blood Cells % 0.2 %; Red Blood Cells 5.59 10^6/uL (4.0-5.20)
[2023-04-08 16:37] LABS: Albumin 4.1 g/dL (3.4-5.0); Calcium 9.6 mg/dL (8.5-10.1); Magnesium 2.4 mg/dL (1.6-2.6); Potassium 3.8 mmol/L (3.5-5.1)
[2023-04-08 16:41] LABS: BUN/Creatinine Ratio 20.3 (10.0-20.0); Bilirubin, Total 0.4 mg/dL (0.2-1.0); Total Protein 7.1 g/dL (6.4-8.2)
== END | disposition home or self-care (01) ==
LOC: LAB 15:55
PROVIDERS: ATTEND Internal Medicine
DX: D47.Z2 Castleman disease (principal); Z88.8 Allergy status to other drugs, medicaments and biological substances
CPT/HCPCS: 36415; 80053; 82306; 82728; 83540; 83615; 83735; 85025

== ENCOUNTER → 2023-06-05 | Outpatient (CLI) | payer BC ==
[~2023-06-05] MED LIST changes: +OMEG-20 PO; -OMEG100078 PO; +POTA-228 PO; -POTA10TA32 PO
[2023-06-05 09:02] LABS: Basophils # (auto) 0.1 10 ^3/uL (0-0.2); Eosinophils # (auto) 0.3 10 ^3/uL (0-0.8); Hemoglobin 12.3 g/dL (12.2-16.2); Neutrophils # (auto) 3.5 10 ^3/uL (1.6-8.6); Nucleated Red Blood Cells % 0.2 %
[2023-06-05 09:06] LABS: Basophils % (auto) 0.9 % (0.0-2.0); Eosinophils % (auto) 4.5 % (0.0-7.0); Hematocrit 38.3 % (36.0-46.0); Lymphocytes # (auto) 1.6 10 ^3/uL (0.4-5.4); Lymphocytes % (auto) 24.8 % (10.0-50.0); Mean Corpuscular Hemoglobin 23.7 pg (28.0-32.0); Mean Corpuscular Hgb Conc. 32.2 g/dL (32.0-36.0); Mean Corpuscular Volume 73.5 fL (80.0-100.0); Monocytes % (auto) 15.5 % (0.0-12.0); Neutrophils % (auto) 54.3 % (37.0-80.0); Red Blood Cells 5.22 10^6/uL (4.0-5.20); Red Cell Distribution Width 16.3 % (11.8-14.3); White Blood Cell 6.5 10^3/uL (4.4-10.8)
[2023-06-05 09:31] LABS: Calcium 9.1 mg/dL (8.5-10.1); Potassium 3.6 mmol/L (3.5-5.1)
[2023-06-05 09:38] LABS: Albumin 3.6 g/dL (3.4-5.0); BUN/Creatinine Ratio 19.7 (10.0-20.0); Bilirubin, Total 0.7 mg/dL (0.2-1.0); Total Protein 6.9 g/dL (6.4-8.2)
== END | disposition home or self-care (01) ==
LOC: LAB 08:08
PROVIDERS: ATTEND Internal Medicine
DX: D47.Z2 Castleman disease (principal)
CPT/HCPCS: 36415; 80053; 83615; 85025

== ENCOUNTER → 2023-10-29 | Outpatient (CLI) | payer BC ==
[~2023-10-29] MED LIST changes: +AMLO1TAB22 PO; +ASPI-543 PO; +HYDR25TA5 PO
[2023-10-29 09:48] LABS: Hematocrit 35.2 % (36.0-46.0); Hemoglobin 11.7 g/dL (12.2-16.2); Mean Corpuscular Hgb Conc. 33.1 g/dL (32.0-36.0); Mean Corpuscular Volume 75.4 fL (80.0-100.0); Red Blood Cells 4.68 10^6/uL (4.0-5.20); White Blood Cell 8.9 10^3/uL (4.4-10.8)
[2023-10-29 09:50] LABS: Red Cell Distribution Width 21.2 % (11.8-14.3)
[2023-10-29 09:51] LABS: Band Neutrophils % (manual) 0; Basophils % (manual) 0 (0.0-2.0); Blast Cells 0; Myelocytes % 0; Promyelocytes % 0; Reactive Lymphocytes 0
[2023-10-29 10:19] LABS: Albumin 4.6 g/dL (3.2-4.8); Alkaline Phosphatase 114 U/L (46-116); Anion Gap 8 (5-15); BUN/Creatinine Ratio 11.5 (10.0-20.0); Blood Urea Nitrogen 9 mg/dL (9-23); Calcium 9.7 mg/dL (8.5-10.1); Carbon Dioxide 28 mmol/L (20-30); Chloride 102 mmol/L (98-107); Glucose 94 mg/dL (74-106); Sodium 138 mmol/L (136-145)
[2023-10-29 10:20] LABS: Bilirubin, Total 0.6 mg/dL (0.2-1.0); Total Protein 6.5 g/dL (5.7-8.2)
[2023-10-29 10:50] LABS: Anisocytosis Slight; Eosinophils % (manual) 2 (0-7); Lymphocytes % (manual) 22 (10.0-50.0); Metamyelocytes % 1; Monocytes % (manual) 12 (0-12); Platelet Estimate Adequate
[2023-10-29 12:12] LABS: Alanine Aminotransferase 35 U/L (7-40); Aspartate Aminotransferase 36 U/L (13-40)
== END | disposition home or self-care (01) ==
LOC: LAB 09:31
PROVIDERS: ATTEND Internal Medicine
DX: D47.Z2 Castleman disease (principal)
CPT/HCPCS: 36415; 80053; 83615; 85007; 85027

== ENCOUNTER → 2024-01-05 | Outpatient (CLI) | payer BC ==
[~2024-01-05] MED LIST changes: +B-COTAB19 OR
[2024-01-05 11:51] LABS: Eosinophils # (auto) 0.1 10 ^3/uL (0-0.8); Mean Corpuscular Hemoglobin 24.5 pg (28.0-32.0); Mean Corpuscular Hgb Conc. 31.9 g/dL (32.0-36.0); Monocytes # (auto) 0.8 10 ^3/uL (0-1.3); Neutrophils # (auto) 3.9 10 ^3/uL (1.6-8.6); Nucleated Red Blood Cells % 0.2 %; White Blood Cell 6.9 10^3/uL (4.4-10.8)
[2024-01-05 11:53] LABS: Basophils # (auto) 0 10 ^3/uL (0-0.2); Basophils % (auto) 0.5 % (0.0-2.0); Hematocrit 45.9 % (36.0-46.0); Hemoglobin 14.6 g/dL (12.2-16.2); Lymphocytes # (auto) 2.1 10 ^3/uL (0.4-5.4); Lymphocytes % (auto) 30.6 % (10.0-50.0); Monocytes % (auto) 11.6 % (0.0-12.0); Neutrophils % (auto) 56.3 % (37.0-80.0); Red Blood Cells 5.96 10^6/uL (4.0-5.20); Red Cell Distribution Width 16.5 % (11.8-14.3)
[2024-01-05 12:37] LABS: Alanine Aminotransferase 15 U/L (7-40); Alkaline Phosphatase 101 U/L (46-116); Anion Gap 8 (5-15); Blood Urea Nitrogen 7 mg/dL (9-23); Calcium 10.4 mg/dL (8.5-10.1); Carbon Dioxide 30 mmol/L (20-30); Chloride 103 mmol/L (98-107); Glucose 96 mg/dL (74-106); LDL Cholesterol 141 mg/dL (< 100); Potassium 3.5 mmol/L (3.5-5.1); Sodium 141 mmol/L (136-145); Triglycerides 133 mg/dL (< 150)
[2024-01-05 12:38] LABS: Albumin 5.1 g/dL (3.2-4.8); Aspartate Aminotransferase 22 U/L (13-40); Bilirubin, Total 0.6 mg/dL (0.2-1.0); Cholesterol 191 mg/dL (< 200); HDL Cholesterol 34 mg/dL (40-59); Total Protein 7.9 g/dL (5.7-8.2)
== END | disposition home or self-care (01) ==
LOC: LAB 10:53
PROVIDERS: ATTEND Internal Medicine
DX: D47.Z9 Other specified neoplasms of uncertain behavior of lymphoid, hematopoietic and related tissue (principal); M12.9 Arthropathy, unspecified; F41.9 Anxiety disorder, unspecified; R73.9 Hyperglycemia, unspecified; I10 Essential (primary) hypertension; D47.Z2 Castleman disease
CPT/HCPCS: 36415; 80053; 80061; 83036; 84443; 85025

== ENCOUNTER 2024-01-07 10:41 | Day surgery (SDC) | payer MEDICARE, BC ==
[2024-01-05 12:02] LABS: INR 0.99 (0.9-1.15); Prothrombin Time 10.4 sec (9.3-11.8)
[2024-01-05 12:09] LABS: Basophils # (auto) 0 10 ^3/uL (0-0.2); Basophils % (auto) 0.6 % (0.0-2.0); Eosinophils # (auto) 0.1 10 ^3/uL (0-0.8); Hematocrit 45.7 % (36.0-46.0); Mean Corpuscular Volume 76.9 fL (80.0-100.0); Monocytes # (auto) 0.9 10 ^3/uL (0-1.3); White Blood Cell 7.1 10^3/uL (4.4-10.8)
[2024-01-05 12:11] LABS: Hemoglobin 14.5 g/dL (12.2-16.2); Lymphocytes # (auto) 2.1 10 ^3/uL (0.4-5.4); Mean Corpuscular Hemoglobin 24.4 pg (28.0-32.0); Mean Corpuscular Hgb Conc. 31.8 g/dL (32.0-36.0); Monocytes % (auto) 12.2 % (0.0-12.0); Neutrophils # (auto) 4.1 10 ^3/uL (1.6-8.6); Neutrophils % (auto) 57.2 % (37.0-80.0); Nucleated Red Blood Cells % 0.1 %; Red Blood Cells 5.94 10^6/uL (4.0-5.20); Red Cell Distribution Width 16.4 % (11.8-14.3)
[2024-01-05 12:24] LABS: Urine Bacteria NONE SEEN /hpf (None Seen); Urine Blood Negative /uL (Negative); Urine Clarity Clear (Clear); Urine Color Yellow (Yellow); Urine Protein, UAD TRACE (Negative); Urine Urobilinogen Normal (Negative); Urine WBC 4 /hpf (0 - 5)
[2024-01-05 12:40] LABS: Alanine Aminotransferase 19 U/L (7-40); Albumin 4.9 g/dL (3.2-4.8); Alkaline Phosphatase 100 U/L (46-116); Anion Gap 8 (5-15); Aspartate Aminotransferase 31 U/L (13-40); Blood Urea Nitrogen 10 mg/dL (9-23); Calcium 10.1 mg/dL (8.5-10.1); Carbon Dioxide 31 mmol/L (20-30); Chloride 104 mmol/L (98-107); Glucose 94 mg/dL (74-106); Sodium 143 mmol/L (136-145)
[2024-01-05 12:41] LABS: Bilirubin, Total 0.5 mg/dL (0.2-1.0); Total Protein 7.2 g/dL (5.7-8.2)
[~2024-01-07] VITALS: Ht 175.3 cm; Wt 122.5 kg
[~2024-01-07 10:41] MED LIST changes: -AML5T PO; -AMLO1TAB22 PO; -ASPI-543 PO; -AZITTAB2 PO; -BUM1T PO; -FLUC100T34 PO; +GLYCOPYRROLATE 0.2 MG/ML 1ML VIAL ONE; -HYDR-4611; -HYDR25TA4 PO; +KETAMINE 50mg/ML 1ml syringe ONE; +LIDOCAINE HCL 100 MG/5ML (2%) SYRG INJ IV ONE; -LINE1TAB6 PO; +MIDAZOLAM HCL 2MG/2ML 2ml VIAL (1mg/ml) ONE; -OMEG-20 PO; +ONDANSETRON HCL 4 MG/2 ML VIAL ONE; -PRED20TA2 PO; +PROPOFOL 10 MG/ML 20 ML IV ONE; -THIA100T10 PO; +fentaNYL CITRATE 100 MCG/2 ML VL ONE
[2024-01-07] MEDS ORDERED: DexAMETHasone SOD PHOS 10MG/1ML VIAL INJ IV ONE (10:42)
[2024-01-07] MEDS ORDERED: HYDROCORTISONE SOD SUCC 100 MG/2ML INJ VIAL ONE (12:02)
[2024-01-07] MEDS ORDERED: MIDAZOLAM HCL 5 MG/ML-1ML VIAL ONE (13:31)
[2024-01-07] MEDS ORDERED: SODIUM CHLORIDE LOCK 10 ML ONE (13:31)
[2024-01-07] MEDS ORDERED: LIDOCAINE VISCOUS 2% 15ML UD ONE ×2 (13:31→14:35)
[2024-01-07] MEDS ORDERED: diphenhdrAMINE HCL 50 MG/1 ML VL ONE (13:32)
[2024-01-07] MEDS ORDERED: fentaNYL CITRATE 100 MCG/2 ML VL ONE (13:32)
[2024-01-07 15:30] VITALS: TEMP 98.8; O2SAT 100
[2024-01-07] MEDS ORDERED: ePHEDrine SULFATE 50 MG/ML AMP IV PRN (15:30)
[2024-01-07] MEDS ORDERED: MIDAZOLAM HCL 2MG/2ML 2ml VIAL (1mg/ml) IV PRN (15:30)
[2024-01-07] MEDS ORDERED: MORPHINE SULFATE 4 MG/ML SYR/VIAL IV PRN (15:30)
[2024-01-07] MEDS ORDERED: LABETALOL HCL 5 MG/ML 4ML SYRINGE IV PRN (15:30)
[2024-01-07] MEDS ORDERED: ONDANSETRON HCL 4 MG/2 ML VIAL IV PRN (15:30)
[2024-01-07 16:00] VITALS: BP 149/76; PULSE 66; RESP 14; O2SAT 99
== END 2024-01-07 16:20 | disposition home or self-care (01) ==
LOC: GI 10:41
PROVIDERS: ATTEND Internal Medicine Gastroenterology
DX: R10.9 Unspecified abdominal pain (principal); K57.30 Diverticulosis of large intestine without perforation or abscess without bleeding; K29.70 Gastritis, unspecified, without bleeding; K63.89 Other specified diseases of intestine; R10.13 Epigastric pain; K44.9 Diaphragmatic hernia without obstruction or gangrene; K20.90 Esophagitis, unspecified without bleeding; K64.8 Other hemorrhoids; K58.9 Irritable bowel syndrome, unspecified; K31.89 Other diseases of stomach and duodenum
CPT/HCPCS: 36415; 43239; 45378; 80053; 81001; 85025; 85610; 85730; J1200; J1720; J2250; J2405; J2704; J3010; J1100

== ENCOUNTER 2024-02-05 14:44 | Inpatient (IN) | payer MEDICARE, BC ==
[~2024-02-05] VITALS: Ht 175.3 cm; Wt 125.0 kg
[~2024-02-05 14:44] MED LIST changes: -GLYCOPYRROLATE 0.2 MG/ML 1ML VIAL ONE; -KETAMINE 50mg/ML 1ml syringe ONE; -LIDOCAINE HCL 100 MG/5ML (2%) SYRG INJ IV ONE; -MIDAZOLAM HCL 2MG/2ML 2ml VIAL (1mg/ml) ONE; -ONDANSETRON HCL 4 MG/2 ML VIAL ONE; -PROPOFOL 10 MG/ML 20 ML IV ONE; -fentaNYL CITRATE 100 MCG/2 ML VL ONE
[2024-02-05 15:25] VITALS: PULSE 95; RESP 12; O2SAT 96
[2024-02-05 16:02] LABS: Basophils # (auto) 0.1 10 ^3/uL (0-0.2); Basophils % (auto) 0.7 % (0.0-2.0); Eosinophils # (auto) 0 10 ^3/uL (0-0.8); Eosinophils % (auto) 0.2 % (0.0-7.0); Hematocrit 31.5 % (36.0-46.0); Hemoglobin 9.9 g/dL (12.2-16.2); Lymphocytes # (auto) 1.7 10 ^3/uL (0.4-5.4); Lymphocytes % (auto) 12.9 % (10.0-50.0); Mean Corpuscular Hemoglobin 22.3 pg (28.0-32.0); Mean Corpuscular Hgb Conc. 31.3 g/dL (32.0-36.0); Mean Corpuscular Volume 71.2 fL (80.0-100.0); Monocytes # (auto) 1.3 10 ^3/uL (0-1.3); Monocytes % (auto) 9.9 % (0.0-12.0); Neutrophils # (auto) 9.8 10 ^3/uL (1.6-8.6); Neutrophils % (auto) 76.3 % (37.0-80.0); Nucleated Red Blood Cells % 0.1 %; Red Blood Cells 4.42 10^6/uL (4.0-5.20); White Blood Cell 12.9 10^3/uL (4.4-10.8)
[2024-02-05 16:17] LABS: Alanine Aminotransferase 20 U/L (7-40); Albumin 3.5 g/dL (3.2-4.8); Alkaline Phosphatase 519 U/L (46-116); Anion Gap 3 (5-15); Aspartate Aminotransferase 26 U/L (13-40); BUN/Creatinine Ratio 19.3 (10.0-20.0); Bilirubin, Total 0.3 mg/dL (0.2-1.0); Blood Urea Nitrogen 28 mg/dL (9-23); Calcium 8.5 mg/dL (8.5-10.1); Carbon Dioxide 29 mmol/L (20-30); Chloride 105 mmol/L (98-107); Glucose 107 mg/dL (74-106); Potassium 5.2 mmol/L (3.5-5.1); Sodium 137 mmol/L (136-145); Total Protein 5.4 g/dL (5.7-8.2)
[2024-02-05] MEDS ORDERED: ACETAMINOPHEN 325 MG TAB PO PRN (17:45)
[2024-02-05] MEDS ORDERED: ALBUTEROL SULF 2.5 MG/0.5ML(0.5%) NEB SOLN NEB PRN (18:15)
[2024-02-05] MEDS: IOHEXOL 350 MG/ML 100ML IJ ONE ×2 (18:19→21:45)
[2024-02-05] MEDS: SODIUM ZIRCONIUM CYCL 10 GM PAK PO ONE (18:21)
[2024-02-05 18:22] LABS: COVID19 ANTIGEN SOFIA FIA NEGATIVE (NEGATIVE); Rapid Influenza A Negative (Negative)
[2024-02-05] MEDS: cefTRIAXone 1GM/50ML D5W 50 ML IV ONE (18:22)
[2024-02-05 18:25] LABS: Rapid Influenza B Positive (Negative)
[2024-02-05 18:46] LABS: Triglycerides 249 mg/dL (< 150)
[2024-02-05 18:47] LABS: LDL Cholesterol 78 mg/dL (< 100)
[2024-02-05 18:48] LABS: Cholesterol 127 mg/dL (< 200); HDL Cholesterol 6 mg/dL (40-59)
[2024-02-05] MEDS: AZITHROMYCIN 500MG/ 250ML 250 ML IV ONE (18:52)
[2024-02-05 19:30] VITALS: PULSE 81; RESP 18; O2SAT 96
[2024-02-05 20:37] VITALS: BP 122/71; PULSE 81; RESP 19; O2SAT 95
[2024-02-05 21:55] VITALS: O2SAT 95
[2024-02-06] VITALS (10 sets, daily range): BP systolic 111–126; BP diastolic 59–78; PULSE 61–95; RESP 14–18; TEMP 97.5–99.6; O2SAT 94–98
[2024-02-06] MEDS: ALPRAZolam 0.5 MG TAB PO PRN (00:41)
[2024-02-06 04:39] LABS: Urine Bacteria NONE SEEN /hpf (None Seen); Urine Blood Negative /uL (Negative); Urine Clarity Clear (Clear); Urine Protein, UAD Negative (Negative); Urine Specific Gravity 1.007 (1.001-1.035); Urine Urobilinogen Normal (Negative); Urine WBC <1 /hpf (0 - 5); Urine pH 5.5 (5.0-8.0)
[2024-02-06 04:44] LABS: Urine Color Straw (Yellow)
[2024-02-06 07:03] LABS: Hemoglobin 9.8 g/dL (12.2-16.2)
[2024-02-06 07:04] LABS: Hematocrit 31.5 % (36.0-46.0); Red Blood Cells 4.43 10^6/uL (4.0-5.20); White Blood Cell 10.6 10^3/uL (4.4-10.8)
[2024-02-06 07:10] LABS: Basophils % (manual) 0 (0.0-2.0); Blast Cells 0; Eosinophils % (manual) 0 (0-7); Metamyelocytes % 0; Myelocytes % 0; Promyelocytes % 0; Reactive Lymphocytes 0
[2024-02-06 07:18] LABS: Alanine Aminotransferase 15 U/L (7-40); Albumin 3.7 g/dL (3.2-4.8); Alkaline Phosphatase 429 U/L (46-116); Anion Gap 5 (5-15); Aspartate Aminotransferase 22 U/L (13-40); BUN/Creatinine Ratio 18.1 (10.0-20.0); Bilirubin, Total 0.3 mg/dL (0.2-1.0); Blood Urea Nitrogen 19 mg/dL (9-23); Calcium 9.1 mg/dL (8.5-10.1); Carbon Dioxide 27 mmol/L (20-30); Chloride 106 mmol/L (98-107); Glucose 93 mg/dL (74-106); Potassium 4.4 mmol/L (3.5-5.1); Sodium 138 mmol/L (136-145); Total Protein 6.2 g/dL (5.7-8.2)
[2024-02-06 07:43] LABS: Band Neutrophils % (manual) 2; Lymphocytes % (manual) 26 (10.0-50.0); Monocytes % (manual) 6 (0-12); Platelet Estimate Adequate
[2024-02-06] MEDS: COLLAGEN PO SCH (10:00)
[2024-02-06] MEDS: predniSONE 5 MG TAB PO SCH (11:06)
[2024-02-06] MEDS: cefTRIAXone 1GM/50ML D5W 50 ML IV SCH (11:06)
[2024-02-06] MEDS: AZITHROMYCIN 500MG/ 250ML 250 ML IV SCH (11:06)
[2024-02-06] MEDS: predniSONE 1 MG TAB PO SCH (11:07)
[2024-02-06] MEDS: PANTOPRAZOLE 40 MG TAB PO SCH (11:08)
[2024-02-06] MEDS: hydroCHLOROthiazide 25 MG TAB PO SCH (11:08)
[2024-02-06] MEDS: ENOXAPARIN SOD 40 MG/0.4 ML SYRINGE SC SCH (11:09)
[2024-02-06] MEDS: predniSONE 1 MG TAB PO ONE (12:14)
[2024-02-07] VITALS (9 sets, daily range): BP systolic 106–129; BP diastolic 62–78; PULSE 67–94; RESP 16–20; TEMP 98.1–98.9; O2SAT 93–100
[2024-02-07 05:27] LABS: Chloride 103 mmol/L (98-107); Potassium 4.5 mmol/L (3.5-5.1); Sodium 136 mmol/L (136-145)
[2024-02-07 05:28] LABS: Anion Gap 5 (5-15); Calcium 8.8 mg/dL (8.7-10.4); Carbon Dioxide 28 mmol/L (20-30)
[2024-02-07 05:33] LABS: BUN/Creatinine Ratio 18.6 (10.0-20.0); Blood Urea Nitrogen 19 mg/dL (9-23); Glucose 102 mg/dL (74-106)
[2024-02-07 05:48] LABS: Hemoglobin 10.1 g/dL (12.2-16.2); Red Cell Distribution Width 18.1 % (11.8-14.3)
[2024-02-07 05:52] LABS: Hematocrit 31.8 % (36.0-46.0); Mean Corpuscular Hemoglobin 22.9 pg (28.0-32.0); Mean Corpuscular Hgb Conc. 31.8 g/dL (32.0-36.0); Red Blood Cells 4.42 10^6/uL (4.0-5.20); White Blood Cell 9.8 10^3/uL (4.4-10.8)
[2024-02-07 06:09] LABS: Basophils % (manual) 0 (0.0-2.0); Blast Cells 0; Eosinophils % (manual) 0 (0-7); Metamyelocytes % 0; Myelocytes % 0; Promyelocytes % 0; Reactive Lymphocytes 0
[2024-02-07 08:30] LABS: Band Neutrophils % (manual) 4; Lymphocytes % (manual) 17 (10.0-50.0); Monocytes % (manual) 12 (0-12)
[2024-02-07 08:31] LABS: Anisocytosis Slight; Hypochromia Slight; Platelet Estimate Adequate
[2024-02-07] MEDS: AZITHROMYCIN 250 MG TAB PO SCH (09:34)
[2024-02-07] MEDS: HYDROcodone-ACET 10/325MG TAB PO PRN (09:35)
[2024-02-07] MEDS: predniSONE 5 MG TAB PO SCH (09:35)
[2024-02-07] MEDS ORDERED: OSELTAMIVIR 30 MG CAP PO ONE (11:45)
[2024-02-07] MEDS: OSELTAMIVIR 75 MG CAP PO SCH (12:49)
[2024-02-07] MEDS ORDERED: OSELTAMIVIR 30 MG CAP PO SCH (22:00)
[2024-02-08 06:08] VITALS: BP 107/69; PULSE 75; RESP 20; TEMP 98.5; O2SAT 95
[2024-02-08 07:03] VITALS: O2SAT 98
[2024-02-08 08:00] VITALS: BP 111/59; PULSE 74; PULSE 79; RESP 14; TEMP 36.9; O2SAT 98
[2024-02-08 09:00] VITALS: BP 131/80; PULSE 85; RESP 16; TEMP 97.5; O2SAT 99
[2024-02-08] MEDS ORDERED: AZIT-74 PO (09:57)
[2024-02-08 12:59] VITALS: BP 125/84; PULSE 87; RESP 18; TEMP 98.1; O2SAT 95
[2024-02-08 13:00] VITALS: BP 123/84; PULSE 87; RESP 16; TEMP 98.4; O2SAT 95
== END 2024-02-08 14:50 | disposition home or self-care (01) | DRG 194 ==
LOC: ER 14:44 → TELE 17:45 → TELE-CENTR 02-06 00:07
PROVIDERS: ADMIT Nurse Practitioner Family; ATTEND Internal Medicine
DX: J10.1 Influenza due to other identified influenza virus with other respiratory manifestations (principal); D47.Z2 Castleman disease; I31.39 Other pericardial effusion (noninflammatory); N17.9 Acute kidney failure, unspecified; Z68.41 Body mass index [BMI] 40.0-44.9, adult; E66.01 Morbid (severe) obesity due to excess calories; E87.5 Hyperkalemia; F41.9 Anxiety disorder, unspecified; K59.00 Constipation, unspecified; I12.9 Hypertensive chronic kidney disease with stage 1 through stage 4 chronic kidney disease, or unspecified chronic kidney disease; N18.9 Chronic kidney disease, unspecified; Z82.49 Family history of ischemic heart disease and other diseases of the circulatory system; Z82.5 Family history of asthma and other chronic lower respiratory diseases
CPT/HCPCS: 36415; 71045; 74176; 76705; 80048; 80053; 80061; 81001; 83605; 83880; 83930; 84443; 84484; 85007; 85025; 85027; 85379; 87040; 87070; 87205; 87426; 87804; 93306; 94640; G0378

== ENCOUNTER → 2024-05-10 | Outpatient (CLI) | payer MEDICARE, BC ==
[~2024-05-10] MED LIST changes: +AZIT-74 PO
[2024-05-10 12:13] LABS: Basophils # (auto) 0.1 10 ^3/uL (0-0.2); Basophils % (auto) 1.1 % (0.0-2.0); Eosinophils # (auto) 0.1 10 ^3/uL (0-0.8); Eosinophils % (auto) 1.3 % (0.0-7.0); Hemoglobin 11.8 g/dL (12.2-16.2); Lymphocytes # (auto) 1.7 10 ^3/uL (0.4-5.4); Monocytes # (auto) 0.9 10 ^3/uL (0-1.3)
[2024-05-10 12:19] LABS: Hematocrit 37.5 % (36.0-46.0); Lymphocytes % (auto) 20.4 % (10.0-50.0); Mean Corpuscular Hemoglobin 22.8 pg (28.0-32.0); Mean Corpuscular Hgb Conc. 31.4 g/dL (32.0-36.0); Mean Corpuscular Volume 72.7 fL (80.0-100.0); Monocytes % (auto) 11.3 % (0.0-12.0); Neutrophils # (auto) 5.4 10 ^3/uL (1.6-8.6); Neutrophils % (auto) 65.9 % (37.0-80.0); Nucleated Red Blood Cells % 0.2 %; Red Blood Cells 5.15 10^6/uL (4.0-5.20); White Blood Cell 8.2 10^3/uL (4.4-10.8)
[2024-05-10 12:31] LABS: Red Cell Distribution Width 23.1 % (11.8-14.3)
[2024-05-10 13:09] LABS: % Iron Saturation 11.1 % (15-50); Alanine Aminotransferase 13 U/L (7-40); Alkaline Phosphatase 93 U/L (46-116); Anion Gap 4 (5-15); Aspartate Aminotransferase 20 U/L (13-40); Blood Urea Nitrogen 12 mg/dL (9-23); Calcium 9.9 mg/dL (8.5-10.1); Carbon Dioxide 30 mmol/L (20-30); Chloride 107 mmol/L (98-107); Glucose 82 mg/dL (74-106); Potassium 3.9 mmol/L (3.5-5.1); Sodium 141 mmol/L (136-145)
[2024-05-10 13:10] LABS: Albumin 4.5 g/dL (3.2-4.8); Bilirubin, Total 0.4 mg/dL (0.2-1.0); Total Protein 7.1 g/dL (5.7-8.2)
[2024-05-10 13:11] LABS: Ferritin 222.7 ng/mL (10-291)
[2024-05-10 13:26] LABS: Folate (Folic Acid) 38.31 ng/mL (>5.38)
[2024-05-10 13:33] LABS: Hepatitis B Surface Antigen Negative (Negative)
[2024-05-10 13:54] LABS: Hepatitis C Antibody Negative (Negative)
[2024-05-11 10:06] LABS: Anti-Nuclear Antibody Direct Positive (Negative)
[2024-05-12 12:06] LABS: Mitochondrial (M2) Antibody <20.0 Units (0.0-20.0)
== END | disposition home or self-care (01) ==
LOC: LAB 11:29
PROVIDERS: ATTEND Internal Medicine Gastroenterology
DX: R94.5 Abnormal results of liver function studies (principal); D64.9 Anemia, unspecified
CPT/HCPCS: 36415; 80053; 82607; 82728; 82746; 83540; 83550; 85025; 86038; 86803; 87340

== ENCOUNTER 2024-06-21 18:22 | Inpatient (IN) | payer MEDICARE, BC ==
[~2024-06-21] VITALS: Ht 175.3 cm; Wt 124.6 kg
[2024-06-21 19:24] LABS: Urine Bacteria None Seen /hpf (None Seen)
[2024-06-21 19:34] LABS: Urine Blood Negative /uL (Negative); Urine Clarity Turbid (Clear); Urine Color Yellow (Yellow); Urine Hyaline Cast MOD /lpf (0 - 2); Urine Protein, UAD 1+ (Negative); Urine Specific Gravity 1.023 (1.001-1.035); Urine Urobilinogen 2 mg/dL (Negative); Urine WBC 32 /hpf (0 - 5); Urine pH 5.5 (5.0-9.0)
[2024-06-21 19:54] LABS: Basophils # (auto) 0.1 10 ^3/uL (0-0.2); Basophils % (auto) 1.1 % (0.0-2.0); Eosinophils # (auto) 0.1 10 ^3/uL (0-0.8); Eosinophils % (auto) 1.1 % (0.0-7.0); Hematocrit 33.4 % (36.0-46.0); Hemoglobin 10.6 g/dL (12.2-16.2); Lymphocytes # (auto) 2.2 10 ^3/uL (0.4-5.4); Lymphocytes % (auto) 20.2 % (10.0-50.0); Mean Corpuscular Hemoglobin 21.9 pg (28.0-32.0); Mean Corpuscular Hgb Conc. 31.7 g/dL (32.0-36.0); Mean Corpuscular Volume 69.3 fL (80.0-100.0); Monocytes # (auto) 1.4 10 ^3/uL (0-1.3); Monocytes % (auto) 12.4 % (0.0-12.0); Neutrophils # (auto) 7.2 10 ^3/uL (1.6-8.6); Neutrophils % (auto) 65.2 % (37.0-80.0); Nucleated Red Blood Cells % 0.2 %; Red Blood Cells 4.82 10^6/uL (4.0-5.20); White Blood Cell 11.1 10^3/uL (4.4-10.8)
[2024-06-21 19:55] LABS: Red Cell Distribution Width 20.2 % (11.8-14.3)
[2024-06-21 20:02] LABS: Alanine Aminotransferase 14 U/L (7-40); Albumin 3.8 g/dL (3.2-4.8); Alkaline Phosphatase 106 U/L (46-116); Anion Gap 6 (5-15); Aspartate Aminotransferase 31 U/L (13-40); Bilirubin, Total 0.5 mg/dL (0.2-1.0); Blood Urea Nitrogen 6 mg/dL (9-23); Calcium 9.3 mg/dL (8.7-10.4); Carbon Dioxide 28 mmol/L (20-30); Chloride 100 mmol/L (98-107); Glucose 179 mg/dL (74-106); Lipase 24 U/L (12-53); Potassium 3.6 mmol/L (3.5-5.1); Sodium 134 mmol/L (136-145); Total Protein 6.6 g/dL (5.7-8.2)
[2024-06-21 20:14] LABS: Anisocytosis Slight; Platelet Estimate Adequate
[2024-06-21 20:15] LABS: Hypochromia Moderate
[2024-06-21] MEDS ORDERED: ONDANSETRON HCL 4 MG/2 ML VIAL IV PRN (22:15)
[2024-06-21] MEDS ORDERED: ALBUTEROL SULF 2.5 MG/0.5ML(0.5%) NEB SOLN NEB PRN (22:15)
[2024-06-22] VITALS (9 sets, daily range): BP systolic 106–141; BP diastolic 57–85; PULSE 77–90; RESP 16–20; TEMP 98–98.6; O2SAT 94–99
[2024-06-22] MEDS: cefTRIAXone 1GM/50ML D5W 50 ML IV ONE (03:01)
[2024-06-22 05:54] LABS: Basophils # (auto) 0.1 10 ^3/uL (0-0.2); Monocytes # (auto) 1.5 10 ^3/uL (0-1.3)
[2024-06-22 05:57] LABS: Basophils % (auto) 1.1 % (0.0-2.0); Eosinophils # (auto) 0.2 10 ^3/uL (0-0.8); Eosinophils % (auto) 1.4 % (0.0-7.0); Hemoglobin 10.8 g/dL (12.2-16.2); Lymphocytes # (auto) 1.9 10 ^3/uL (0.4-5.4); Lymphocytes % (auto) 17.1 % (10.0-50.0); Mean Corpuscular Hemoglobin 22.8 pg (28.0-32.0); Mean Corpuscular Hgb Conc. 32.6 g/dL (32.0-36.0); Mean Corpuscular Volume 69.8 fL (80.0-100.0); Neutrophils # (auto) 7.2 10 ^3/uL (1.6-8.6); Neutrophils % (auto) 66.4 % (37.0-80.0); Nucleated Red Blood Cells % 0.3 %; Red Blood Cells 4.73 10^6/uL (4.0-5.20); White Blood Cell 10.9 10^3/uL (4.4-10.8)
[2024-06-22] MEDS: PANTOPRAZOLE 40 MG TAB PO SCH (06:05)
[2024-06-22 06:13] LABS: Anion Gap 9 (5-15); Carbon Dioxide 25 mmol/L (20-30); Chloride 99 mmol/L (98-107); Potassium 3.3 mmol/L (3.5-5.1); Sodium 133 mmol/L (136-145)
[2024-06-22 06:14] LABS: Calcium 9.3 mg/dL (8.7-10.4)
[2024-06-22 06:19] LABS: BUN/Creatinine Ratio 4.3 (10.0-20.0); Blood Urea Nitrogen 7 mg/dL (9-23); Glucose 203 mg/dL (74-106)
[2024-06-22] MEDS: cefTRIAXone 1GM/50ML D5W 50 ML IV SCH (09:15)
[2024-06-22] MEDS ORDERED: DEXTROSE (50%) 50ML SYRG IV PRN (09:15)
[2024-06-22] MEDS ORDERED: hydroCHLOROthiazide 25 MG TAB PO SCH (10:00)
[2024-06-22] MEDS: InsuLIN REG 1unit/0.01ml Soln (100units/ml) SC SCH (11:30)
[2024-06-22] MEDS: predniSONE 5 MG TAB PO SCH (13:48)
[2024-06-22] MEDS: POTASSIUM CHL 20 Meq TABLET PO ONE (13:48)
[2024-06-22] MEDS: ACCU-CHEK COMFORT CURVE STRIP VI SCH (14:27)
[2024-06-22] MEDS: SODIUM CHLORIDE 0.9% 1,000 ML IV SCH (21:02)
[2024-06-23] VITALS (8 sets, daily range): BP systolic 105–138; BP diastolic 59–89; PULSE 74–87; RESP 16–19; TEMP 97.4–98.9; O2SAT 93–99
[2024-06-23 04:28] LABS: Basophils # (auto) 0.1 10 ^3/uL (0-0.2); Eosinophils # (auto) 0.1 10 ^3/uL (0-0.8); Hemoglobin 10.2 g/dL (12.2-16.2); Lymphocytes # (auto) 1.4 10 ^3/uL (0.4-5.4); Monocytes # (auto) 1.4 10 ^3/uL (0-1.3); Nucleated Red Blood Cells % 0.2 %
[2024-06-23 04:30] LABS: Basophils % (auto) 1.2 % (0.0-2.0); Eosinophils % (auto) 1.1 % (0.0-7.0); Hematocrit 31.6 % (36.0-46.0); Lymphocytes % (auto) 13.5 % (10.0-50.0); Mean Corpuscular Hemoglobin 22.8 pg (28.0-32.0); Mean Corpuscular Hgb Conc. 32.3 g/dL (32.0-36.0); Mean Corpuscular Volume 70.5 fL (80.0-100.0); Monocytes % (auto) 13.8 % (0.0-12.0); Neutrophils # (auto) 7.1 10 ^3/uL (1.6-8.6); Neutrophils % (auto) 70.4 % (37.0-80.0); Red Blood Cells 4.48 10^6/uL (4.0-5.20); Red Cell Distribution Width 19.5 % (11.8-14.3); White Blood Cell 10.1 10^3/uL (4.4-10.8)
[2024-06-23 04:45] LABS: Alanine Aminotransferase 14 U/L (7-40); Albumin 3.5 g/dL (3.2-4.8); Alkaline Phosphatase 101 U/L (46-116); Anion Gap 6 (5-15); Aspartate Aminotransferase 24 U/L (13-40); BUN/Creatinine Ratio 7.9 (10.0-20.0); Bilirubin, Total 0.3 mg/dL (0.2-1.0); Blood Urea Nitrogen 8 mg/dL (9-23); Carbon Dioxide 28 mmol/L (20-30); Chloride 102 mmol/L (98-107); Glucose 196 mg/dL (74-106); Potassium 3.9 mmol/L (3.5-5.1); Sodium 136 mmol/L (136-145); Total Protein 5.8 g/dL (5.7-8.2)
[2024-06-23 05:22] LABS: Hypochromia Moderate; Large Platelets FEW; Platelet Estimate Decreased
[2024-06-23] MEDS: ACETAMINOPHEN 325 MG TAB PO PRN (09:32)
[2024-06-23] MEDS ORDERED: HYDR-4798 PO (13:39)
[2024-06-23] MEDS ORDERED: ALBU108A5 INH (13:39)
[2024-06-23] MEDS ORDERED: FLUT1AER12 INH (13:39)
[2024-06-23] MEDS ORDERED: PANT40T PO (13:39)
[2024-06-23] MEDS: TEMAZEPAM 15 MG CAP PO PRN (21:42)
[2024-06-24 01:00] VITALS: BP 144/81; PULSE 85; RESP 20; TEMP 98.9; O2SAT 97
[2024-06-24 05:00] VITALS: BP 139/81; PULSE 90; RESP 20; TEMP 98.7; O2SAT 96
[2024-06-24 07:24] LABS: Basophils # (auto) 0.1 10 ^3/uL (0-0.2); Basophils % (auto) 0.7 % (0.0-2.0); Eosinophils # (auto) 0.1 10 ^3/uL (0-0.8); Eosinophils % (auto) 1.3 % (0.0-7.0); Hematocrit 31.4 % (36.0-46.0); Lymphocytes # (auto) 1.9 10 ^3/uL (0.4-5.4); Lymphocytes % (auto) 17.2 % (10.0-50.0); Mean Corpuscular Hemoglobin 22.3 pg (28.0-32.0); Mean Corpuscular Hgb Conc. 31.9 g/dL (32.0-36.0); Mean Corpuscular Volume 70.1 fL (80.0-100.0); Monocytes # (auto) 1.8 10 ^3/uL (0-1.3); Monocytes % (auto) 16.1 % (0.0-12.0); Neutrophils # (auto) 7.2 10 ^3/uL (1.6-8.6); Neutrophils % (auto) 64.7 % (37.0-80.0); Nucleated Red Blood Cells % 0.3 %; Red Blood Cells 4.48 10^6/uL (4.0-5.20); Red Cell Distribution Width 19.7 % (11.8-14.3); White Blood Cell 11.1 10^3/uL (4.4-10.8)
[2024-06-24 07:37] LABS: Chloride 106 mmol/L (98-107); Glucose 155 mg/dL (74-106); Sodium 137 mmol/L (136-145)
[2024-06-24 07:39] LABS: BUN/Creatinine Ratio 6.5 (10.0-20.0); Blood Urea Nitrogen < 5 mg/dL (9-23)
[2024-06-24 07:40] LABS: Anion Gap 6 (5-15); Carbon Dioxide 25 mmol/L (20-30)
[2024-06-24 07:41] LABS: Calcium 8.6 mg/dL (8.7-10.4)
[2024-06-24 08:00] VITALS: PULSE 81; RESP 18; O2SAT 96
[2024-06-24 08:46] VITALS: BP 125/74; PULSE 81; RESP 18; TEMP 98.1; O2SAT 96
[2024-06-24 09:45] VITALS: O2SAT 95
[2024-06-24] MEDS ORDERED: CEFD300C2 PO (10:39)
[2024-06-24 13:00] VITALS: BP 140/88; PULSE 85; RESP 18; TEMP 98.4; O2SAT 95
== END 2024-06-24 16:00 | disposition home or self-care (01) | DRG 871 ==
LOC: ER 18:33 → OVERFLOW 22:10 → EEVIPCON 22:10 → WEST WING 06-22 10:39
PROVIDERS: ADMIT Nurse Practitioner; ATTEND Internal Medicine
DX: A41.9 Sepsis, unspecified organism (principal); N17.0 Acute kidney failure with tubular necrosis; D47.Z2 Castleman disease; N39.0 Urinary tract infection, site not specified; Z68.41 Body mass index [BMI] 40.0-44.9, adult; E66.01 Morbid (severe) obesity due to excess calories; J45.909 Unspecified asthma, uncomplicated; N18.9 Chronic kidney disease, unspecified; E87.6 Hypokalemia; D64.9 Anemia, unspecified; I12.9 Hypertensive chronic kidney disease with stage 1 through stage 4 chronic kidney disease, or unspecified chronic kidney disease; Z82.49 Family history of ischemic heart disease and other diseases of the circulatory system; Z79.899 Other long term (current) drug therapy; Z79.2 Long term (current) use of antibiotics; Z88.5 Allergy status to narcotic agent
CPT/HCPCS: 36415; 71045; 80048; 80053; 81001; 82962; 83036; 83605; 83615; 83690; 83880; 85025; 86141; 87086; 96365; 96366; G0378

== ENCOUNTER 2024-07-04 06:59 | Inpatient (IN) | payer MEDICARE, BC ==
[~2024-07-04] VITALS: Ht 175.3 cm; Wt 125.9 kg
[~2024-07-04 06:59] MED LIST changes: +ALBU108A5 INH; -AZIT-74 PO; -B-COTAB19 OR; +CEFD300C2 PO; +FLUT1AER12 INH; -HYDR-4072 PO; +HYDR-4798 PO; +PANT40T PO; -PANT40TA2 PO; -PRE1T PO; -[UNRECOGNIZED DRUG - CODE] PO
[2024-07-04 07:30] VITALS: O2SAT 93
[2024-07-04] MEDS: ONDANSETRON HCL 4 MG/2 ML VIAL IV ONE (08:00)
[2024-07-04] MEDS: HYDROmorphone HCL 2 MG/ML VL/or syr IV ONE (08:09)
[2024-07-04 09:05] LABS: Albumin 3.5 g/dL (3.2-4.8); Alkaline Phosphatase 87 U/L (46-116); Anion Gap 5 (5-15); Aspartate Aminotransferase 21 U/L (13-40); BUN/Creatinine Ratio 6.9 (10.0-20.0); Bilirubin, Total 0.4 mg/dL (0.2-1.0); Blood Urea Nitrogen 8 mg/dL (9-23); Calcium 8.9 mg/dL (8.7-10.4); Carbon Dioxide 29 mmol/L (20-30); Chloride 101 mmol/L (98-107); Glucose 120 mg/dL (74-106); Potassium 4.2 mmol/L (3.5-5.1); Sodium 135 mmol/L (136-145)
[2024-07-04 09:11] LABS: Alanine Aminotransferase < 9 U/L (7-40)
[2024-07-04 09:14] LABS: Basophils # (auto) 0.1 10 ^3/uL (0-0.2); Hemoglobin 9.4 g/dL (12.2-16.2); Mean Corpuscular Hgb Conc. 31.1 g/dL (32.0-36.0); White Blood Cell 17.2 10^3/uL (4.4-10.8)
[2024-07-04 09:16] LABS: Basophils % (auto) 0.4 % (0.0-2.0); Eosinophils # (auto) 0.1 10 ^3/uL (0-0.8); Eosinophils % (auto) 0.9 % (0.0-7.0); Hematocrit 30.1 % (36.0-46.0); Lymphocytes % (auto) 17.6 % (10.0-50.0); Mean Corpuscular Hemoglobin 21.2 pg (28.0-32.0); Mean Corpuscular Volume 68.3 fL (80.0-100.0); Monocytes # (auto) 2.4 10 ^3/uL (0-1.3); Monocytes % (auto) 13.7 % (0.0-12.0); Neutrophils # (auto) 11.6 10 ^3/uL (1.6-8.6); Neutrophils % (auto) 67.4 % (37.0-80.0); Nucleated Red Blood Cells % 0.2 %; Red Blood Cells 4.41 10^6/uL (4.0-5.20)
[2024-07-04 09:18] LABS: Red Cell Distribution Width 20.5 % (11.8-14.3)
[2024-07-04] MEDS ORDERED: ACETAMINOPHEN 325 MG TAB PO PRN (10:45)
[2024-07-04] MEDS ORDERED: ONDANSETRON HCL 4 MG/2 ML VIAL IV PRN (10:45)
[2024-07-04] MEDS: SODIUM CHLORIDE 0.9% 1,000 ML IV SCH (11:15)
[2024-07-04] MEDS: cefTRIAXone 1GM/50ML D5W 50 ML IV ONE (11:15)
[2024-07-04 11:21] LABS: Anisocytosis Slight
[2024-07-04 11:22] LABS: Hypochromia Slight; Ovalocytes FEW; Platelet Estimate Decreased; Tear Drop Cells FEW
[2024-07-04] MEDS: HYDROcodone-ACET 5/325MG TAB PO PRN (13:10)
[2024-07-04] MEDS: MORPHINE SULFATE INJ 2 MG/ml SYRG IV PRN (13:58)
[2024-07-04 15:07] VITALS: BP 98/52; PULSE 76; RESP 18; TEMP 97.6; O2SAT 97
[2024-07-04 15:10] VITALS: PULSE 76; RESP 18; O2SAT 97
[2024-07-04] MEDS: HYDROmorphone HCL 2 MG/ML VL/or syr IV PRN (17:56)
[2024-07-04 21:03] VITALS: BP 102/66; PULSE 73; RESP 18; TEMP 98.4; O2SAT 98
[2024-07-04] MEDS: ALPRAZolam 0.5 MG TAB PO SCH (21:38)
[2024-07-05 01:17] VITALS: BP 96/48; PULSE 68; RESP 18; TEMP 98.9; O2SAT 97
[2024-07-05 04:32] LABS: Urine Bacteria FEW /hpf (None Seen); Urine Blood Negative /uL (Negative); Urine Clarity Clear (Clear); Urine Color Yellow (Yellow); Urine Protein, UAD Negative (Negative); Urine Urobilinogen Normal (Negative); Urine WBC 1 /hpf (0 - 5)
[2024-07-05 05:00] VITALS: BP 96/53; PULSE 82; RESP 18; TEMP 99.7; O2SAT 94
[2024-07-05 06:09] LABS: Albumin 3.1 g/dL (3.2-4.8); Alkaline Phosphatase 78 U/L (46-116); Anion Gap 7 (5-15); Aspartate Aminotransferase 20 U/L (13-40); BUN/Creatinine Ratio 6.1 (10.0-20.0); Basophils # (auto) 0.2 10 ^3/uL (0-0.2); Bilirubin, Total 0.3 mg/dL (0.2-1.0); Blood Urea Nitrogen 7 mg/dL (9-23); Calcium 8.4 mg/dL (8.7-10.4); Carbon Dioxide 27 mmol/L (20-30); Chloride 103 mmol/L (98-107); Eosinophils # (auto) 0.1 10 ^3/uL (0-0.8); Glucose 109 mg/dL (74-106); Hemoglobin 8.8 g/dL (12.2-16.2); Mean Corpuscular Hemoglobin 21.6 pg (28.0-32.0); Potassium 4.2 mmol/L (3.5-5.1); Sodium 137 mmol/L (136-145); Total Protein 5.7 g/dL (5.7-8.2); White Blood Cell 12.6 10^3/uL (4.4-10.8)
[2024-07-05 06:11] LABS: Basophils % (auto) 1.9 % (0.0-2.0); Hematocrit 28.2 % (36.0-46.0); Lymphocytes # (auto) 2.2 10 ^3/uL (0.4-5.4); Lymphocytes % (auto) 17.9 % (10.0-50.0); Mean Corpuscular Hgb Conc. 31.3 g/dL (32.0-36.0); Mean Corpuscular Volume 69.1 fL (80.0-100.0); Neutrophils # (auto) 7.9 10 ^3/uL (1.6-8.6); Neutrophils % (auto) 63.2 % (37.0-80.0); Nucleated Red Blood Cells % 0.4 %; Red Blood Cells 4.08 10^6/uL (4.0-5.20)
[2024-07-05 06:31] LABS: Alanine Aminotransferase < 9 U/L (7-40)
[2024-07-05 06:44] LABS: Red Cell Distribution Width 20.1 % (11.8-14.3)
[2024-07-05 08:21] LABS: Anisocytosis Slight; Platelet Estimate Decreased
[2024-07-05 08:22] LABS: Hypochromia Slight; Ovalocytes FEW; Tear Drop Cells FEW
[2024-07-05 09:00] VITALS: BP 132/74; PULSE 66; RESP 16; TEMP 98; O2SAT 93
[2024-07-05] MEDS ORDERED: cefTRIAXone 1GM/50ML D5W 50 ML IV SCH (09:00)
[2024-07-05] MEDS ORDERED: hydroCHLOROthiazide 25 MG TAB PO SCH (10:00)
[2024-07-05] MEDS ORDERED: predniSONE 5 MG TAB PO SCH (10:00)
[2024-07-05] MEDS ORDERED: PANTOPRAZOLE 40 MG TAB PO SCH (10:00)
[2024-07-05] MEDS: methylPREDNISolone SOD SUCC 125 MG/2 ML VL IV ONE (11:15)
[2024-07-05] MEDS: PANTOPRAZOLE 40 MG/10 ML VIAL INJ IV SCH (11:15)
[2024-07-05 12:54] VITALS: BP 101/52; PULSE 82; RESP 16; TEMP 98.1; O2SAT 92
[2024-07-05 16:29] VITALS: BP 115/55; PULSE 86; RESP 17; TEMP 98.7; O2SAT 94
[2024-07-05 21:13] VITALS: BP 131/82; PULSE 93; RESP 18; TEMP 98.9; O2SAT 96
[2024-07-05] MEDS: methylPREDNISolone SOD SUCC 40 MG/ML VL IV SCH (21:58)
[2024-07-06 01:34] VITALS: BP 153/84; PULSE 90; RESP 18; TEMP 98.8; O2SAT 94
[2024-07-06 05:14] VITALS: BP 135/80; PULSE 73; RESP 18; TEMP 97.8; O2SAT 97
[2024-07-06 08:39] VITALS: BP 143/87; PULSE 85; RESP 18; TEMP 98.4; O2SAT 93
[2024-07-06 10:49] LABS: Hemoglobin 9.6 g/dL (12.2-16.2)
[2024-07-06 10:53] LABS: Hematocrit 30.8 % (36.0-46.0); Mean Corpuscular Hemoglobin 21.4 pg (28.0-32.0); Mean Corpuscular Hgb Conc. 31.1 g/dL (32.0-36.0); Mean Corpuscular Volume 68.6 fL (80.0-100.0); Red Blood Cells 4.49 10^6/uL (4.0-5.20); White Blood Cell 25.4 10^3/uL (4.4-10.8)
[2024-07-06 10:54] LABS: Red Cell Distribution Width 20.1 % (11.8-14.3)
[2024-07-06 10:56] LABS: Basophils % (manual) 0 (0.0-2.0); Blast Cells 0; Eosinophils % (manual) 0 (0-7); Metamyelocytes % 0; Myelocytes % 0; Promyelocytes % 0; Reactive Lymphocytes 0
[2024-07-06] MEDS: methylPREDNISolone SOD SUCC 40 MG/ML VL IV SCH (11:16)
[2024-07-06] MEDS: hydroCHLOROthiazide 25 MG TAB PO SCH (11:17)
[2024-07-06 11:55] LABS: Band Neutrophils % (manual) 11; Hypochromia Moderate; Lymphocytes % (manual) 10 (10.0-50.0); Monocytes % (manual) 11 (0-12); Platelet Estimate Decreased
[2024-07-06 11:56] LABS: Anisocytosis Slight
[2024-07-06 12:39] VITALS: BP 153/95; PULSE 82; RESP 21; TEMP 98.6; O2SAT 94
[2024-07-06 21:00] VITALS: BP 163/93; PULSE 89; RESP 20; TEMP 97.3; O2SAT 97
[2024-07-07] VITALS (7 sets, daily range): BP systolic 126–169; BP diastolic 63–87; PULSE 57–79; RESP 17–20; TEMP 97.6–98.3; O2SAT 93–99
[2024-07-07 06:41] LABS: Albumin 3.6 g/dL (3.2-4.8); Alkaline Phosphatase 90 U/L (46-116); Anion Gap 7 (5-15); Aspartate Aminotransferase 16 U/L (13-40); BUN/Creatinine Ratio 15.8 (10.0-20.0); Bilirubin, Total 0.3 mg/dL (0.2-1.0); Blood Urea Nitrogen 19 mg/dL (9-23); Calcium 9.1 mg/dL (8.7-10.4); Carbon Dioxide 26 mmol/L (20-30); Chloride 101 mmol/L (98-107); Glucose 273 mg/dL (74-106); Sodium 134 mmol/L (136-145); Total Protein 6.5 g/dL (5.7-8.2)
[2024-07-07 06:49] LABS: Alanine Aminotransferase < 9 U/L (7-40)
[2024-07-07 07:20] LABS: Hematocrit 31.1 % (36.0-46.0); Hemoglobin 9.9 g/dL (12.2-16.2); Mean Corpuscular Hemoglobin 22.5 pg (28.0-32.0); Mean Corpuscular Hgb Conc. 31.9 g/dL (32.0-36.0); Mean Corpuscular Volume 70.6 fL (80.0-100.0); Red Blood Cells 4.41 10^6/uL (4.0-5.20); White Blood Cell 27.9 10^3/uL (4.4-10.8)
[2024-07-07 07:21] LABS: Red Cell Distribution Width 21.7 % (11.8-14.3)
[2024-07-07 07:22] LABS: Basophils % (manual) 0 (0.0-2.0); Blast Cells 0; Eosinophils % (manual) 0 (0-7); Metamyelocytes % 0; Myelocytes % 0; Promyelocytes % 0; Reactive Lymphocytes 0
[2024-07-07 08:14] LABS: Band Neutrophils % (manual) 9; Lymphocytes % (manual) 19 (10.0-50.0); Monocytes % (manual) 8 (0-12)
[2024-07-07 08:15] LABS: Anisocytosis Slight; Hypochromia Moderate
[2024-07-07 08:16] LABS: Platelet Estimate Decreased
[2024-07-07 08:33] LABS: INR 1.01 (0.9-1.15); Partial Thromboplastin Time 20.8 SEC (24.5-34.5); Prothrombin Time 10.7 sec (9.3-11.8)
[2024-07-07] MEDS: methylPREDNISolone SOD SUCC 40 MG/ML VL IV SCH (10:14)
[2024-07-07] MEDS: HYDROcodone-ACET 10/325MG TAB PO PRN (10:25)
[2024-07-07] MEDS: HYDROmorphone HCL 2 MG/ML VL/or syr IV PRN (11:30)
[2024-07-08] VITALS (7 sets, daily range): BP systolic 106–156; BP diastolic 65–90; PULSE 47–63; RESP 16–20; TEMP 97.6–98.1; O2SAT 96–100
[2024-07-08 07:54] LABS: Hemoglobin 9.4 g/dL (12.2-16.2)
[2024-07-08 07:57] LABS: Hematocrit 30.7 % (36.0-46.0); Mean Corpuscular Hemoglobin 21.1 pg (28.0-32.0); Mean Corpuscular Hgb Conc. 30.8 g/dL (32.0-36.0); Mean Corpuscular Volume 68.6 fL (80.0-100.0); Red Blood Cells 4.47 10^6/uL (4.0-5.20)
[2024-07-08 08:03] LABS: Chloride 101 mmol/L (98-107); Potassium 4.7 mmol/L (3.5-5.1); Sodium 136 mmol/L (136-145); White Blood Cell 35.8 10^3/uL (4.4-10.8)
[2024-07-08 08:04] LABS: Anion Gap 8 (5-15); Calcium 9.5 mg/dL (8.7-10.4); Carbon Dioxide 27 mmol/L (20-30); Red Cell Distribution Width 20.4 % (11.8-14.3)
[2024-07-08 08:06] LABS: Basophils % (manual) 0 (0.0-2.0); Blast Cells 0; Eosinophils % (manual) 0 (0-7); Myelocytes % 0; Promyelocytes % 0; Reactive Lymphocytes 0
[2024-07-08 08:09] LABS: BUN/Creatinine Ratio 22.9 (10.0-20.0); Blood Urea Nitrogen 25 mg/dL (9-23); Glucose 186 mg/dL (74-106)
[2024-07-08 09:47] LABS: Anisocytosis Slight; Band Neutrophils % (manual) 12; Hypochromia Moderate; Lymphocytes % (manual) 9 (10.0-50.0); Metamyelocytes % 5; Monocytes % (manual) 9 (0-12); Platelet Estimate Decreased
[2024-07-08] MEDS: methylPREDNISolone SOD SUCC 40 MG/ML VL IV SCH (10:11)
[2024-07-09 05:00] VITALS: BP 159/89; PULSE 62; RESP 18; TEMP 98; O2SAT 97
[2024-07-09 07:10] LABS: Anion Gap 6 (5-15); Carbon Dioxide 27 mmol/L (20-30); Chloride 104 mmol/L (98-107); Potassium 4.5 mmol/L (3.5-5.1); Sodium 137 mmol/L (136-145)
[2024-07-09 07:16] LABS: Alkaline Phosphatase 80 U/L (46-116); BUN/Creatinine Ratio 21.9 (10.0-20.0); Blood Urea Nitrogen 23 mg/dL (9-23); Glucose 189 mg/dL (74-106)
[2024-07-09 07:17] LABS: Aspartate Aminotransferase 16 U/L (13-40)
[2024-07-09 07:18] LABS: Albumin 3.3 g/dL (3.2-4.8); Bilirubin, Total 0.4 mg/dL (0.2-1.0); Total Protein 5.9 g/dL (5.7-8.2)
[2024-07-09 07:37] LABS: Red Blood Cells 4.74 10^6/uL (4.0-5.20)
[2024-07-09 07:39] LABS: Hematocrit 32.6 % (36.0-46.0); Hemoglobin 10.1 g/dL (12.2-16.2); Mean Corpuscular Hemoglobin 21.4 pg (28.0-32.0); Mean Corpuscular Volume 68.9 fL (80.0-100.0); Red Cell Distribution Width 20.4 % (11.8-14.3)
[2024-07-09 07:45] LABS: Basophils % (manual) 0 (0.0-2.0); Blast Cells 0; Eosinophils % (manual) 0 (0-7); Myelocytes % 0; Promyelocytes % 0; Reactive Lymphocytes 0; White Blood Cell 37.3 10^3/uL (4.4-10.8)
[2024-07-09 07:47] LABS: Alanine Aminotransferase 9 U/L (7-40)
[2024-07-09 08:22] LABS: Lymphocytes % (manual) 9 (10.0-50.0)
[2024-07-09 08:25] LABS: Anisocytosis Slight; Band Neutrophils % (manual) 12; Metamyelocytes % 3; Monocytes % (manual) 7 (0-12)
[2024-07-09 08:26] LABS: Hypochromia Slight; Platelet Estimate Decreased
[2024-07-09 08:55] VITALS: BP 136/67; PULSE 66; RESP 18; TEMP 98.6; O2SAT 98
[2024-07-09 13:30] VITALS: BP 144/88; PULSE 77; RESP 17; TEMP 98.2; O2SAT 98
[2024-07-09 16:58] VITALS: BP 143/88; PULSE 68; RESP 16; TEMP 98; O2SAT 94
[2024-07-09 20:00] VITALS: PULSE 60; RESP 22; O2SAT 99
[2024-07-09 21:00] VITALS: BP 126/66; PULSE 60; RESP 22; TEMP 98.6; O2SAT 99
[2024-07-10 01:00] VITALS: BP 125/73; PULSE 47; RESP 20; TEMP 98; O2SAT 97
[2024-07-10 05:00] VITALS: BP 152/65; PULSE 55; RESP 22; TEMP 98.6; O2SAT 99
[2024-07-10 05:16] LABS: Hematocrit 32.9 % (36.0-46.0); Hemoglobin 9.9 g/dL (12.2-16.2); Mean Corpuscular Hemoglobin 20.7 pg (28.0-32.0); Mean Corpuscular Hgb Conc. 30.1 g/dL (32.0-36.0); Mean Corpuscular Volume 68.8 fL (80.0-100.0); Red Blood Cells 4.77 10^6/uL (4.0-5.20)
[2024-07-10 05:18] LABS: Red Cell Distribution Width 20.6 % (11.8-14.3)
[2024-07-10 05:29] LABS: Basophils % (manual) 0 (0.0-2.0); Blast Cells 0; Eosinophils % (manual) 0 (0-7); Myelocytes % 0; Promyelocytes % 0; Reactive Lymphocytes 0; White Blood Cell 40.6 10^3/uL (4.4-10.8)
[2024-07-10 05:33] LABS: Alanine Aminotransferase 11 U/L (7-40); Albumin 3.3 g/dL (3.2-4.8); Alkaline Phosphatase 85 U/L (46-116); Anion Gap 5 (5-15); Aspartate Aminotransferase 15 U/L (13-40); BUN/Creatinine Ratio 23.5 (10.0-20.0); Bilirubin, Total 0.4 mg/dL (0.2-1.0); Blood Urea Nitrogen 23 mg/dL (9-23); Calcium 9.1 mg/dL (8.7-10.4); Carbon Dioxide 29 mmol/L (20-30); Chloride 103 mmol/L (98-107); Glucose 235 mg/dL (74-106); Magnesium 2.1 mg/dL (1.6-2.6); Potassium 4.7 mmol/L (3.5-5.1); Sodium 137 mmol/L (136-145); Total Protein 5.7 g/dL (5.7-8.2)
[2024-07-10 05:54] LABS: Anisocytosis Slight; Band Neutrophils % (manual) 9; Hypochromia Slight; Lymphocytes % (manual) 13 (10.0-50.0); Metamyelocytes % 2; Monocytes % (manual) 9 (0-12); Platelet Estimate Adequate
[2024-07-10 09:00] VITALS: BP 166/80; PULSE 57; RESP 20; TEMP 97.7; O2SAT 96
[2024-07-10] MEDS ORDERED: PRED10TA PO (09:14)
[2024-07-10 12:59] VITALS: BP 166/80; TEMP 36.5
== END 2024-07-10 13:00 | disposition home or self-care (01) | DRG 840 ==
LOC: ER 06:59 → OVERFLOW 10:49 → CENTRAL 15:10
PROVIDERS: ADMIT Registered Nurse; ATTEND Internal Medicine Geriatric Medicine
DX: D47.Z2 Castleman disease (principal); J96.00 Acute respiratory failure, unspecified whether with hypoxia or hypercapnia; N30.00 Acute cystitis without hematuria; E66.9 Obesity, unspecified; R73.03 Prediabetes; D64.9 Anemia, unspecified; R16.2 Hepatomegaly with splenomegaly, not elsewhere classified; I10 Essential (primary) hypertension; D69.6 Thrombocytopenia, unspecified; T38.0X5A Adverse effect of glucocorticoids and synthetic analogues, initial encounter; Z82.49 Family history of ischemic heart disease and other diseases of the circulatory system; Z82.5 Family history of asthma and other chronic lower respiratory diseases; Y92.89 Other specified places as the place of occurrence of the external cause; Z68.38 Body mass index [BMI] 38.0-38.9, adult
CPT/HCPCS: 36415; 71045; 74176; 80048; 80053; 81001; 83735; 85007; 85025; 85027; 85610; 85730; 87040; 87045; 87086; 87427; 96361; 96365; 96375; G0378; J2405; J2470

== ENCOUNTER 2024-08-05 18:59 | Inpatient (IN) | payer MEDICARE, BC ==
[~2024-08-05] VITALS: Ht 175.3 cm; Wt 109.4 kg
[~2024-08-05 18:59] MED LIST changes: -CEFD300C2 PO; +PRED10TA PO
[2024-08-05 20:00] VITALS: PULSE 68; RESP 44; O2SAT 98
[2024-08-05 20:01] LABS: Basophils # (auto) 0.2 10 ^3/uL (0-0.2); Basophils % (auto) 1.4 % (0.0-2.0); Eosinophils # (auto) 0.1 10 ^3/uL (0-0.8); Eosinophils % (auto) 0.5 % (0.0-7.0); Hematocrit 36.1 % (36.0-46.0); Hemoglobin 11.2 g/dL (12.2-16.2); Lymphocytes # (auto) 1.9 10 ^3/uL (0.4-5.4); Lymphocytes % (auto) 15.2 % (10.0-50.0); Mean Corpuscular Hemoglobin 21.6 pg (28.0-32.0); Mean Corpuscular Hgb Conc. 31.2 g/dL (32.0-36.0); Mean Corpuscular Volume 69.3 fL (80.0-100.0); Monocytes # (auto) 1.1 10 ^3/uL (0-1.3); Monocytes % (auto) 8.8 % (0.0-12.0); Neutrophils # (auto) 9.2 10 ^3/uL (1.6-8.6); Neutrophils % (auto) 74.1 % (37.0-80.0); Nucleated Red Blood Cells % 0.1 %; Platelet Count (auto) 259 10^3/uL (140-450); Red Blood Cells 5.21 10^6/uL (4.0-5.20); White Blood Cell 12.4 10^3/uL (4.4-10.8)
[2024-08-05 20:02] LABS: Red Cell Distribution Width 23.6 % (11.8-14.3)
[2024-08-05 20:21] LABS: Alanine Aminotransferase 15 U/L (7-40); Albumin 4.5 g/dL (3.2-4.8); Alkaline Phosphatase 103 U/L (46-116); Anion Gap 9 (5-15); Aspartate Aminotransferase 21 U/L (13-40); BUN/Creatinine Ratio 8.6 (10.0-20.0); Blood Urea Nitrogen 7 mg/dL (9-23); Calcium 9.8 mg/dL (8.7-10.4); Carbon Dioxide 25 mmol/L (20-30); Chloride 100 mmol/L (98-107); Glucose 175 mg/dL (74-106); Potassium 3.1 mmol/L (3.5-5.1); Sodium 134 mmol/L (136-145)
[2024-08-05 20:22] LABS: Bilirubin, Total 0.6 mg/dL (0.2-1.0); Total Protein 7.3 g/dL (5.7-8.2)
[2024-08-05] MEDS: methylPREDNISolone SOD SUCC 125 MG/2 ML VL IV ONE (20:25)
[2024-08-05] MEDS: ONDANSETRON HCL 4 MG/2 ML VIAL IV ONE (20:26)
[2024-08-05] MEDS: HYDROmorphone HCL 2 MG/ML VL/or syr IV ONE (20:27)
[2024-08-05] MEDS: SODIUM CHLORIDE 0.9% 500 ML IVB ONE (20:28)
[2024-08-05 20:33] LABS: Lipase 29 U/L (12-53)
[2024-08-05 20:35] LABS: Anisocytosis Slight; Platelet Estimate Adequate
[2024-08-05 20:36] LABS: Hypochromia Moderate; Large Platelets FEW
[2024-08-05] MEDS ORDERED: POTASSIUM CHL 20MEQ/100ML 100 ML IV SCH (21:00)
[2024-08-05] MEDS ORDERED: DOCUSATE SOD 100 MG CAP PO PRN (21:00)
[2024-08-05] MEDS ORDERED: ACETAMINOPHEN 325 MG TAB PO PRN (21:00)
[2024-08-05] MEDS: METOPROLOL TARTRATE 25 MG TAB PO SCH (22:00)
[2024-08-05] MEDS: metroNIDAZOLE 500MG/100ML 100 ML IV SCH (22:38)
[2024-08-05] MEDS: SODIUM CHLORIDE 0.9% 1,000 ML IV SCH (22:38)
[2024-08-05] MEDS: HYDROmorphone HCL 2 MG/ML VL/or syr IV PRN (22:40)
[2024-08-05] MEDS ORDERED: MORPHINE SULFATE INJ 2 MG/ml SYRG IV PRN (22:45)
[2024-08-05] MEDS ORDERED: NITROGLYCERIN 0.4 MG SL TAB SL PRN (22:45)
[2024-08-05] MEDS: POTASSIUM CHL 20 Meq TABLET PO ONE (23:09)
[2024-08-06] MEDS: ONDANSETRON HCL 4 MG/2 ML VIAL IV PRN (03:15)
[2024-08-06 07:06] LABS: Basophils # (auto) 0.1 10 ^3/uL (0-0.2); Basophils % (auto) 0.7 % (0.0-2.0); Eosinophils # (auto) 0 10 ^3/uL (0-0.8); Lymphocytes # (auto) 1.6 10 ^3/uL (0.4-5.4); Neutrophils # (auto) 11.8 10 ^3/uL (1.6-8.6); White Blood Cell 13.9 10^3/uL (4.4-10.8)
[2024-08-06 07:11] LABS: Eosinophils % (auto) 0.1 % (0.0-7.0); Hematocrit 36.4 % (36.0-46.0); Hemoglobin 11.5 g/dL (12.2-16.2); Lymphocytes % (auto) 11.5 % (10.0-50.0); Mean Corpuscular Hemoglobin 21.9 pg (28.0-32.0); Mean Corpuscular Hgb Conc. 31.4 g/dL (32.0-36.0); Mean Corpuscular Volume 69.8 fL (80.0-100.0); Monocytes # (auto) 0.4 10 ^3/uL (0-1.3); Monocytes % (auto) 2.7 % (0.0-12.0); Nucleated Red Blood Cells % 0.2 %; Platelet Count (auto) 257 10^3/uL (140-450); Red Blood Cells 5.22 10^6/uL (4.0-5.20)
[2024-08-06 07:18] LABS: Alanine Aminotransferase 14 U/L (7-40); Alkaline Phosphatase 93 U/L (46-116); Anion Gap 5 (5-15); Aspartate Aminotransferase 14 U/L (13-40); BUN/Creatinine Ratio 7.8 (10.0-20.0); Blood Urea Nitrogen 6 mg/dL (9-23); Calcium 9.5 mg/dL (8.7-10.4); Carbon Dioxide 27 mmol/L (20-30); Chloride 104 mmol/L (98-107); Glucose 195 mg/dL (74-106); Potassium 4.4 mmol/L (3.5-5.1); Sodium 136 mmol/L (136-145)
[2024-08-06 07:19] LABS: Bilirubin, Total 0.5 mg/dL (0.2-1.0); Total Protein 7.1 g/dL (5.7-8.2)
[2024-08-06 07:30] VITALS: PULSE 74; RESP 18; O2SAT 98
[2024-08-06 07:34] LABS: Albumin 4.5 g/dL (3.2-4.8)
[2024-08-06 08:26] LABS: Triglycerides 178 mg/dL (< 150)
[2024-08-06 08:27] LABS: LDL Cholesterol 91 mg/dL (< 100)
[2024-08-06 08:28] LABS: Cholesterol 156 mg/dL (< 200); HDL Cholesterol 25 mg/dL (40-59)
[2024-08-06] MEDS ORDERED: cefTRIAXone 1GM/50ML D5W 50 ML IV SCH (09:00)
[2024-08-06 09:35] LABS: Erythrocyte Sedimentation Rate 39 mm/hr (0-20)
[2024-08-06] MEDS: PANTOPRAZOLE 40 MG/10 ML VIAL INJ IV SCH (10:00)
[2024-08-06] MEDS ORDERED: methylPREDNISolone SOD SUCC 40 MG/ML VL IV SCH (10:00)
[2024-08-06] MEDS: amLODIPine BESYLATE 5 MG TAB PO SCH (10:38)
[2024-08-06] MEDS: MORPHINE SULFATE INJ 2 MG/ml SYRG IV PRN (10:42)
[2024-08-06] MEDS: LISINOPRIL 5 MG TAB PO SCH (11:15)
[2024-08-06] MEDS: hydroCHLOROthiazide 25 MG TAB PO SCH (14:00)
[2024-08-06] MEDS: methylPREDNISolone SOD SUCC 125 MG/2 ML VL IV SCH (14:00)
[2024-08-06 14:59] VITALS: PULSE 68; RESP 19; O2SAT 97
[2024-08-06 15:03] VITALS: BP 177/93; PULSE 72; RESP 19; TEMP 98.3; O2SAT 97
[2024-08-06 15:30] LABS: Urine Bacteria FEW /hpf (None Seen); Urine Blood Negative /uL (Negative); Urine Clarity Clear (Clear); Urine Color Light-Yellow (Yellow); Urine Mucus FEW (None Seen); Urine Protein, UAD 1+ (Negative); Urine Specific Gravity 1.015 (1.001-1.035); Urine Urobilinogen Normal (Negative); Urine WBC 1 /hpf (0 - 5); Urine pH 5.5 (5.0-9.0)
[2024-08-06 16:55] VITALS: BP 155/88; PULSE 67; RESP 19; TEMP 98.3; O2SAT 98
[2024-08-06] MEDS: hydrALAZINE HCL 20 MG/ML VL IV PRN (17:48)
[2024-08-06 20:00] VITALS: PULSE 63; RESP 18; O2SAT 98
[2024-08-06 21:00] VITALS: BP 134/66; PULSE 63; RESP 18; TEMP 98.2; O2SAT 98
[2024-08-06] MEDS: hydrALAZINE HCL 25 MG TAB PO SCH (22:26)
[2024-08-07] VITALS (8 sets, daily range): BP systolic 142–175; BP diastolic 61–91; PULSE 52–68; RESP 15–20; TEMP 97.7–98.3; O2SAT 93–97
[2024-08-07 05:42] LABS: Chloride 102 mmol/L (98-107); Sodium 136 mmol/L (136-145)
[2024-08-07 05:43] LABS: Anion Gap 8 (5-15); Calcium 9.9 mg/dL (8.7-10.4); Carbon Dioxide 26 mmol/L (20-30)
[2024-08-07 05:48] LABS: BUN/Creatinine Ratio 19.4 (10.0-20.0); Blood Urea Nitrogen 18 mg/dL (9-23); Glucose 210 mg/dL (74-106)
[2024-08-07 07:45] LABS: Erythrocyte Sedimentation Rate 31 mm/hr (0-20)
[2024-08-07] MEDS: NIFEdipine ER 30 MG TAB PO SCH (09:16)
[2024-08-07] MEDS: HYDROcodone-ACET 5/325MG TAB PO PRN (11:39)
[2024-08-07] MEDS: ALPRAZolam 0.5 MG TAB PO PRN (22:07)
[2024-08-08] VITALS (8 sets, daily range): BP systolic 142–171; BP diastolic 70–90; PULSE 47–66; RESP 16–20; TEMP 97.5–98.4; O2SAT 97–99
[2024-08-08 07:16] LABS: Chloride 103 mmol/L (98-107); Potassium 3.9 mmol/L (3.5-5.1); Sodium 140 mmol/L (136-145)
[2024-08-08 07:17] LABS: Anion Gap 6 (5-15); Calcium 9.8 mg/dL (8.7-10.4); Carbon Dioxide 31 mmol/L (20-30)
[2024-08-08 07:22] LABS: BUN/Creatinine Ratio 24.7 (10.0-20.0); Blood Urea Nitrogen 22 mg/dL (9-23); Glucose 167 mg/dL (74-106)
[2024-08-08 08:52] LABS: Erythrocyte Sedimentation Rate 21 mm/hr (0-20)
[2024-08-08] MEDS ORDERED: MORPHINE SULFATE INJ 2 MG/ml SYRG IV PRN (11:00)
[2024-08-08] MEDS: OXYCODONE W/ ACETAMINOPHEN 5/325MG TABLET PO PRN (13:00)
[2024-08-08] MEDS: methylPREDNISolone SOD SUCC 125 MG/2 ML VL IV SCH (17:34)
[2024-08-09] VITALS (9 sets, daily range): BP systolic 116–189; BP diastolic 67–95; PULSE 48–99; RESP 16–22; TEMP 97.4–98.5; O2SAT 94–100
[2024-08-09 07:01] LABS: Hematocrit 36.8 % (36.0-46.0); Hemoglobin 11.7 g/dL (12.2-16.2); Mean Corpuscular Hemoglobin 21.7 pg (28.0-32.0); Mean Corpuscular Hgb Conc. 31.9 g/dL (32.0-36.0); Mean Corpuscular Volume 68.2 fL (80.0-100.0); Platelet Count (auto) 283 10^3/uL (140-450)
[2024-08-09 07:05] LABS: Anion Gap 5 (5-15); Carbon Dioxide 28 mmol/L (20-30); Chloride 104 mmol/L (98-107); Potassium 3.9 mmol/L (3.5-5.1); Sodium 137 mmol/L (136-145)
[2024-08-09 07:06] LABS: Calcium 9.4 mg/dL (8.7-10.4)
[2024-08-09 07:11] LABS: BUN/Creatinine Ratio 28.3 (10.0-20.0); Blood Urea Nitrogen 26 mg/dL (9-23); Glucose 153 mg/dL (74-106)
[2024-08-09 07:15] LABS: Red Cell Distribution Width 23.7 % (11.8-14.3)
[2024-08-09 07:19] LABS: Basophils % (manual) 0 (0.0-2.0); Blast Cells 0; Eosinophils % (manual) 0 (0-7); Metamyelocytes % 0; Myelocytes % 0; Promyelocytes % 0; Reactive Lymphocytes 0
[2024-08-09 08:02] LABS: Erythrocyte Sedimentation Rate 18 mm/hr (0-20)
[2024-08-09 08:35] LABS: Anisocytosis Slight; Band Neutrophils % (manual) 6; Hypochromia Slight; Lymphocytes % (manual) 17 (10.0-50.0); Monocytes % (manual) 8 (0-12)
[2024-08-09 08:36] LABS: Platelet Estimate Adequate
[2024-08-09] MEDS: hydrALAZINE HCL 25 MG TAB PO SCH (13:32)
[2024-08-10] VITALS (7 sets, daily range): BP systolic 140–161; BP diastolic 72–105; PULSE 49–56; RESP 16–22; TEMP 97.7–98.9; O2SAT 94–99
[2024-08-10 06:26] LABS: Basophils # (auto) 0 10 ^3/uL (0-0.2); Eosinophils # (auto) 0 10 ^3/uL (0-0.8); Hemoglobin 11.7 g/dL (12.2-16.2); Nucleated Red Blood Cells % 0.1 %
[2024-08-10 06:33] LABS: Basophils % (auto) 0.1 % (0.0-2.0); Hematocrit 37.2 % (36.0-46.0); Lymphocytes % (auto) 14.8 % (10.0-50.0); Mean Corpuscular Hemoglobin 21.9 pg (28.0-32.0); Mean Corpuscular Hgb Conc. 31.5 g/dL (32.0-36.0); Mean Corpuscular Volume 69.5 fL (80.0-100.0); Monocytes # (auto) 1.4 10 ^3/uL (0-1.3); Monocytes % (auto) 6.9 % (0.0-12.0); Neutrophils # (auto) 15.7 10 ^3/uL (1.6-8.6); Neutrophils % (auto) 78.2 % (37.0-80.0); Platelet Count (auto) 266 10^3/uL (140-450); Red Blood Cells 5.35 10^6/uL (4.0-5.20); White Blood Cell 20.1 10^3/uL (4.4-10.8)
[2024-08-10] MEDS: PANTOPRAZOLE 40 MG TAB PO SCH (06:34)
[2024-08-10 06:38] LABS: Red Cell Distribution Width 23.6 % (11.8-14.3)
[2024-08-10 06:39] LABS: Chloride 102 mmol/L (98-107); Sodium 138 mmol/L (136-145)
[2024-08-10 06:40] LABS: Anion Gap 5 (5-15); Calcium 9.6 mg/dL (8.7-10.4); Carbon Dioxide 31 mmol/L (20-30)
[2024-08-10 06:45] LABS: BUN/Creatinine Ratio 26.1 (10.0-20.0); Blood Urea Nitrogen 23 mg/dL (9-23); Glucose 234 mg/dL (74-106)
[2024-08-10 07:55] LABS: Hypochromia Slight; Platelet Estimate Adequate; Stomatocytes Few
[2024-08-10] MEDS: predniSONE 20 MG TAB PO SCH (10:30)
[2024-08-11 05:00] VITALS: BP 131/74; PULSE 49; RESP 20; TEMP 98; O2SAT 96
[2024-08-11 08:27] LABS: Chloride 102 mmol/L (98-107); Potassium 4.2 mmol/L (3.5-5.1); Sodium 140 mmol/L (136-145)
[2024-08-11 08:28] LABS: Anion Gap 4 (5-15); Carbon Dioxide 34 mmol/L (20-30)
[2024-08-11 08:29] LABS: Calcium 9.5 mg/dL (8.7-10.4); Hemoglobin 12.7 g/dL (12.2-16.2)
[2024-08-11 08:31] LABS: Hematocrit 40.3 % (36.0-46.0); Mean Corpuscular Hemoglobin 21.8 pg (28.0-32.0); Mean Corpuscular Hgb Conc. 31.5 g/dL (32.0-36.0); Mean Corpuscular Volume 69.3 fL (80.0-100.0); Platelet Count (auto) 300 10^3/uL (140-450); Red Blood Cells 5.82 10^6/uL (4.0-5.20); White Blood Cell 17.9 10^3/uL (4.4-10.8)
[2024-08-11 08:33] LABS: Glucose 123 mg/dL (74-106)
[2024-08-11 08:34] LABS: BUN/Creatinine Ratio 24.7 (10.0-20.0); Blood Urea Nitrogen 23 mg/dL (9-23); Red Cell Distribution Width 24.3 % (11.8-14.3)
[2024-08-11 08:35] LABS: Band Neutrophils % (manual) 0; Basophils % (manual) 0 (0.0-2.0); Blast Cells 0; Myelocytes % 0; Promyelocytes % 0; Reactive Lymphocytes 0
[2024-08-11 08:58] VITALS: BP 145/73; PULSE 45; RESP 20; TEMP 97.7; O2SAT 97
[2024-08-11] MEDS ORDERED: PRED20TA2 PO (10:10)
[2024-08-11 12:39] LABS: Anisocytosis Moderate; Eosinophils % (manual) 1 (0-7); Hypochromia Moderate; Lymphocytes % (manual) 21 (10.0-50.0); Metamyelocytes % 3; Monocytes % (manual) 9 (0-12); Platelet Estimate Adequate
[2024-08-11 12:43] VITALS: BP 127/74; PULSE 61; RESP 24; TEMP 98.1; O2SAT 97
[2024-08-11 13:00] VITALS: BP 127/74; PULSE 61; RESP 24; TEMP 98.1; O2SAT 99
== END 2024-08-11 15:20 | disposition home or self-care (01) | DRG 841 ==
LOC: ER 18:59 → EEVIPCON 22:46 → EDBD 22:46 → TELE 22:46 → TELE-CENTR 08-06 14:58 → CENTRAL 08-06 15:37
PROVIDERS: ADMIT Nurse Practitioner Family; ATTEND Internal Medicine
DX: D47.Z2 Castleman disease (principal); I47.19 Other supraventricular tachycardia; R65.10 Systemic inflammatory response syndrome (SIRS) of non-infectious origin without acute organ dysfunction; R16.2 Hepatomegaly with splenomegaly, not elsewhere classified; D64.9 Anemia, unspecified; I16.0 Hypertensive urgency; D72.829 Elevated white blood cell count, unspecified; E66.01 Morbid (severe) obesity due to excess calories; Z68.35 Body mass index [BMI] 35.0-35.9, adult; I48.91 Unspecified atrial fibrillation; T38.0X5A Adverse effect of glucocorticoids and synthetic analogues, initial encounter; J45.909 Unspecified asthma, uncomplicated; D69.6 Thrombocytopenia, unspecified; K42.9 Umbilical hernia without obstruction or gangrene; Z88.5 Allergy status to narcotic agent; Z79.899 Other long term (current) drug therapy; Z82.49 Family history of ischemic heart disease and other diseases of the circulatory system; Y92.89 Other specified places as the place of occurrence of the external cause
CPT/HCPCS: 36415; 71045; 74176; 80048; 80053; 80061; 81001; 82306; 82607; 83036; 83690; 84443; 85007; 85025; 85027; 85652; 86141; 87081; 93005; 96365; 96366; 96375; 96376; G0378; J2405; J2470; J3490

== ENCOUNTER → 2024-10-20 | Outpatient (CLI) | payer MEDICARE, BC ==
[~2024-10-20] MED LIST changes: +PRED20TA2 PO
[2024-10-20 11:57] LABS: Basophils # (auto) 0.1 10 ^3/uL (0-0.2); Basophils % (auto) 0.6 % (0.0-2.0); Eosinophils # (auto) 0.1 10 ^3/uL (0-0.8); Lymphocytes # (auto) 1.4 10 ^3/uL (0.4-5.4)
[2024-10-20 11:59] LABS: Eosinophils % (auto) 0.5 % (0.0-7.0); Hemoglobin 11.9 g/dL (12.2-16.2); Mean Corpuscular Hemoglobin 22.1 pg (28.0-32.0); Mean Corpuscular Hgb Conc. 31.4 g/dL (32.0-36.0); Mean Corpuscular Volume 70.5 fL (80.0-100.0); Monocytes # (auto) 1.1 10 ^3/uL (0-1.3); Monocytes % (auto) 9.6 % (0.0-12.0); Neutrophils # (auto) 8.9 10 ^3/uL (1.6-8.6); Neutrophils % (auto) 77.3 % (37.0-80.0); Platelet Count (auto) 311 10^3/uL (140-450); Red Cell Distribution Width 18.9 % (11.8-14.3); White Blood Cell 11.5 10^3/uL (4.4-10.8)
[2024-10-20 12:24] LABS: Alanine Aminotransferase 16 U/L (7-40); Alkaline Phosphatase 201 U/L (46-116); Anion Gap 6 (5-15); Aspartate Aminotransferase 18 U/L (13-40); BUN/Creatinine Ratio 11.8 (10.0-20.0); Bilirubin, Total 0.3 mg/dL (0.2-1.0); Blood Urea Nitrogen 10 mg/dL (9-23); Calcium 10.1 mg/dL (8.7-10.4); Carbon Dioxide 33 mmol/L (20-31); Chloride 103 mmol/L (98-107); Glucose 94 mg/dL (74-106); Sodium 142 mmol/L (136-145)
[2024-10-20 12:25] LABS: Total Protein 6.8 g/dL (5.7-8.2)
[2024-10-20 12:32] LABS: CRP High Sensitivity 14.11 mg/dL (<1.0)
== END | disposition home or self-care (01) ==
LOC: LAB 11:26
PROVIDERS: ATTEND Internal Medicine
DX: D47.Z2 Castleman disease (principal)
CPT/HCPCS: 36415; 80053; 83615; 85025; 86141

== ENCOUNTER → 2024-11-25 | Outpatient (CLI) | payer MEDICARE, BC ==
[2024-11-25 09:37] LABS: Hemoglobin 10.3 g/dL (12.2-16.2)
[2024-11-25 09:38] LABS: Hematocrit 33.7 % (36.0-46.0); Mean Corpuscular Hemoglobin 21.1 pg (28.0-32.0); Mean Corpuscular Hgb Conc. 30.7 g/dL (32.0-36.0); Mean Corpuscular Volume 68.6 fL (80.0-100.0); Platelet Count (auto) 189 10^3/uL (140-450); Red Blood Cells 4.91 10^6/uL (4.0-5.20); Red Cell Distribution Width 19.6 % (11.8-14.3)
[2024-11-25 09:53] LABS: Band Neutrophils % (manual) 0; Basophils % (manual) 0 (0.0-2.0); Blast Cells 0; Eosinophils % (manual) 0 (0-7); Metamyelocytes % 0; Myelocytes % 0; Promyelocytes % 0; Reactive Lymphocytes 0
[2024-11-25 09:58] LABS: Alanine Aminotransferase 10 U/L (7-40); Albumin 3.9 g/dL (3.2-4.8); Anion Gap 9 (5-15); Aspartate Aminotransferase 15 U/L (13-40); BUN/Creatinine Ratio 23.7 (10.0-20.0); Bilirubin, Total 0.5 mg/dL (0.2-1.0); Carbon Dioxide 28 mmol/L (20-31); Chloride 101 mmol/L (98-107); Potassium 3.9 mmol/L (3.5-5.1); Sodium 138 mmol/L (136-145)
[2024-11-25 10:02] LABS: Alkaline Phosphatase 276 U/L (46-116); Blood Urea Nitrogen 31 mg/dL (9-23); Glucose 112 mg/dL (74-106)
[2024-11-25 11:26] LABS: Hypochromia Slight; Lymphocytes % (manual) 23 (10.0-50.0); Monocytes % (manual) 7 (0-12); Platelet Estimate Adequate
== END | disposition home or self-care (01) ==
LOC: LAB 09:20
PROVIDERS: ATTEND Internal Medicine
DX: D47.Z2 Castleman disease (principal); Z88.5 Allergy status to narcotic agent
CPT/HCPCS: 36415; 80053; 83615; 85007; 85027

== ENCOUNTER → 2024-11-30 | Outpatient (CLI) | payer MEDICARE, BC ==
[2024-11-30 15:24] LABS: Hematocrit 34.8 % (36.0-46.0); Mean Corpuscular Hemoglobin 21.6 pg (28.0-32.0); Mean Corpuscular Hgb Conc. 31.7 g/dL (32.0-36.0); Mean Corpuscular Volume 68.2 fL (80.0-100.0); Platelet Count (auto) 155 10^3/uL (140-450); Red Blood Cells 5.11 10^6/uL (4.0-5.20); Red Cell Distribution Width 19.8 % (11.8-14.3); White Blood Cell 11.7 10^3/uL (4.4-10.8)
[2024-11-30 15:31] LABS: Albumin 4.1 g/dL (3.2-4.8); Anion Gap 8 (5-15); Aspartate Aminotransferase 15 U/L (13-40); BUN/Creatinine Ratio 15.3 (10.0-20.0); Bilirubin, Total 0.5 mg/dL (0.2-1.0); Blood Urea Nitrogen 20 mg/dL (9-23); Calcium 9.9 mg/dL (8.7-10.4); Carbon Dioxide 28 mmol/L (20-31); Chloride 102 mmol/L (98-107); Potassium 4.3 mmol/L (3.5-5.1); Sodium 138 mmol/L (136-145)
[2024-11-30 15:40] LABS: Basophils % (manual) 0 (0.0-2.0); Blast Cells 0; Metamyelocytes % 0; Myelocytes % 0; Promyelocytes % 0; Reactive Lymphocytes 0
[2024-11-30 15:45] LABS: Alanine Aminotransferase < 9 U/L (7-40); Alkaline Phosphatase 203 U/L (46-116); Glucose 107 mg/dL (74-106)
[2024-11-30 16:17] LABS: Band Neutrophils % (manual) 5; Eosinophils % (manual) 1 (0-7); Lymphocytes % (manual) 16 (10.0-50.0); Monocytes % (manual) 8 (0-12); Platelet Estimate Adequate
== END | disposition home or self-care (01) ==
LOC: LAB 15:03
PROVIDERS: ATTEND Internal Medicine
DX: D47.Z2 Castleman disease (principal); Z88.6 Allergy status to analgesic agent
CPT/HCPCS: 36415; 80053; 83615; 85007; 85027

== ENCOUNTER → 2024-12-07 | Outpatient (CLI) | payer MEDICARE, BC ==
[2024-12-07 16:06] LABS: Hemoglobin 10.4 g/dL (12.2-16.2); Mean Corpuscular Hgb Conc. 31.2 g/dL (32.0-36.0); Red Blood Cells 4.93 10^6/uL (4.0-5.20)
[2024-12-07 16:08] LABS: Hematocrit 33.4 % (36.0-46.0); Mean Corpuscular Hemoglobin 21.1 pg (28.0-32.0); Mean Corpuscular Volume 67.7 fL (80.0-100.0); Platelet Count (auto) 152 10^3/uL (140-450); Red Cell Distribution Width 19.8 % (11.8-14.3)
[2024-12-07 16:12] LABS: Anion Gap 8 (5-15); Aspartate Aminotransferase 15 U/L (13-40); BUN/Creatinine Ratio 12.9 (10.0-20.0); Blood Urea Nitrogen 17 mg/dL (9-23); Calcium 9.7 mg/dL (8.7-10.4); Carbon Dioxide 29 mmol/L (20-31); Chloride 104 mmol/L (98-107); Sodium 141 mmol/L (136-145)
[2024-12-07 16:13] LABS: Bilirubin, Total 0.5 mg/dL (0.2-1.0); Total Protein 6.7 g/dL (5.7-8.2)
[2024-12-07 16:18] LABS: Band Neutrophils % (manual) 0; Basophils % (manual) 0 (0.0-2.0); Blast Cells 0; Myelocytes % 0; Promyelocytes % 0; Reactive Lymphocytes 0
[2024-12-07 16:21] LABS: Alanine Aminotransferase < 9 U/L (7-40); Alkaline Phosphatase 128 U/L (46-116); Glucose 128 mg/dL (74-106)
[2024-12-07 17:11] LABS: Eosinophils % (manual) 1 (0-7); Lymphocytes % (manual) 17 (10.0-50.0); Metamyelocytes % 1; Monocytes % (manual) 11 (0-12)
[2024-12-07 17:12] LABS: Hypochromia Moderate; Platelet Estimate Adequate
== END | disposition home or self-care (01) ==
LOC: LAB 15:00
PROVIDERS: ATTEND Internal Medicine
DX: D47.Z2 Castleman disease (principal)
CPT/HCPCS: 36415; 80053; 83615; 85007; 85027

== ENCOUNTER → 2024-12-14 | Outpatient (CLI) | payer MEDICARE, BC ==
[2024-12-14 16:22] LABS: Albumin 4.1 g/dL (3.2-4.8); Anion Gap 5 (5-15); Aspartate Aminotransferase 14 U/L (13-40); BUN/Creatinine Ratio 13.5 (10.0-20.0); Blood Urea Nitrogen 13 mg/dL (9-23); Calcium 9.9 mg/dL (8.7-10.4); Carbon Dioxide 30 mmol/L (20-31); Chloride 104 mmol/L (98-107); Glucose 83 mg/dL (74-106); Potassium 3.5 mmol/L (3.5-5.1); Sodium 139 mmol/L (136-145)
[2024-12-14 16:23] LABS: Bilirubin, Total 0.5 mg/dL (0.2-1.0); Total Protein 6.8 g/dL (5.7-8.2)
[2024-12-14 16:31] LABS: Alanine Aminotransferase < 9 U/L (7-40); Alkaline Phosphatase 123 U/L (46-116)
[2024-12-14 16:46] LABS: Basophils # (auto) 0.1 10 ^3/uL (0-0.2); Eosinophils # (auto) 0.1 10 ^3/uL (0-0.8); Hemoglobin 10.6 g/dL (12.2-16.2); Lymphocytes # (auto) 1.6 10 ^3/uL (0.4-5.4); Mean Corpuscular Volume 68.9 fL (80.0-100.0); Monocytes # (auto) 0.8 10 ^3/uL (0-1.3); White Blood Cell 7.4 10^3/uL (4.4-10.8)
[2024-12-14 16:49] LABS: Basophils % (auto) 0.9 % (0.0-2.0); Eosinophils % (auto) 0.8 % (0.0-7.0); Hematocrit 34.4 % (36.0-46.0); Lymphocytes % (auto) 21.8 % (10.0-50.0); Mean Corpuscular Hemoglobin 21.3 pg (28.0-32.0); Mean Corpuscular Hgb Conc. 30.9 g/dL (32.0-36.0); Monocytes % (auto) 11.1 % (0.0-12.0); Neutrophils # (auto) 4.8 10 ^3/uL (1.6-8.6); Neutrophils % (auto) 65.4 % (37.0-80.0); Nucleated Red Blood Cells % 0.2 %; Platelet Count (auto) 166 10^3/uL (140-450); Red Cell Distribution Width 20.5 % (11.8-14.3)
== END | disposition home or self-care (01) ==
LOC: LAB 15:51
PROVIDERS: ATTEND Internal Medicine
DX: D47.Z2 Castleman disease (principal)
CPT/HCPCS: 36415; 80053; 83615; 85025

== ENCOUNTER → 2024-12-22 | Outpatient (CLI) | payer MEDICARE, BC ==
[2024-12-22 16:16] LABS: Basophils # (auto) 0.1 10 ^3/uL (0-0.2); Basophils % (auto) 1.1 % (0.0-2.0); Eosinophils # (auto) 0.1 10 ^3/uL (0-0.8); Eosinophils % (auto) 0.6 % (0.0-7.0); Hematocrit 36.6 % (36.0-46.0); Hemoglobin 11.3 g/dL (12.2-16.2); Lymphocytes # (auto) 1.7 10 ^3/uL (0.4-5.4); Lymphocytes % (auto) 20.3 % (10.0-50.0); Mean Corpuscular Hemoglobin 21.2 pg (28.0-32.0); Mean Corpuscular Volume 68.2 fL (80.0-100.0); Monocytes # (auto) 0.7 10 ^3/uL (0-1.3); Monocytes % (auto) 8.4 % (0.0-12.0); Neutrophils # (auto) 5.9 10 ^3/uL (1.6-8.6); Neutrophils % (auto) 69.6 % (37.0-80.0); Nucleated Red Blood Cells % 0.1 %; Platelet Count (auto) 198 10^3/uL (140-450); Red Blood Cells 5.36 10^6/uL (4.0-5.20); White Blood Cell 8.6 10^3/uL (4.4-10.8)
[2024-12-22 16:17] LABS: Red Cell Distribution Width 21.4 % (11.8-14.3)
[2024-12-22 16:42] LABS: Albumin 4.6 g/dL (3.2-4.8); Anion Gap 9 (5-15); BUN/Creatinine Ratio 14.4 (10.0-20.0); Bilirubin, Total 0.5 mg/dL (0.2-1.0); Blood Urea Nitrogen 15 mg/dL (9-23); Carbon Dioxide 27 mmol/L (20-31); Chloride 103 mmol/L (98-107); Potassium 3.9 mmol/L (3.5-5.1); Sodium 139 mmol/L (136-145); Total Protein 7.1 g/dL (5.7-8.2)
[2024-12-22 16:43] LABS: Alanine Aminotransferase < 9 U/L (7-40); Alkaline Phosphatase 122 U/L (46-116); Aspartate Aminotransferase 13 U/L (13-40); Calcium 10.5 mg/dL (8.7-10.4); Glucose 111 mg/dL (74-106)
[2024-12-22 17:51] LABS: Platelet Estimate Adequate
[2024-12-22 17:52] LABS: Anisocytosis Slight; Hypochromia Moderate
== END | disposition home or self-care (01) ==
LOC: LAB 16:08
PROVIDERS: ATTEND Internal Medicine
DX: D47.Z2 Castleman disease (principal); Z88.8 Allergy status to other drugs, medicaments and biological substances
CPT/HCPCS: 36415; 80053; 83615; 85025

== ENCOUNTER → 2025-02-16 | Outpatient (CLI) | payer MEDICARE, BC ==
[2025-02-16 16:05] LABS: Basophils # (auto) 0.1 10 ^3/uL (0-0.2); Eosinophils # (auto) 0.2 10 ^3/uL (0-0.8); Eosinophils % (auto) 3.1 % (0.0-7.0); Hematocrit 42.9 % (36.0-46.0); Hemoglobin 13.4 g/dL (12.2-16.2); Lymphocytes # (auto) 1.9 10 ^3/uL (0.4-5.4); Lymphocytes % (auto) 37.8 % (10.0-50.0); Mean Corpuscular Hemoglobin 22.7 pg (28.0-32.0); Mean Corpuscular Hgb Conc. 31.2 g/dL (32.0-36.0); Mean Corpuscular Volume 72.8 fL (80.0-100.0); Monocytes # (auto) 0.5 10 ^3/uL (0-1.3); Monocytes % (auto) 9.4 % (0.0-12.0); Neutrophils # (auto) 2.5 10 ^3/uL (1.6-8.6); Neutrophils % (auto) 48.7 % (37.0-80.0); Nucleated Red Blood Cells % 0.2 %; Platelet Count (auto) 314 10^3/uL (140-450)
[2025-02-16 16:06] LABS: Red Cell Distribution Width 20.4 % (11.8-14.3)
[2025-02-16 16:53] LABS: Alanine Aminotransferase 14 U/L (7-40); Albumin 4.6 g/dL (3.2-4.8); Alkaline Phosphatase 93 U/L (46-116); Anion Gap 8 (5-15); Aspartate Aminotransferase 15 U/L (13-40); Bilirubin, Total 0.4 mg/dL (0.2-1.0); Blood Urea Nitrogen 17 mg/dL (9-23); Carbon Dioxide 29 mmol/L (20-31); Chloride 105 mmol/L (98-107); Potassium 3.9 mmol/L (3.5-5.1); Sodium 142 mmol/L (136-145); Total Protein 6.8 g/dL (5.7-8.2)
[2025-02-16 16:56] LABS: Glucose 121 mg/dL (74-106)
[2025-02-16 16:57] LABS: Ferritin 49.5 ng/mL (10-291)
[2025-02-16 17:17] LABS: Folate (Folic Acid) 47.02 ng/mL (>5.38)
[2025-02-16 17:25] LABS: Thyroid Stimulating Hormone 2.43 uIU/mL (0.55-4.78)
== END | disposition home or self-care (01) ==
LOC: LAB 15:52
PROVIDERS: ATTEND Nurse Practitioner
DX: D47.Z2 Castleman disease (principal); Z88.5 Allergy status to narcotic agent; Z79.899 Other long term (current) drug therapy
CPT/HCPCS: 36415; 80053; 82607; 82728; 82746; 83540; 83550; 83615; 84443; 85025

== ENCOUNTER → 2025-02-22 | Outpatient (CLI) | payer MEDICARE, BC ==
[2025-02-22 16:57] LABS: Basophils # (auto) 0.1 10 ^3/uL (0-0.2); Eosinophils # (auto) 0.2 10 ^3/uL (0-0.8); Hemoglobin 13.2 g/dL (12.2-16.2); Lymphocytes # (auto) 1.7 10 ^3/uL (0.4-5.4); Mean Corpuscular Volume 73.9 fL (80.0-100.0); Monocytes # (auto) 0.5 10 ^3/uL (0-1.3); Nucleated Red Blood Cells % 0.1 %
[2025-02-22 16:59] LABS: Basophils % (auto) 1.4 % (0.0-2.0); Eosinophils % (auto) 3.8 % (0.0-7.0); Hematocrit 42.6 % (36.0-46.0); Lymphocytes % (auto) 37.8 % (10.0-50.0); Mean Corpuscular Hgb Conc. 31.1 g/dL (32.0-36.0); Monocytes % (auto) 11.8 % (0.0-12.0); Neutrophils # (auto) 2.1 10 ^3/uL (1.6-8.6); Neutrophils % (auto) 45.2 % (37.0-80.0); Platelet Count (auto) 304 10^3/uL (140-450); Red Blood Cells 5.76 10^6/uL (4.0-5.20); Red Cell Distribution Width 19.1 % (11.8-14.3); White Blood Cell 4.6 10^3/uL (4.4-10.8)
[2025-02-22 17:16] LABS: % Iron Saturation 11.2 % (15-50)
[2025-02-22 17:17] LABS: Alanine Aminotransferase 15 U/L (7-40); Albumin 4.4 g/dL (3.2-4.8); Alkaline Phosphatase 94 U/L (46-116); Anion Gap 8 (5-15); Aspartate Aminotransferase 17 U/L (13-40); BUN/Creatinine Ratio 18.5 (10.0-20.0); Bilirubin, Total 0.4 mg/dL (0.2-1.0); Blood Urea Nitrogen 15 mg/dL (9-23); Calcium 9.7 mg/dL (8.7-10.4); Carbon Dioxide 30 mmol/L (20-31); Chloride 105 mmol/L (98-107); Potassium 3.8 mmol/L (3.5-5.1); Sodium 143 mmol/L (136-145); Total Protein 6.3 g/dL (5.7-8.2)
[2025-02-22 17:20] LABS: Ferritin 34.6 ng/mL (10-291); Thyroid Stimulating Hormone 2.2 uIU/mL (0.55-4.78)
[2025-02-22 17:25] LABS: Glucose 114 mg/dL (74-106)
[2025-02-22 17:35] LABS: Folate (Folic Acid) 27.15 ng/mL (>5.38)
== END | disposition home or self-care (01) ==
LOC: LAB 16:06
PROVIDERS: ATTEND Nurse Practitioner
DX: D47.Z2 Castleman disease (principal); Z88.5 Allergy status to narcotic agent; Z79.899 Other long term (current) drug therapy
CPT/HCPCS: 36415; 80053; 82728; 82746; 83540; 83550; 83615; 84443; 85025

== ENCOUNTER → 2025-03-29 | Outpatient (CLI) | payer MEDICARE, BC ==
[2025-03-29 16:17] LABS: Basophils # (auto) 0.1 10 ^3/uL (0-0.2); Basophils % (auto) 1.3 % (0.0-2.0); Eosinophils # (auto) 0.2 10 ^3/uL (0-0.8); Eosinophils % (auto) 3.6 % (0.0-7.0); Hematocrit 46.8 % (36.0-46.0); Hemoglobin 15.1 g/dL (12.2-16.2); Lymphocytes # (auto) 2.1 10 ^3/uL (0.4-5.4); Lymphocytes % (auto) 47.1 % (10.0-50.0); Mean Corpuscular Hemoglobin 23.2 pg (28.0-32.0); Mean Corpuscular Hgb Conc. 32.3 g/dL (32.0-36.0); Mean Corpuscular Volume 71.8 fL (80.0-100.0); Monocytes # (auto) 0.6 10 ^3/uL (0-1.3); Monocytes % (auto) 13.6 % (0.0-12.0); Neutrophils # (auto) 1.5 10 ^3/uL (1.6-8.6); Neutrophils % (auto) 34.4 % (37.0-80.0); Nucleated Red Blood Cells % 0.6 %; Platelet Count (auto) 317 10^3/uL (140-450); Red Blood Cells 6.51 10^6/uL (4.0-5.20); Red Cell Distribution Width 17.8 % (11.8-14.3); White Blood Cell 4.4 10^3/uL (4.4-10.8)
[2025-03-29 16:31] LABS: % Iron Saturation 10.2 % (15-50); Alanine Aminotransferase 19 U/L (7-40); Alkaline Phosphatase 87 U/L (46-116); Anion Gap 5 (5-15); Aspartate Aminotransferase 26 U/L (13-40); BUN/Creatinine Ratio 18.1 (10.0-20.0); Bilirubin, Total 0.4 mg/dL (0.2-1.0); Blood Urea Nitrogen 17 mg/dL (9-23); Calcium 10.3 mg/dL (8.7-10.4); Chloride 105 mmol/L (98-107); Glucose 86 mg/dL (74-106); Potassium 3.9 mmol/L (3.5-5.1); Sodium 142 mmol/L (136-145); Total Protein 7.2 g/dL (5.7-8.2)
[2025-03-29 16:37] LABS: Thyroid Stimulating Hormone 2.06 uIU/mL (0.55-4.78)
[2025-03-29 16:40] LABS: Carbon Dioxide 32 mmol/L (20-31)
[2025-03-29 18:12] LABS: Ferritin 29.9 ng/mL (10-291); Folate (Folic Acid) 35.46 ng/mL (>5.38)
== END | disposition home or self-care (01) ==
LOC: LAB 15:43
PROVIDERS: ATTEND Nurse Practitioner
DX: D47.Z2 Castleman disease (principal); Z88.5 Allergy status to narcotic agent; Z79.899 Other long term (current) drug therapy
CPT/HCPCS: 36415; 80053; 82607; 82728; 82746; 83540; 83550; 83615; 84443; 85025

== ENCOUNTER 2025-06-27 15:51 | Outpatient (CLI) | payer MEDICARE, MEDICAID ==
[2025-06-27 16:21] LABS: Hemoglobin 15.5 g/dL (12.2-16.2)
[2025-06-27 16:23] LABS: Hematocrit 46.8 % (36.0-46.0); Mean Corpuscular Hemoglobin 25.4 pg (28.0-32.0); Mean Corpuscular Volume 76.9 fL (80.0-100.0); Nucleated Red Blood Cells % 0.0 %
[2025-06-27 16:40] LABS: Alanine Aminotransferase 21 U/L (7-40); Alkaline Phosphatase 84 U/L (46-116); Anion Gap 7 (5-15); BUN/Creatinine Ratio 14.2 (10.0-20.0); Bilirubin, Total 0.9 mg/dL (0.2-1.0); Blood Urea Nitrogen 17 mg/dL (9-23); Chloride 102 mmol/L (98-107); Glucose 105 mg/dL (74-106); Potassium 4.2 mmol/L (3.5-5.1); Sodium 143 mmol/L (136-145); Total Protein 7.3 g/dL (5.7-8.2)
[2025-06-27 16:42] LABS: Albumin 5.3 g/dL (3.2-4.8); Calcium 11.0 mg/dL (8.7-10.4); Carbon Dioxide 34 mmol/L (20-31)
== END 2025-06-27 17:00 | disposition home or self-care (01) ==
LOC: LAB 15:51
PROVIDERS: ATTEND Internal Medicine Hematology & Oncology
DX: D47.Z2 Castleman disease (principal)
CPT/HCPCS: 36415; 80053; 82728; 85025; 86141

== ENCOUNTER 2025-09-13 08:45 | Outpatient (CLI) | payer MEDICARE, MEDICAID ==
[2025-09-13 09:58] LABS: Alanine Aminotransferase 24 U/L (7-40); Albumin 4.8 g/dL (3.2-4.8); Alkaline Phosphatase 76 U/L (46-116); Anion Gap 9 (5-15); BUN/Creatinine Ratio 14.1 (10.0-20.0); Bilirubin, Total 0.7 mg/dL (0.2-1.0); Blood Urea Nitrogen 12 mg/dL (9-23); Calcium 10.0 mg/dL (8.7-10.4); Chloride 102 mmol/L (98-107); Glucose 79 mg/dL (74-106); HDL Cholesterol 44 mg/dL (40-59); Sodium 143 mmol/L (136-145); Total Protein 7.1 g/dL (5.7-8.2); Triglycerides 109 mg/dL (< 150)
[2025-09-13 10:03] LABS: Carbon Dioxide 32 mmol/L (20-31); Cholesterol 212 mg/dL (< 200); Potassium 3.5 mmol/L (3.5-5.1)
[2025-09-13 10:20] LABS: Microalb/Creat Ratio, Urine 6.0
== END 2025-09-13 17:00 | disposition home or self-care (01) ==
LOC: LAB 08:45
PROVIDERS: ATTEND Internal Medicine
DX: E11.9 Type 2 diabetes mellitus without complications
CPT/HCPCS: 36415; 80053; 80061; 82043; 82570; 82728; 83036; 83970; 86141